=== PATIENT | female | born 1950 | race Caucasian/White ===

== ENCOUNTER 2024-09-16 13:52 | Inpatient (IN) | payer MEDICARE, SELFPAY ==
[2024-09-16] VITALS (10 sets, daily range): BP systolic 92–139; BP diastolic 59–72; BMI 26.1
[2024-09-16 04:30] LABS: Hematocrit 33.3 % (37.0-47.0); Hemoglobin 10.7 g/dL (12.0-16.0); Mean Corp Hgb Conc. 32.1 g/dL (33.0-37.0); Mean Corpuscular Volume 91.7 fL (81.0-99.0); Platelet Count 160 10^3/uL (130-400); Red Cell Dist. Width 13.4 % (11.5-14.5)
[2024-09-16 05:04] LABS: ALT (SGPT) 27 U/L (0-35); AST (SGOT) 30 U/L (14-36); Albumin 3.8 g/dl (3.5-5.0); Alkaline Phosphatase 99 U/L (38-126); Blood Urea Nitrogen 54 mg/dl (7-17); Calcium 9.6 mg/dl (8.4-10.2); Carbon Dioxide 22 mmol/L (22-30); Chloride 109 mmol/L (98-107); Estimated Creatinine Clearance 14 ml/min; Glucose 97 mg/dl (70-99); Potassium 5.1 mmol/L (3.5-5.1); Sodium 137 mmol/L (135-145); Total Protein 6.9 g/dl (6.3-8.2); eGFR 15.21
[2024-09-16 05:24] LABS: Absolute Neutrophils -Man Diff 17.3 10^3/uL (1.4-6.5); Anisocytosis 1+; Normal RBC Morphology No; Platelets Checked Yes; Total Cells Counted 100
[2024-09-16 05:40] LABS: Urine Character Cloudy (Clear)
[2024-09-16 06:30] LABS: Urine Squamous Cell >30 /LPF (Few)
[2024-09-16 06:31] LABS: Urine Red Blood Cell 16-20 /HPF (0-2)
[2024-09-16 06:32] LABS: Urine White Cell 40-50 /HPF (0-5)
--- NOTE | 2024-09-16 06:48 | ED.GENMED ---
History of Present Illness
<ALEXA Marquez - Last Filed: 09/16/24 13:58>
General
Chief Complaint: Abdominal Pain
Source: patient
Exam Limitations: none
Time Seen by Provider: 09/16/24 06:08
Nursing documentation reviewed up to this point in time: agreed with
History of Present Illness
History of Present Illness:
Patient is a 74-year-old female with past medical history of aortic stenosis, A-fib on Xarelto CAD, chronic kidney disease stage IV CVA iron deficiency anemia status post TAVR 2019 sent to the ER for abdominal pain. Patient is awake alert but can
confused. Unable to give good history. She does point to her abdomen and complains of abdominal pain.
Prior to my exam patient had blood work which shows an elevated white count patient with a low-grade temp of 100.3 and an obvious UTI
Past History
<ALEXA Marquez - Last Filed: 09/16/24 13:58>
Past History
ED Past Medical History: Arrthythmia (Atrial fibrillation), CVA, HTN, Hypercholesterolemia, Valvular disease and Other (DVT, esophageal stricture, osteoarthritis, Colitis, C-diff, Cellulitis, Ascites,)
ED Past Surgical History: Cardiac and Orthopedic (Bilateral knee replacements, Right shoulder surgery)
Social History
Tobacco: Former smoker
Alcohol: Daily
Drug: None
Personal: Single
Living: with roommate
Employment: Employed
Family History
Family History: Other
Phy Exam
<ALEXA Marquez - Last Filed: 09/16/24 13:58>
General Physical Exam
General Presentation: no apparent distress
General age: appears stated age
General Skin: warm and dry
General Habitus: normal
General Mental: confused
General Hydration: dry mucous membranes
Cardiovascular Exam
Cardiovascular Exam: tachycardia
Pulmonary Exam
Pulmonary Exam: lungs clear
Gastrointestinal Exam
Gastrointestinal Exam: soft and other (Nonspecific tenderness)
Neurological Exam
Neurological Exam: alert and other (able to state name attempts to folllow commands )
Musculoskeletal Exam
Musculoskeletal Exam: full ROM
Skin Exam
Skin Exam: normal color and warm/dry
Psychiatric Exam
Psychiatric Exam: normal mood/affect
Course
<ALEXA Marquez - Last Filed: 09/16/24 13:58>
Orders/Labs/Results
Orders:
Orders
09/16/24 04:10
CMP [Comprehensive Metabolic Panel] Urgent
Complete Blood Count/With Diff Urgent
Ferritin Urgent
Comment: ADD ON
Iron Urgent
Comment: ADD ON
Manual Differential Urgent
Comment: ADD ON
Total Iron Binding Urgent
Comment: ADD ON
Vitamin B12 Urgent
Comment: ADD ON
09/16/24 05:32
Urinalysis Reflex To Culture Urgent
Date Specimen was Collected: 09/16/24
Time Specimen was Collected: 05:29
Urine Microscopic Reflex Cult Urgent
Urine Culture Urgent
OTTONIEL Source: U
Specimen Description:
Date Specimen was Collected: 09/16/24
Time Specimen was Collected: 05:29
09/16/24 06:54
CT Abd/pel Without Iv Or Oral Urgent
Comment:
Reason For Exam: pain/constipation/uti /renal failure
09/16/24 06:55
0.9% Sodium Chloride 500 ml [Nss] 500 ml IV BOLUS
CefTRIAXone [Rocephin] 1,000 mg IV NOW STA
09/16/24 06:56
Acetaminophen [Tylenol] 650 mg PO NOW STA
09/16/24 06:57
0.9% Sodium Chloride 1000 ml [Nss] 2,100 ml IV NOW STA
09/16/24 07:12
Lactic Acid Q4H
Comment: CANCEL 2nd LACTIC ACID IF 1st LACTIC ACID IS LESS THAN 2
Blood Culture Q30M
OTTONIEL Source: Blood/Venous
Specimen Description:
09/16/24 07:30
Blood Culture Q30M
OTTONIEL Source: Blood/Venous
Specimen Description:
09/16/24 08:48
US Abdomen Complete/Upper Urgent
Comment:
Reason For Exam: pain /fever
09/16/24 11:56
Electrocardiogram (*1) Stat
Reason for Study: Other
Other Reason for Exam: chest pain
EKG- Treatment ONCE
09/16/24 12:30
Add On- LAB Routine
Tests Added?: iron,tibc,ferritin,b12
09/16/24 12:45
0.9% Sodium Chloride 1000 ml [Nss] 1,000 ml IV 60 mls/hr
09/16/24 12:48
Admit/Transfer Patient As Directed
Co-Sign Provider:
Level of Care: Inpatient admission
Assign to:: Telemetry
Physician / Group: gissel
Diagnosis: sepsis
Reason for Telemetry: Arrhythmia
Date to Stop Telemetry: 09/19/24
Time to Stop Telemetry: 11:00
Reason for Hospitalization: sepsis
Expected length of stay greater than two midnights?: Yes
ELOS- Estimated Length of Stay in days: 3
I certify the patient meets the requirements for IP care: Yes
09/16/24 12:49
PRN Pain Medication Management As Directed
May give lesser potent ordered pain med per pt: Yes
preference::
Protocol:: Medication orders for pain may be administered in a
manner that supports deferring to patient preference
when the pt is:
- Requesting an ordered lesser potent pain medication.
Least to most potent pain medications are defined
as: acetaminophen < NSAID < tramadol < opioids
(morphine, oxycodone, hydromorphone).
- Requesting a lesser dose of the same medication IF
ORDERED.
- Requesting a less intrusive route of administration
if both routes are prescribed by the provider (PO <
IV).
09/16/24 12:50
Code Status As Directed
Resuscitation Status: Do not resuscitate
Reached after discussion with pt or family/Healthcare POA: Yes
DNR Bracelet Application ONCE
09/16/24 13:00
Flush (0.9% Sodium Chloride) [Flush (Nss)] See Dose Instructions IV PER PROTOCOL
09/16/24 13:42
Piperacillin/Tazo 3.375 Gram [Zosyn] 3.375 gram in 50 ml IV NOW
09/16/24 13:45
0.9% Sodium Chloride 1000 ml [Nss] 1,000 ml IV 60 mls/hr
09/16/24 13:47
Consult Interventional Radiology [IRAD CONSULT] Routine
Consulting Provider: Sd Sauceda
Was physician already notified: Yes
Procedure being ordered, including laterality if applicable: Mary tube
Acknowledgement that appropriate orders are entered: Yes
09/19/24 11:00
DC Protocol for Telemetry ONCE
Abnormal Lab Results
09/16/24 09/16/24
04:10 05:32
WBC 19.3 H 10^3/uL
(4.8-10.8)
RBC 3.63 L 10^6/uL
(4.20-5.40)
Hgb 10.7 L g/dL
(12.0-16.0)
Hct 33.3 L %
(37.0-47.0)
MCHC 32.1 L g/dL
(33.0-37.0)
MPV 11.1 H fL
(7.4-10.4)
Abs Neuts (Manual) 17.3 H 10^3/uL
(1.4-6.5)
Segmented Neutrophils 90 H %
(42-75)
Lymphocytes (Manual) 10 L %
(20-51)
Chloride 109 H mmol/L
(98-107)
BUN 54 H mg/dl
(7-17)
Creatinine 3.1 H mg/dL
(0.6-1.0)
Iron 24 L ug/dl
(37-170)
TIBC 193 L ug/dl
(265-497)
% Saturation 12 L %
(20-50)
Ur Occult Blood Reflex 3+ A
(Negative)
Urine Nitrite (Reflex) Positive A
(Negative)
Leukocyte Esterase Rfl 2+ A
(Negative)
Urine RBC 16-20 A /HPF
(0-2)
Urine WBC (Reflex) 40-50 A /HPF
(0-5)
Urine Bacteria (Reflex) Many A
(Negative)
Urine Albumin (Reflex) 4+ A
(Neg - Trace)
09/16/24 04:10
09/16/24 04:10
Vital Signs
Initial and Last Documented VS:
Initial Vital Signs
Temp Pulse Resp
100.3 F 117 28
09/16/24 03:55 09/16/24 03:55 09/16/24 03:55
Last Documented Vital Signs
Temp Pulse Resp BP Pulse Ox
100.3 F 113 26 137/72 96
09/16/24 04:03 09/16/24 10:46 09/16/24 08:08 09/16/24 08:08 09/16/24 08:08
Chapter Relations Administrator consulted with Physician
Chapter Relations Administrator consulted with physician?: Yes
Name of Physician Consulted: gio
<Ricky Leahy, DO - Last Filed: 09/16/24 12:54>
Orders/Labs/Results
Orders:
Orders
09/16/24 04:10
CMP [Comprehensive Metabolic Panel] Urgent
Complete Blood Count/With Diff Urgent
Ferritin Urgent
Comment: ADD ON
Iron Urgent
Comment: ADD ON
Manual Differential Urgent
Comment: ADD ON
Total Iron Binding Urgent
Comment: ADD ON
Vitamin B12 Urgent
Comment: ADD ON
09/16/24 05:32
Urinalysis Reflex To Culture Urgent
Date Specimen was Collected: 09/16/24
Time Specimen was Collected: 05:29
Urine Microscopic Reflex Cult Urgent
Urine Culture Urgent
OTTONIEL Source: U
Specimen Description:
Date Specimen was Collected: 09/16/24
Time Specimen was Collected: 05:29
09/16/24 06:54
CT Abd/pel Without Iv Or Oral Urgent
Comment:
Reason For Exam: pain/constipation/uti /renal failure
09/16/24 06:55
0.9% Sodium Chloride 500 ml [Nss] 500 ml IV BOLUS
CefTRIAXone [Rocephin] 1,000 mg IV NOW STA
09/16/24 06:56
Acetaminophen [Tylenol] 650 mg PO NOW STA
09/16/24 06:57
0.9% Sodium Chloride 1000 ml [Nss] 2,100 ml IV NOW STA
09/16/24 07:12
Lactic Acid Q4H
Comment: CANCEL 2nd LACTIC ACID IF 1st LACTIC ACID IS LESS THAN 2
Blood Culture Q30M
OTTONIEL Source: Blood/Venous
Specimen Description:
09/16/24 07:30
Blood Culture Q30M
OTTONIEL Source: Blood/Venous
Specimen Description:
09/16/24 08:48
US Abdomen Complete/Upper Urgent
Comment:
Reason For Exam: pain /fever
09/16/24 11:56
Electrocardiogram (*1) Stat
Reason for Study: Other
Other Reason for Exam: chest pain
EKG- Treatment ONCE
09/16/24 12:30
Add On- LAB Routine
Tests Added?: iron,tibc,ferritin,b12
09/16/24 12:45
0.9% Sodium Chloride 1000 ml [Nss] 1,000 ml IV 60 mls/hr
09/16/24 12:48
Admit/Transfer Patient As Directed
Co-Sign Provider:
Level of Care: Inpatient admission
Assign to:: Telemetry
Physician / Group: gissel
Diagnosis: sepsis
Reason for Telemetry: Arrhythmia
Date to Stop Telemetry: 09/19/24
Time to Stop Telemetry: 11:00
Reason for Hospitalization: sepsis
Expected length of stay greater than two midnights?: Yes
ELOS- Estimated Length of Stay in days: 3
I certify the patient meets the requirements for IP care: Yes
09/16/24 12:49
PRN Pain Medication Management As Directed
May give lesser potent ordered pain med per pt: Yes
preference::
Protocol:: Medication orders for pain may be administered in a
manner that supports deferring to patient preference
when the pt is:
- Requesting an ordered lesser potent pain medication.
Least to most potent pain medications are defined
as: acetaminophen < NSAID < tramadol < opioids
(morphine, oxycodone, hydromorphone).
- Requesting a lesser dose of the same medication IF
ORDERED.
- Requesting a less intrusive route of administration
if both routes are prescribed by the provider (PO <
IV).
09/16/24 12:50
Code Status As Directed
Resuscitation Status: Do not resuscitate
Reached after discussion with pt or family/Healthcare POA: Yes
DNR Bracelet Application ONCE
09/16/24 13:00
Flush (0.9% Sodium Chloride) [Flush (Nss)] See Dose Instructions IV PER PROTOCOL
09/16/24 13:42
Piperacillin/Tazo 3.375 Gram [Zosyn] 3.375 gram in 50 ml IV NOW
09/16/24 13:45
0.9% Sodium Chloride 1000 ml [Nss] 1,000 ml IV 60 mls/hr
09/16/24 13:47
Consult Interventional Radiology [IRAD CONSULT] Routine
Consulting Provider: Sd Sauceda
Was physician already notified: Yes
Procedure being ordered, including laterality if applicable: Mary tube
Acknowledgement that appropriate orders are entered: Yes
09/19/24 11:00
DC Protocol for Telemetry ONCE
Abnormal Lab Results
09/16/24 09/16/24
04:10 05:32
WBC 19.3 H 10^3/uL
(4.8-10.8)
RBC 3.63 L 10^6/uL
(4.20-5.40)
Hgb 10.7 L g/dL
(12.0-16.0)
Hct 33.3 L %
(37.0-47.0)
MCHC 32.1 L g/dL
(33.0-37.0)
MPV 11.1 H fL
(7.4-10.4)
Abs Neuts (Manual) 17.3 H 10^3/uL
(1.4-6.5)
Segmented Neutrophils 90 H %
(42-75)
Lymphocytes (Manual) 10 L %
(20-51)
Chloride 109 H mmol/L
(98-107)
BUN 54 H mg/dl
(7-17)
Creatinine 3.1 H mg/dL
(0.6-1.0)
Iron 24 L ug/dl
(37-170)
TIBC 193 L ug/dl
(265-497)
% Saturation 12 L %
(20-50)
Ur Occult Blood Reflex 3+ A
(Negative)
Urine Nitrite (Reflex) Positive A
(Negative)
Leukocyte Esterase Rfl 2+ A
(Negative)
Urine RBC 16-20 A /HPF
(0-2)
Urine WBC (Reflex) 40-50 A /HPF
(0-5)
Urine Bacteria (Reflex) Many A
(Negative)
Urine Albumin (Reflex) 4+ A
(Neg - Trace)
09/16/24 04:10
09/16/24 04:10
Vital Signs
Initial and Last Documented VS:
Initial Vital Signs
Temp Pulse Resp
100.3 F 117 28
09/16/24 03:55 09/16/24 03:55 09/16/24 03:55
Last Documented Vital Signs
Temp Pulse Resp BP Pulse Ox
100.3 F 113 26 137/72 96
09/16/24 04:03 09/16/24 10:46 09/16/24 08:08 09/16/24 08:08 09/16/24 08:08
<ALEXA Marquez - Last Filed: 09/16/24 13:58>
MDM/Problems Addressed
Differential Diagnosis Includes:
Not limited to: UTI, diverticulitis, biliary colic
MDM/Problems Addressed:
As documented patient is a 74-year-old female with cognitive impairment from nursing facility sent for evaluation of abdominal pain. Patient is a poor historian she is tender on exam. Patient presents with a fever of 100.3 nonspecific abdominal
tenderness urinalysis does show infection. Patient does have an elevated white count. She does have chronic kidney disease and her BUN today is 54 creatinine is 3.1 9, which is increased from 2.December. Patient was ordered a noncontrast
CAT scan which does show cardiomegaly pericardial effusion, some gallbladder stones with some gallbladder wall thickening and some right upper quadrant likely pericholecystic stranding could represent cholecystitis ultrasound ordered. Patient has
UTI IV Rocephin ordered. Patient presents with elevated heart rate fever elevated white count sepsis criteria septic fluids ordered
. CAse discussed With DR Leahy.
Ultrasound done and shows cholelithiasis with at least 1 gallstone in the vicinity of the neck of the gallbladder as well as some gallbladder wall thickening no findings to suggest pericholecystic fluid or biliary duct dilatation negative Norwood
sign.
With findings surgery made aware. pt adm to the hospitalist service .
I did speak with patient's brother over the phone Janusz Shrestha
Chronic conditions affecting care:
dementia
<ALEXA Marquez - Last Filed: 09/16/24 13:58>
*Radiology
Radiology exam reviewed: radiology read reviewed
*Pulse Oximetry
SaO2: 96
Oxygen Mode of Delivery: Room air
Patient hypoxic: no
<Ricky Leahy DO - Last Filed: 09/16/24 12:54>
*Cotton Ball Bagger Interpretation
Rate: tachycardiac
Interpretation: abnormal
Heart Rate: 118
Rhythm: a-fib
*Critical Care Note
Total Time (30-74mins, 75-104mins- exclusive of procedures): 30
Data Reviewed
Source: patient
<ALEXA Marquez - Last Filed: 09/16/24 13:58>
Patient Management
Discussion with other providers: Gimp Buttonhole Machine Operator (general surg, Dr Rodriguez )
ED Attending Note
<ALEXA Marquez - Last Filed: 09/16/24 13:58>
-
Portions of this chart may have been created with voice recognition software.� Occasional wrong word or��sound alike� substitutions may have occurred due to the inherent limitations of voice recognition software.
<Ricky Leahy, DO - Last Filed: 09/16/24 12:54>
ED Attending Note
Patient seen and examined by attending physician: Yes
I performed the substantive portion of visit, reviewed & personally made and approve the management plan that is documented in note by myself or MARILUZ.: Yes
ED Attending Note:
Seen with her practitioner examined independently 74-year-old female abdominal pain fever CT and ultrasound noted she is anticoagulated fluids will be ordered antibiotics will be ordered surgery's been consulted
Discharge Plan
Departure
Patient Disposition: Admit
Date of Disposition: 09/16/24
Time of Disposition: 11:51
Admit to: Telemetry
Admit to doctor: hospitalist
Presentation/result/management discussed w/ accepting MD/DO: Hospitalist
Patient with high blood pressure during this ER visit?: No
Condition: Fair
Covid-19: Not Applicable
Discharge Problem:
urosepsis
Interventions
Interventions:
*Risk Screen - Suicide Last Done: 09/16/24 04:07
*General Assessment Last Done: 09/16/24 04:06
*Neglect/Abuse Screening Last Done: 09/16/24 04:08
*ED- Fall Risk Assessment Last Done: 09/16/24 04:58
*ED COVID-19 Vaccine History Last Done: 09/16/24 04:06
LX-Befuas-Wyrtoyqxsf Assessment Last Done: 09/16/24 04:07
[2024-09-16] MEDS: TYLENOL 650 MG PO (07:03)
[2024-09-16] MEDS: ROCEPHIN 1000 MG IV (07:03)
[2024-09-16] MEDS: NSS 2100 ML IV (07:05)
--- NOTE | 2024-09-16 12:19 | HPS.HSE ---
Addendum entered and electronically signed by Sima Hutton MD 09/16/24 12:59:
I saw and examined the patient.
The MEAT PASSER or PA's note was reviewed and I agree with the note.
Comment: see changes in my documentation.
74-year-old female with abdominal pain also fever of 100.3
CT abdomen and pelvis-cardiomegaly. Small pericardial effusion. Small gallbladder stones with some gallbladder wall thickening and some right upper quadrant pericholecystic stranding findings could represent acute cholecystitis. Moderate
bilateral perinephric stranding no evidence of obstructive uropathy. Descending colon and sigmoid colon diverticulosis. Moderate widespread colonic stool
Ultrasound of the abdomen-cholelithiasis with 1 gallstone in the gallbladder neck as well as some gallbladder wall thickening. No findings to suggest pericholecystic fluid or biliary tract dilatation. Negative sonographic Norwood sign.
EKG-A-fib with RVR rate of 108
Awake and alert communicative
Cardiovascular system S1-S2 appreciated irregular
Chest decreased breath sounds at bases
Abdomen diffusely tender more tenderness on the right upper and lumbar area
No pedal edema
# Sepsis present on admission
Fever abdominal pain
Possible cholecystitis but normal LFTs
Other possibilities UTI
Blood culture sent, urine cultures pending
Likely secondary to acute cholecystitis
Keep n.p.o. with IV fluids
IV antibiotics, ZOsyn
Hold Xarelto, bridge with heparin drip
Surgery consultation
# Paroxysmal atrial fibrillation
Follow rates
Continue amiodarone
Hold Xarelto in case needs surgical procedures
# Coronary artery disease-Details unclear
# Aortic valve-TAVR 2019
# TRACIE on CKD stage IV- Gentle IVF while NPO
# History of stroke
# History of SIADH
# Ambulatory dysfunction- Uses wheel chair at [facility]
# Chronic anemia-check iron studies
# History of DVT-bridged with heparin drip
# Ex-smoker
# DVT prophylaxis-heparin drip
# CODE STATUS-Patient wants to be DNR
Spoke to patient's brother Janusz and updated. Discussed about holding blood thinners, treating infection may need surgery yeah
Part of this note was created using voice recognition system. Occasional wrong word or��sound alike� substitutions may have inadvertently occurred due to the inherent limitations of voice recognition software. If noted kindly bring it to my
attention for correction.
Original Note:
Family Physician
-
Family Physician: Clifford Castro
Chief Complaint
-
Abdominal pain
History of Present Illness
74-year-old female with past medical history of aortic stenosis, A-fib on Xarelto CAD, chronic kidney disease stage IV CVA iron deficiency anemia status post TAVR 2019 sent to the ER for abdominal pain. she is tender to touch. she had low grade temp
at intermediate. denied GLEASON,dizzy or syncope. denied chest pain, sob. denied dysuria or hematuria. denied n.v.d.
Patient received normal saline, Tylenol, ceftriaxone in the ER. Blood culture sent from ER. Admitting for further management
Medical History
Past Medical History
Past Medical History: Reports Other
Additional Past Medical History:
High cholesterol
Hyponatremia
Thrombus of left atrial appendage
Aortic stenosis
CKD 4
CVA
Arthritis
Anxiety
Depression
Past Surgical History: Reports Other
Additional Past Surgical History:
Shoulder surgery
DNC
Foot surgery
Aortic valve replacement
Right TKA
Loop recorder
Social History
Tobacco: Non-smoker
Alcohol: None
Drug: None
Living: Homeless
Family History
Family History: Not pertinent
Allergies / Home Medications
Allergies reflects when Allergies were last updated in [employer].
Home Medications with original date entered in [employer]
Allergy/Medication List:
Allergies
Allergy/AdvReac Type Severity Reaction Status Date / Time
No Known Allergies Allergy Verified 01/08/23 17:13
Home Medications
peg 400-propylene glycol 0.4 %-0.3 % eye drops (Lubricant Eye (PG-PEG 400)) 1 drp BOTH EYES BID dry eyes 12/22/22
amiodarone 100 mg tablet (Pacerone) 100 mg PO DAILY 30 days #30 tabs 12/30/22
rivaroxaban 15 mg tablet (Xarelto) 15 mg PO HS 01/09/23
thiamine HCl (vitamin B1) 100 mg tablet 100 mg PO BID 01/09/23
acetaminophen 325 mg tablet (Tylenol) 650 mg PO Q4HPRN PRN mild pain 09/16/24
bisacodyl 10 mg rectal suppository (Dulcolax (bisacodyl)) 10 mg VA DAILYPRN PRN if no bm aftr mom 09/16/24
buspirone 5 mg tablet 5 mg PO BID 09/16/24
carboxymethylcellulose 0.5 %-glycerin 0.9 % eye drops (Refresh Optive) 1 drp BOTH EYES BID 09/16/24
docusate sodium 100 mg capsule (Colace) 100 mg PO DAILY 09/16/24
loperamide 2 mg tablet 2 mg PO Q8HPRN PRN diarrhea 09/16/24
magnesium hydroxide 400 mg/5 mL oral suspension (Milk of Magnesia) 2,400 mg PO DAILYPRN PRN if no bm aftr 3rd day 09/16/24
sodium phosphates 19 gram-7 gram/118 mL enema (Fleet Enema) 118 ml VA DAILYPRN PRN IF NO BM AFTR DULCOLAX 09/16/24
Review of Systems
-
Constitutional: Reports No Symptoms
EENT: Reports No Symptoms
Respiratory: Reports No Symptoms
Cardiac: Reports No Symptoms
Abdomen/GI: Reports Abdominal Pain
: Reports No Symptoms
Musculoskeletal: Reports No Symptoms
Skin: Reports No Symptoms
Neurological: Reports No Symptoms
Endocrine: Reports No Symptoms
Hematologic/Lymphatic: Reports No Symptoms
Psych: Reports No Symptoms
Physical Exam
Vital Signs
Vital Signs
Temp Pulse Resp BP Pulse Ox
100.3 F 113 26 137/72 96
09/16/24 04:03 09/16/24 10:46 09/16/24 08:08 09/16/24 08:08 09/16/24 08:08
Physical Exam
General: Well Developed, Well Nourished and No Apparent Distress
HEENT: NormoCephalic, Moist mucous membranes and Atraumatic
Respiratory: Clear
Cardiac: S1/S2 and Regular Rhythm; No Murmur or Rub
GI: Soft, Non Distended, Normal Bowel Sounds and Tender; No Organomegaly
Rectal: Deferred by Provider
Musculoskeletal: No Clubbing, No Cyanosis and No Edema
Skin: No Rash
Neuro: AO x 3 and Nonfocal/grossly intact
Psych: Calm
Laboratory Results
-
09/16/24 04:10
09/16/24 04:10
Laboratory Results
Lactic Acid Cancelled 09/16/24 11:00
Total Bilirubin 0.7 mg/dl (0.2-1.3) 09/16/24 04:10
AST 30 U/L (14-36) 09/16/24 04:10
ALT 27 U/L (0-35) 09/16/24 04:10
Alkaline Phosphatase 99 U/L (38-126) 09/16/24 04:10
Data Reviewed
-
CT Scan: Report Reviewed by me
Ultrasound: Report Reviewed by me
Lab Data: Labs Reviewed by me
Impression/Plan
-
# Abdominal pain secondary to gallbladder stones possible acute cholecystitis
-# Sepsis as evidenced by WBCs 19.3, heart rate 113, temp 100.3
- Ultrasound of abdomen with impression Cholelithiasis with at least one gallstone is seen in the vicinity of the gallbladder neck as well as some gallbladder wall thickening. No findings to suggest pericholecystic fluid or biliary tract dilatation.
Negative sonographic Norwood's sign. If there is a clinical suspicion for acute cholecystitis, suggest Nuclear Hepatobiliary scan.
- CT abdomen pelvis with Cardiomegaly. Small pericardial effusion again seen. Heart incompletely included on this study.Likely small gallbladder stones with some gallbladder wall thickening and some right upper quadrant likely pericholecystic
stranding. FINDINGS COULD REPRESENT ACUTE CHOLECYSTITIS. Suggest Abdominal Ultrasound for more complete evaluation.Limited evaluation of intestinal tract without oral or intravenous contrast with some stranding about the hepatic flexure of the colon
likely from the gallbladder, less likely intrinsic inflammation.Moderate bilateral perinephric stranding. No gross findings to suggest obstructive uropathy bilaterally.Descending colon and sigmoid diverticulosis. Moderate volume widespread colonic
stool. No intestinal obstruction or free air.
-keep patient NPO
-fluids continued for hydration
-Dilaudid for pain
-iv Zosyn
-surgery consulted
# Urinary tract infection
-iv Zosyn
-urine culture sent from ER
#anemia of chronic disease
-hgb stable at 10.7, no active bleeding
-ctm
# Acute kidney injury on CKD stage Iv likely dehydration
- Creatinine 3.1
- Fluids continued
- BMP in a.m.
#Hx of A. Fib
EKG with atrial fib with RVR
-HR in 100-115
- continue Amiodarone reduced dose as above
- Hold Xarelto, initiate on heparin drip tonight at 6pm
#hxt of s/p TAVR
#hx of CVA 2020
DVT ppx: heparin drip
DNR
[2024-09-16 13:19] LABS: Iron 24 ug/dl (37-170)
--- NOTE | 2024-09-16 13:34 | CON.GS ---
Addendum entered and electronically signed by Wilfredo Rodriguez MD 09/16/24 13:47:
Attempted to call son for an update. No response.
Original Note:
Medical History
-
Chief Complaint: Abdominal pain
History of Present Illness:
Patient is a 74 yo F with a PMH of HLD, aortic stenosis s/p TAVR, A-fib (on Xarelto), CVA, CKD stage IV, and s/p multiple orthopedic procedures. Ms. Cabrera [facility] due to reports of abdominal pain. Ms. Cabrera
states that she has had upper abdominal pain and discomfort for weeks now. Symptoms were initially more intermittent. Over the past 24 to 48 hours she has had more persistent pain. Worst area of pain is localized to the RUQ. No nausea or
vomiting. She does not report that her pain is specifically worsened with oral intake, however, she does report decreased oral intake over the past several weeks. Low-grade temps at the jail. Currently reports some shortness of breath.
Denies any chest pain. She denies any prior attacks or knowledge of gallbladder issues or stones. She denies any jaundice, pale stools, or tea colored urine.
Past Medical History
Past Medical History: Arrhythmias (Afib), CVA, Hypercholesterolemia, Psychiatric (Depression/anxiety) and Renal Failure
Social History
Tobacco: Non-Smoker
Alcohol: None
Drug: None
Living: Group Home
Family History
Family History: Reviewed & Noncontributory
Allergies / Home Medications
Allergy/AdvReac Type Severity Reaction Status Date / Time
No Known Allergies Allergy Verified 01/08/23 17:13
�Medication �Instructions �Recorded �Confirmed �Type
peg 400-propylene glycol 0.4 %-0.3 1 drp BOTH EYES BID dry eyes 12/22/22 09/16/24 History
% eye drops (Lubricant Eye (PG-PEG
400))
amiodarone 100 mg tablet (Pacerone) 100 mg PO DAILY 30 days #30 tabs 12/30/22 09/16/24 Rx
rivaroxaban 15 mg tablet (Xarelto) 15 mg PO HS 01/09/23 09/16/24 History
thiamine HCl (vitamin B1) 100 mg 100 mg PO BID 01/09/23 09/16/24 History
tablet
acetaminophen 325 mg tablet 650 mg PO Q4HPRN PRN mild pain 09/16/24 09/16/24 History
(Tylenol)
bisacodyl 10 mg rectal suppository 10 mg MO DAILYPRN PRN if no bm 09/16/24 09/16/24 History
(Dulcolax (bisacodyl)) aftr mom
buspirone 5 mg tablet 5 mg PO BID 09/16/24 09/16/24 History
carboxymethylcellulose 0.5 1 drp BOTH EYES BID 09/16/24 09/16/24 History
%-glycerin 0.9 % eye drops
(Refresh Optive)
docusate sodium 100 mg capsule 100 mg PO DAILY 09/16/24 09/16/24 History
(Colace)
loperamide 2 mg tablet 2 mg PO Q8HPRN PRN diarrhea 09/16/24 09/16/24 History
magnesium hydroxide 400 mg/5 mL 2,400 mg PO DAILYPRN PRN if no bm 09/16/24 09/16/24 History
oral suspension (Milk of Magnesia) aftr 3rd day
sodium phosphates 19 gram-7 118 ml MO DAILYPRN PRN IF NO BM 09/16/24 09/16/24 History
gram/118 mL enema (Fleet Enema) AFTR DULCOLAX
Review of Systems
-
A 10 point review of systems was completed, and was negative except as per HPI.
Physical Exam
Vital Signs
Temp Pulse Resp BP Pulse Ox
100.3 F 113 26 137/72 96
09/16/24 04:03 09/16/24 10:46 09/16/24 08:08 09/16/24 08:08 09/16/24 08:08
09/15/24 09/16/24 09/17/24
06:59 06:59 06:59
Actual Weight 69 kg
Body Mass Index (BMI) 26.1
Lab Results
09/16/24 04:10
09/16/24 04:10
WBC 19.3 10^3/uL (4.8-10.8) H 09/16/24 04:10
Hgb 10.7 g/dL (12.0-16.0) L 09/16/24 04:10
Hct 33.3 % (37.0-47.0) L 09/16/24 04:10
Plt Count 160 10^3/uL (130-400) 09/16/24 04:10
Physical Exam
General: Well Developed, Well Nourished and No Apparent Distress
HEENT: Normocephalic and Anicteric
Respiratory: Non Labored Respirations
Cardiac: Irregular Rhythm
GI: Soft, Tender (RUQ, positive Norwood's sign), Distended and Other (Localized peritonitis)
Musculoskeletal: No Edema
Skin: Warm and Dry
Neuro: Nonfocal/Grossly Intact
Data Reviewed
-
CT Scan: Image Personally Visualized and interpreted and Report Reviewed by me
Ultrasound: Image Personally Visualized and interpreted and Report Reviewed by me
Labs: Labs Reviewed by me
Assessment / Plan
-
Patient is a 74 yo F p/w severe acute calculus cholecystitis with possible contained perforation at the fundus of the gallbladder
Brief discussion regarding the natural history and pathophysiology of biliary and stone disease. Workup including CT scan, ultrasound, and labs were reviewed. Current issue unlikely to resolve with antibiotics alone. Options for management
including procedural management with cholecystostomy tube versus surgical management with cholecystectomy were considered discussed. The pros and cons of both approaches was discussed. We specifically discussed that she is at increased risk for
operative complications given her delayed presentation and the resulting severity of her cholecystitis, as well as her active anticoagulation. Recommend and plan for cholecystostomy tube placement. IR updated and consulted. Continue with IV
antibiotics. All questions answered.
-- IR cholecystostomy tube
-- Abx: Zosyn
-- NPO, IVF, OK for clears after her IR procedure
-- Hold Xarelto, if starting Hep gtt will need to coordinate with IR procedure
[2024-09-16] MEDS: NSS 1000 IV (13:36)
[2024-09-16 13:38] LABS: Total Iron Binding Capacity 193 ug/dl (265-497)
--- NOTE | 2024-09-16 13:59 | CM ---
CM reviewed chart and met with pt bedside in ED. Pt resides in LTC at [facility], states she has been there for a year.
Needs assistance with ADLs and personal care. Wheelchair bound, could not get a clear answer if she is able to stand and walk.
Her brother Janusz is POA, lives in [place].
Discharge plan: Anticipate return to [facility] LTC pending ongoing medical evaluation
[2024-09-16 14:10] LABS: Ferritin 788.0 ng/ml (11.1-264.0)
[2024-09-16 14:24] LABS: Vitamin B12 695 pg/ml (239-931)
[2024-09-16] MEDS: ZOSYN 50 IV (18:23)
--- NOTE | 2024-09-16 20:00 | PTCARENOTE ---
Patient with a known history of A.Fib. Patient did not receive her daily dose of Amiodarone 100mg. Patient in uncontrolled A.Fib on monitor. HR sustaining in the 130's. ALEXA Mccray notified and order received to give daily dose of PO Amiodarone
now. Will continue to monitor.
[2024-09-16 20:44] LABS: Hematocrit 27.4 % (37.0-47.0); Hemoglobin 8.9 g/dL (12.0-16.0); Mean Corp Hgb Conc. 32.5 g/dL (33.0-37.0); Mean Corpuscular Volume 91.6 fL (81.0-99.0); Platelet Count 132 10^3/uL (130-400); Red Cell Dist. Width 13.6 % (11.5-14.5)
[2024-09-16] MEDS: BUSPAR 5 MG PO (20:44)
[2024-09-16] MEDS: REFRESH EYE DROPS (PF) 1 DROPS BOTH EYES (20:44)
[2024-09-16] MEDS: PACERONE 100 MG PO (20:45)
[2024-09-16 20:55] LABS: APTT 47.5 Sec (23.4-35.0)
--- NOTE | 2024-09-16 21:30 | PTCARENOTE ---
Patient had outstanding labs. PTT and CBC drawn. PTT slightly elevated. Hgb down from 10.7 to 8.9. No signs of bleeding. Snow Mack notified. Clarified that it was still ok to start Heparin gtt. Ok to start Heparin gtt per protocol. Will
continue to monitor.
[2024-09-16] MEDS: VITAMIN B1 PO (21:38)
[2024-09-16] MEDS: DILAUDID 0.5 MG IV (21:41)
[2024-09-16] MEDS: HEPARIN 25000 UNITS/250 ML IV (21:59)
[2024-09-16] MEDS: REFRESH CELLUVISC GEL 1 DROPS OPHTH (23:14)
[2024-09-16] MEDS: VITAMIN B1 100 MG PO (23:16)
[2024-09-17 00:31] VITALS: BMI 26.1
[2024-09-17] MEDS: ZOSYN 50 IV ×3 (00:53→17:11)
[2024-09-17 03:00] VITALS: BP 117/75
[2024-09-17 04:52] LABS: APTT 72.8 Sec (23.4-35.0)
[2024-09-17 07:00] VITALS: BP 112/75
--- NOTE | 2024-09-17 08:05 | W.PN.UPDATE ---
Update Note
Progress Note Update
Attempted to call brother again to provide update. No response.
--- NOTE | 2024-09-17 08:08 | W.PN.UPDATE ---
Update Note
Progress Note Update
I saw and evaluated the patient. I reviewed the resident�s note and agree with findings and plan as documented in the resident�s note.
Gen: NAD, Awake and alert
Eyes: EOMI, PERRLA, no scleral icterus.
Neck: supple.
CV: tachy, irreg/irreg, +S1/S2, no m/r/g.
Resp: CTAB, no rales, wheezes, or rhonchi.
Abd: +BS, soft, diffuse TTP with guarding, greatest in the RUQ, ND
Skin: No rashes.
Neuro: CN 2-12 intact, non-focal.
Psych: Normal mood and affect.
CT A/P: Cardiomegaly. Small pericardial effusion again seen. Heart incompletely included on this study. Likely small gallbladder stones with some gallbladder wall thickening and some right upper quadrant likely pericholecystic stranding. FINDINGS
COULD REPRESENT ACUTE CHOLECYSTITIS. Suggest Abdominal Ultrasound for more complete evaluation. Limited evaluation of intestinal tract without oral or intravenous contrast with some stranding about the hepatic flexure of the colon likely from the
gallbladder, less likely intrinsic inflammation. Moderate bilateral perinephric stranding. No gross findings to suggest obstructive uropathy bilaterally. Descending colon and sigmoid diverticulosis. Moderate volume widespread colonic stool. No
intestinal obstruction or free air.
Abd U/S: Cholelithiasis with at least one gallstone is seen in the vicinity of the gallbladder neck as well as some gallbladder wall thickening. No findings to suggest pericholecystic fluid or biliary tract dilatation. Negative sonographic Norwood's
sign. If there is a clinical suspicion for acute cholecystitis, suggest Nuclear Hepatobiliary scan.
Sepsis due to acute calculus cholecystitis:
-surgery following, recommending perc jerilyn, IR c/s placed
-cont Zosyn
-follow BCx (seems as if only one was drawn, prelim with GNR)
-c/s ID
-NPO for now
-pain control
-increase IVFs to 125cc/hr (unclear why pt was on only 60cc/hr)
TRACIE on CKD4:
-increase IVF rate to 125cc/hr
Chronic anemia:
-Fe studies suggest Fe def anemia (ferritin currently likely an acute phase reactant)
-trend Hb, transfuse for Hb < 7
Other problems:
PAF: currently on heparin gtt, cont amio
CAD
s/p TAVR 2018
h/o CVA
h/o SIADH
Chronic ambulatory dysfunction
h/o DVT: currently on heparin gtt
Former tobacco abuse d/o
DNR/heparin gtt
[2024-09-17] MEDS: VITAMIN B1 100 MG PO ×2 (09:25→22:13)
[2024-09-17] MEDS: BUSPAR 5 MG PO ×2 (09:25→20:13)
[2024-09-17] MEDS: PACERONE 100 MG PO (09:25)
[2024-09-17] MEDS: COLACE 100 MG PO (09:26)
[2024-09-17] MEDS: REFRESH CELLUVISC GEL 1 DROPS OPHTH ×2 (09:26→22:13)
[2024-09-17] MEDS: REFRESH EYE DROPS (PF) 1 DROPS BOTH EYES ×2 (09:26→20:13)
[2024-09-17 09:46] LABS: Hematocrit 29.4 % (37.0-47.0); Hemoglobin 9.4 g/dL (12.0-16.0); Mean Corp Hgb Conc. 32.0 g/dL (33.0-37.0); Mean Corpuscular Volume 93.0 fL (81.0-99.0); Platelet Count 149 10^3/uL (130-400); Red Cell Dist. Width 13.8 % (11.5-14.5)
--- NOTE | 2024-09-17 09:49 | W.PN.GS2 ---
Today's Communication / Plan
-
IR cholecystostomy tube
Assessment / Plan
-
Patient is a 74 yo F with a PMH of HLD, aortic stenosis s/p TAVR, A-fib (on Xarelto), CVA, CKD stage IV, and s/p multiple orthopedic procedures presented with abdominal pain.
#Sepsis due to Acute calculus Cholecystitis:
Temp= 98.3, afebrile,
WBC count= 17.2-->15.8 (h)
Blood culture- Gram stain of anaerobic - gram negative bacilli.
On 09/[address] scan without contrast:
Likely small gallbladder stones with some gallbladder wall thickening and some right upper quadrant likely pericholecystic stranding. FINDINGS COULD REPRESENT ACUTE CHOLECYSTITIS.
Descending colon and sigmoid diverticulosis. Moderate volume widespread colonic stool. No intestinal obstruction or free air.
On 09/16 Abdomen USG:
Cholelithiasis with at least one gallstone is seen in the vicinity of the gallbladder neck as well as some gallbladder wall thickening. No findings to suggest pericholecystic fluid or biliary tract dilatation.
Negative sonographic Norwood's sign.
planned for IR cholecystostomy tube
Abx: Zosyn DAY 2
NPO,
IVF,
Heparin Sodium 25,000 units/250 ml for DVT
Subjective Data
-
Date of Service: September 17, 2024
Patient has a concern for abdominal pain on her right side, not associated with nausea, vomiting, diarrhea, constipation. She passed her flatus today, but no bowel movement.
Objective Data
-
Intake and Output
09/16/24 09/17/24 09/18/24
06:59 06:59 06:59
Intake Total 0 / 0
Balance 0 / 0
Intake:
Oral fluids 0 / 0
Other:
How many times incontinent 2
SATURATED amount urine
Vital Signs
Temp Pulse Resp BP Pulse Ox
98.3 F 109 16 117/75 96
09/17/24 07:00 09/17/24 09:25 09/17/24 07:00 09/17/24 09:25 09/17/24 07:00
Lab Results
09/17/24 09:25
Calcium 9.6 mg/dl (8.4-10.2) 09/16/24 04:10
Total Bilirubin 0.7 mg/dl (0.2-1.3) 09/16/24 04:10
AST 30 U/L (14-36) 09/16/24 04:10
ALT 27 U/L (0-35) 09/16/24 04:10
Alkaline Phosphatase 99 U/L (38-126) 09/16/24 04:10
Total Protein 6.9 g/dl (6.3-8.2) 09/16/24 04:10
Albumin 3.8 g/dl (3.5-5.0) 09/16/24 04:10
Physical Exam
-
General: Well Developed, Well Nourished and No Apparent Distress
HEENT: Normocephalic and Anicteric
Respiratory: Non Labored Respirations
Cardiac: Irregular Rhythm
GI: Soft, Tender (RUQ, positive Norwood's sign), Distended and Other (Localized peritonitis)
Musculoskeletal: No Edema
Skin: Warm and Dry
Neuro: Nonfocal/Grossly Intact
Patient has a gutierrez catheter: No
Patient has a central line: No
--- NOTE | 2024-09-17 09:57 | PTCARENOTE ---
JORDON MARRUFO- confirmed with [facility] last dose of Xarelto was on 09/15/24 at 1999. spoke to [facility]- nursing staff.
--- NOTE | 2024-09-17 10:03 | CM ---
chart reviewed
Left Message for Alexus at [facility]
Patient resides at [facility]
Referral entered in [facility]
PLAN: Return to [facility] when medically stable
Report #: [phone] Fax #: [phone]
--- NOTE | 2024-09-17 10:32 | W.PN.HOSP.TC ---
Today's Communication/Plan
-
Follow-up ID recs, continue IV Zosyn until then
IR PERC cholecystostomy tube today
Advance diet to CLD after procedure
TRACIE versus RTA, appreciate nephro recs
Assessment / Plan
Assessment / Plan
Ms. Sheikh (Reanna Shrestha) is a 74-year-old female with past medical history of HLD, aortic stenosis s/p TAVR in 2019, A-fib on Xarelto, CVA, CKD stage IV, iron deficiency anemia, who presented from SNF from SNF to the ER on 09/16/2024 with low-grade
fevers (ED temp 100.3), WBC 19.3, tachycardia (113), tachypnea (26), and severe abdominal pain, most pronounced in the right lower quadrant. CT A/P was pertinent for possible acute cholecystitis and abdominal ultrasound showed 1 gallstone in the
gallbladder neck and gallbladder wall thickening. She was started on IV Zosyn, surgery and IR were consulted for further management, and IR is planning to place a percutaneous cholecystostomy tube on 09/17/2024 for management of acalculous
cholecystitis.
#Sepsis secondary to acalculous cholecystitis
-IR and surgery following: IR to place percutaneous cholecystostomy tube today 09/17/2024
--Hold Xarelto, n.p.o.
--IV Dilaudid 0.5 mg every 4 as needed for pain control
--Advance diet to CLD after procedure
--On heparin 25,000 units / 250 mL, IR to coordinate for procedure
-Continue IV Zosyn: Consult ID, appreciate recs
-Maintenance IV fluids changed from 60 cc/hour to 125 cc/hour
#TRACIE on CKD stage IV
Creatinine 3.1. TRACIE versus RTA, unclear ISO infection and inadequate fluid resuscitation.
-Consult nephrology, appreciate recs
-Trend BMP
#Anemia of chronic disease
-Hemoglobin stable, iron studies suggest iron deficiency anemia
--Will continue to monitor
#A-fib
She had an EKG in ED showing A-fib with RVR, heart rate 100-0115
-Continue amiodarone 100 mg p.o. daily
-On heparin drip being managed by IR prior to procedure
#Anxiety
- Continue home BuSpar 5 mg p.o. twice daily
#Constipation
-Continue bowel regimen of Colace 100 mg p.o. daily, senna docusate twice daily as needed, and MiraLAX daily as needed
DVT prophylaxis: Heparin drip
CODE STATUS: DNR
Anticipated Discharge: 24 - 48 hours (Pending IR cholecystostomy tube placement and clinical improvement.)
Subjective/Interval History
-
Date of Service: September 17, 2024
- This morning, she is refusing labs as she is afraid of needles and feels really anxious. Bedside, she is more amenable with reassurance. A second set of blood cultures was drawn bedside as well as her morning labs.
- She also had an episode of urine incontinence and request that her sheets please be changed when she goes for the IR procedure. IR procedure time still pending.
-She continues to complain of abdominal pain worse in the right lower quadrant.
Objective Data
-
Labs:
Laboratory Results
09/17/24 09/17/24 09/17/24
04:15 09:25 10:17
WBC 15.8 H
Hgb 9.4 L
Hct 29.4 L
Plt Count 149
PT Pending
INR Pending
APTT 72.8 H
Sodium Pending
Potassium Pending
Chloride Pending
Carbon Dioxide Pending
BUN Pending
Creatinine Pending
Glucose Pending
Calcium Pending
09/17/24
11:30
WBC
Hgb
Hct
Plt Count
PT
INR
APTT Pending
Sodium
Potassium
Chloride
Carbon Dioxide
BUN
Creatinine
Glucose
Calcium
Vital Signs:
Vital Signs
Temp Pulse Resp BP Pulse Ox
98.3 F 109 16 117/75 96
09/17/24 07:00 09/17/24 09:25 09/17/24 07:00 09/17/24 09:25 09/17/24 07:00
I&O
09/16/24 09/17/24 09/18/24
06:59 06:59 06:59
Intake Total 0 / 0
Balance 0 / 0
Review of Systems
-
All other systems: Reviewed and negative
Constitutional: Reports Weakness
Abdomen/GI: Reports Abdominal Pain
Psych: Reports Anxious
Physical Exam
-
General: Appears in Distress, Pain, Appears Chronically Ill and Other (She is lying flat in bed endorsing a lot of pain in her belly. She appears anxious.)
HEENT: Normocephalic, Atraumatic, Pharyngeal Erythema and Other (Dry MMM)
Respiratory: Clear to Auscultation and Non Labored Respirations
Cardiac: Regular Rhythm, S1/S2 and Other (On telemetry)
GI: Soft, Nondistended, Normal Bowel Sounds and Tender (Especially to palpation of the right lower quadrant)
Skin: Warm and Dry
Neuro: Other (AO x 3 but anxious and sometimes confused)
Psych: Anxious
[2024-09-17 10:36] LABS: Blood Urea Nitrogen 51 mg/dl (7-17); Calcium 8.9 mg/dl (8.4-10.2); Carbon Dioxide 10 mmol/L (22-30); Chloride 116 mmol/L (98-107); Estimated Creatinine Clearance 15 ml/min; Glucose 69 mg/dl (70-99); Potassium 5.1 mmol/L (3.5-5.1); Sodium 140 mmol/L (135-145); eGFR 16.48
[2024-09-17 10:40] LABS: INR 2.00; PT 23.1 Sec (11.4-14.6)
[2024-09-17 11:00] VITALS: BP 123/72
[2024-09-17] MEDS: NSS IV (11:08)
[2024-09-17] MEDS: SODIUM BICARBONATE 1150 MEQ IV ×2 (11:42→23:24)
--- NOTE | 2024-09-17 12:09 | W.CON.NEPH ---
Consultation
-
Date/Time Consultation Requested: 09/17/24 1057
Date/Time Consultation Performed: 09/17/24 1145
Requesting Provider: Ben Calhoun
Performing Provider: Crystal Ames
Reason for Consultation: TRACIE with CKD, met acidosis
Medical History
-
Chief Complaint: abd pain
History of Present Illness:
74-year-old female with past medical history of aortic stenosis s/p TAVR 2019 , A-fib on Amiodarone, Xarelto, CAD, chronic kidney disease stage IV baseline cr low 2 range, CVA who lives at [facility] sent to the ER for abdominal pain of 4day
duration. She noted to have acute cholecystitis from gallstone. There is possibility of contained perforation. Plan is to get a cholecystostomy tube and treat medically. surgery saw the patient. She is currently on the IV fluid support. Her
creatinine on admission was at 3.1, bicarbonate of 22. Today lab shows creatinine of 2.9, worsening met acidosis bicarbonate of 10 hence nephrology consultation. Patient reports ongoing abdominal pain. No nausea or vomiting. Low-grade fever on
admission. No chills. No chest pain or shortness of breath. Denies any dysuria.
Past Medical History
Afib
s/p TAVR
High cholesterol
Hyponatremia
Thrombus of left atrial appendage
Aortic stenosis
CKD 4
CVA
Arthritis
Anxiety
Depression
Past Surgical History: Other (Shoulder surgery DNC Foot surgery Aortic valve replacement Right TKA Loop recorder)
Social History
Tobacco: Non-Smoker
Alcohol: None
Drug: None
Living: Snf
Family History
Family History: Not Pertinent
Allergies / Home Medications
Allergy/AdvReac Type Severity Reaction Status Date / Time
No Known Allergies Allergy Verified 01/08/23 17:13
�Medication �Instructions �Recorded �Confirmed �Type
peg 400-propylene glycol 0.4 %-0.3 1 drp BOTH EYES BID dry eyes 12/22/22 09/16/24 History
% eye drops (Lubricant Eye (PG-PEG
400))
amiodarone 100 mg tablet (Pacerone) 100 mg PO DAILY 30 days #30 tabs 12/30/22 09/16/24 Rx
rivaroxaban 15 mg tablet (Xarelto) 15 mg PO HS Blood Clot 01/09/23 09/17/24 History
Prevention/Tx
thiamine HCl (vitamin B1) 100 mg 100 mg PO BID Supplement 01/09/23 09/16/24 History
tablet
acetaminophen 325 mg tablet 650 mg PO Q4HPRN PRN mild pain 09/16/24 09/16/24 History
(Tylenol)
bisacodyl 10 mg rectal suppository 10 mg WA DAILYPRN PRN if no bm 09/16/24 09/16/24 History
(Dulcolax (bisacodyl)) aftr mom
buspirone 5 mg tablet 5 mg PO BID Mental Health/Anxiety 09/16/24 09/16/24 History
carboxymethylcellulose 0.5 1 drp BOTH EYES BID Eye Condition 09/16/24 09/16/24 History
%-glycerin 0.9 % eye drops
(Refresh Optive)
docusate sodium 100 mg capsule 100 mg PO DAILY Loose Stools 09/16/24 09/16/24 History
(Colace)
loperamide 2 mg tablet 2 mg PO Q8HPRN PRN diarrhea 09/16/24 09/16/24 History
magnesium hydroxide 400 mg/5 mL 2,400 mg PO DAILYPRN PRN if no bm 09/16/24 09/16/24 History
oral suspension (Milk of Magnesia) aftr 3rd day
sodium phosphates 19 gram-7 118 ml WA DAILYPRN PRN IF NO BM 09/16/24 09/16/24 History
gram/118 mL enema (Fleet Enema) AFTR DULCOLAX
Review of Systems
-
All other systems: Negative unless noted
Physical Exam
Vital Signs
Vital Signs
Temp Pulse Resp BP Pulse Ox
99.7 F 120 18 123/72 97
09/17/24 11:00 09/17/24 11:00 09/17/24 11:00 09/17/24 11:00 09/17/24 11:00
Lab Results
WBC 15.8 10^3/uL (4.8-10.8) H 09/17/24 09:25
RBC 3.16 10^6/uL (4.20-5.40) L 09/17/24 09:
Hgb 9.4 g/dL (12.0-16.0) L 09/17/24 09:25
Hct 29.4 % (37.0-47.0) L 09/17/24 09:25
Plt Count 149 10^3/uL (130-400) 09/17/24 09:25
eGFR 16.48 09/17/24 09:25
Albumin 3.8 g/dl (3.5-5.0) 09/16/24 04:10
Abnormal Lab Results
09/16/24 09/17/24 09/17/24
20:38 04:15 09:25
WBC 17.2 H 15.8 H
RBC 2.99 L 3.16 L
Hgb 8.9 L 9.4 L
Hct 27.4 L 29.4 L
MCHC 32.5 L 32.0 L
MPV 11.4 H 12.1 H
PT
APTT 47.5 H 72.8 H
Chloride 116 H
Carbon Dioxide 10 L*
BUN 51 H
Creatinine 2.9 H
Glucose 69 L
09/17/24 09/17/24
10:17 11:51
WBC
RBC
Hgb
Hct
MCHC
MPV
PT 23.1 H
APTT 112.2 H
Chloride
Carbon Dioxide
BUN
Creatinine
Glucose
Physical Exam
General: Awake, Alert, Oriented, AOx3 and No Distress
HEENT: EOMI, Anicteric, Conjunctivae Clear, Facial Symmetry and No JVD
Respiratory: Clear, Normal Excursion and Nonlabored Respirations
Cardiac: S1/S2, Regular Rate/Rhythm and Murmur
Breast: Deferred by me
Abdomen: Soft, Nondistended and Other (mild TTP RUQ)
Musculoskeletal: No Edema
Skin: No Rash
Neuro: Nonfocal/Grossly Intact
Psych: Mood/afflect pleasant, Insight/judgement good and Appropriate
Data Reviewed
-
Labs: Labs Reviewed by me and Discussed with Patient
Assessment/Plan
-
Assessment:
Sepsis secondary to acalculous cholecystitis
TRACIE -CKD 4 (low 2 range)
Non gap, gap Metabolic acidosis
Afib with RVR
History TAVR
Anemia
History CVA
Anxiety
Constipation
Plan:
A/w abd pain and noted acute cholecystitis and sepsis
TRACIE-suspect prerenal, UA UTI sample, mixed sapna on cx
CT and US no hydro, check bladder scan
worsening met acidosis possible cl based IVF and TRACIE
check L acid again, was normal on 09/16
IVF already adjusted to bicarb, follow labs later
For Mary tube today
Bp stable but Afib with RVR remains on AMio
LANDON-monitor hb, no IV fe yet since has GN bacteremia
dose meds renally
d/w pt
[2024-09-17 12:18] LABS: APTT 112.2 Sec (23.4-35.0)
--- NOTE | 2024-09-17 14:42 | CON.ID ---
Consultation
-
Date/Time Consultation Requested: September 17, 2024 4030
Date/Time Consultation Performed: September 17, 2024 1445
Requesting Provider: Dr. Byers
Performing Provider: Dr. Tri Yarbrough
Reason for Consultation: Cholecystitis, bacteremia
Chief Complaint / Past History
Chief Complaint
Abdominal pain
History of Present Illness
She is a 74-year-old female with history of CVA, atrial fibrillation, aortic stenosis status post TAVR, coronary disease, chronic kidney disease, memory impairment who presented to the ED 09/16 from [facility] due to abdominal pain. She states that she
has been having intermittent right side abdominal pain for the past 2 weeks. Abdominal pain has gotten worse. She has chills. No nausea or vomiting. No diarrhea. Appetite is poor. No cough or shortness of breath. No urine symptoms. In ED
temperature 100.3, white count 19.3. CAT scan shows gallbladder wall thickening and gallstones. She is planned for percutaneous cholecystostomy tube placement today.
Past History
Additional Past Medical History:
CVA
Paroxysmal atrial fibrillation
Aortic stenosis s/p TAVR
CAD
History of DVT
CKD4
PAD
Memory impairment
B TKR
Allergy History:
No Known Allergies Allergy (Verified 01/08/23 17:13)
Medications Reviewed: Yes
Current Antibiotics:
Zosyn
Social History
Tobacco: Former Smoker
Alcohol: Former (glass of wine)
Drug: None
Living: Half-Way
Family History
Family History: Not Pertinent
Review of Systems
Review of Systems
General: Fever, Chills and Change in Appetite
HEENT: Negative Sinus Problems or Headache
Cardiovascular: Negative Chest Pain or Dyspnea
Respiratory: Negative Dyspnea or Cough
Gasteroenterology: Negative Nausea, Vomiting or Diarrhea
Genital / Urological: Negative Dysuria or Flank Pain
Endocrine: Weakness
All systems: All other systems were reviewed and were negative
Vital Signs
Temp Pulse Resp BP Pulse Ox
99.7 F 120 18 123/72 97
09/17/24 11:00 09/17/24 11:00 09/17/24 11:00 09/17/24 11:00 09/17/24 11:00
Physical Exam
Physical Exam
Constitutional: No Acute Distress and Chronically Ill
Eyes: No Conjunctival Hemorrhage and Sclera Anicteric
Cardiovascular: Regular Rate and S1/S2
Pulmonary: Clear
Gastrointestinal: Soft, Tender (Right mid and upper quadrant), Non Distended and Normal Bowel Sounds
Genito-Urinary: Negative CVA Tenderness
Extremities: Negative Edema
Neurological: AO x 3
Lab / Diagnostic Study Results
09/17/24 09:25
Total Counted 100 09/16/24 04:10
Abs Neuts (Manual) 17.3 10^3/uL (1.4-6.5) H 09/16/24 04:10
Segmented Neutrophils 90 % (42-75) H 09/16/24 04:10
Band Neutrophils 0 % (0-3) 09/16/24 04:10
Lymphocytes (Manual) 10 % (20-51) L 09/16/24 04:10
PT 23.1 Sec (11.4-14.6) H 09/17/24 10:17
INR 2.00 09/17/24 10:17
Lactic Acid Cancelled 09/16/24 11:00
Ur Squamous Epith Cells >30 /LPF (Few) 09/16/24 05:32
Microbiology Results
Micro:
09/16/24 05:32 Urine Culture - Final
Urine
09/17/24 10:17 Blood Culture - Pending
Blood/Venous
09/17/24 09:25 Blood Culture - Pending
Blood/Venous
09/16/24 07:12 Blood Culture - Preliminary
Blood/Venous Positive culture in progress
Gram Stain - Preliminary
09/17/24 00:37 MRSA Screen - Pending
Nose
09/16/24 CT a/p: Likely small gallbladder stones with some gallbladder wall thickening and some right upper quadrant likely pericholecystic stranding. FINDINGS COULD REPRESENT ACUTE CHOLECYSTITIS. Suggest Abdominal Ultrasound for more complete
evaluation. Moderate bilateral perinephric stranding. No gross findings to suggest obstructive uropathy bilaterally.
09/16/24 ABD US: Cholelithiasis with at least one gallstone is seen in the vicinity of the gallbladder neck as well as some gallbladder wall thickening. No findings to suggest pericholecystic fluid or biliary tract dilatation. Negative sonographic
Norwood's sign. If there is a clinical suspicion for acute cholecystitis, suggest Nuclear Hepatobiliary scan.
Assessment / Plan
# Acute gallstone cholecystitis
# Gram-negative sruthi bacteremia from cholecystitis
# Leukocytosis
- Agree with IR perc jerilyn - send cx's
- Continue Zosyn. Will de-escalate when cx data available.
- Trend temps/wbc
--- NOTE | 2024-09-17 14:58 | W.PN.UPDATE ---
Update Note
Progress Note Update
- IR consulted for jerilyn tube placement in setting of acute cholecystitis and poor surgical candidacy
- Patient was on Xarelto with gfr under 30. SIR guidelines recommends holding 3 doses/days. Plan for insertion tomorrow morning, currently being bridged with heparin. Plans to hold heparin overnight.
- WBC count has mildly improved, low grade fevers today
- Will reach out to brother for consent.
[2024-09-17 15:00] VITALS: BP 134/77
[2024-09-17 18:33] LABS: APTT 87.2 Sec (23.4-35.0)
[2024-09-17 19:00] VITALS: BP 118/58
[2024-09-17 19:24] LABS: Blood Urea Nitrogen 50 mg/dl (7-17); Calcium 8.6 mg/dl (8.4-10.2); Carbon Dioxide 9 mmol/L (22-30); Chloride 117 mmol/L (98-107); Estimated Creatinine Clearance 16 ml/min; Glucose 89 mg/dl (70-99); Potassium 5.0 mmol/L (3.5-5.1); Sodium 140 mmol/L (135-145); eGFR 17.95
[2024-09-17] MEDS: DILAUDID 0.5 MG IV (20:12)
[2024-09-17 23:00] VITALS: BP 138/58
[2024-09-17] MEDS: SODIUM BICARBONATE 50 MEQ IV ×2 (23:02→23:03)
[2024-09-18] VITALS (13 sets, daily range): BP systolic 91–138; BP diastolic 58–88
[2024-09-18 00:54] LABS: APTT 33.7 Sec (23.4-35.0)
[2024-09-18] MEDS: ZOSYN 50 IV ×3 (01:46→17:34)
[2024-09-18] MEDS: DILAUDID 0.5 MG IV ×3 (02:19→19:56)
[2024-09-18 05:38] LABS: Blood Urea Nitrogen 54 mg/dl (7-17); Calcium 8.6 mg/dl (8.4-10.2); Carbon Dioxide 19 mmol/L (22-30); Chloride 111 mmol/L (98-107); Estimated Creatinine Clearance 16 ml/min; Glucose 74 mg/dl (70-99); Hematocrit 24.2 % (37.0-47.0); Hemoglobin 8.0 g/dL (12.0-16.0); Mean Corp Hgb Conc. 33.1 g/dL (33.0-37.0); Mean Corpuscular Volume 90.0 fL (81.0-99.0); Platelet Count 101 10^3/uL (130-400); Potassium 4.6 mmol/L (3.5-5.1); Red Cell Dist. Width 13.7 % (11.5-14.5); Sodium 139 mmol/L (135-145); eGFR 17.95
--- NOTE | 2024-09-18 07:25 | PTCARENOTE ---
transported pt from room 316-1 to IR holding area for perc jerilyn tube placement by Dr. Coats. Heparin gtt on hold since 0300 per primary RN, pt has been NPO. Addressed DNR status with Dr. Coats on pt arrival pre procedure.
--- NOTE | 2024-09-18 08:45 | PTCARENOTE ---
IR procedure completed, pt stable. Spoke with pt's primary RN Tri regarding post procedure orders, tube care, and flushes. IRAD drain care instructions with pt and RX for flushes entered in [employer] by RENARD Nj-to be sent with pt at discharge.
--- NOTE | 2024-09-18 08:50 | W.PN.UPDATE ---
Update Note
Progress Note Update
I saw and evaluated the patient. I reviewed the resident�s note and agree with findings and plan as documented in the resident�s note.
No new complaints.
Gen: NAD, Awake and alert
Eyes: EOMI, PERRLA, no scleral icterus.
Neck: supple.
CV: remains tachy, irreg/irreg, +S1/S2, no m/r/g.
Resp: CTAB anteriorly, no rales, wheezes, or rhonchi.
Abd: +BS, soft, RUQ TTP without guarding, ND
Skin: No rashes.
Neuro: CN 2-12 intact, non-focal.
Psych: Normal mood and affect.
09/17/24 00:37 Nose MRSA Screen - Final
No Methicillin Resistant Staphylococcus aureus isolated.
09/16/24 05:32 Urine Urine Culture - Final
09/16/24 07:12 Blood/Venous Blood Culture - Preliminary
Positive culture in progress
09/16/24 07:12 Blood/Venous Gram Stain - Preliminary
CT A/P: Cardiomegaly. Small pericardial effusion again seen. Heart incompletely included on this study. Likely small gallbladder stones with some gallbladder wall thickening and some right upper quadrant likely pericholecystic stranding. FINDINGS
COULD REPRESENT ACUTE CHOLECYSTITIS. Suggest Abdominal Ultrasound for more complete evaluation. Limited evaluation of intestinal tract without oral or intravenous contrast with some stranding about the hepatic flexure of the colon likely from the
gallbladder, less likely intrinsic inflammation. Moderate bilateral perinephric stranding. No gross findings to suggest obstructive uropathy bilaterally. Descending colon and sigmoid diverticulosis. Moderate volume widespread colonic stool. No
intestinal obstruction or free air.
Abd U/S: Cholelithiasis with at least one gallstone is seen in the vicinity of the gallbladder neck as well as some gallbladder wall thickening. No findings to suggest pericholecystic fluid or biliary tract dilatation. Negative sonographic Norwood's
sign. If there is a clinical suspicion for acute cholecystitis, suggest Nuclear Hepatobiliary scan.
Sepsis due to acute calculus cholecystitis:
-s/p perc jerilyn 09/18/24
-cont Zosyn as per ID
-follow BCxs, initial and repeat (seems as if only one set was drawn on admission, prelim with GNR)
-follow body fluid Cx
-pain control
-cont IVFs as below
TRACIE on CKD4:
-with non-AG met acidsosi
-cont IVFs with NaHCO3
-AG improving
Chronic anemia:
-Fe studies suggest Fe def anemia (ferritin currently likely an acute phase reactant)
-trend Hb, transfuse for Hb < 7
Other problems:
PAF: cont amio, was heparin gtt which is on hold for perc jerilyn, transitioning to Xarelto later today
CAD
s/p R 2018
h/o CVA
h/o SIADH
Chronic ambulatory dysfunction
h/o DVT: currently on heparin gtt
Former tobacco abuse d/o
DNR/was heparin gtt which is on hold for perc jerilyn, transitioning to Xarelto later today
[2024-09-18] MEDS: REFRESH CELLUVISC GEL 1 DROPS OPHTH ×2 (09:22→19:55)
[2024-09-18] MEDS: VITAMIN B1 100 MG PO ×2 (09:22→19:55)
[2024-09-18] MEDS: REFRESH EYE DROPS (PF) 1 DROPS BOTH EYES ×2 (09:22→19:55)
[2024-09-18] MEDS: PACERONE 100 MG PO (09:23)
[2024-09-18] MEDS: BUSPAR 5 MG PO ×2 (09:23→19:55)
[2024-09-18] MEDS: COLACE 100 MG PO (09:23)
--- NOTE | 2024-09-18 10:12 | W.PN.HOSP.TC ---
Today's Communication/Plan
-
IR percutaneous cholecystostomy tube placed
Continue to monitor drain output
Follow-up bile cultures and checking with ID for antibiotic readjustment
Assessment / Plan
Assessment / Plan
Ms. Sheikh (Reanna Shrestha) is a 74-year-old female with past medical history of HLD, aortic stenosis s/p TAVR in 2019, A-fib on Xarelto, CVA, CKD stage IV, iron deficiency anemia, who presented from SNF from [facility] to the ER on 09/16/2024 with low-grade
fevers (ED temp 100.3), WBC 19.3, tachycardia (113), tachypnea (26), and severe abdominal pain, most pronounced in the right lower quadrant. CT A/P was pertinent for possible acute cholecystitis and abdominal ultrasound showed 1 gallstone in the
gallbladder neck and gallbladder wall thickening. She was started on IV Zosyn, surgery and IR were consulted for further management. She is s/p cholecystostomy tube by IR on 09/18/2024.
#Sepsis secondary to acalculous cholecystitis s/p cholecystostomy tube
-IR and surgery following: IR to place percutaneous cholecystostomy tube 09/18/2024
--Draining bile, prelim bile cultures positive for gram cocci in chain
--Restart Xarelto 15 mg every evening
--IV Dilaudid 0.5 mg every 4 as needed for pain control
--Advance diet to CLD for lunch, then advance as tolerated to low-cholesterol.
-- DC'd heparin 25,000 units / 250 mL on 09/17/2024 3 AM
-Continue IV Zosyn: Consult ID, appreciate recs
-Maintenance IV fluids 125 cc/hour
#TRACIE on CKD stage IV, improving
#Nonanion gap metabolic acidosis
Creatinine 3.1. TRACIE versus RTA, unclear ISO infection and inadequate fluid resuscitation. Nephrology suspects prerenal and will continue to monitor and dose meds renally.
-Consult nephrology, appreciate recs
-Trend BMP
#Anemia of chronic disease
-Hemoglobin stable, iron studies suggest iron deficiency anemia
--Will continue to monitor
#A-fib
She had an EKG in ED showing A-fib with RVR, heart rate 100-0115
-Continue amiodarone 100 mg p.o. daily
-On heparin drip being managed by IR prior to procedure
-Start Toprol XL 12.5 mg p.o. daily
#Anxiety
- Continue home BuSpar 5 mg p.o. twice daily
#Constipation
-Continue bowel regimen of Colace 100 mg p.o. daily, senna docusate twice daily as needed, and MiraLAX daily as needed
DVT prophylaxis: Heparin drip
CODE STATUS: DNR
Anticipated Discharge: 24 - 48 hours (Pending bile cultures, antibiotic readjustment per ID, and clinical improvement)
Subjective/Interval History
-
Date of Service: September 18, 2024
-This morning, she is sitting up in bed watching TV and states that she has 3/10 pain in her right abdomen s/p IR cholecystostomy tube today. Compared to yesterday, she is a lot more comfortable appearing and alert.
-Her cholecystostomy tube is draining bile, no pus, and there was a question of whether or not she is infected in there. Bile culture is prelim positive for Gram cocci in chains. ID notified.
-She is started on a clear liquid diet, and we will advance as tolerated.
Objective Data
-
Labs:
Laboratory Results
09/18/24 09/18/24
00:05 05:13
WBC 11.7 H
Hgb 8.0 L
Hct 24.2 L
Plt Count 101 L D
APTT 33.7
Sodium 139
Potassium 4.6
Chloride 111 H
Carbon Dioxide 19 L
BUN 54 H
Creatinine 2.7 H
Glucose 74
Calcium 8.6
Vital Signs:
Vital Signs
Temp Pulse Resp BP Pulse Ox
98.1 F 116 18 97/59 95
09/18/24 09:45 09/18/24 09:45 09/18/24 09:45 09/18/24 09:45 09/18/24 09:56
I&O
09/17/24 09/18/24 09/19/24
06:59 06:59 06:59
Intake Total 0 / 0 420 / 420
Balance 0 / 0 420 / 420
Review of Systems
-
History Source: Patient
All other systems: Reviewed and negative
Abdomen/GI: Reports Pain (Near drain site)
Psych: Reports Anxious
Physical Exam
-
General: No Apparent Distress, Comfortable, Appears Chronically Ill and Other (Sitting up in bed with TV remote and hand, asking about different channels. Generally well-appearing compared to yesterday.)
HEENT: Normocephalic, Atraumatic and Moist Mucous Membranes
Respiratory: Clear to Auscultation and Non Labored Respirations
Cardiac: Regular Rhythm and S1/S2
GI: Soft, Nondistended and Tender (Around drain site)
Musculoskeletal: No Clubbing, No Cyanosis and No Edema
Skin: Warm and Dry
Neuro: AO x 3
Psych: Intact Judgement/Insight and Anxious (Less than yesterday however, short attention span and easily gets nervous.)
--- NOTE | 2024-09-18 10:37 | W.PN.GS2 ---
Addendum entered and electronically signed by Robert Yeh MD 09/18/24 11:09:
I was physically present and personally performed the mccullough portions of the surgical evaluation and/or procedure with the resident. I discussed the findings, reviewed the resident�s note, and confirmed the medical decision-making. I provided direct
supervision as required and agree with the assessment and plan as documented with the following additions/corrections:
Patient seen and examined.
Some discomfort from percutaneous cholecystostomy tube and mild residual abdominal discomfort in the right upper quadrant.
No nausea
AFVSS
NAD AAO x 3
ABD: Softly distended, tenderness in the right upper quadrant but no rebound or guarding. IR drain in place with bilious contents
Assessment/plan: 74-year-old female with acute calculus cholecystitis being managed with percutaneous cholecystostomy tube which was placed this morning
Okay for clear liquid diet
Continue antibiotics
Follow biliary cultures
Supportive care
Will follow
Original Note:
Today's Communication / Plan
-
cholecystostomy tube in place.
Assessment / Plan
-
Patient is a 74 yo F with a PMH of HLD, aortic stenosis s/p TAVR, A-fib (on Xarelto), CVA, CKD stage IV, and s/p multiple orthopedic procedures presented with abdominal pain.
#Sepsis due to Acute calculus Cholecystitis:
Temp= 98.3-->98.1
WBC count= 17.2-->15.8 (h)---> 11.7 (h)
Blood culture- Gram stain of anaerobic - gram negative bacilli.
On 09/[address] scan without contrast:
Likely small gallbladder stones with some gallbladder wall thickening and some right upper quadrant likely pericholecystic stranding. FINDINGS COULD REPRESENT ACUTE CHOLECYSTITIS.
Descending colon and sigmoid diverticulosis. Moderate volume widespread colonic stool. No intestinal obstruction or free air.
On 09/16 Abdomen USG:
Cholelithiasis with at least one gallstone is seen in the vicinity of the gallbladder neck as well as some gallbladder wall thickening. No findings to suggest pericholecystic fluid or biliary tract dilatation.
Negative sonographic Norwood's sign.
-IR consulted and percutaneous drainage along with cholecystostomy tube placed and bile drainage present at the tube around 60 ml greenish fluid.
-Check the tube blockage and drainage amount for the future and planning for the cholecystectomy after 6 weeks in future depending on CKD Stage 4 (creatinine clearance ) condition.
-Abx: Zosyn DAY 3
-Start on clear fluids.
-Heparin Sodium 25,000 units/250 ml for DVT
Subjective Data
-
Date of Service: September 18, 2024
Patient
Objective Data
-
Intake and Output
09/17/24 09/18/24 09/19/24
06:59 06:59 06:59
Intake Total 0 / 0 420 / 420
Balance 0 / 0 420 / 420
Intake:
Oral fluids 0 / 0 420 / 420
Amount instilled into Drain (
Total)
Right Abdomen Biliary Placed in
IR
Other:
How many times incontinent 2
MODERATE amount urine
How many times incontinent 2 1
SATURATED amount urine
Vital Signs
Temp Pulse Resp BP Pulse Ox
98.1 F 116 18 97/59 95
09/18/24 09:45 09/18/24 09:45 09/18/24 09:45 09/18/24 09:45 09/18/24 09:56
Lab Results
09/18/24 05:13
09/18/24 05:13
Calcium 8.6 mg/dl (8.4-10.2) 09/18/24 05:13
Total Bilirubin 0.7 mg/dl (0.2-1.3) 09/16/24 04:10
AST 30 U/L (14-36) 09/16/24 04:10
ALT 27 U/L (0-35) 09/16/24 04:10
Alkaline Phosphatase 99 U/L (38-126) 09/16/24 04:10
Total Protein 6.9 g/dl (6.3-8.2) 09/16/24 04:10
Albumin 3.8 g/dl (3.5-5.0) 09/16/24 04:10
Physical Exam
-
General: Well Developed, Well Nourished and No Apparent Distress
HEENT: Normocephalic and Anicteric
Respiratory: Non Labored Respirations
Cardiac: Irregular Rhythm
GI: Soft, Tender (RUQ, positive Norwood's sign), Distended, right side cholecystostomy tube placed and bile drainage present at the tube around 60 ml greenish fluid.
Musculoskeletal: No Edema
Skin: Warm and Dry
Neuro: Nonfocal/Grossly Intact
Patient has a gutierrez catheter: No
Patient has a central line: No
[2024-09-18] MEDS: TOPROL XL 12.5 MG PO ×2 (11:28→13:55)
--- NOTE | 2024-09-18 12:27 | W.PN.NEPH.PH ---
Today's Communication / Plan
-
recheck labs and adjust IVF
Assessment/Plan
-
Assessment:
Sepsis secondary to acalculous cholecystitis
TRACIE -CKD 4 (low 2 range)
Non gap, gap Metabolic acidosis
Afib with RVR
History TAVR
Anemia
History CVA
Anxiety
Constipation
Plan:
A/w abd pain and noted acute cholecystitis and sepsis
TRACIE-suspect prerenal, UA UTI sample, mixed sapna on cx
CT and US no hydro, follow bladder scan
improving met acidosis on IV bicarb
cr improving
recheck labs later and adjust IVF
s/p Mary tube today
Bp stable but Afib with RVR
LANDON-monitor hb, no IV fe yet since has GN bacteremia
dose meds renally
d/w pt
-
-
Date of Service: September 18, 2024
CC / HPI / ROS
-
Chief Complaint:
TRACIE, CKD, met acidosis
History of Present Illness:
cr better at 2.7
met acidosis is better at 19
Bp stable, tachy is improving
no fever
Review of Systems:
c/o nausea, vomiting
no cp or sob
abd pian improving
Labs
-
Labs:
WBC 11.7 10^3/uL (4.8-10.8) H 09/18/24 05:13
RBC 2.69 10^6/uL (4.20-5.40) L 09/18/24 05:13
Hgb 8.0 g/dL (12.0-16.0) L 09/18/24 05:13
Hct 24.2 % (37.0-47.0) L 09/18/24 05:13
Plt Count 101 10^3/uL (130-400) L D 08/07/25 05:13
Sodium 139 mmol/L (135-145) 09/18/24 05:13
Potassium 4.6 mmol/L (3.5-5.1) 09/18/24 05:13
Chloride 111 mmol/L (98-107) H 09/18/24 05:13
Carbon Dioxide 19 mmol/L (22-30) L 09/18/24 05:13
BUN 54 mg/dl (7-17) H 09/18/24 05:13
Creatinine 2.7 mg/dL (0.6-1.0) H 09/18/24 05:13
eGFR 17.95 09/18/24 05:13
Glucose 74 mg/dl (70-99) 09/18/24 05:13
Calcium 8.6 mg/dl (8.4-10.2) 09/18/24 05:13
Albumin 3.8 g/dl (3.5-5.0) 09/16/24 04:10
Physical Exam
-
Vital Signs:
Vital Signs
Temp Pulse Resp BP Pulse Ox
97.5 F 99 17 115/72 97
09/18/24 10:45 09/18/24 11:28 09/18/24 10:45 09/18/24 11:28 09/18/24 10:45
Cardiovascular:: Regular rate and rhythm
Respiratory:: Bilateral: CTA (decreased)
Lung Excursion:: Normal
Abdomen:: Soft and Tender (gen)
Extremity Edema:: None: Bilateral:
Fournier Catheter: No
[2024-09-18] MEDS: SODIUM BICARBONATE IV ×2 (12:58→13:05)
[2024-09-18] MEDS: TOPROL XL PO (13:45)
[2024-09-18] MEDS: SODIUM BICARBONATE 1150 MEQ IV (13:55)
[2024-09-18] MEDS: ZOFRAN 4 MG IV (14:19)
[2024-09-18 15:05] LABS: Blood Urea Nitrogen 51 mg/dl (7-17); Calcium 8.3 mg/dl (8.4-10.2); Carbon Dioxide 22 mmol/L (22-30); Chloride 106 mmol/L (98-107); Estimated Creatinine Clearance 16 ml/min; Glucose 88 mg/dl (70-99); Potassium 4.4 mmol/L (3.5-5.1); Sodium 138 mmol/L (135-145); eGFR 17.95
--- NOTE | 2024-09-18 15:48 | W.PN.ID1 ---
Date of Service
Date of Service: September 18, 2024
Today's Communication
Continue Zosyn for now.
Assessment / Plan
# Acute gallstone cholecystitis
# Gram-negative sruthi bacteremia (anaerobe) from cholecystitis
# Leukocytosis - trending down
- Repeat blood cx's negative
- 09/18 s/p IR perc jerilyn. Gram stain: GPC chains, Cx pending
- Continue Zosyn. Will de-escalate when cx data available.
- Trend wbc
# Conditions prior to admission.
CVA
Paroxysmal atrial fibrillation
Aortic stenosis s/p TAVR
CAD
History of DVT
CKD4
PAD
Memory impairment
B TKR
Chief Complaint
-: Other (Abd pain)
Subjective / Review of Systems
Feels better.
Vital Signs / Physical Exam
Vital Signs
Vital Signs
Temp Pulse Resp BP Pulse Ox
98.7 F 90 17 125/68 97
09/18/24 15:00 09/18/24 15:00 09/18/24 15:00 09/18/24 15:00 09/18/24 15:00
Physical Exam
Constitutional: Comfortable and Chronically Ill
Pulmonary: Clear
Gastrointestinal: Soft, Tender (mild right abd), Non Distended and Other (RUQ perc jerilyn green bile)
Extremities: Negative Edema
Objective Data
Lab Data
Lab Results
09/18/24 05:13
09/18/24 14:37
PT 23.1 Sec (11.4-14.6) H 09/17/24 10:17
INR 2.00 09/17/24 10:17
APTT 33.7 Sec (23.4-35.0) 09/18/24 00:05
Estimated Creat Clear 16 ml/min 09/18/24 14:37
Lactic Acid 0.7 mmol/L (0.7-2.0) 09/17/24 18:14
Total Bilirubin 0.7 mg/dl (0.2-1.3) 09/16/24 04:10
AST 30 U/L (14-36) 09/16/24 04:10
ALT 27 U/L (0-35) 09/16/24 04:10
Alkaline Phosphatase 99 U/L (38-126) 09/16/24 04:10
Most recent labs reviewed.
Micro Results:
09/17/24 10:17 Blood Culture - Preliminary
Blood/Venous No Growth in 24 hours- Final report to follow
09/17/24 09:25 Blood Culture - Preliminary
Blood/Venous No Growth in 24 hours- Final report to follow
09/18/24 08:10 Body Fluid Culture - Pending
Bile Gram Stain - Preliminary
09/16/24 07:12 Blood Culture - Preliminary
Blood/Venous Positive culture in progress
Gram Stain - Preliminary
09/17/24 00:37 MRSA Screen - Final
Nose No Methicillin Resistant Staphylococcus aureus isolated.
09/16/24 05:32 Urine Culture - Final
Urine
09/16/24 CT a/p: Likely small gallbladder stones with some gallbladder wall thickening and some right upper quadrant likely pericholecystic stranding. FINDINGS COULD REPRESENT ACUTE CHOLECYSTITIS. Suggest Abdominal Ultrasound for more complete
evaluation. Moderate bilateral perinephric stranding. No gross findings to suggest obstructive uropathy bilaterally.
09/16/24 ABD US: Cholelithiasis with at least one gallstone is seen in the vicinity of the gallbladder neck as well as some gallbladder wall thickening. No findings to suggest pericholecystic fluid or biliary tract dilatation. Negative sonographic
Norwood's sign. If there is a clinical suspicion for acute cholecystitis, suggest Nuclear Hepatobiliary scan.
[2024-09-18] MEDS: SODIUM BICARBONATE 1075 MEQ IV (17:31)
[2024-09-18] MEDS: XARELTO 15 MG PO (17:39)
[2024-09-19] MEDS: ZOSYN 50 IV ×2 (02:47→10:06)
[2024-09-19 03:01] VITALS: BP 119/69
[2024-09-19] MEDS: DILAUDID 0.5 MG IV ×2 (04:02→23:20)
[2024-09-19] MEDS: SODIUM BICARBONATE 1075 MEQ IV ×2 (04:02→23:20)
[2024-09-19] MEDS: ZOFRAN 4 MG IV ×2 (05:31→20:27)
[2024-09-19 07:34] VITALS: BP 121/87
[2024-09-19] MEDS: REFRESH EYE DROPS (PF) 1 DROPS BOTH EYES ×2 (07:51→20:27)
[2024-09-19] MEDS: PACERONE 100 MG PO (07:52)
[2024-09-19] MEDS: COLACE 100 MG PO (07:52)
[2024-09-19] MEDS: TOPROL XL 25 MG PO ×2 (07:52→20:28)
[2024-09-19] MEDS: VITAMIN B1 100 MG PO ×2 (07:52→20:27)
[2024-09-19] MEDS: REFRESH CELLUVISC GEL 1 DROPS OPHTH ×2 (07:52→20:27)
[2024-09-19] MEDS: BUSPAR 5 MG PO ×2 (07:52→20:28)
[2024-09-19 08:30] LABS: Hematocrit 26.5 % (37.0-47.0); Hemoglobin 8.6 g/dL (12.0-16.0); Mean Corp Hgb Conc. 32.5 g/dL (33.0-37.0); Mean Corpuscular Volume 91.4 fL (81.0-99.0); Platelet Count 163 10^3/uL (130-400); Red Cell Dist. Width 13.6 % (11.5-14.5)
--- NOTE | 2024-09-19 09:25 | W.PN.UPDATE ---
Update Note
Progress Note Update
I saw and evaluated the patient. I reviewed the resident�s note and agree with findings and plan as documented in the resident�s note.
States she has abd pain when she sneezes, otherwise no new complaints.
Gen: NAD, Awake and alert
Eyes: EOMI, PERRLA, no scleral icterus.
Neck: supple.
CV: continues to remain tachy, irreg/irreg, +S1/S2, no m/r/g.
Resp: remains CTAB anteriorly, no rales, wheezes, or rhonchi.
Abd: remains +BS, soft, RUQ TTP without guarding, ND
Skin: No rashes.
Neuro: CN 2-12 intact, non-focal.
Psych: Normal mood and affect.
09/18/24 08:10 Bile Body Fluid Culture - Preliminary
No Growth After 18-24 Hours
09/18/24 08:10 Bile Gram Stain - Preliminary
09/17/24 10:17 Blood/Venous Blood Culture - Preliminary
No Growth in 24 hours- Final report to follow
09/17/24 09:25 Blood/Venous Blood Culture - Preliminary
No Growth in 24 hours- Final report to follow
09/16/24 07:12 Blood/Venous Blood Culture - Preliminary
Positive culture in progress
09/16/24 07:12 Blood/Venous Gram Stain - Preliminary
09/17/24 00:37 Nose MRSA Screen - Final
No Methicillin Resistant Staphylococcus aureus isolated.
09/16/24 05:32 Urine Urine Culture - Final
CT A/P: Cardiomegaly. Small pericardial effusion again seen. Heart incompletely included on this study. Likely small gallbladder stones with some gallbladder wall thickening and some right upper quadrant likely pericholecystic stranding. FINDINGS
COULD REPRESENT ACUTE CHOLECYSTITIS. Suggest Abdominal Ultrasound for more complete evaluation. Limited evaluation of intestinal tract without oral or intravenous contrast with some stranding about the hepatic flexure of the colon likely from the
gallbladder, less likely intrinsic inflammation. Moderate bilateral perinephric stranding. No gross findings to suggest obstructive uropathy bilaterally. Descending colon and sigmoid diverticulosis. Moderate volume widespread colonic stool. No
intestinal obstruction or free air.
Abd U/S: Cholelithiasis with at least one gallstone is seen in the vicinity of the gallbladder neck as well as some gallbladder wall thickening. No findings to suggest pericholecystic fluid or biliary tract dilatation. Negative sonographic Norwood's
sign. If there is a clinical suspicion for acute cholecystitis, suggest Nuclear Hepatobiliary scan.
Sepsis due to acute calculus cholecystitis:
-s/p perc jerilyn 09/18/24
-cont Zosyn as per ID
-follow BCxs, initial and repeat (seems as if only one set was drawn on admission, prelim with GNR)
-follow body fluid Cx (NGTD)
-pain control
-cont IVFs as below
-leukocytosis has resolved
TRACIE on CKD4:
-with non-AG met acidosis
-cont IVFs with NaHCO3
-HCO3- improving
Chronic anemia:
-Fe studies suggest Fe def anemia (ferritin currently likely an acute phase reactant)
-trend Hb, transfuse for Hb < 7
PAF with RVR:
-cont amio/Xarelto
-Toprol XL started 09/18/24, still with poor rate control
-c/s cards
Other problems:
CAD
s/p R 2018
h/o CVA
h/o SIADH
Chronic ambulatory dysfunction
h/o DVT: con Xarelto
Former tobacco abuse d/o
DNR/Xarelto
[2024-09-19 10:01] LABS: Blood Urea Nitrogen 47 mg/dl (7-17); Calcium 8.6 mg/dl (8.4-10.2); Carbon Dioxide 26 mmol/L (22-30); Chloride 102 mmol/L (98-107); Estimated Creatinine Clearance 16 ml/min; Glucose 73 mg/dl (70-99); Potassium 4.0 mmol/L (3.5-5.1); Sodium 137 mmol/L (135-145); eGFR 18.78
--- NOTE | 2024-09-19 10:15 | W.PN.GS2 ---
Today's Communication / Plan
-
follow up in 6 weeks for laparoscopic cholecystectomy.
Assessment / Plan
-
Patient is a 74 yo F with a PMH of HLD, aortic stenosis s/p TAVR, A-fib (on Xarelto), CVA, CKD stage IV, and s/p multiple orthopedic procedures presented with abdominal pain.
#Sepsis due to Acute calculus Cholecystitis:
Temp= 98.3-->98.1
WBC count= 15.8 (h)---> 11.7 (h)-->10.8 (n)
Blood culture- Gram stain of anaerobic - gram negative bacilli.
Hb=8.6
On 09/[address] scan without contrast:
Likely small gallbladder stones with some gallbladder wall thickening and some right upper quadrant likely pericholecystic stranding. FINDINGS COULD REPRESENT ACUTE CHOLECYSTITIS.
Descending colon and sigmoid diverticulosis. Moderate volume widespread colonic stool. No intestinal obstruction or free air.
On 09/16 Abdomen USG:
Cholelithiasis with at least one gallstone is seen in the vicinity of the gallbladder neck as well as some gallbladder wall thickening. No findings to suggest pericholecystic fluid or biliary tract dilatation.
Negative sonographic Norwood's sign.
-IR consulted and percutaneous drainage along with cholecystostomy tube placed and bile drainage present at the tube around 60 ml greenish fluid.
-Check the tube blockage and drainage amount for the future and planning for the cholecystectomy after 6 weeks in future depending on CKD Stage 4 (creatinine clearance).
-Abx: Zosyn DAY 4
- Patient was started on Rivaroxaban 15 mg yesterday, monitor for bleeding, Hb- 8.6 for today.
-currently in clear fluids, planning to shift to low fat diet.
Subjective Data
-
Date of Service: September 19, 2024
Overnight patient had abdominal pain at right side upper abdomen, pain is not associated with nausea, vomiting, fever, chills. Patient passed flatus overnight, no bowel movement.
Objective Data
-
Intake and Output
09/18/24 09/19/24 09/20/24
06:59 06:59 06:59
Intake Total 420 / 420 550 / 550
Output Total 400 / 400
Balance 420 / 420 150 / 150
Intake:
Oral fluids 420 / 420 540 / 540
Amount instilled into Drain (
Total)
Right Abdomen Biliary Placed in
IR
Output:
Drain Output (Total) 400 / 400
Right Abdomen Biliary Placed in 400 / 400
IR
Other:
How many times incontinent 2
MODERATE amount urine
How many times incontinent 3
SATURATED amount urine
Vital Signs
Temp Pulse Resp BP Pulse Ox
98.1 F 134 16 121/87 97
09/19/24 07:34 09/19/24 07:34 09/19/24 07:34 09/19/24 07:34 09/19/24 07:34
Lab Results
09/19/24 08:04
09/19/24 08:04
Calcium 8.6 mg/dl (8.4-10.2) 09/19/24 08:04
Total Bilirubin 0.7 mg/dl (0.2-1.3) 09/16/24 04:10
AST 30 U/L (14-36) 09/16/24 04:10
ALT 27 U/L (0-35) 09/16/24 04:10
Alkaline Phosphatase 99 U/L (38-126) 09/16/24 04:10
Total Protein 6.9 g/dl (6.3-8.2) 09/16/24 04:10
Albumin 3.8 g/dl (3.5-5.0) 09/16/24 04:10
Physical Exam
-
General: Well Developed, Well Nourished and No Apparent Distress
HEENT: Normocephalic and Anicteric
Respiratory: Non Labored Respirations
Cardiac: Irregular Rhythm
GI: Soft, Tender (RUQ, positive Norwood's sign), non distended, right side cholecystostomy tube placed and bile drainage present at the tube around 60 ml greenish fluid.
Musculoskeletal: No Edema
Skin: Warm and Dry
Neuro: Nonfocal/Grossly Intact
Patient has a gutierrez catheter: No
Patient has a central line: No
--- NOTE | 2024-09-19 10:39 | CM ---
chart reviewed
Patient resides at [facility]
Referral in [facility]
PLAN: [facility] when stable
Report #: [phone] Fax #: [phone]
--- NOTE | 2024-09-19 11:05 | W.PN.ID1 ---
Date of Service
Date of Service: September 19, 2024
Today's Communication
- Transition Zosyn to Augmentin 875mg po bid through 09/25/24
ID will sign off
Assessment / Plan
# Acute gallstone cholecystitis
# Gram-negative sruthi bacteremia (anaerobe) from cholecystitis
# Leukocytosis - resolved
- Repeat blood cx's negative
- 09/18 s/p IR perc jerilyn. Gram stain: GPC chains, Cx neg to date
- Transition Zosyn to Augmentin 875mg po bid through 09/25/24
ID will sign off
# Conditions prior to admission.
CVA
Paroxysmal atrial fibrillation
Aortic stenosis s/p TAVR
CAD
History of DVT
CKD4
PAD
Memory impairment
B TKR
Chief Complaint
-: Other (Abd pain)
Subjective / Review of Systems
Has some discomfort at jerilyn site.
Vital Signs / Physical Exam
Vital Signs
Vital Signs
Temp Pulse Resp BP Pulse Ox
98.1 F 134 16 121/87 97
09/19/24 07:34 09/19/24 07:34 09/19/24 07:34 09/19/24 07:34 09/19/24 07:34
Physical Exam
Constitutional: No Acute Distress and Comfortable
Cardiovascular: S1/S2 (tachy)
Pulmonary: Clear
Gastrointestinal: Soft, Non Tender, Non Distended and Other (RUQ perc jerilyn + green bile)
Genito-Urinary: Negative CVA Tenderness
Extremities: Negative Edema
Neurological: AO x 3
Objective Data
Lab Data
Lab Results
09/19/24 08:04
09/19/24 08:04
PT 23.1 Sec (11.4-14.6) H 09/17/24 10:17
INR 2.00 09/17/24 10:17
APTT 33.7 Sec (23.4-35.0) 09/18/24 00:05
Estimated Creat Clear 16 ml/min 09/19/24 08:04
Lactic Acid 0.7 mmol/L (0.7-2.0) 09/17/24 18:14
Total Bilirubin 0.7 mg/dl (0.2-1.3) 09/16/24 04:10
AST 30 U/L (14-36) 09/16/24 04:10
ALT 27 U/L (0-35) 09/16/24 04:10
Alkaline Phosphatase 99 U/L (38-126) 09/16/24 04:10
Most recent labs reviewed.
Micro Results:
09/17/24 10:17 Blood Culture - Preliminary
Blood/Venous No Growth in 48 hours- Final report to follow
09/17/24 09:25 Blood Culture - Preliminary
Blood/Venous No Growth in 48 hours- Final report to follow
09/18/24 08:10 Body Fluid Culture - Preliminary
Bile No Growth After 18-24 Hours
Gram Stain - Preliminary
09/16/24 07:12 Blood Culture - Preliminary
Blood/Venous Positive culture in progress
Gram Stain - Preliminary
09/17/24 00:37 MRSA Screen - Final
Nose No Methicillin Resistant Staphylococcus aureus isolated.
09/16/24 05:32 Urine Culture - Final
Urine
09/16/24 CT a/p: Likely small gallbladder stones with some gallbladder wall thickening and some right upper quadrant likely pericholecystic stranding. FINDINGS COULD REPRESENT ACUTE CHOLECYSTITIS. Suggest Abdominal Ultrasound for more complete
evaluation. Moderate bilateral perinephric stranding. No gross findings to suggest obstructive uropathy bilaterally.
09/16/24 ABD US: Cholelithiasis with at least one gallstone is seen in the vicinity of the gallbladder neck as well as some gallbladder wall thickening. No findings to suggest pericholecystic fluid or biliary tract dilatation. Negative sonographic
Norwood's sign. If there is a clinical suspicion for acute cholecystitis, suggest Nuclear Hepatobiliary scan.
[2024-09-19 11:11] VITALS: BP 114/69
--- NOTE | 2024-09-19 11:27 | W.PN.HOSP.TC ---
Today's Communication/Plan
-
Cardiology consulted for known history of A-fib, not on any meds at home, with heart rates in 130s while inpatient
IV Zosyn transition to Augmentin 875 mg twice daily through 09/25/2024
Follow-up with surgery outpatient in 6 weeks for laparoscopic cholecystectomy
Assessment / Plan
Assessment / Plan
Ms. Sheikh (Reanna Shrestha) is a 74-year-old female with past medical history of HLD, aortic stenosis s/p TAVR in 2019, A-fib on Xarelto, CVA, CKD stage IV, iron deficiency anemia, who presented from SNF from SNF to the ER on 09/16/2024 with low-grade
fevers (ED temp 100.3), WBC 19.3, tachycardia (113), tachypnea (26), and severe abdominal pain, most pronounced in the right lower quadrant. CT A/P was pertinent for possible acute cholecystitis and abdominal ultrasound showed 1 gallstone in the
gallbladder neck and gallbladder wall thickening. She was started on IV Zosyn, surgery and IR were consulted for further management. She is s/p cholecystostomy tube by IR on 09/18/2024.
#Sepsis secondary to acalculous cholecystitis s/p cholecystostomy tube
-IR and surgery following: IR to place percutaneous cholecystostomy tube 09/18/2024
--Follow-up in 6 weeks for laparoscopic cholecystostomy
--Draining bile, prelim bile cultures positive for gram cocci in chain
--Xarelto 15 mg every evening
--IV Dilaudid 0.5 mg every 4 as needed for pain control
-- Low-fat, low-cholesterol, low-sodium diet
-- DC'd heparin 25,000 units / 250 mL on 09/17/2024 3 AM
- Stop IV Zosyn: Per ID, transitioned IV Zosyn to Augmentin 875 mg p.o. twice daily through 09/25/2024
-Maintenance IV fluids 125 cc/hour
#TRACIE on CKD stage IV, improving
#Nonanion gap metabolic acidosis
Creatinine 2.6 from 3.1 on admission. TRACIE versus RTA, unclear ISO infection and inadequate fluid resuscitation. Nephrology suspects prerenal and will continue to monitor and dose meds renally.
-Consult nephrology, appreciate recs
--Trend BMP
--Adjust IV fluids
#Anemia of chronic disease
-Hemoglobin stable, iron studies suggest iron deficiency anemia
--Will continue to monitor
#A-fib
She had an EKG in ED showing A-fib with RVR, heart rate 100-115. Heart rate on 09/19/2024 has been in the 130s. She does not take any medications for A-fib. Cardiology was consulted for further recs.
-Cardiology consulted, appreciate recs
-Continue amiodarone 100 mg p.o. daily
-Started Toprol XL 12.5 mg p.o. daily on 09/18/2024
-Home Xarelto
#Anxiety
- Continue home BuSpar 5 mg p.o. twice daily
#Constipation
-Continue bowel regimen of Colace 100 mg p.o. daily, senna docusate twice daily as needed, and MiraLAX daily as needed
DVT prophylaxis: Xarelto
CODE STATUS: DNR
Anticipated Discharge: 24 - 48 hours (Pending cardiology consult and medical stability)
Subjective/Interval History
-
Date of Service: September 19, 2024
- This morning, she is sitting up in bed watching TV and very alert. Per nurse, she refused meds however patient says she did not to do this.
- Started on renal diet, HR in 130s (history of A-fib not on meds), asymptomatic, consulted cards.
Objective Data
-
Labs:
Laboratory Results
09/19/24
08:04
WBC 10.8
Hgb 8.6 L
Hct 26.5 L
Plt Count 163 D
Sodium 137
Potassium 4.0
Chloride 102
Carbon Dioxide 26
BUN 47 H
Creatinine 2.6 H
Glucose 73
Calcium 8.6
Vital Signs:
Vital Signs
Temp Pulse Resp BP Pulse Ox
98.6 F 129 14 114/69 94
09/19/24 11:11 09/19/24 11:11 09/19/24 11:11 09/19/24 11:11 09/19/24 11:11
I&O
09/18/24 09/19/24 09/20/24
06:59 06:59 06:59
Intake Total 420 / 420 550 / 550
Output Total 400 / 400
Balance 420 / 420 150 / 150
Review of Systems
-
All other systems: Reviewed and negative
Abdomen/GI: Reports Pain (Around drain site)
Physical Exam
-
General: No Apparent Distress, Comfortable, Appears Chronically Ill and Other (She is sitting up in bed watching TV, short attention span)
HEENT: Normocephalic, Atraumatic and Moist Mucous Membranes
Respiratory: Clear to Auscultation and Non Labored Respirations
Cardiac: S1/S2, Irregular Rhythm (Known A-fib) and Tachycardic (To the 130s)
GI: Soft, Nontender and Other (Cholecystostomy tube in place, draining bile)
Musculoskeletal: No Clubbing and No Cyanosis
Skin: Warm and Dry
Neuro: AO x 3
Psych: Intact Judgement/Insight
--- NOTE | 2024-09-19 12:24 | W.PN.NEPH.PH ---
Today's Communication / Plan
-
follow BMP
Assessment/Plan
-
Assessment:
Sepsis secondary to acalculous cholecystitis
TRACIE -CKD 4 (low 2 range)
Non gap, gap Metabolic acidosis
Afib with RVR
History TAVR
Anemia
History CVA
Anxiety
Constipation
Plan:
eating
cap IVF
follow BMP
follow hgb, holding IV iron given bacteremia
convert to po abx
-
-
Date of Service: September 19, 2024
CC / HPI / ROS
-
Chief Complaint:
TRACIE, CKD, met acidosis
History of Present Illness:
cr better at 2.6
met acidosis resolved
Bp stable
no fever
Review of Systems:
c/o nausea, vomiting
no cp or sob
abd pian improving
Labs
-
Labs:
WBC 10.8 10^3/uL (4.8-10.8) 09/19/24 08:04
RBC 2.90 10^6/uL (4.20-5.40) L 09/19/24 08:04
Hgb 8.6 g/dL (12.0-16.0) L 09/19/24 08:04
Hct 26.5 % (37.0-47.0) L 09/19/24 08:04
Plt Count 163 10^3/uL (130-400) D 09/19/24 08:04
Sodium 137 mmol/L (135-145) 09/19/24 08:04
Potassium 4.0 mmol/L (3.5-5.1) 09/19/24 08:04
Chloride 102 mmol/L (98-107) 09/19/24 08:04
Carbon Dioxide 26 mmol/L (22-30) 09/19/24 08:04
BUN 47 mg/dl (7-17) H 09/19/24 08:04
Creatinine 2.6 mg/dL (0.6-1.0) H 09/19/24 08:04
eGFR 18.78 09/19/24 08:04
Glucose 73 mg/dl (70-99) 09/19/24 08:04
Calcium 8.6 mg/dl (8.4-10.2) 09/19/24 08:04
Albumin 3.8 g/dl (3.5-5.0) 09/16/24 04:10
Physical Exam
-
Vital Signs:
Vital Signs
Temp Pulse Resp BP Pulse Ox
98.6 F 129 14 114/69 94
09/19/24 11:11 09/19/24 11:11 09/19/24 11:11 09/19/24 11:11 09/19/24 11:11
Cardiovascular:: Regular rate and rhythm
Respiratory:: Bilateral: CTA
Lung Excursion:: Normal
Abdomen:: Nontender and Soft
Bowel Sounds:: Normal
Extremity Edema:: None: Bilateral:
--- NOTE | 2024-09-19 12:26 | CON.CAR ---
Addendum entered and electronically signed by Randolph Mejia MD 09/19/24 18:23:
I saw and examined the patient.
The DIORAMIST's note was reviewed and I agree with the note.
Comment: She is not oriented to place or time.Asking for her car. She does deny cp but does report pain in the luq of the abdomen that is improving. Irreg irreg rate and rhythm, lungs cta.
Her af rate is slightly up. She is persistent not paroxysmal. 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 Will add a second dose of metoprolol 25 tonight and
assess rates. She is on Xarelto but Cr Cl may limit this in the future. Unclear what her baseline ms is as I am just meeting her, but I did alert the nursing team and Dr Damon to my findings.
Original Note:
Documented by User: ALEXA Bob 09/19/24 13:44
Consultation
Consultation Request
Date/Time Consultation Requested: 09/19/24 9:40a
Date/Time Consultation Performed: 09/19/24 11a
Requesting Provider: Dr. Byers
Performing Provider: ALEXA Bob for Dr. Mejia
Reason for Consultation: afib
Medical History
-
Chief Complaint: abdominal pain
History of Present Illness:
Mrs. Shrestha is a 74 yo female with paroxysmal Afib on Xarelto, LBBB, s/p TAVR 01/2019, HTN, PAD, s/p MDT LINQ ILR 03/2021, and memory impairment, who presents to the ER with c/o abdominal pain. She is admitted to the hospitalist service, imaging
showed concern for acute cholecystitis and she is s/p percutaneous jerilyn tube 09/18/24. We are consulted for rapid Afib. As an outpatient she is on Amiodarone 100mg daily and recently (08/2024) the physican at [facility] stopped her Xarelto, for
unclear reasons. There is now a new physican there who resumed her Xarelto 08/29/24, according to nurse at [facility]. Currently her Afib rates are in the 80s to 100s, she denies any cardiac symptoms.
Past Medical History
Past Medical History: Other (as above)
Past Surgical History: Other (as above)
Social History
Tobacco: Non-Smoker
Living: Assisted Living
Family History
Family History: Reviewed & Not Pertinent
Allergies / Home Medications
Allergy/AdvReac Type Severity Reaction Status Date / Time
No Known Allergies Allergy Verified 01/08/23 17:13
�Medication �Instructions �Recorded �Confirmed �Type
peg 400-propylene glycol 0.4 %-0.3 1 drp BOTH EYES BID dry eyes 12/22/22 09/16/24 History
% eye drops (Lubricant Eye (PG-PEG
400))
amiodarone 100 mg tablet (Pacerone) 100 mg PO DAILY 30 days #30 tabs 12/30/22 09/16/24 Rx
rivaroxaban 15 mg tablet (Xarelto) 15 mg PO HS Blood Clot 01/09/23 09/17/24 History
Prevention/Tx
thiamine HCl (vitamin B1) 100 mg 100 mg PO BID Supplement 01/09/23 09/16/24 History
tablet
acetaminophen 325 mg tablet 650 mg PO Q4HPRN PRN mild pain 09/16/24 09/16/24 History
(Tylenol)
bisacodyl 10 mg rectal suppository 10 mg OR DAILYPRN PRN if no bm 09/16/24 09/16/24 History
(Dulcolax (bisacodyl)) after mom
buspirone 5 mg tablet 5 mg PO BID anxiety 09/16/24 09/16/24 History
carboxymethylcellulose 0.5 1 drp BOTH EYES BID dry eyes 09/16/24 09/16/24 History
%-glycerin 0.9 % eye drops
(Refresh Optive)
docusate sodium 100 mg capsule 100 mg PO DAILY Loose Stools 09/16/24 09/16/24 History
(Colace)
loperamide 2 mg tablet 2 mg PO Q8HPRN PRN diarrhea 09/16/24 09/16/24 History
magnesium hydroxide 400 mg/5 mL 2,400 mg PO DAILYPRN PRN if no bm 09/16/24 09/16/24 History
oral suspension (Milk of Magnesia) after 3rd day
sodium phosphates 19 gram-7 118 ml OR DAILYPRN PRN no BM after 09/16/24 09/16/24 History
gram/118 mL enema (Fleet Enema) dulcolax
Review of Systems
-
History Source: Patient
All other systems: Negative unless noted
Physical Exam
Vital Signs
Temp Pulse Resp BP Pulse Ox
98.6 F 129 14 114/69 94
09/19/24 11:11 09/19/24 11:11 09/19/24 11:11 09/19/24 11:11 09/19/24 11:11
Lab Results
09/19/24 08:04
09/19/24 08:04
Physical Exam
General: Well Developed, Well Nourished and No Apparent Distress
HEENT: Normocephalic and Moist Mucous Membranes
Respiratory: Clear and Non Labored Respirations
Cardiac: S1/S2 and Irregular Rhythm
Breast: Deferred by me
GI: Soft and Tender (at percutaneous jerilyn tube site)
Rectal: Deferred by Provider
Genito-urinary: No Costovertebral Tender
Musculoskeletal: No Clubbing and No Cyanosis
Skin: Warm and Dry
Neuro: Awake, Alert, Oriented and Other (confused at times )
Hematologic/Lymphatic: No Lymphadenopathy
Psych: Calm
Impression / Plan
-
Afib - paroxysmal but rapid rates in the setting of acute cholecystitis.
- rates 80s-100s and asymptomatic.
- continue Toprol and titrate for rate control.
- on Xarelto 15mg daily, continue.
s/p TAVR - 01/2019.
- stable on echo 12/2022, EF 60-65%, mild MR, TAVR peak/mean gradients 32/19 mmHg, trace AR, mild-mod TR.
CKD - stage [address] Griggs.
- she refuses HD.
- baseline creatinine 2-2.2.
Abdominal pain - acute cholecystitis.
- s/p percutaneous jerilyn tube 09/18/24.
- per hospitalist.
Data Reviewed
-
EKG: Tracing Personally Visualized and interpreted
Medical Tests (Nuc Med, Echo etc): Report Reviewed by me
Labs: Labs Reviewed by me
Old Records: Reviewed

Documented by User: Randolph Mejia MD 09/19/24 14:17
Impression / Plan
-
Afib - persistent
-l but rapid rates in the setting of acute cholecystitis.
- rates 80s-100s and asymptomatic.
- continue Toprol and titrate for rate control.
- on Xarelto 15mg daily, continue.
s/p TAVR - 01/2019.
- stable on echo 12/2022, EF 60-65%, mild MR, TAVR peak/mean gradients 32/19 mmHg, trace AR, mild-mod TR.
CKD - stage [address] Griggs.
- she refuses HD.
- baseline creatinine 2-2.2.
Abdominal pain - acute cholecystitis.
- s/p percutaneous jerilyn tube 09/18/24.
- per hospitalist.
--- NOTE | 2024-09-19 12:57 | W.PN.GS2 ---
Today's Communication / Plan
-
-- LFD as tolerated
-- Abx: ID following, has been transitioned to PO Augmentin
-- IR drain to remain in place, flush daily
-- Outpatient follow-up in 2 weeks for drain management and discussion regarding potential interval cholecystectomy
-- Call with questions or concerns
Assessment / Plan
-
Patient is a 74 yo F with a PMH of HLD, aortic stenosis s/p TAVR, A-fib (on Xarelto), CVA, CKD stage IV, and s/p multiple orthopedic procedures presented with severe acute on chronic cholecystitis
Cholecystitis managed with IR cholecystostomy tube given active anticoagulation and delay in presentation
Clinically stable. Advance diet as tolerated to low-fat diet. Continue to flush drain daily. IR drain will need to remain in place for 6 to 8 weeks. Outpatient follow-up for drain management and discussion regarding potential interval
cholecystectomy.
-- LFD as tolerated
-- Abx: ID following, has been transitioned to PO Augmentin
-- IR drain to remain in place, flush daily
-- Outpatient follow-up in 2 weeks for drain management and discussion regarding potential interval cholecystectomy
-- Call with questions or concerns
Subjective Data
-
Date of Service: September 19, 2024
No major complaints. Does report some abdominal discomfort. Denies any nausea or vomiting. No fevers. Passing flatus, no BM.
Objective Data
-
Intake and Output
09/18/24 09/19/24 09/20/24
06:59 06:59 06:59
Intake Total 420 / 420 550 / 550
Output Total 400 / 400
Balance 420 / 420 150 / 150
Intake:
Oral fluids 420 / 420 540 / 540
Amount instilled into Drain (
Total)
Right Abdomen Biliary Placed in
IR
Output:
Drain Output (Total) 400 / 400
Right Abdomen Biliary Placed in 400 / 400
IR
Other:
How many times incontinent 2
MODERATE amount urine
How many times incontinent 3
SATURATED amount urine
Vital Signs
Temp Pulse Resp BP Pulse Ox
98.6 F 129 14 114/69 94
09/19/24 11:11 09/19/24 11:11 09/19/24 11:11 09/19/24 11:11 09/19/24 11:11
Lab Results
09/19/24 08:04
09/19/24 08:04
Calcium 8.6 mg/dl (8.4-10.2) 09/19/24 08:04
Total Bilirubin 0.7 mg/dl (0.2-1.3) 09/16/24 04:10
AST 30 U/L (14-36) 09/16/24 04:10
ALT 27 U/L (0-35) 09/16/24 04:10
Alkaline Phosphatase 99 U/L (38-126) 09/16/24 04:10
Total Protein 6.9 g/dl (6.3-8.2) 09/16/24 04:10
Albumin 3.8 g/dl (3.5-5.0) 09/16/24 04:10
Physical Exam
-
Gen: NAD
Abd: soft, mild tenderness, ND, non-peritoneal, IR drain with bile
Patient has a gutierrez catheter: No
Patient has a central line: No
[2024-09-19] MEDS: AUGMENTIN 500 MG/125 MG 1 TABLET PO ×2 (13:12→20:27)
[2024-09-19 15:07] VITALS: BP 126/85
[2024-09-19] MEDS: XARELTO 15 MG PO (17:23)
--- NOTE | 2024-09-19 17:29 | PTCARENOTE ---
Pt noted to take tele box off and well as dressing around jerilyn tube. Dressing reinforced throughout shift and tele electrodes replaced. Call dial within reach.
[2024-09-19 19:47] VITALS: BP 120/81
[2024-09-19 22:42] VITALS: BP 108/45
[2024-09-20] VITALS (9 sets, daily range): BP systolic 97–145; BP diastolic 42–88; PULSE 85–105
[2024-09-20] MEDS: DILAUDID 0.5 MG IV ×3 (05:13→17:07)
--- NOTE | 2024-09-20 07:31 | W.PN.HOSP.TC ---
Today's Communication/Plan
-
See A/P
Assessment / Plan
Assessment / Plan
Assessment/plan
#Sepsis secondary to acute acalculous cholecystitis
-s/p percutaneous cholecystostomy 09/18/2024
-ID input appreciated
-S/p Zosyn, now transition to Augmentin 875 mg p.o. BID through 09/25/2024
-Initial cultures positive for gram-negative sruthi bacteremia
-Body fluid culture negative to date
-Pain control with Dilaudid
-Continue IV fluids
-Monitor WBC, temperature curve
#TRACIE on CKD 4
#Non-anion gap metabolic acidosis
-Continue IV fluids with sodium bicarb
-Baseline creatinine 2�2.2
-Declined HD in the past
-Monitor BMP
#Chronic anemia
-Iron studies indicative of iron deficiency anemia
-Monitor CBC
-Consider iron supplementation on discharge after bacteremia clears
#Persistent atrial fibrillation
-Rapid heart rates in the setting of acute cholecystitis
-Continue amiodarone for rate control, Toprol XL added this admission
-Anticoagulation with Xarelto
-Cardiology input appreciated
#Aortic stenosis s/p TAVR 2018
#Anxiety
-Continue buspirone
CODE STATUS DNR
DVT prophylax Xarelto
Anticipated Discharge: 24 - 48 hours
Subjective/Interval History
-
Patient seen and examined at bedside. Denies acute complaints. Reports mild pain at cholecystectomy site.
Objective Data
-
Labs:
Laboratory Results
09/20/24
06:00
WBC Pending
Hgb Pending
Hct Pending
Plt Count Pending
Sodium Pending
Potassium Pending
Chloride Pending
Carbon Dioxide Pending
BUN Pending
Creatinine Pending
Glucose Pending
Calcium Pending
Vital Signs:
Vital Signs
Temp Pulse Resp BP Pulse Ox
98.9 F 122 20 127/79 95
09/19/24 22:42 09/20/24 00:42 09/19/24 22:42 09/20/24 00:42 09/19/24 22:42
I&O
09/19/24 09/20/24 09/21/24
06:59 06:59 06:59
Intake Total 550 / 550
Output Total 400 / 400 325 / 325
Balance 150 / 150 -325 / -325
Review of Systems
-
All other systems: Reviewed and negative (Except as documented)
Physical Exam
-
General: Well Developed and No Apparent Distress
HEENT: Normocephalic
Respiratory: Clear to Auscultation
Cardiac: S1/S2, Irregular Rhythm and Murmur
GI: Soft, Nondistended, Normal Bowel Sounds and Tender (Mildly tender to palpation on the right side)
Musculoskeletal: No Edema
Neuro: Awake, Alert, Oriented and AO x 3
Psych: Calm
--- NOTE | 2024-09-20 08:28 | PTCARENOTE ---
Pt found this am lying flat eating eggs. pt talking to me with mouth wide open food in mouth. I had to ask her to not talk with food in mouth. PT immediately put up to 90 degrees
--- NOTE | 2024-09-20 08:45 | W.PN.UPDATE ---
Update Note
Progress Note Update
I saw and evaluated the patient. I reviewed the resident�s note and agree with findings and plan as documented in the resident�s note.
No new complaints.
Gen: NAD, Awake and alert
Eyes: EOMI, PERRLA, no scleral icterus.
Neck: supple.
CV: tachy, irreg/irreg, +S1/S2, no m/r/g.
Resp: continues to remain CTAB anteriorly, no rales, wheezes, or rhonchi.
Abd: +BS, soft, NT to light palpation, ND
Skin: No rashes.
Neuro: CN 2-12 intact, non-focal.
Psych: Normal mood and affect.
09/16/24 07:12 Blood/Venous Blood Culture - Preliminary
Clostridium cadaveris
09/16/24 07:12 Blood/Venous Gram Stain - Preliminary
09/17/24 10:17 Blood/Venous Blood Culture - Preliminary
No Growth in 48 hours- Final report to follow
09/17/24 09:25 Blood/Venous Blood Culture - Preliminary
No Growth in 48 hours- Final report to follow
09/18/24 08:10 Bile Body Fluid Culture - Preliminary
No Growth After 18-24 Hours
09/18/24 08:10 Bile Gram Stain - Preliminary
09/17/24 00:37 Nose MRSA Screen - Final
No Methicillin Resistant Staphylococcus aureus isolated.
09/16/24 05:32 Urine Urine Culture - Final
CT A/P: Cardiomegaly. Small pericardial effusion again seen. Heart incompletely included on this study. Likely small gallbladder stones with some gallbladder wall thickening and some right upper quadrant likely pericholecystic stranding. FINDINGS
COULD REPRESENT ACUTE CHOLECYSTITIS. Suggest Abdominal Ultrasound for more complete evaluation. Limited evaluation of intestinal tract without oral or intravenous contrast with some stranding about the hepatic flexure of the colon likely from the
gallbladder, less likely intrinsic inflammation. Moderate bilateral perinephric stranding. No gross findings to suggest obstructive uropathy bilaterally. Descending colon and sigmoid diverticulosis. Moderate volume widespread colonic stool. No
intestinal obstruction or free air.
Abd U/S: Cholelithiasis with at least one gallstone is seen in the vicinity of the gallbladder neck as well as some gallbladder wall thickening. No findings to suggest pericholecystic fluid or biliary tract dilatation. Negative sonographic Norwood's
sign. If there is a clinical suspicion for acute cholecystitis, suggest Nuclear Hepatobiliary scan.
PAF with RVR:
-cont amio/Xarelto
-Toprol XL started 09/18/24, now increased
-cards following
Sepsis due to acute calculus cholecystitis:
-s/p perc jerilyn 09/18/24
-Cx data above
-follow body fluid Cx (NGTD)
-pain control
-leukocytosis has resolved
-was on Zosyn, now transitioned to Augmentin through 09/25/24 as per ID
TRACIE on CKD4:
-with non-AG met acidosis, now resolved s/p IVFs with NaHCO3
-Cr improved but not yet at baseline
Chronic anemia:
-Fe studies suggest Fe def anemia (ferritin currently likely an acute phase reactant)
-trend Hb, transfuse for Hb < 7
Other problems:
CAD: cont BB
s/p R 2018
h/o CVA
h/o SIADH
Chronic ambulatory dysfunction
h/o DVT: con Xarelto
Former tobacco abuse d/o
DNR/Xarelto
--- NOTE | 2024-09-20 08:55 | PTCARENOTE ---
PT yelling for help. she vomited her eggs. she was coughing and sounds like she aspirated. I informed MD. no new orders
--- NOTE | 2024-09-20 09:35 | W.PN.CD ---
Addendum entered and electronically signed by Randolph Mejia MD 09/20/24 13:34:
I saw and examined the patient.
The CORN BREEDER's note was reviewed and I agree with the note.
Comment: She is feeling much better now. No cp or sob. Irreg Irreg no m/r/g. Lungs CTA. No le edema. Rates still slightly up. Will titrate metoprolol and reassess.
Original Note:
Today's Communication / Plan
-
Increase metoprolol succinate to 50 mg twice daily
Impression / Plan
-
I/P: 74F with paroxysmal atrial fibrillation (on rivaroxaban), LBBB, s/p TAVR 01/2019, HTN, PAD, s/p MDT LINQ ILR 03/2021, and memory impairment, who presents to the ER with c/o abdominal pain.
Primary construction site manager: Dr. Meredith
Persistent atrial fibrillation
- rapid rates in the setting of acute cholecystitis.
- rates 90s-120s and asymptomatic.
- continue Toprol and titrate for rate control, increased
- on Xarelto 15mg daily, continue.
s/p TAVR - 01/2019.
- stable on echo 12/2022, EF 60-65%, mild MR, TAVR peak/mean gradients 32/19 mmHg, trace AR, mild-mod TR.
CKD - stage [address] Griggs.
- she refuses HD.
- baseline creatinine 2-2.2.
Abdominal pain - acute cholecystitis.
- s/p percutaneous jerilyn tube 09/18/24.
- per hospitalist.
SUBJECTIVE:
Feeling better. No palpitations.
Physical Exam
Vital Signs/Labs
Vital Signs
Temp Pulse Resp BP Pulse Ox
98.6 F 106 20 130/75 95
09/20/24 07:00 09/20/24 07:00 09/20/24 07:00 09/20/24 07:00 09/20/24 07:00
PT 23.1 Sec (11.4-14.6) H 09/17/24 10:17
INR 2.00 09/17/24 10:17
APTT 33.7 Sec (23.4-35.0) 09/18/24 00:05
Physical Exam
Constitutional: No acute distress and Comfortable
EENT: Anicteric and Moist mucous membranes
Cardiovascular: Rhythm & rate is regular, Systolic murmur present and S1S2 is normal
Respiratory: Respiratory effort normal and Lungs clear to auscul.
GI: Soft, Distention absent, Flat, Non tender and Normal bowel sounds
Neuro/Psych: Alert and Oriented (To herself and place)
Other: Skin (Warm and dry without edema)
Data Reviewed
-
Date of Service: September 20, 2024
[2024-09-20] MEDS: BUSPAR 5 MG PO ×2 (09:49→20:12)
[2024-09-20] MEDS: AUGMENTIN 500 MG/125 MG 1 TABLET PO ×2 (09:49→20:12)
[2024-09-20] MEDS: TOPROL XL 25 MG PO (09:49)
[2024-09-20] MEDS: VITAMIN B1 100 MG PO ×2 (09:49→20:12)
[2024-09-20] MEDS: PACERONE 100 MG PO (09:49)
[2024-09-20] MEDS: COLACE 100 MG PO (09:49)
[2024-09-20] MEDS: REFRESH EYE DROPS (PF) 1 DROPS BOTH EYES ×2 (09:50→20:13)
[2024-09-20] MEDS: TYLENOL 650 MG PO (09:50)
[2024-09-20] MEDS: REFRESH CELLUVISC GEL 1 DROPS OPHTH ×2 (09:50→20:12)
[2024-09-20] MEDS: SENOKOT-S 1 TABLET PO (09:50)
[2024-09-20] MEDS: ZOFRAN 4 MG IV ×2 (09:59→17:08)
--- NOTE | 2024-09-20 11:02 | W.PN.NEPH.PH ---
Today's Communication / Plan
-
Follow BMP
Assessment/Plan
-
Assessment:
Sepsis secondary to acalculous cholecystitis
TRACIE -CKD 4 (low 2 range)
Non gap, gap Metabolic acidosis
Afib with RVR
History TAVR
Anemia
History CVA
Anxiety
Constipation
Plan:
eating
No IV fluids needed
follow BMP. Patient is a very difficult stick and we may not be able to get labs daily
follow hgb, holding IV iron given bacteremia
converted to po abx
-
-
Date of Service: September 20, 2024
CC / HPI / ROS
-
Chief Complaint:
TRACIE, CKD, met acidosis
History of Present Illness:
cr better at 2.6 yesterday. Labs pending today
met acidosis resolved
Bp stable
no fever
Review of Systems:
no cp or sob
Labs
-
Labs:
eGFR 18.78 09/19/24 08:04
Albumin 3.8 g/dl (3.5-5.0) 09/16/24 04:10
Physical Exam
-
Vital Signs:
Vital Signs
Temp Pulse Resp BP Pulse Ox
98.6 F 106 20 130/75 95
09/20/24 07:00 09/20/24 07:00 09/20/24 07:00 09/20/24 07:00 09/20/24 07:00
Cardiovascular:: Regular rate and rhythm
Respiratory:: Bilateral: CTA
Lung Excursion:: Normal
Abdomen:: Nontender and Soft
Bowel Sounds:: Normal
Extremity Edema:: None: Bilateral:
[2024-09-20 11:36] LABS: Hematocrit 26.7 % (37.0-47.0); Hemoglobin 8.6 g/dL (12.0-16.0); Mean Corp Hgb Conc. 32.2 g/dL (33.0-37.0); Mean Corpuscular Volume 92.1 fL (81.0-99.0); Platelet Count 183 10^3/uL (130-400); Red Cell Dist. Width 13.5 % (11.5-14.5)
[2024-09-20 11:46] LABS: Blood Urea Nitrogen 41 mg/dl (7-17); Calcium 8.3 mg/dl (8.4-10.2); Carbon Dioxide 31 mmol/L (22-30); Chloride 101 mmol/L (98-107); Estimated Creatinine Clearance 19 ml/min; Glucose 105 mg/dl (70-99); Potassium 4.0 mmol/L (3.5-5.1); Sodium 136 mmol/L (135-145); eGFR 21.76
[2024-09-20] MEDS: XARELTO 15 MG PO (17:13)
--- NOTE | 2024-09-20 17:45 | W.PN.GS2 ---
Today's Communication / Plan
-
XR abd
NPO
Assessment / Plan
-
Patient is a 74 yo F with a PMH of HLD, aortic stenosis s/p TAVR, A-fib (on Xarelto), CVA, CKD stage IV, and s/p multiple orthopedic procedures presented with severe acute on chronic cholecystitis
Cholecystitis managed with IR cholecystostomy tube given active anticoagulation and delay in presentation
AFVSS
Notified by nursing that patient vomited breakfast with nausea throughout the day. Distention no present on exam. Suspect ileus.
Mild leukocytosis
Plan:
-- XR abd today
-- NPO except for sips of clears given nausea
-- Abx: ABX as per ID
-- IR drain to remain in place, flush daily
-- Call with questions or concerns
-- Antiemetics/analgesics prn
--Continue Perc jerilyn drain: Continue to flush drain daily. IR drain will need to remain in place for 6 to 8 weeks. Outpatient follow-up for drain management and discussion regarding potential interval cholecystectomy.
Subjective Data
-
Date of Service: September 20, 2024
Pt seen and examined at bedside with Dr. Rashid. Reports nausea all day. Did eat meals but per nursing vomited thereafter. Pain to epigstrium.
Objective Data
-
Intake and Output
09/19/24 09/20/24 09/21/24
06:59 06:59 06:59
Intake Total 550 / 550
Output Total 400 / 400 325 / 325
Balance 150 / 150 -325 / -325
Intake:
Oral fluids 540 / 540
Amount instilled into Drain (
Total)
Right Abdomen Biliary Placed in
IR
Output:
Drain Output (Total) 400 / 400 325 / 325
Right Abdomen Biliary Placed in 400 / 400 325 / 325
IR
Other:
How many times incontinent 2
MODERATE amount urine
How many times incontinent 3
SATURATED amount urine
Vital Signs
Temp Pulse Resp BP Pulse Ox
98.1 F 97 18 97/59 100
09/20/24 15:00 09/20/24 15:00 09/20/24 15:00 09/20/24 15:00 09/20/24 15:00
Lab Results
09/20/24 10:28
09/20/24 10:28
Calcium 8.3 mg/dl (8.4-10.2) L 09/20/24 10:28
Total Bilirubin 0.7 mg/dl (0.2-1.3) 09/16/24 04:10
AST 30 U/L (14-36) 09/16/24 04:10
ALT 27 U/L (0-35) 09/16/24 04:10
Alkaline Phosphatase 99 U/L (38-126) 09/16/24 04:10
Total Protein 6.9 g/dl (6.3-8.2) 09/16/24 04:10
Albumin 3.8 g/dl (3.5-5.0) 09/16/24 04:10
Physical Exam
-
Gen: NAD
Abd: soft, mild epigastric tenderness, distended, non-peritoneal, IR drain with bile
--- NOTE | 2024-09-20 18:26 | PTCARENOTE ---
Milk of molasses enema given. pt with large brown formed bm
--- NOTE | 2024-09-20 18:31 | PTCARENOTE ---
PT started yelling in severe pain +BS no flatus, last bm yesterday. MD aware, xray ordered dilaudid given> pt now sleeping
[2024-09-20] MEDS: TOPROL XL 50 MG PO (20:12)
[2024-09-21] MEDS: ZOFRAN 4 MG IV ×3 (00:31→19:40)
[2024-09-21] MEDS: DILAUDID 0.5 MG IV ×3 (00:31→19:40)
[2024-09-21 00:40] VITALS: BP 139/73
--- NOTE | 2024-09-21 00:40 | PTCARENOTE ---
Patient c/o abdominal pain, unable to describe or locate - generalized. Also c/o nausea at this time and yelling out into the hallway 'I am dying, get me out of here, somebody call my brother. Janusz! Where are you? I don't feel good.' Provided
patient with IV dilaudid for pain and Zofran for nausea -- see MAR. Patient able to fall back to sleep and rest comfortably following PRNs. Call dial is in reach, bed alarm maintained. Will continue to monitor.
[2024-09-21 03:00] VITALS: BP 129/86
[2024-09-21 06:07] LABS: Blood Urea Nitrogen 38 mg/dl (7-17); Calcium 9.0 mg/dl (8.4-10.2); Carbon Dioxide 28 mmol/L (22-30); Chloride 103 mmol/L (98-107); Estimated Creatinine Clearance 18 ml/min; Glucose 95 mg/dl (70-99); Potassium 4.1 mmol/L (3.5-5.1); Sodium 136 mmol/L (135-145); eGFR 20.68
[2024-09-21 07:00] VITALS: BP 138/75
--- NOTE | 2024-09-21 07:24 | W.PN.HOSP.TC ---
Today's Communication/Plan
-
See A/P
Assessment / Plan
Assessment / Plan
Assessment/plan
#Sepsis secondary to acute acalculous cholecystitis
-s/p percutaneous cholecystostomy 09/18/2024 with IR drain
-ID input appreciated
-S/p Zosyn, now transition to Augmentin 875 mg p.o. BID through 09/25/2024
-Initial cultures positive for gram-negative sruthi bacteremia
-Body fluid culture negative to date
-Pain control with Dilaudid
-Continue IV fluids
-Monitor WBC, temperature curve
#Postop abdominal pain, constipation
-Patient with nausea, vomiting episode after low-fat diet.
-Kept n.p.o.
-Evaluated abdominal d-bqu-rbecrmuvoepsur gas pattern
-Will keep n.p.o., continue to monitor
-Advance diet to clears once nausea and vomiting improves
#TRACIE on CKD 4
#Non-anion gap metabolic acidosis
-Resolved with IV fluids with sodium bicarb. Now DC'd
-New baseline creatinine 2�2.2.
-Declined HD in the past
-Monitor BMP
#Chronic anemia
-Iron studies indicative of iron deficiency anemia
-Monitor CBC
-Consider iron supplementation on discharge after bacteremia clears
#Persistent atrial fibrillation
-Rapid heart rates in the setting of acute cholecystitis
-Continue amiodarone for rate control, Toprol XL added this admission
-Anticoagulation with Xarelto
-Cardiology input appreciated
#Aortic stenosis s/p TAVR 2018
#Anxiety
-Continue buspirone
CODE STATUS DNR
DVT prophylax Xarelto
Anticipated Discharge: 24 - 48 hours
Subjective/Interval History
-
Patient seen and examined at bedside. Still reports nausea. Reports mild abdominal pain. Currently n.p.o.
Objective Data
-
Labs:
Laboratory Results
09/21/24
04:41
Sodium 136
Potassium 4.1
Chloride 103
Carbon Dioxide 28
BUN 38 H
Creatinine 2.4 H
Glucose 95
Calcium 9.0
Vital Signs:
Vital Signs
Temp Pulse Resp BP Pulse Ox
97.6 F 89 18 129/86 97
09/21/24 03:00 09/21/24 03:00 09/21/24 03:00 09/21/24 03:00 09/21/24 03:00
I&O
09/20/24 09/21/24 09/22/24
06:59 06:59 06:59
Intake Total 2210 / 2210
Output Total 325 / 325 175 / 175
Balance -325 / -325 2034
Review of Systems
-
All other systems: Reviewed and negative (Except as documented)
Physical Exam
-
General: Well Developed and No Apparent Distress
HEENT: Normocephalic
Respiratory: Clear to Auscultation
Cardiac: Regular Rhythm, S1/S2 and Murmur
GI: Soft, Normal Bowel Sounds, Tender (Mildly tender to palpation on the right side) and Distended (Mild distention)
Musculoskeletal: No Edema
Neuro: Awake, Alert, Oriented and AO x 3
Psych: Calm
[2024-09-21] MEDS: REFRESH CELLUVISC GEL 1 DROPS OPHTH ×2 (09:38→20:12)
[2024-09-21] MEDS: SENOKOT-S 1 TABLET PO (09:38)
[2024-09-21] MEDS: TOPROL XL 50 MG PO ×2 (09:38→20:24)
[2024-09-21] MEDS: COLACE 100 MG PO (09:38)
[2024-09-21] MEDS: AUGMENTIN 500 MG/125 MG 1 TABLET PO ×2 (09:38→20:12)
[2024-09-21] MEDS: VITAMIN B1 100 MG PO ×2 (09:38→20:12)
[2024-09-21] MEDS: REFRESH EYE DROPS (PF) 1 DROPS BOTH EYES ×2 (09:39→20:13)
[2024-09-21] MEDS: PACERONE 100 MG PO (09:39)
[2024-09-21] MEDS: BUSPAR 5 MG PO ×2 (09:39→20:33)
[2024-09-21 11:00] VITALS: BP 112/74
--- NOTE | 2024-09-21 11:00 | W.PN.GS2 ---
Today's Communication / Plan
-
npo with sips of clears
Assessment / Plan
-
Patient is a 74 yo F with a PMH of HLD, aortic stenosis s/p TAVR, A-fib (on Xarelto), CVA, CKD stage IV, and s/p multiple orthopedic procedures presented with severe acute on chronic cholecystitis
Cholecystitis managed with IR cholecystostomy tube given active anticoagulation and delay in presentation
AFVSS
Persistent nausea. Distention no present on exam. Suspect ileus.
XR with nonobstructive gas pattern
Mild leukocytosis
Plan:
-- In light of nausea, hold laxatives
-- NPO except for sips of clears, ok to advance diet to clears once nausea improved
-- Abx: ABX as per ID
-- Antiemetics/analgesics prn
--Continue Perc jerilyn drain: Continue to flush drain daily. IR drain will need to remain in place for 6 to 8 weeks. Outpatient follow-up for drain management and discussion regarding potential interval cholecystectomy.
Subjective Data
-
Date of Service: September 21, 2024
Pt seen and examined at bedside. Denies further vomiting but has persistent nausea. No passage of flatus today. No Bm's
Objective Data
-
Intake and Output
09/20/24 09/21/24 09/22/24
06:59 06:59 06:59
Intake Total 2209 / 2209
Output Total 325 / 325 175 / 175
Balance -325 / -325 2034
Intake:
Oral fluids 2159 / 2159
IV piggybacks 50 / 50
Output:
Drain Output (Total) 325 / 325 175 / 175
Right Abdomen Biliary Placed in 325 / 325 175 / 175
IR
Other:
How many times incontinent 3
SATURATED amount urine
Vital Signs
Temp Pulse Resp BP Pulse Ox
99.4 F 107 18 138/75 96
09/21/24 07:00 09/21/24 07:00 09/21/24 07:00 09/21/24 07:00 09/21/24 07:00
Lab Results
09/20/24 10:28
09/21/24 04:41
Calcium 9.0 mg/dl (8.4-10.2) 09/21/24 04:41
Total Bilirubin 0.7 mg/dl (0.2-1.3) 09/16/24 04:10
AST 30 U/L (14-36) 09/16/24 04:10
ALT 27 U/L (0-35) 09/16/24 04:10
Alkaline Phosphatase 99 U/L (38-126) 09/16/24 04:10
Total Protein 6.9 g/dl (6.3-8.2) 09/16/24 04:10
Albumin 3.8 g/dl (3.5-5.0) 09/16/24 04:10
Physical Exam
-
Gen: NAD
Abd: soft, mild epigastric tenderness, distended with tympany, non-peritoneal, IR drain with bile
--- NOTE | 2024-09-21 12:04 | W.PN.NEPH.PH ---
Today's Communication / Plan
-
IVF
Assessment/Plan
-
Assessment:
Sepsis secondary to acalculous cholecystitis
TRACIE -CKD 4 (low 2 range)
Non gap, gap Metabolic acidosis
Afib with RVR
History TAVR
Anemia
History CVA
Anxiety
Constipation
Plan:
now NPO with sips
follow BMP. Patient is a very difficult stick and we may not be able to get labs daily
follow hgb
converted to po abx
may need IVF if prolonged NPO
-
-
Date of Service: September 21, 2024
CC / HPI / ROS
-
Chief Complaint:
TRACIE, CKD, met acidosis
History of Present Illness:
cr better at 2.4
met acidosis resolved
Bp stable
no fever
NPO due to vomiting
Review of Systems:
no cp or sob
Labs
-
Labs:
WBC 13.1 10^3/uL (4.8-10.8) H 09/20/24 10:28
RBC 2.90 10^6/uL (4.20-5.40) L 09/20/24 10:28
Hgb 8.6 g/dL (12.0-16.0) L 09/20/24 10:28
Hct 26.7 % (37.0-47.0) L 09/20/24 10:28
Plt Count 183 10^3/uL (130-400) 09/20/24 10:28
Sodium 136 mmol/L (135-145) 09/21/24 04:41
Potassium 4.1 mmol/L (3.5-5.1) 09/21/24 04:41
Chloride 103 mmol/L (98-107) 09/21/24 04:41
Carbon Dioxide 28 mmol/L (22-30) 09/21/24 04:41
BUN 38 mg/dl (7-17) H 09/21/24 04:41
Creatinine 2.4 mg/dL (0.6-1.0) H 09/21/24 04:41
eGFR 20.68 09/21/24 04:41
Glucose 95 mg/dl (70-99) 09/21/24 04:41
Calcium 9.0 mg/dl (8.4-10.2) 09/21/24 04:41
Albumin 3.8 g/dl (3.5-5.0) 09/16/24 04:10
Physical Exam
-
Vital Signs:
Vital Signs
Temp Pulse Resp BP Pulse Ox
98.1 F 88 17 112/74 98
09/21/24 11:00 09/21/24 11:00 09/21/24 11:00 09/21/24 11:00 09/21/24 11:00
Cardiovascular:: Regular rate and rhythm
Respiratory:: Bilateral: CTA
Lung Excursion:: Normal
Abdomen:: Nontender and Soft
Bowel Sounds:: Normal
Extremity Edema:: None: Bilateral:
--- NOTE | 2024-09-21 13:13 | W.PN.CD ---
Today's Communication / Plan
-
Continue current medications.
I will sign off. Please call back with questions.
Impression / Plan
-
I/P: 74F with paroxysmal atrial fibrillation (on rivaroxaban), LBBB, s/p TAVR 01/2019, HTN, PAD, s/p MDT LINQ ILR 03/2021, and memory impairment, who presents to the ER with c/o abdominal pain.
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
Persistent atrial fibrillation
- rapid rates in the setting of acute cholecystitis.
- now controlled
-continue current metoprolol dose
-on amiodarone, continued by her primary census clerk at last visit(Dr Meredith) can decide to stop as outpt
- on Xarelto 15mg daily, continue.
s/p TAVR - 01/2019.
- stable on echo 12/2022, EF 60-65%, mild MR, TAVR peak/mean gradients 32/19 mmHg, trace AR, mild-mod TR.
CKD - stage [address] Griggs.
- she refuses HD.
- baseline creatinine 2-2.2.
Abdominal pain - acute cholecystitis.
- s/p percutaneous jerilyn tube 09/18/24.
- per hospitalist.
SUBJECTIVE:
no complaint
Physical Exam
Vital Signs/Labs
Vital Signs
Temp Pulse Resp BP Pulse Ox
98.1 F 88 17 112/74 98
09/21/24 11:00 09/21/24 11:00 09/21/24 11:00 09/21/24 11:00 09/21/24 11:00
09/20/24 10:28
09/21/24 04:41
PT 23.1 Sec (11.4-14.6) H 09/17/24 10:17
INR 2.00 09/17/24 10:17
APTT 33.7 Sec (23.4-35.0) 09/18/24 00:05
Physical Exam
Constitutional: No acute distress
Cardiovascular: Pedal edema is absent and Diastolic murmur absent
Respiratory: Respiratory effort normal, Lungs clear to auscul., Wheeze Absent and Crackles Absent
Data Reviewed
-
Date of Service: September 21, 2024
EKG: Other (Telemetry with rate controlled atrial fibrillation)
[2024-09-21 15:00] VITALS: BP 122/82
[2024-09-21] MEDS: XARELTO 15 MG PO (17:54)
[2024-09-21] MEDS: ATIVAN 0.5 MG SL (20:36)
[2024-09-22] VITALS: BP 107/74
[2024-09-22 04:30] VITALS: BP 153/72
[2024-09-22] MEDS: DILAUDID 0.5 MG IV ×2 (04:59→14:26)
[2024-09-22] MEDS: ZOFRAN 4 MG IV (05:00)
--- NOTE | 2024-09-22 05:44 | W.PN.UPDATE ---
Update Note
Progress Note Update
Twice this shift pt confused and screaming necessitating ativan po which was effective.
Speaking with RN she states pt has been confused during her stay. Often will scream. Was found wandering few days ago and needed to be moved closer to nurses station. When pt has pain she doesn't verbalize it well and will just scream.
Restraints were placed this am due to trying to hit nurse.
Consider psych consult if behavior continues
--- NOTE | 2024-09-22 05:46 | PTCARENOTE ---
At change of shift pt was yelling out and extremely agitated. Pt was refusing to have VS taken or assessment to take place. Pt was given dilaudid and zofran as report from day shift RN stated that this is what the pt exhibits when having discomfort.
Pt calmed down somewhat but was still yelling out occasionally and pushing staff. Provider operations trainer contacted and pt was given ativan as ordered. Pt settled down somewhat with occasional bouts of yelling out but was redirectable. @ 0530hrs pt began
yelling out consistently and when staff responded asking what she needed, she became belligerent yelling obscenities including physical and verbal threats directed at staff. Pt also stated she would call the police. Pt began hitting, kicking and
attempting to bite staff. Pt placed in 2pt wrist restraints after pt was cleaned due to incontinence. After pt was placed in restraints pt was given dilaudid and zofran again. pt is now awake but calmer, tapping fingers on the bed. No s/s of
distress assessed. Will continue to monitor.
[2024-09-22 06:00] VITALS: BMI 27.4
[2024-09-22 07:30] VITALS: BP 148/79
--- NOTE | 2024-09-22 08:54 | W.PN.GS2 ---
Addendum entered and electronically signed by Wilfredo Rodriguez MD 09/22/24 10:06:
Patient seen and examined.
Delirious and difficult to evaluate. Reports mild nausea, no episodes of emesis. No flatus or BM. Afebrile.
Gen: NAD, oriented to person and place
Abd: soft, NT, moderate distension, tympany, non-peritoneal, IR drain bilious
Patient is a 74 yo F p/w acute cholecystitis
S/p IR jerilyn cystostomy tube on 09/18/2024
Afebrile, intermittent tachycardia
Labs notable for leukocytosis, stable anemia and CKD
Cholecystitis managed with IR tube, appears to be functioning well. Issues with ileus and chronic constipation with PO intolerance over the past 24-48 hrs. Bowel meds and sips of clears for comfort until symptoms improve. R/o alternative causes
for leukocytosis and worsened delirium.
-- Milk of magnesia, Miralax, enemas
-- Sips of clears for comfort
-- R/o alternative causes for leukocytosis
Original Note:
Today's Communication / Plan
-
advance to clear fluid depends on pt tolerability.
Assessment / Plan
-
Patient is a 74 yo F with a PMH of HLD, aortic stenosis s/p TAVR, A-fib (on Xarelto), CVA, CKD stage IV, and s/p multiple orthopedic procedures presented with severe acute on chronic Cholecystitis managed with IR cholecystostomy tube on day 5
#Sepsis due to Acute calculus Cholecystitis:
Tmax- 99.4
WBC count= 15.8 (h)---> 11.7 (h)-->10.8 (n)-->pending result
Blood culture- Gram stain of anaerobic - gram negative bacilli.
Hb=8.6
On 09/[address] scan without contrast:
Likely small gallbladder stones with some gallbladder wall thickening and some right upper quadrant likely pericholecystic stranding. FINDINGS COULD REPRESENT ACUTE CHOLECYSTITIS.
Descending colon and sigmoid diverticulosis. Moderate volume widespread colonic stool. No intestinal obstruction or free air.
On 09/16 Abdomen USG:
Cholelithiasis with at least one gallstone is seen in the vicinity of the gallbladder neck as well as some gallbladder wall thickening. No findings to suggest pericholecystic fluid or biliary tract dilatation.
Negative sonographic Norwood's sign.
-percutaneous drainage along with cholecystostomy tube placed and bile drainage present at the tube around 60 ml, advised to flush daily,
-Check the tube blockage and drainage.
- IR drain will need to remain in place for 6 to 8 weeks.
- Future follow up at outpatient department to discuss regards cholecystectomy depending on CKD Stage 4 (creatinine clearance).
On 09/20 Abdomen x ray obtained had an impression of : Nonobstructive intestinal bowel gas pattern.
- Overnight pt doesnt experience nausea, so planning to restart clear fluids.
- Depends on the tolerability of the fluids planning to give miralax
-Abx: Amoxicillin/ clavulanate 500/125 mg on day 3
-Currently on Rivaroxaban 15 mg for AFib and monitor for bleeding, Hb- 8.6 on 09/20
Subjective Data
-
Date of Service: September 22, 2024
Patient is placed in restrain
Overnight pt was in confused state and screaming, wandering around the hills.
today pt is oriented to the person and obtained history from her and the nurse on duty for the patient : Currently pt is not experiencing abdominal pain, nausea, vomiting, fever, chills.
She doesn't pass flatus, bowel movement overnight.
Objective Data
-
Intake and Output
09/21/24 09/22/24 09/23/24
06:59 06:59 06:59
Intake Total 2210 / 2210
Output Total 275 / 275 90 / 90
Balance 1935 / 193 -80 / -80
Intake:
Oral fluids 2160 / 2160 0 / 0
IV piggybacks 50 / 50
Tube feeding
Output:
Drain Output (Total)
Right Abdomen Biliary Placed in
IR
Other:
How many times incontinent 3 3 2
SATURATED amount urine
Vital Signs
Temp Pulse Resp BP Pulse Ox
98.5 F 107 18 148/79 97
09/22/24 07:30 09/22/24 07:30 09/22/24 07:30 09/22/24 07:30 09/22/24 07:30
Calcium 9.0 mg/dl (8.4-10.2) 09/21/24 04:41
Total Bilirubin 0.7 mg/dl (0.2-1.3) 09/16/24 04:10
AST 30 U/L (14-36) 09/16/24 04:10
ALT 27 U/L (0-35) 09/16/24 04:10
Alkaline Phosphatase 99 U/L (38-126) 09/16/24 04:10
Total Protein 6.9 g/dl (6.3-8.2) 09/16/24 04:10
Albumin 3.8 g/dl (3.5-5.0) 09/16/24 04:10
Physical Exam
-
General: Well Developed, Well Nourished and No Apparent Distress
HEENT: Normocephalic and Anicteric
Respiratory: Non Labored Respirations
Cardiac: Irregular Rhythm
GI: Soft, non Tender (RUQ, positive Norwood's sign), non distended, right side cholecystostomy tube placed and bile drainage present at the tube around 60 ml.
Musculoskeletal: No Edema
Skin: Warm and Dry
Neuro: Nonfocal/Grossly Intact
Patient has a gutierrez catheter: No
Patient has a central line: No
[2024-09-22 09:55] LABS: Hematocrit 29.1 % (37.0-47.0); Hemoglobin 9.1 g/dL (12.0-16.0); Mean Corp Hgb Conc. 31.3 g/dL (33.0-37.0); Mean Corpuscular Volume 94.2 fL (81.0-99.0); Platelet Count 250 10^3/uL (130-400); Red Cell Dist. Width 13.3 % (11.5-14.5)
[2024-09-22 09:56] LABS: Blood Urea Nitrogen 33 mg/dl (7-17); Calcium 9.3 mg/dl (8.4-10.2); Carbon Dioxide 23 mmol/L (22-30); Chloride 106 mmol/L (98-107); Estimated Creatinine Clearance 20 ml/min; Glucose 68 mg/dl (70-99); Potassium 4.4 mmol/L (3.5-5.1); Sodium 137 mmol/L (135-145); eGFR 20.68
[2024-09-22] MEDS: COLACE 100 MG PO (10:14)
[2024-09-22] MEDS: REFRESH CELLUVISC GEL 1 DROPS OPHTH ×2 (10:14→22:20)
[2024-09-22] MEDS: BUSPAR 5 MG PO ×2 (10:14→22:20)
[2024-09-22] MEDS: TOPROL XL 50 MG PO ×2 (10:14→22:20)
[2024-09-22] MEDS: AUGMENTIN 500 MG/125 MG 1 TABLET PO ×2 (10:14→22:20)
[2024-09-22] MEDS: VITAMIN B1 100 MG PO ×2 (10:15→22:20)
[2024-09-22] MEDS: MIRALAX PO ×2 (10:15→12:26)
[2024-09-22] MEDS: MILK OF MAGNESIA 30 ML PO (10:24)
[2024-09-22] MEDS: PACERONE 100 MG PO (10:24)
[2024-09-22] MEDS: REFRESH EYE DROPS (PF) 1 DROPS BOTH EYES ×2 (10:26→22:20)
--- NOTE | 2024-09-22 10:42 | PN.CDI ---
CDI
- -
CDI:
Physician Documentation Request
Admit Date: 09/16/24 13:52
Dear Doctor Michael/Resident ,
Please review the following and provide your response in the progress notes.
Clinical Indicators:
Pt admitted with Sepsis 2/2 Acute Calculous Cholecystitis s/p percutaneous tube
Documented per update note 09/22 2 0544, ' Twice this shift pt confused and screaming necessitating ativan po which was effective. Speaking with RN she states pt has been confused during her stay. Often will scream. Was found wandering few days ago
and needed to be moved closer to nurses station. When pt has pain she doesn't verbalize it well and will just scream. Restraints were placed this am due to trying to hit nurse. '
Progress note 09/22, ' Patient is placed in restraintOvernight pt was in confused state and screaming, wandering around the hills. ...'
Pt care note 09/22 @ 0546, ' At change of shift pt was yelling out and extremely agitated. Pt was refusing to have VS taken or assessment to take place..Pt calmed down somewhat but was still yelling out occasionally and pushing staff. Provider on
call contacted and pt was given ativan as ordered. Pt settled down somewhat with occasional bouts of yelling out but was redirectable. @ 0530hrs pt began yelling out consistently and when staff responded asking what she needed, she became
belligerent yelling obscenities including physical and verbal threats directed at staff. Pt also stated she would call the police. Pt began hitting, kicking and attempting to bite staff. Pt placed in 2pt wrist restraints...'
Based on the above, could you clarify in the Progress Notes and Discharge Summary which, if any of the following, is the most likely etiology of the confusion/altered mental status.
Toxic Metabolic Encephalopathy
Metabolic Encephalopathy
Other ( please specify)
Use of terms such as suspected, likely, concern for, or probable (associated with a specific diagnosis that is being evaluated, monitored, or treated as if it exists) are acceptable and can be coded in the inpatient setting, when documented at the
time of discharge.
Thank you,
Sara Gary RN
CDI Specialist
[facility]
Please use your independent medical judgment in providing your response.
--- NOTE | 2024-09-22 11:04 | PTCARENOTE ---
Confirmed with surgical CALL CENTER DISPATCHER Shankar that daily flushes should go towards patient
[2024-09-22] MEDS: DULCOLAX 10 MG RECTAL (12:24)
--- NOTE | 2024-09-22 12:32 | W.PN.NEPH.PH ---
Today's Communication / Plan
-
Creatinine stable at 2.4
N.p.o.
Will provide IV fluid
Assessment/Plan
-
Assessment:
Sepsis secondary to acalculous cholecystitis
TRACIE -CKD 4 (low 2 range)
Non gap, gap Metabolic acidosis
Afib with RVR
History TAVR
Anemia
History CVA
Anxiety
Constipation
Plan:
Creatinine stable at 2.4
now NPO per surgery
will provide IVFs
follow BMP. Patient is a very difficult stick and we may not be able to get labs daily
follow hgb
converted to po abx
-
-
Date of Service: September 22, 2024
CC / HPI / ROS
-
Chief Complaint:
TRACIE, CKD, met acidosis
History of Present Illness:
cr better at 2.4
met acidosis resolved
Bp stable
no fever
NPO due to vomiting
Severe mental status agitation overnight
Review of Systems:
no cp or sob
N.p.o.
Labs
-
Labs:
WBC 14.2 10^3/uL (4.8-10.8) H 09/22/24 08:59
RBC 3.09 10^6/uL (4.20-5.40) L 09/22/24 08:59
Hgb 9.1 g/dL (12.0-16.0) L 09/22/24 08:59
Hct 29.1 % (37.0-47.0) L 09/22/24 08:59
Plt Count 250 10^3/uL (130-400) D 09/22/24 08:59
Sodium 137 mmol/L (135-145) 09/22/24 08:59
Potassium 4.4 mmol/L (3.5-5.1) 09/22/24 08:59
Chloride 106 mmol/L (98-107) 09/22/24 08:59
Carbon Dioxide 23 mmol/L (22-30) 09/22/24 08:59
BUN 33 mg/dl (7-17) H 09/22/24 08:59
Creatinine 2.4 mg/dL (0.6-1.0) H 09/22/24 08:59
eGFR 20.68 09/22/24 08:59
Glucose 68 mg/dl (70-99) L 09/22/24 08:59
Calcium 9.3 mg/dl (8.4-10.2) 09/22/24 08:59
Albumin 3.8 g/dl (3.5-5.0) 09/16/24 04:10
Physical Exam
-
Vital Signs:
Vital Signs
Temp Pulse Resp BP Pulse Ox
98.5 F 107 18 148/79 97
09/22/24 07:30 09/22/24 07:30 09/22/24 07:30 09/22/24 07:30 09/22/24 07:30
Cardiovascular:: Regular rate and rhythm
Respiratory:: Bilateral: CTA
Lung Excursion:: Normal
Abdomen:: Nontender and Soft
Bowel Sounds:: Normal
Extremity Edema:: None: Bilateral:
--- NOTE | 2024-09-22 13:02 | W.PN.UPDATE ---
Update Note
Progress Note Update
Patient is a 74 yo F with a PMH of HLD, aortic stenosis s/p TAVR, A-fib (on Xarelto), CVA, CKD stage IV, and s/p multiple orthopedic procedures presented with severe acute on chronic Cholecystitis managed with IR cholecystostomy tube on day 5
#delirium probably secondary to sepsis/ hepatic encephalopathy:
- Twice this shift pt confused and screaming necessitating ativan po. Speaking with RN she states pt has been confused during her stay. Often will scream. Was found wandering few days ago and needed to be moved closer to nurses station. When pt has
pain she doesn't verbalize it well and will just scream. Restraints were placed this am due to trying to hit nurse.
WBC count= 14.2 (h), BUN= 33 (H), cr= 2.4 (h).
--- NOTE | 2024-09-22 13:16 | W.PN.HOSP.TC ---
Addendum entered and electronically signed by Elli Ellison MD 09/22/24 14:29:
I saw and evaluated the patient independently. I reviewed the resident�s note and agree with findings and plan as documented by Dr. Sullivan.
GENERAL: well developed, well nourished, female in no apparent distress
HEENT: NC/AT
HEART: regular rate and rhythm, +S1, +S2
LUNGS : clear to auscultation bilaterally
ABDOM: soft, tendeer without guarding or rebound, distended and mildly tympanitic, decreased bowel sounds--perc jerilyn tube
EXT: no cyanosis, clubbing, or edema
NEUROLOGIC: apparent dementia
Sepsis (resolved) secondary to acute calculous cholecystitis--by US and CT--NPO/IVF--apprec surgery--perc jerilyn tube placed 09/18/2024 with IR drain draining bilious fluid--needs to stay 6-8 weeks--clears/IVF--blood cultures positive for Clostridium
cadaveris, repeat negative--now on oral augmentin (would trend n/v symptoms in relation to when given the ABX)--pain control
Postop abdominal pain with constipation--pt moving bowels--advance diet as tolerated--cont bowel regimen as per surgery
Episode of agitation--seems in relation to pain or nausea--restraints needed to be placed but have been off since morning of 09/22--PRN ativan, pain control--if continues then would consult psych
Reactive leukocytosis- Patient's WBC is 14.2 and trending up from 13.1 yesterday- Patient is afebrile with hemodynamically stable vitals
TRACIE on CKD 4--Non-anion gap metabolic acidosis---Resolved with IV fluids with sodium bicarb. Now DC'd--Baseline creatinine is 2- 2.2-Declined HD in the past--creat 2.4
Chronic normocytic anemia-- Hemoglobin is 9.1 trending up from 8.6 yesterday-Iron is 24, TIBC is 193, ferritin is 788, which indicates iron deficiency anemia--Consider iron supplementation on discharge
Persistent atrial fibrillation-- Today rate is 107 and patient is asymptomatic with hemodynamically stable vitals--Continue amiodarone 100 Mg for rate control, Toprol XL added this admission, anticoagulation with home dose Xarelto
Aortic stenosis s/p TAVR 2018- Patient follows Dr. Meredith who is main outpatient civil structural engineer.
Anxiety-Continue buspirone
CODE STATUS-- DNR
DVT proph-- Xarelto
Original Note:
Today's Communication/Plan
-
- Check CMP tomorrow, trend CBC
- Observe if patient is any more episodes of delirium
Assessment / Plan
Assessment / Plan
Sepsis (resolved) secondary to acute acalculous cholecystitis
Confirmed on CT of the abdomen pelvis:
-Initially presented with temperature 100.3, WBC 90.3, tachycardia 113, tachypnea 26 and severe abdominal pain on
-s/p percutaneous cholecystostomy 09/18/2024 with IR drain draining bilious fluid, 90 mL since last night
- IV Zosyn does not transition to Augmentin 875 mg p.o. BID through 09/25/2024 as per ID
-Initial blood cultures positive for gram-negative sruthi bacteremia, however other 2 micro blood specimens have been negative for any growth in the cultures
-Body fluid culture negative to date
-Pain control with Dilaudid
-Continue D5/0.45 NaCl as patient is n.p.o. and this prevents hypoglycemia
-Monitor WBC, temperature curve
Postop abdominal pain with constipation:
- Patient notes that her abdominal pain is improving, she had a large bowel movement last night. There were episodes of nausea and vomiting after starting a low-fat diet, however these have subsided and patient has not had no recent episodes.
- Abdominal x-ray shows a nonobstructive intestinal bowel gas pattern
-Will keep n.p.o. with sips of clear, continue to monitor
-Advance diet to clears once nausea and vomiting improves
- Will try milk of magnesia, MiraLAX, enemas to help stimulate further bowel movements.
Episode of agitation:
- Patient is confused and screaming last night with restraints having to have been placed due to trying to hit the nurse. Restraints have been removed this morning.
- Dilated was tried for pain control however that did not help
- As needed Ativan to as it is a fast acting benzodiazepine helps calm the patient down
- Continue to observe, if 1 more episode of acute agitation with violent behavior will consider referring to psychiatry
Reactive leukocytosis:
- Patient's WBC is 14.2 and trending up from 13.1 yesterday
- Patient is afebrile with hemodynamically stable vitals
- Will order CMP for the a.m. to check liver function tests and bilirubin level as well to check for any worsening biliary infection or obstruction
- Continue to trend the WBC
TRACIE on CKD 4
Non-anion gap metabolic acidosis:
-Resolved with IV fluids with sodium bicarb. Now DC'd
-Baseline creatinine is 2- 2.2
-Declined HD in the past
-Monitor BMP
Chronic normocytic anemia:
- Hemoglobin is 9.1 trending up from 8.6 yesterday
-Iron is 24, TIBC is 193, ferritin is 788, which indicates iron deficiency anemia
-Consider iron supplementation on discharge
Persistent atrial fibrillation:
- Today rate is 107 and patient is asymptomatic with hemodynamically stable vitals
-Continue amiodarone 100 Mg for rate control, Toprol XL added this admission, anticoagulation with home dose Xarelto 15 Mg
Aortic stenosis s/p TAVR 2018
- Patient follows Dr. Meredith who is main outpatient civil structural engineer.
Anxiety
-Continue buspirone
CODE STATUS DNR
DVT prophylax Xarelto
Anticipated Discharge: 24 - 48 hours
Subjective/Interval History
-
Date of Service: September 22, 2024
74-year-old female with a past medical history of hyperlipidemia, aortic stenosis status post TAVR 2019, A-fib on Xarelto, CVA, CKD stage IV, iron deficiency anemia who presented from [facility] to the ER on 09/16/2024 with sepsis criteria
positive and severe abdominal pain most pronounced in the right lower quadrant. CT of the abdomen pelvis with abdominal ultrasound showed a 1 gallstone in the gallbladder neck with gallbladder wall thickening. She was started on IV Zosyn which was
then transition to Augmentin p.o. to be continued through 09/25/2024. Surgery and IR were consulted for further management. She is status post cholecystectomy tube to be continued through 09/18/2024. Cardiology is also following because of her A-fib
with RVR, Toprol-XL increased to 50 Mg twice daily, anticoagulated with her home dose of Xarelto, cardiology has signed off. Surgery advised to hold laxatives make patient n.p.o. except sips of clears until postoperation nausea with constipation
has improved, continue percutaneous cholecystotomy drain was [address] for 6 to 8 weeks with an outpatient follow-up with surgery.
Overnight events-patient confused and screaming requiring the use of Ativan p.o. which was effective with restraints that were placed.
Today patient has no acute medical complaints except that she wants her restraints removed. She does not appear to be agitated, delirious, mood changes.
Objective Data
-
Labs:
Laboratory Results
09/22/24
08:59
WBC 14.2 H
Hgb 9.1 L
Hct 29.1 L
Plt Count 250 D
Sodium 137
Potassium 4.4
Chloride 106
Carbon Dioxide 23
BUN 33 H
Creatinine 2.4 H
Glucose 68 L
Calcium 9.3
Vital Signs:
Vital Signs
Temp Pulse Resp BP Pulse Ox
98.5 F 107 18 148/79 97
09/22/24 07:30 09/22/24 07:30 09/22/24 07:30 09/22/24 07:30 09/22/24 07:30
I&O
09/21/24 09/22/24 09/23/24
06:59 06:59 06:59
Intake Total 0 / 2209
Output Total 275 / 275
Balance 1934 / 1934 -80 / 80
Review of Systems
-
History Source: Patient
All other systems: Reviewed and negative
Psych: Reports Other
Physical Exam
-
General: Well Developed and No Apparent Distress
HEENT: Normocephalic
Respiratory: Clear to Auscultation
Cardiac: Regular Rhythm, S1/S2 and Murmur (Present on the right upper sternal border)
GI: Soft, Normal Bowel Sounds and Tender (Mild tender palpation of the right side)
Musculoskeletal: No Clubbing, No Cyanosis and No Edema
Neuro: Awake, Alert, Oriented and AO x 3
Psych: Calm
Data Reviewed
-
Labs: Labs Reviewed by me and Discussed with Physician
--- NOTE | 2024-09-22 13:16 | CM ---
Pt is currently NPO due to vomiting; she is confused, yelling out when she is in pain.
Plan: Pt to return to [facility] when medically stable.
--- NOTE | 2024-09-22 13:55 | W.PN.UPDATE ---
Update Note
Progress Note Update
S: Pt seen and examined at bedside. Notes that she may be a little bit nauseated but feels better overall. Restraints have been removed and she is able to converse appropriately. Requesting ice cream.
B: Notified by nursing that patient had a rather large BM early this afternoon (both formed and soft/loose) after stool softeners/dulcolax suppository this am
A: Still with mild abdominal distention/tympany although improved from this morning. ABD non-tender on exam. Perc jerilyn tube still with bilious outputs as expected. Has not required zofran since 0500 this am.
R: Trial of clear liquids and follow for PO tolerance then ADAT if no further nausea. Continue miralax and colace.
[2024-09-22] MEDS: D5/0.45%NACL 1000 IV (15:07)
[2024-09-22 15:30] VITALS: BP 142/82
[2024-09-22] MEDS: ROXICODONE 5 MG PO (17:01)
[2024-09-22] MEDS: XARELTO 15 MG PO (17:01)
[2024-09-22 19:00] VITALS: BP 138/101
[2024-09-22 23:00] VITALS: BP 146/96
[2024-09-23 04:00] VITALS: BP 139/92
[2024-09-23] MEDS: D5/0.45%NACL 1000 IV (04:55)
[2024-09-23 06:00] VITALS: BMI 26.8
--- NOTE | 2024-09-23 07:08 | W.PN.GS2 ---
Addendum entered and electronically signed by Wilfredo Rodriguez MD 09/23/24 11:29:
Patient seen and examined.
Feels improved. BM yesterday afternoon. No further BMs or flatus. No nausea or vomiting.
Gen: NAD
Abd: soft, NT, distended (stable, slightly improved), non-peritoneal, jerilyn tube bile
Patient is a 74 yo F p/w acute cholecystitis
S/p IR jerilyn cystostomy tube on 09/18/2024
Afebrile, intermittent tachycardia
No repeat labs
Cholecystitis managed with IR tube, appears to be functioning well. Issues with ileus and chronic constipation with PO intolerance over the past 24-48 hrs. Bowel meds and sips of clears for comfort until symptoms improve. R/o alternative causes
for leukocytosis and worsened delirium.
-- Fulls
-- Miralax BID
Original Note:
Today's Communication / Plan
-
Advanced to full diet.
Assessment / Plan
-
Patient is a 74 yo F with a PMH of HLD, aortic stenosis s/p TAVR, A-fib (on Xarelto), CVA, CKD stage IV, and s/p multiple orthopedic procedures presented with severe acute on chronic Cholecystitis managed with IR cholecystostomy tube on day 6
#Sepsis due to Acute calculus Cholecystitis:
Tmax- 98.8
WBC count= 15.8 (h)---> 11.7 (h)-->10.8 (n)-->13.1(h)-->14.2(h)
Blood culture- Gram stain of anaerobic - gram negative bacilli.
Hb=8.6
On 09/[address] scan without contrast:
Likely small gallbladder stones with some gallbladder wall thickening and some right upper quadrant likely pericholecystic stranding. FINDINGS COULD REPRESENT ACUTE CHOLECYSTITIS.
Descending colon and sigmoid diverticulosis. Moderate volume widespread colonic stool. No intestinal obstruction or free air.
On 09/16 Abdomen USG:
Cholelithiasis with at least one gallstone is seen in the vicinity of the gallbladder neck as well as some gallbladder wall thickening. No findings to suggest pericholecystic fluid or biliary tract dilatation.
Negative sonographic Norwood's sign.
-percutaneous drainage along with cholecystostomy tube placed and bile drainage present at the tube around 60 ml, advised to flush daily,
-Check the tube blockage and drainage.
- IR drain will need to remain in place for 6 to 8 weeks.
- Future follow up at outpatient department to discuss regards cholecystectomy depending on CKD Stage 4 (creatinine clearance).
On 09/20 Abdomen x ray obtained had an impression of : Nonobstructive intestinal bowel gas pattern.
- Overnight pt doesnt experience nausea, so advanced to full diet.
- miralax and Colace.
-Abx: Amoxicillin/ clavulanate 500/125 mg on day 4
-Currently on Rivaroxaban 15 mg for AFib and monitor for bleeding, Hb- 8.6 on 09/20
Subjective Data
-
Date of Service: September 23, 2024
Patient is oriented and overnight there is no concern for abdominal pain, nausea, vomiting, dysuria, fever, chills. Patient had no flatus, bowel movement. She wants to eat food.
Objective Data
-
Intake and Output
09/22/24 09/23/24 09/24/24
06:59 06:59 06:59
Intake Total 310 / 310 480 / 480
Output Total 90 / 90 150 / 150
Balance -80 / -80 160 / 160 480 / 480
Intake:
Oral fluids 0 / 0 240 / 240 480 / 480
IV fluids (Total) 70 / 70
Tube feeding 10
Output:
Drain Output (Total) 90 / 90 150 / 150
Right Abdomen Biliary Placed in 90 / 90 150 / 150
IR
Other:
How many times incontinent 3 1
MODERATE amount urine
How many times incontinent 3 2 1
SATURATED amount urine
Vital Signs
Temp Pulse Resp BP Pulse Ox
98.8 F 109 18 139/92 95
09/23/24 04:00 09/23/24 04:00 09/23/24 04:00 09/23/24 04:00 09/23/24 04:00
Lab Results
09/22/24 08:59
Calcium 9.3 mg/dl (8.4-10.2) 09/22/24 08:59
Total Bilirubin 0.7 mg/dl (0.2-1.3) 09/16/24 04:10
AST 30 U/L (14-36) 09/16/24 04:10
ALT 27 U/L (0-35) 09/16/24 04:10
Alkaline Phosphatase 99 U/L (38-126) 09/16/24 04:10
Total Protein 6.9 g/dl (6.3-8.2) 09/16/24 04:10
Albumin 3.8 g/dl (3.5-5.0) 09/16/24 04:10
Physical Exam
-
General: Well Developed, Well Nourished and No Apparent Distress
HEENT: Normocephalic and Anicteric
Respiratory: Non Labored Respirations
Cardiac: Irregular Rhythm
GI: Soft, Tender (at tube insertion site at the right side), non distended, right side cholecystostomy tube placed and bile drainage present at the tube around 20 ml.
Musculoskeletal: No Edema
Skin: Warm and Dry
Neuro: Nonfocal/Grossly Intact
Patient has a gutierrez catheter: No
Patient has a central line: No
[2024-09-23 07:30] VITALS: BP 146/92
[2024-09-23] MEDS: BUSPAR 5 MG PO ×2 (08:43→22:22)
[2024-09-23] MEDS: AUGMENTIN 500 MG/125 MG 1 TABLET PO ×2 (08:43→22:23)
[2024-09-23] MEDS: COLACE 100 MG PO (08:43)
[2024-09-23] MEDS: REFRESH EYE DROPS (PF) 1 DROPS BOTH EYES ×2 (08:43→22:23)
[2024-09-23] MEDS: VITAMIN B1 100 MG PO ×2 (08:43→22:22)
[2024-09-23] MEDS: PACERONE 100 MG PO (08:44)
[2024-09-23] MEDS: TOPROL XL 50 MG PO ×2 (08:44→22:22)
[2024-09-23] MEDS: MIRALAX 17 GRAMS PO ×2 (08:55→22:23)
[2024-09-23 09:15] LABS: Blood Urea Nitrogen 29 mg/dl (7-17); Calcium 9.2 mg/dl (8.4-10.2); Carbon Dioxide 27 mmol/L (22-30); Chloride 105 mmol/L (98-107); Estimated Creatinine Clearance 18 ml/min; Glucose 106 mg/dl (70-99); Potassium 4.3 mmol/L (3.5-5.1); Sodium 137 mmol/L (135-145); eGFR 20.68
[2024-09-23] MEDS: REFRESH CELLUVISC GEL 1 DROPS OPHTH ×2 (10:30→22:22)
[2024-09-23 11:30] VITALS: BP 125/64
[2024-09-23 12:01] LABS: Hematocrit 30.2 % (37.0-47.0); Hemoglobin 9.0 g/dL (12.0-16.0); Mean Corp Hgb Conc. 29.8 g/dL (33.0-37.0); Mean Corpuscular Volume 96.8 fL (81.0-99.0); Nucleated Red Blood Cells % 0 %; Platelet Count 286 10^3/uL (130-400); Red Cell Dist. Width 13.3 % (11.5-14.5)
[2024-09-23 13:30] VITALS: BMI 26.8
--- NOTE | 2024-09-23 14:06 | W.PN.HOSP.TC ---
Addendum entered and electronically signed by Elli Ellison MD 09/23/24 15:09:
I saw and evaluated the patient independently. I reviewed the resident�s note and agree with findings and plan as documented by Dr. Byers.
GENERAL: well developed, well nourished, female in no apparent distress
HEENT: NC/AT
HEART: regular rate and rhythm, +S1, +S2
LUNGS : clear to auscultation bilaterally
ABDOM: soft, tender without guarding or rebound, distended and mildly tympanitic, decreased bowel sounds--perc jerilyn tube
EXT: no cyanosis, clubbing, or edema
NEUROLOGIC: apparent dementia
Sepsis (resolved) secondary to acute calculous cholecystitis (US shows Cholelithiasis with at least one gallstone is seen in the vicinity of the gallbladder neck as well as some gallbladder wall thickening)---apprec surgery--perc jerilyn tube placed
09/18/2024 with IR drain draining bilious fluid--needs to stay in 6-8 weeks--fulls--blood cultures positive for Clostridium cadaveris, repeat negative--now on oral augmentin (would trend n/v symptoms in relation to when given the ABX)--pain control
Postop abdominal pain with constipation--pt moving bowels--advance diet as tolerated--cont bowel regimen as per surgery
Episode of agitation--seems in relation to pain or nausea--restraints needed to be placed but have been off since morning of 09/22--PRN ativan, pain control--if continues then would consult psych
TRACIE on CKD 4--Non-anion gap metabolic acidosis---Resolved with IV fluids with sodium bicarb. Now DC'd--Baseline creatinine is 2- 2.2-Declined HD in the past--creat 2.4
Chronic normocytic anemia-- Hemoglobin is 9.1 trending up from 8.6 yesterday-Iron is 24, TIBC is 193, ferritin is 788, which indicates iron deficiency anemia--Consider iron supplementation on discharge
Persistent atrial fibrillation-- Today rate is 107 and patient is asymptomatic with hemodynamically stable vitals--Continue amiodarone 100 Mg for rate control, Toprol XL added this admission, anticoagulation with home dose Xarelto
Aortic stenosis s/p TAVR 2018- Patient follows Dr. Meredith who is main outpatient data quality consultant.
Anxiety-Continue buspirone
CODE STATUS-- DNR
DVT proph-- Xarelto
hopeful advancement and tolerating diet in AM to low fat--and hopeful d/c to SNF tomorrow as well
Original Note:
Today's Communication/Plan
-
Advance diet from CLD to full
DC IVF
Assessment / Plan
Assessment / Plan
74-year-old female with a past medical history of hyperlipidemia, aortic stenosis status post TAVR 2018, A-fib on Xarelto, CVA, CKD stage IV, iron deficiency anemia who presented from [facility] to the ER on 09/16/2024 with sepsis criteria
positive and severe abdominal pain most pronounced in the right lower quadrant.� CT of the abdomen pelvis with abdominal ultrasound showed a 1 gallstone in the gallbladder neck with gallbladder wall thickening.� She was started on IV Zosyn which was
then transition to Augmentin p.o. to be continued through 09/25/2024.� Surgery and IR were consulted for further management.� She is status post cholecystectomy tube to be continued through 09/18/2024.� Cardiology is also following because of her A-fib
with RVR, Toprol-XL increased to 50 Mg twice daily, anticoagulated with her home dose of Xarelto, cardiology has signed off.� Surgery advised to hold laxatives make patient n.p.o. except sips of clears until postoperation nausea with constipation
has improved, continue percutaneous cholecystotomy drain was [address] for 6 to 8 weeks with an outpatient follow-up with surgery.
#Sepsis (resolved) secondary to acute cholecystitis s/p percutaneous cholecystostomy 09/18/2024 with IR
General Surgery and ID following.
-S/p IV Zosyn: Continue Augmentin 875 mg p.o. BID through 09/25/2024 per ID
-Initial blood cultures positive for gram-negative srtuhi bacteremia, however other 2 micro blood specimens have been negative for any growth in the cultures
-Body fluid culture negative to date
-Pain control with Dilaudid: Last dose 09/22/2024, 17:01, dc later today if not using.
-DC D5/0.45 NaCl given she has a diet now.
-Monitor WBC, temperature curve
#Postop abdominal pain with constipation, resolving
Abdominal x-ray showed a nonobstructive intestinal bowel gas pattern, her nausea and vomiting resolved after passing a large bowel movement on 09/22/2024.
-Advance diet from clears to full per surgery.
-Continue bowel regimen as needed: Milk of magnesia, MiraLAX, enemas to help stimulate further bowel movements.
#Agitation likely ISO delirium
She had 1 episode of being confused and screaming on 09/21/2024. She needed restraints due to trying to hit the nurse. Restraints were removed on the morning of 09/22/2024. She has not had an episode since and says she does not recall anything of
that sort happening. We will continue to observe, with as needed Ativan.
-Continue to observe, as needed Ativan, if 1 more episode of acute agitation with violent behavior will consider referring to psychiatry
#Reactive leukocytosis
WBC 14.6 back 14.2, otherwise afebrile, HDS.
-Continue monitoring; CMP for the a.m. to check liver function tests and bilirubin level
#TRACIE on CKD 4, resolved
Non-anion gap metabolic acidosis. Resolved s/p maintenance IV fluids.
-Baseline creatinine is 2- 2.2, 2.4 today. Continue to monitor
#Chronic normocytic anemia
Hemoglobin stable. Iron is 24, TIBC is 193, ferritin is 788, which indicates iron deficiency anemia.
-Consider iron supplementation on discharge
Persistent atrial fibrillation:
Continues to be a little bit tachycardic, however asymptomatic. Cards consulted 09/21/2024, rec to continue current medications.
-Continue amiodarone 100 Mg for rate control, Toprol XL added this admission, anticoagulation with home dose Xarelto 15 Mg
#Aortic stenosis s/p TAVR 2018
-Patient follows Dr. Meredith who is main outpatient data quality consultant.
#Anxiety
-Continue buspirone
CODE STATUS DNR
DVT prophylax Xarelto
Anticipated Discharge: Within 24 hours (Possibly tomorrow if she tolerates her diet and clear from CRS/IR standpoint.)
Subjective/Interval History
-
Date of Service: September 23, 2024
-This morning, she is A&Ox3, and reports having a bowel movement yesterday after which she feels a lot better from a GI standpoint.
-She does not recall being agitated or needing Ativan yesterday and has not had a repeat episode.
-Per surgery, her diet was advanced to full from clears.
Objective Data
-
Labs:
Laboratory Results
09/23/24
08:03
WBC 14.6 H
Hgb 9.0 L
Hct 30.2 L
Plt Count 286
Sodium 137
Potassium 4.3
Chloride 105
Carbon Dioxide 27
BUN 29 H
Creatinine 2.4 H
Glucose 106 H
Calcium 9.2
Vital Signs:
Vital Signs
Temp Pulse Resp BP Pulse Ox
99.3 F 96 18 125/64 96
09/23/24 11:30 09/23/24 11:30 09/23/24 11:30 09/23/24 11:30 09/23/24 11:30
I&O
09/22/24 09/23/24 09/24/24
06:59 06:59 06:59
Intake Total 10 310 / 310 480 / 480
Output Total 90 / 90 150 / 150
Balance -80 / -80 160 / 160 480 / 480
Review of Systems
-
All other systems: Reviewed and negative
Physical Exam
-
General: No Apparent Distress, Comfortable and Appears Chronically Ill
HEENT: Normocephalic, Atraumatic and Moist Mucous Membranes
Respiratory: Clear to Auscultation and Non Labored Respirations
Cardiac: S1/S2 and Irregular Rhythm (Known A-fib)
GI: Soft, Nontender, Nondistended and Other (Cholecystostomy tube draining bile)
Musculoskeletal: No Clubbing, No Cyanosis and No Edema
Skin: Warm and Dry
Neuro: AO x 3
Psych: Calm and Intact Judgement/Insight
--- NOTE | 2024-09-23 14:11 | W.PN.NEPH.PH ---
Today's Communication / Plan
-
DC IV fluids as diet advances
Assessment/Plan
-
Assessment:
Sepsis secondary to acalculous cholecystitis
TRACIE -CKD 4 (low 2 range)
Non gap, gap Metabolic acidosis
Afib with RVR
History TAVR
Anemia
History CVA
Anxiety
Constipation
Plan:
Creatinine stable at 2.4
Diet advancing
Will discontinue IV fluids after current bag complete
-
-
Date of Service: September 23, 2024
CC / HPI / ROS
-
Chief Complaint:
TRACIE, CKD, met acidosis
History of Present Illness:
cr better at 2.4
met acidosis resolved
Bp stable
no fever
Diet advancing
Delirium continue
Review of Systems:
no cp or sob
Eating
Labs
-
Labs:
WBC 14.6 10^3/uL (4.8-10.8) H 09/23/24 08:03
RBC 3.12 10^6/uL (4.20-5.40) L 09/23/24 08:03
Hgb 9.0 g/dL (12.0-16.0) L 09/23/24 08:03
Hct 30.2 % (37.0-47.0) L 09/23/24 08:03
Plt Count 286 10^3/uL (130-400) 09/23/24 08:03
Sodium 137 mmol/L (135-145) 09/23/24 08:03
Potassium 4.3 mmol/L (3.5-5.1) 09/23/24 08:03
Chloride 105 mmol/L (98-107) 09/23/24 08:03
Carbon Dioxide 27 mmol/L (22-30) 09/23/24 08:03
BUN 29 mg/dl (7-17) H 09/23/24 08:03
Creatinine 2.4 mg/dL (0.6-1.0) H 09/23/24 08:03
eGFR 20.68 09/23/24 08:03
Glucose 106 mg/dl (70-99) H 09/23/24 08:03
Calcium 9.2 mg/dl (8.4-10.2) 09/23/24 08:03
Albumin 3.8 g/dl (3.5-5.0) 09/16/24 04:10
Physical Exam
-
Vital Signs:
Vital Signs
Temp Pulse Resp BP Pulse Ox
99.3 F 96 18 125/64 96
09/23/24 11:30 09/23/24 11:30 09/23/24 11:30 09/23/24 11:30 09/23/24 11:30
Cardiovascular:: Regular rate and rhythm
Respiratory:: Bilateral: CTA
Lung Excursion:: Normal
Abdomen:: Nontender and Soft
Bowel Sounds:: Normal
Extremity Edema:: None: Bilateral:
--- NOTE | 2024-09-23 15:43 | CM ---
Patient seen at bedside with physicians on . Patient appeared clearer today and indicated that she did not remember yesterday but plan is for her to return to SNF when medically appropriate. [facility] possibly tomorrow. CM will send
updated clinicals to SNF for review. CM will continue to follow for discharge planning needs.
Plan; return to SNF;[facility]
[2024-09-23 16:00] VITALS: BP 150/88
[2024-09-23] MEDS: XARELTO 15 MG PO (17:21)
[2024-09-23 19:40] VITALS: BP 115/70
[2024-09-23 23:40] VITALS: BP 141/84
[2024-09-24 03:51] VITALS: BP 133/89
[2024-09-24 06:53] VITALS: BMI 27.0
[2024-09-24 06:54] LABS: Hematocrit 26.8 % (37.0-47.0); Hemoglobin 8.3 g/dL (12.0-16.0); Mean Corp Hgb Conc. 31.0 g/dL (33.0-37.0); Mean Corpuscular Volume 93.1 fL (81.0-99.0); Platelet Count 258 10^3/uL (130-400); Red Cell Dist. Width 12.9 % (11.5-14.5)
--- NOTE | 2024-09-24 07:17 | W.PN.GS2 ---
Addendum entered and electronically signed by Randall Pacheco MD 09/24/24 11:52:
I was physically present and personally performed the mccullough portions of the surgical evaluation and/or procedure with the resident. I discussed the findings, reviewed the resident�s note, and confirmed the medical decision-making. I provided direct
supervision as required and agree with the assessment and plan as documented with the following additions/corrections:
No complaints. moderate ttp to ruq on exam. AFVSS. WBC trending up past few days. LFTs show direct hyperbilirubinemia, mild and of unclear significance. Rpt CT today shows enlarging RUQ collection suspicious for perf appendicitis. Plan for tube
check today to r/o communication with new collection. Hold xarelto. For IR tomorrow for secondary drain to new collection. Cont abx.
Original Note:
Today's Communication / Plan
-
CT Abdomen.
Assessment / Plan
-
Patient is a 74 yo F with a PMH of HLD, aortic stenosis s/p TAVR, A-fib (on Xarelto), CVA, CKD stage IV, and s/p multiple orthopedic procedures presented with severe acute on chronic Cholecystitis managed with IR cholecystostomy tube on day 7
(09/18/24)
#Sepsis due to Acute calculus Cholecystitis:
Tmax- 98.8
WBC count= 15.8 (h)---> 11.7 (h)-->10.8 (n)-->13.1(h)-->14.2(h)--> 16.6 (h)
Today Direct bilirubin - 0.5 (h), AST, ALT in normal range.
Total protein- 5.6 (l), albumin- 2.9 (l).
Blood culture- Gram stain of anaerobic - gram negative bacilli.
Hb=8.6
Bilirubin mild elevation due to cholecystitis.
On 09/[address] scan without contrast:
Likely small gallbladder stones with some gallbladder wall thickening and some right upper quadrant likely pericholecystic stranding. FINDINGS COULD REPRESENT ACUTE CHOLECYSTITIS.
Descending colon and sigmoid diverticulosis. Moderate volume widespread colonic stool. No intestinal obstruction or free air.
On 09/16 Abdomen USG:
Cholelithiasis with at least one gallstone is seen in the vicinity of the gallbladder neck as well as some gallbladder wall thickening. No findings to suggest pericholecystic fluid or biliary tract dilatation.
Negative sonographic Norwood's sign.
-percutaneous drainage along with cholecystostomy tube placed and bile drainage present at the tube around 20 ml, advised to flush daily,
-Check the tube blockage and drainage.
- IR drain will need to remain in place for 6 to 8 weeks.
- Future follow up at outpatient department to discuss regards cholecystectomy depending on CKD Stage 4 (creatinine clearance).
On 09/20 Abdomen x ray obtained had an impression of : Nonobstructive intestinal bowel gas pattern.
- Overnight pt doesnt experience nausea, so advanced to full diet.
- miralax and Colace.
-Abx: Amoxicillin/ clavulanate 500/125 mg on day 4
-Currently on Rivaroxaban 15 mg for AFib and monitor for bleeding, Hb- 8.6 on 09/[address] abdomen to evaluate the reason for high WBC Count due to inflammation.
Subjective Data
-
Date of Service: September 24, 2024
Overnight pt is feeling better, she is orientedx3, she passed flatus, no concern for abdominal pain, nausea, vomiting, fever, chills, dysuria, currently she is on advanced diet.
Objective Data
-
Intake and Output
09/23/24 09/24/24 09/25/24
06:59 06:59 06:59
Intake Total 310 / 310 1080 / 1080
Output Total 150 / 150 130 / 130
Balance 160 / 160 950 / 950
Intake:
Oral fluids 240 / 240 1080 / 1080
IV fluids (Total) 70 / 70
Output:
Drain Output (Total) 150 / 150 130 / 130
Right Abdomen Biliary Placed in 150 / 150 130 / 130
IR
Other:
How many times incontinent 3 2
MODERATE amount urine
How many times incontinent 2 5
SATURATED amount urine
Vital Signs
Temp Pulse Resp BP Pulse Ox
99.3 F 112 16 133/89 94
09/24/24 03:51 09/24/24 03:51 09/24/24 03:51 09/24/24 03:51 09/24/24 03:51
Lab Results
09/24/24 06:18
09/23/24 08:03
Calcium 9.2 mg/dl (8.4-10.2) 09/23/24 08:03
Total Bilirubin 0.7 mg/dl (0.2-1.3) 09/16/24 04:10
AST 30 U/L (14-36) 09/16/24 04:10
ALT 27 U/L (0-35) 09/16/24 04:10
Alkaline Phosphatase 99 U/L (38-126) 09/16/24 04:10
Total Protein 6.9 g/dl (6.3-8.2) 09/16/24 04:10
Albumin 3.8 g/dl (3.5-5.0) 09/16/24 04:10
Physical Exam
-
General: Well Developed, Well Nourished and No Apparent Distress
HEENT: Normocephalic and Anicteric
Respiratory: Non Labored Respirations
Cardiac: Irregular Rhythm
GI: Soft, Tender (at tube insertion site at the right side), non distended, right side cholecystostomy tube placed and bile drainage present at the tube around 20 ml.
Musculoskeletal: No Edema
Skin: Warm and Dry
Neuro: Nonfocal/Grossly Intact
Patient has a gutierrez catheter: No
Patient has a central line: No
[2024-09-24 07:35] VITALS: BP 156/94
[2024-09-24 10:15] LABS: ALT (SGPT) < 10 U/L (0-35); AST (SGOT) 17 U/L (14-36); Albumin 2.9 g/dl (3.5-5.0); Alkaline Phosphatase 105 U/L (38-126); Total Protein 5.6 g/dl (6.3-8.2)
--- NOTE | 2024-09-24 10:19 | W.PN.NEPH.PH ---
Today's Communication / Plan
-
follow labs
prn iVF based on PO intake
Assessment/Plan
-
Assessment:
Sepsis secondary to acalculous cholecystitis
TRACIE -CKD 4 (low 2 range)
Non gap, gap Metabolic acidosis
Afib with RVR
History TAVR
Anemia
History CVA
Anxiety
Constipation
Plan:
Creatinine stable at 2.4 on 09/23
await labs today
hemodynamically stable but remains tahcy
CT abd today for increasing WBC
off IVF-ok to resume if needed based on her po intake
pt remains confused too
d/w nursing
-
-
Date of Service: September 24, 2024
CC / HPI / ROS
-
Chief Complaint:
TRACIE, CKD, met acidosis
History of Present Illness:
cr better at 2.4, pending labs today
met acidosis resolved
Bp stable
no fever
Diet advancing
Delirium continue
Review of Systems:
confused and can not provid ehistory well
c/o RLQ pain
Labs
-
Labs:
WBC 16.6 10^3/uL (4.8-10.8) H 09/24/24 06:18
RBC 2.88 10^6/uL (4.20-5.40) L 09/24/24 06:18
Hgb 8.3 g/dL (12.0-16.0) L 09/24/24 06:18
Hct 26.8 % (37.0-47.0) L 09/24/24 06:18
Plt Count 258 10^3/uL (130-400) 09/24/24 06:18
eGFR 20.68 09/23/24 08:03
Albumin 2.9 g/dl (3.5-5.0) L 09/24/24 06:18
Physical Exam
-
Vital Signs:
Vital Signs
Temp Pulse Resp BP Pulse Ox
98.2 F 121 16 156/94 95
09/24/24 07:35 09/24/24 07:35 09/24/24 07:35 09/24/24 07:35 09/24/24 07:35
Cardiovascular:: Regular rate and rhythm (tachy)
Respiratory:: Bilateral: CTA
Lung Excursion:: Normal
Abdomen:: Soft and Tender (mild TTP RLQ)
Bowel Sounds:: Normal
Extremity Edema:: None: Bilateral:
Fournier Catheter: No
[2024-09-24 10:23] LABS: Blood Urea Nitrogen 23 mg/dl (7-17); Calcium 8.9 mg/dl (8.4-10.2); Carbon Dioxide 25 mmol/L (22-30); Chloride 105 mmol/L (98-107); Estimated Creatinine Clearance 21 ml/min; Glucose 78 mg/dl (70-99); Potassium 4.2 mmol/L (3.5-5.1); Sodium 137 mmol/L (135-145); eGFR 21.76
[2024-09-24] MEDS: REFRESH CELLUVISC GEL 1 DROPS OPHTH ×2 (10:57→19:56)
[2024-09-24] MEDS: MIRALAX 17 GRAMS PO ×2 (10:57→19:54)
[2024-09-24] MEDS: REFRESH EYE DROPS (PF) 1 DROPS BOTH EYES ×2 (10:57→19:56)
[2024-09-24] MEDS: PACERONE 100 MG PO (10:58)
[2024-09-24] MEDS: VITAMIN B1 100 MG PO ×2 (10:58→19:56)
[2024-09-24] MEDS: COLACE 100 MG PO (10:58)
[2024-09-24] MEDS: AUGMENTIN 500 MG/125 MG 1 TABLET PO ×2 (10:58→19:56)
[2024-09-24] MEDS: TOPROL XL 50 MG PO ×2 (10:58→19:56)
[2024-09-24] MEDS: BUSPAR 5 MG PO ×2 (10:58→19:56)
[2024-09-24 11:20] VITALS: BP 133/86
--- NOTE | 2024-09-24 12:11 | PTCARENOTE ---
pt awake oriented to self. angry at times states she is going home. forgetful about current condition. right percutaneous drain in place. draining green flushed as ordered. pt sent to ct scan. hosp and surgical md made aware of results.
--- NOTE | 2024-09-24 13:49 | W.PN.HOSP.TC ---
Addendum entered and electronically signed by Elli Ellison MD 09/24/24 14:43:
I saw and evaluated the patient independently. I reviewed the resident�s note and agree with findings and plan as documented by Dr. Byers.
GENERAL: well developed, well nourished, female in no apparent distress
HEENT: NC/AT
HEART: regular rate and rhythm, +S1, +S2
LUNGS : clear to auscultation bilaterally
ABDOM: soft, tender without guarding or rebound, distended and mildly tympanitic, decreased bowel sounds--perc jerilyn tube
EXT: no cyanosis, clubbing, or edema
NEUROLOGIC: apparent dementia
Sepsis (resolved) secondary to acute calculous cholecystitis (US shows Cholelithiasis with at least one gallstone is seen in the vicinity of the gallbladder neck as well as some gallbladder wall thickening)---apprec surgery--perc jerilyn tube placed
09/18/2024 with IR drain draining bilious fluid--needs to stay in 6-8 weeks--fulls--blood cultures positive for Clostridium cadaveris, repeat negative--now on oral augmentin (would trend n/v symptoms in relation to when given the ABX)--pain control
leukocytosis--WBC rising--spoke with surgery, apprec input--CT scan done with concern for ruptured appendix--holding Xarelto, tube check today--cannot place additional drain until safe from Xarelto standpoint
Postop abdominal pain with constipation--pt moving bowels--advance diet as tolerated--cont bowel regimen as per surgery
Episode of agitation--seems in relation to pain or nausea--restraints needed to be placed but have been off since morning of 09/22--PRN ativan, pain control--if continues then would consult psych
TRACIE on CKD 4--Non-anion gap metabolic acidosis---Resolved with IV fluids with sodium bicarb. Now DC'd--Baseline creatinine is 2- 2.2--IVF if needed, apprec renal input
Chronic normocytic anemia-- Hemoglobin is 9.1 trending up from 8.6 yesterday-Iron is 24L, TIBC is 193L, ferritin is 788 (acute phase reactant)--more consistent with chronic disease NOT iron deficiency
Persistent atrial fibrillation--Continue amiodarone, Toprol XL added this admission, anticoagulation with home dose Xarelto on hold
Aortic stenosis s/p TAVR 2019- Patient follows Dr. Meredith who is main outpatient torque tester.
Anxiety-Continue buspirone
CODE STATUS-- DNR
DVT proph-- Xarelto
Original Note:
Today's Communication/Plan
-
Perforated appendicitis seen on CT abdomen/pelvis
Xarelto held
N.p.o., start IV fluids
Follow-up tube study with IR today
Possible second drain with IR tomorrow, 09/25/2024
Her brother Janusz is her POA and should be contacted with medical updates/consent needs. His number in the chart and as follows: [phone].
Assessment / Plan
Assessment / Plan
74-year-old female with a past medical history of hyperlipidemia, aortic stenosis status post TAVR 2018, A-fib on Xarelto, CVA, CKD stage IV, iron deficiency anemia who presented from [facility] to the ER on 09/16/2024 with sepsis criteria
positive and severe abdominal pain most pronounced in the right lower quadrant.� CT of the abdomen pelvis with abdominal ultrasound showed a 1 gallstone in the gallbladder neck with gallbladder wall thickening.� She was started on IV Zosyn which was
then transition to Augmentin p.o. to be continued through 09/25/2024.� Surgery and IR were consulted for further management.� She is status post cholecystectomy tube to be continued through 09/18/2024.� Cardiology is also following because of her A-fib
with RVR, Toprol-XL increased to 50 Mg twice daily, anticoagulated with her home dose of Xarelto, cardiology has signed off.� Surgery advised to hold laxatives make patient n.p.o. except sips of clears until postoperation nausea with constipation
has improved, continue percutaneous cholecystotomy drain was [address] for 6 to 8 weeks with an outpatient follow-up with surgery. On 09/24/2024, her WBC continued to trend upwards, not suspicious for reactive leukocytosis given
timeframe, and she worsened tenderness to palpation in the right lower quadrant. A CT A/P was ordered which showed: Extraluminal gas and fluid collection within the right upper quadrant measuring 5.4 x 4.3 cm which was contiguous within the
appendix inferiorly, suspicious for perforated appendicitis. Surgery and IR discussed, her Xarelto was held, she was made n.p.o., and IR took her for a tube study with possible new drain plan for 09/25/2024. Of note, her brother Janusz is her POA.
His number in the chart and as follows: [phone].
#Perforated appendicitis, new
#Leukocytosis
#RLQ pain
On 09/24/2021 5, patient continued to have increasing WBC (16.6 back 14.6 back 14.2) and new right lower quadrant pain on palpation (mild). A CT abdomen/pelvis was ordered and revealed possible perforated appendicitis. In conversation with surgery
and IR, both teams felt a tube study was necessary with the possibility of a second drain placement on 09/25/2024 pending tube study results.
-Hold Xarelto
-N.p.o., restart D5/0.45 NaCl
-Pain control as prior
-Trend CBC
-Follow-up tube study and discuss with consulting teams
#Sepsis (resolved) secondary to acute cholecystitis s/p percutaneous cholecystostomy 09/18/2024 with IR
General Surgery and ID following.
-S/p IV Zosyn: Continue Augmentin 875 mg p.o. BID through 09/25/2024 per ID
-Initial blood cultures positive for gram-negative sruthi bacteremia, however other 2 micro blood specimens have been negative for any growth in the cultures
-Body fluid culture negative to date
-Pain control with Dilaudid: Last dose 09/22/2024, 17:01, plan was to DC, however given CT findings on 09/24/2024 with perforated appendicitis, will continue.
-Restart D5/0.45 NaCl given she is n.p.o.
-Monitor WBC, temperature curve
#Postop abdominal pain with constipation, resolving
Abdominal x-ray showed a nonobstructive intestinal bowel gas pattern, her nausea and vomiting resolved after passing a large bowel movement on 09/22/2024.
-N.p.o. for IR on 09/24/2024. Will ADAT per surgery.
-Continue bowel regimen as needed: Milk of magnesia, MiraLAX, enemas to help stimulate further bowel movements.
#Agitation likely ISO delirium, resolved
She had 1 episode of being confused and screaming on 09/21/2024. She needed restraints due to trying to hit the nurse. Restraints were removed on the morning of 09/22/2024. She has not had an episode since and says she does not recall anything of
that sort happening. We will continue to observe, with as needed Ativan.
-Continue to observe, as needed Ativan, if 1 more episode of acute agitation with violent behavior will consider referring to psychiatry
#Leukocytosis
WBC 16.6 back 14.6 back 14.2, afebrile, HDS, with new right lower quadrant pain on 09/24/2024. Prior to this she was asymptomatic and her leukocytosis was thought to be reactive. However, given that her tube placement was over a week ago, her
uptrending leukocytosis is not reactive and required further workup as above, revealing perforated appendicitis.
-Continue monitoring
-Continue antibiotics, follow-up cultures, touch base with ID again
#TRACIE on CKD 4, resolved
Non-anion gap metabolic acidosis. Resolved s/p maintenance IV fluids.
-Baseline creatinine is 2- 2.2, 2.4 today. Continue to monitor
#Chronic normocytic anemia
Hemoglobin stable. Iron is 24, TIBC is 193, ferritin is 788, which indicates iron deficiency anemia.
-Consider iron supplementation on discharge
#Persistent atrial fibrillation
Continues to be a little bit tachycardic, however asymptomatic. Cards consulted 09/21/2024, rec to continue current medications.
-Continue amiodarone 100 Mg for rate control, Toprol XL added this admission, anticoagulation with home dose Xarelto 15 Mg
#Aortic stenosis s/p TAVR 2018
-Patient follows Dr. Meredith who is main outpatient torque tester.
#Anxiety
-Continue buspirone
DVT prophylaxis: Xarelto
CODE STATUS: DNR
Anticipated Discharge: 24 - 48 hours
Subjective/Interval History
-
Date of Service: September 24, 2024
-This morning, she is awake and alert, asking when she can go home.
-During rounds at bedside, she is slightly tender to palpation in the right lower quadrant. Her white count has been trending up, and per surgery, and A/P CT was ordered which showed possible perforated appendicitis. Her Xarelto was held. IR will
do a tube study today, with possible plan for a second drain tomorrow. I updated her brother Janusz (POA) via phone.
Objective Data
-
Labs:
Laboratory Results
09/24/24
06:18
WBC 16.6 H
Hgb 8.3 L
Hct 26.8 L
Plt Count 258
Sodium 137
Potassium 4.2
Chloride 105
Carbon Dioxide 25
BUN 23 H
Creatinine 2.3 H
Glucose 78
Calcium 8.9
Total Bilirubin 0.5
AST 17
ALT < 10
Alkaline Phosphatase 105
Vital Signs:
Vital Signs
Temp Pulse Resp BP Pulse Ox
98.2 F 121 16 133/86 95
09/24/24 11:20 09/24/24 11:20 09/24/24 11:20 09/24/24 11:20 09/24/24 11:20
I&O
09/23/24 09/24/24 09/25/24
06:59 06:59 06:59
Intake Total 310 / 310 1080 / 1080 490 / 490
Output Total 150 / 150 130 / 130
Balance 160 / 160 950 / 950 490 / 490
Review of Systems
-
History Source: Patient
All other systems: Reviewed and negative
Abdomen/GI: Reports Abdominal Pain (Tender to palpation in the right lower quadrant) and Other (Cholecystostomy tube draining bile)
Physical Exam
-
General: Well Developed, Well Nourished, Conversant and Appears Chronically Ill
HEENT: Normocephalic, Atraumatic and Moist Mucous Membranes
Respiratory: Clear to Auscultation and Non Labored Respirations
Cardiac: S1/S2 and Irregular Rhythm (A-fib (known))
GI: Soft, Nondistended, Tender (Slightly to right lower quadrant) and Other (Cholecystostomy tube draining bile)
Musculoskeletal: No Clubbing, No Cyanosis and No Edema
Skin: Warm and Dry
Neuro: AO x 3
Psych: Calm
[2024-09-24] MEDS: D5/0.45%NACL 1000 IV (15:22)
[2024-09-24 15:30] VITALS: BP 162/97
--- NOTE | 2024-09-24 15:52 | CM ---
Patient seen at bedside on with physicians. Patient plan is to return to SNF when medically appropriate. Patient POA and brother is [phone], Janusz, brother. CM will continue to follow for discharge planning needs.
Plan; return to SNF; [facility] when medically appropriate.
[2024-09-24 19:00] VITALS: BP 171/104
[2024-09-24] MEDS: ZOFRAN 4 MG IV (20:08)
[2024-09-24 23:00] VITALS: BP 162/91
[2024-09-25] MEDS: D5/0.45%NACL 1000 IV ×3 (01:00→23:03)
[2024-09-25] MEDS: DILAUDID IV (01:00)
[2024-09-25 07:00] VITALS: BP 163/74
--- NOTE | 2024-09-25 07:22 | W.PN.GS2 ---
Addendum entered and electronically signed by Robert Yeh MD 09/25/24 11:10:
I was physically present and personally performed the mccullough portions of the surgical evaluation and/or procedure with the resident. I discussed the findings, reviewed the resident�s note, and confirmed the medical decision-making. I provided direct
supervision as required and agree with the assessment and plan as documented with the following additions/corrections:
Patient reports no active abdominal pain today. No pain radiating to the back. No nausea or vomiting.
AF; tachycardia, normal blood pressure
NAD AAO x 3
ABD: Soft, very minimal right lateral abdominal wall tenderness towards the flank. No rebound rigidity or guarding.
Percutaneous cholecystostomy tube with light bilious contents within gravity bag
Assessment/plan: 74-year-old female who initially underwent percutaneous cholecystostomy tube drainage for suspected subacute calculus cholecystitis. Follow-up CT imaging yesterday for a climbing WBC 09/24/2024 is now suggestive of contained
perforated appendicitis with air/fluid collection along the right paracolic gutter/retroperitoneal region extending towards the gallbladder.
In light of the chronicity of the patient's symptoms and surrounding inflammatory reaction simple appendectomy with control of appendiceal stump would be highly unlikely. If surgery was pursued would likely require an ileocecectomy with anastomosis.
Given that there are no significant signs of peritonitis we will therefore attempt source control with IR guided drainage of periappendiceal collection.
Will follow
Original Note:
Today's Communication / Plan
-
NPO
Monitor cholecystomy tube drainage collection.
Rivaroxaban held for the IR procedure.
Assessment / Plan
-
Patient is a 74 yo F with a PMH of HLD, aortic stenosis s/p TAVR, A-fib (on Xarelto), CVA, CKD stage IV, and s/p multiple orthopedic procedures presented with severe acute on chronic Cholecystitis managed with IR cholecystostomy tube on day 8
(09/18/24)
#Sepsis due to Acute calculus Cholecystitis:
Tmax- 98.8
WBC count= 15.8 (h)---> 11.7 (h)-->10.8 (n)-->13.1(h)-->14.2(h)--> 16.6 (h)-->19.3(h), probably due to abscess collection below the gall baldder.
Today Direct bilirubin - 0.5 (h), AST, ALT in normal range.
Total protein- 5.6 (l), albumin- 2.9 (l).
Blood culture- Gram stain of anaerobic - gram negative bacilli.
cholecystomy tube fluid culture- negative.
Hb=8.6 and Bilirubin mild elevation due to cholecystitis.
On 09/[address] scan without contrast:
Likely small gallbladder stones with some gallbladder wall thickening and some right upper quadrant likely pericholecystic stranding. FINDINGS COULD REPRESENT ACUTE CHOLECYSTITIS.
Descending colon and sigmoid diverticulosis. Moderate volume widespread colonic stool. No intestinal obstruction or free air.
On 09/16 Abdomen USG:
Cholelithiasis with at least one gallstone is seen in the vicinity of the gallbladder neck as well as some gallbladder wall thickening. No findings to suggest pericholecystic fluid or biliary tract dilatation.
Negative sonographic Norwood's sign.
-percutaneous drainage along with cholecystostomy tube placed and bile drainage present at the tube around 20 ml, advised to flush daily,
-Check the tube blockage and drainage.
- IR drain will need to remain in place for 6 to 8 weeks.
- Future follow up at outpatient department to discuss regards cholecystectomy depending on CKD Stage 4 (creatinine clearance).
On 09/20 Abdomen x ray obtained had an impression of : Nonobstructive intestinal bowel gas pattern.
Repeat CT abdomen on 09/24: showed RUQ enlarged fluid collection, IR consulted for drainage tube placement today for new collection.
- miralax and Colace.
-Abx: Amoxicillin/ clavulanate 500/125 mg on day 5
-Currently on Rivaroxaban 15 mg for AFib hold for the procedure, Hb- 8.6 on 09/20
Subjective Data
-
Date of Service: September 25, 2024
patient has no concern for abdominal pain, nausea, vomiting, fever, chills, dysuria.
Objective Data
-
Intake and Output
09/24/24 09/25/24 09/26/24
06:59 06:59 06:59
Intake Total 1080 / 1080 490 / 490
Output Total 130 / 130 50 / 50
Balance 950 / 950 440 / 440
Intake:
Oral fluids 1080 / 1080 480 / 480
Amount instilled into Drain (
Total)
Right Abdomen Biliary Placed in
IR
Output:
Drain Output (Total) 130 / 130 50 / 50
Right Abdomen Biliary Placed in 130 / 130 50 / 50
IR
Other:
Number of approximated SMALL 1
amounts of urine
How many times incontinent 2
MODERATE amount urine
How many times incontinent 5 1
SATURATED amount urine
Vital Signs
Temp Pulse Resp BP Pulse Ox
97.9 F 111 20 162/91 96
09/24/24 23:00 09/24/24 23:00 09/24/24 23:00 09/24/24 23:00 09/24/24 23:00
Lab Results
09/24/24 06:18
09/24/24 06:18
Calcium 8.9 mg/dl (8.4-10.2) 09/24/24 06:18
Total Bilirubin 0.5 mg/dl (0.2-1.3) 09/24/24 06:18
Direct Bilirubin 0.5 mg/dl (0.0-0.4) H 09/24/24 06:18
AST 17 U/L (14-36) 09/24/24 06:18
ALT < 10 U/L (0-35) 09/24/24 06:18
Alkaline Phosphatase 105 U/L (38-126) 09/24/24 06:18
Total Protein 5.6 g/dl (6.3-8.2) L 09/24/24 06:18
Albumin 2.9 g/dl (3.5-5.0) L 09/24/24 06:18
Physical Exam
-
General: Well Developed, Well Nourished and No Apparent Distress
HEENT: Normocephalic and Anicteric
Respiratory: Non Labored Respirations
Cardiac: Irregular Rhythm
GI: Soft, Tender (at tube insertion site at the right side), non distended, right side cholecystostomy tube placed and bile drainage present at the tube around 20 ml.
Musculoskeletal: No Edema
Skin: Warm and Dry
Neuro: Nonfocal/Grossly Intact
Patient has a gutierrez catheter: No
Patient has a central line: No
[2024-09-25 08:30] LABS: Hematocrit 27.6 % (37.0-47.0); Hemoglobin 8.4 g/dL (12.0-16.0); Mean Corp Hgb Conc. 30.4 g/dL (33.0-37.0); Mean Corpuscular Volume 94.2 fL (81.0-99.0); Nucleated Red Blood Cells % 0 %; Platelet Count 279 10^3/uL (130-400); Red Cell Dist. Width 13.1 % (11.5-14.5)
[2024-09-25 09:00] LABS: ALT (SGPT) < 10 U/L (0-35); AST (SGOT) 17 U/L (14-36); Albumin 2.9 g/dl (3.5-5.0); Alkaline Phosphatase 98 U/L (38-126); Blood Urea Nitrogen 17 mg/dl (7-17); Calcium 8.9 mg/dl (8.4-10.2); Carbon Dioxide 25 mmol/L (22-30); Chloride 105 mmol/L (98-107); Estimated Creatinine Clearance 23 ml/min; Glucose 133 mg/dl (70-99); Potassium 4.0 mmol/L (3.5-5.1); Sodium 135 mmol/L (135-145); Total Protein 5.8 g/dl (6.3-8.2); eGFR 24.27
[2024-09-25] MEDS: AUGMENTIN 500 MG/125 MG 1 TABLET PO (09:03)
[2024-09-25] MEDS: BUSPAR 5 MG PO (09:03)
[2024-09-25] MEDS: TOPROL XL 50 MG PO (09:03)
[2024-09-25] MEDS: VITAMIN B1 100 MG PO (09:03)
[2024-09-25] MEDS: COLACE 100 MG PO (09:03)
[2024-09-25] MEDS: PACERONE 100 MG PO (09:03)
[2024-09-25] MEDS: MIRALAX PO ×2 (09:04→21:35)
[2024-09-25] MEDS: REFRESH CELLUVISC GEL 1 DROPS OPHTH ×2 (09:04→21:30)
[2024-09-25] MEDS: REFRESH EYE DROPS (PF) 1 DROPS BOTH EYES ×2 (09:04→21:30)
--- NOTE | 2024-09-25 11:00 | W.PN.HOSP.TC ---
Addendum entered and electronically signed by Elli Ellison MD 09/25/24 15:37:
I saw and evaluated the patient independently. I reviewed the resident�s note and agree with findings and plan as documented by Dr. Byers.
GENERAL: well developed, well nourished, female in no apparent distress
HEENT: NC/AT
HEART: regular rate and rhythm, +S1, +S2
LUNGS : clear to auscultation bilaterally
ABDOM: soft, tender without guarding or rebound, distended and mildly tympanitic, decreased bowel sounds--perc jerilyn tube
EXT: no cyanosis, clubbing, or edema
NEUROLOGIC: apparent dementia
Sepsis (resolved) secondary to acute calculous cholecystitis (US shows Cholelithiasis with at least one gallstone is seen in the vicinity of the gallbladder neck as well as some gallbladder wall thickening)---apprec surgery--perc jerilyn tube placed
09/18/2024 with IR drain draining bilious fluid--needs to stay in 6-8 weeks--blood cultures positive for Clostridium cadaveris, repeat negative--now on oral augmentin (would trend n/v symptoms in relation to when given the ABX)--pain control
leukocytosis--WBC rising, up to 19.3 today--09/24 spoke with surgery, apprec input--CT scan done with concern for ruptured appendix--holding Xarelto, tube check and drain placement today
Postop abdominal pain with constipation--pt moving bowels--advance diet as tolerated--cont bowel regimen as per surgery
Episode of agitation--seems in relation to pain or nausea--restraints needed to be placed but have been off since morning of 09/22--PRN ativan, pain control--if continues then would consult psych
TRACIE on CKD 4--Non-anion gap metabolic acidosis---Resolved with IV fluids with sodium bicarb. Now DC'd--Baseline creatinine is 2- 2.2--IVF if needed, apprec renal input
Chronic normocytic anemia-- Hemoglobin is 9.1 trending up from 8.6 yesterday-Iron is 24L, TIBC is 193L, ferritin is 788 (acute phase reactant)--more consistent with chronic disease NOT iron deficiency
Persistent atrial fibrillation--Continue amiodarone, Toprol XL added this admission, anticoagulation with home dose Xarelto on hold
Aortic stenosis s/p TAVR 2018- Patient follows Dr. Meredith who is main outpatient clerical administrator.
Anxiety-Continue buspirone
CODE STATUS-- DNR
DVT proph-- Xarelto
Original Note:
Today's Communication/Plan
-
IR today for tube study and second drain placement
Xarelto held, patient n.p.o.: Continue after procedure per IR
Assessment / Plan
Assessment / Plan
74-year-old female with a past medical history of hyperlipidemia, aortic stenosis status post TAVR 2018, A-fib on Xarelto, CVA, CKD stage IV, iron deficiency anemia who presented from [facility] to the ER on 09/16/2024 with sepsis criteria
positive and severe abdominal pain most pronounced in the right lower quadrant.� CT of the abdomen pelvis with abdominal ultrasound showed a 1 gallstone in the gallbladder neck with gallbladder wall thickening.� She was started on IV Zosyn which was
then transition to Augmentin p.o. to be continued through 09/25/2024.� Surgery and IR were consulted for further management.� She is status post cholecystectomy tube to be continued through 09/18/2024.� Cardiology is also following because of her A-fib
with RVR, Toprol-XL increased to 50 Mg twice daily, anticoagulated with her home dose of Xarelto, cardiology has signed off.� Surgery advised to hold laxatives make patient n.p.o. except sips of clears until postoperation nausea with constipation
has improved, continue percutaneous cholecystotomy drain was [address] for 6 to 8 weeks with an outpatient follow-up with surgery. On 09/24/2024, her WBC continued to trend upwards, not suspicious for reactive leukocytosis given
timeframe, and she worsened tenderness to palpation in the right lower quadrant. A CT A/P was ordered which showed: Extraluminal gas and fluid collection within the right upper quadrant measuring 5.4 x 4.3 cm which was contiguous within the
appendix inferiorly, suspicious for perforated appendicitis. Surgery and IR discussed, her Xarelto was held, she was made n.p.o., and IR plan to take her for a tube study with possible new drain plan for 09/25/2024. The morning of 09/25/2024, IR
notified our team that they did not complete the tube study yesterday and will plan to do a tube study followed by drain placement all in one go on 09/25/2024. Of note, her brother Janusz is her POA. His number in the chart and as follows:
[phone].
#Perforated appendicitis, new
#Leukocytosis
#RLQ pain, resolving
On 09/24/2024, patient continued to have increasing WBC (16.6 back 14.6 back 14.2) and new right lower quadrant pain on palpation (mild). A CT abdomen/pelvis was ordered and revealed possible perforated appendicitis. In conversation with surgery
and IR, both teams felt a tube study was necessary with the possibility of a second drain placement. The plan for this today on 09/25/2024.
-Hold Xarelto
-N.p.o., continue D5/0.45 NaCl while NPO
-Pain control as prior
-Trend CBC
-IR tube study and possible second drain placement today 09/25/2024
-Follow-up discuss with consulting teams
#Sepsis (resolved) secondary to acute cholecystitis s/p percutaneous cholecystostomy 09/18/2024 with IR
General Surgery and ID following.
-S/p IV Zosyn: Continue Augmentin 875 mg p.o. BID through 09/25/2024 per ID
-Initial blood cultures positive for gram-negative sruthi bacteremia, however other 2 micro blood specimens have been negative for any growth in the cultures
-Body fluid culture negative to date
-Pain control with Dilaudid: Last dose 09/22/2024, 17:01, plan was to DC, however given CT findings on 09/24/2024 with perforated appendicitis, will continue.
-Continue D5/0.45 NaCl given she is n.p.o.
-Monitor WBC, temperature curve
#Postop abdominal pain with constipation, resolving
Abdominal x-ray showed a nonobstructive intestinal bowel gas pattern, her nausea and vomiting resolved after passing a large bowel movement on 09/22/2024.
-N.p.o. for IR on 09/25/2024. Will ADAT per surgery.
-Continue bowel regimen as needed: Milk of magnesia, MiraLAX, enemas to help stimulate further bowel movements.
#Agitation likely ISO delirium, resolved
She had 1 episode of being confused and screaming on 09/21/2024. She needed restraints due to trying to hit the nurse. Restraints were removed on the morning of 09/22/2024. She has not had an episode since and says she does not recall anything of
that sort happening. We will continue to observe, with as needed Ativan.
-Continue to observe, as needed Ativan, if 1 more episode of acute agitation with violent behavior will consider referring to psychiatry
#Leukocytosis
WBC 19.3 back 16.6 back 14.6 back 14.2, afebrile, HDS, with new right lower quadrant pain on 09/24/2024. Prior to this she was asymptomatic and her leukocytosis was thought to be reactive. However, given that her tube placement was over a week ago,
her uptrending leukocytosis is not reactive and required further workup as above, revealing perforated appendicitis. IR and general surgery to manage underlying infection with drains.
-Continue monitoring
-Continue antibiotics, follow-up cultures, touch base with ID again
#TRACIE on CKD 4, resolved
Non-anion gap metabolic acidosis. Resolved s/p maintenance IV fluids.
-Baseline creatinine is 2- 2.2, 2.4 today. Continue to monitor
#Chronic normocytic anemia
Hemoglobin stable. Iron is 24, TIBC is 193, ferritin is 788, which indicates iron deficiency anemia.
-Consider iron supplementation on discharge
#Persistent atrial fibrillation
Continues to be a little bit tachycardic, however asymptomatic. Cards consulted 09/21/2024, rec to continue current medications.
-Continue amiodarone 100 Mg for rate control, Toprol XL added this admission, anticoagulation with home dose Xarelto 15 Mg
#Aortic stenosis s/p TAVR 2018
-Patient follows Dr. Meredith who is main outpatient clerical administrator.
#Anxiety
-Continue buspirone
DVT prophylaxis: Xarelto
CODE STATUS: DNR
POA: Janusz (brother),
Anticipated Discharge: 24 - 48 hours (Pending clinical improvement)
Subjective/Interval History
-
Date of Service: September 25, 2024
-This morning, she reports resolution of 'all pain 'and wanting to go home. I told her about the IR plan for today, however she does not feel it is necessary. We will talk to her POA Janusz to update.
-IR did not do a tube check yesterday. They are planning to do a tube check and place a second drain this afternoon for CT findings revealed yesterday. She is n.p.o. and her Xarelto was held in preparation.
Objective Data
-
Labs:
Laboratory Results
09/25/24
07:57
WBC 19.3 H
Hgb 8.4 L
Hct 27.6 L
Plt Count 279
Sodium 135
Potassium 4.0
Chloride 105
Carbon Dioxide 25
BUN 17
Creatinine 2.1 H
Glucose 133 H
Calcium 8.9
Total Bilirubin 0.5
AST 17
ALT < 10
Alkaline Phosphatase 98
Vital Signs:
Vital Signs
Temp Pulse Resp BP Pulse Ox
98.9 F 106 16 163/74 95
09/25/24 07:00 09/25/24 07:00 09/25/24 07:00 09/25/24 07:00 09/25/24 07:00
I&O
09/24/24 09/25/24 09/26/24
06:59 06:59 06:59
Intake Total 1080 / 1080 490 / 490
Output Total 130 / 130 50 / 50
Balance 950 / 950 440 / 440
Review of Systems
-
History Source: Patient
All other systems: Reviewed and negative
Genitourinary: Reports Other (Cholecystostomy tube draining bile)
Physical Exam
-
General: Well Developed, Well Nourished, Comfortable, Conversant, Appears Chronically Ill and Other (Appears anxious this morning)
HEENT: Normocephalic, Atraumatic and Moist Mucous Membranes
Respiratory: Clear to Auscultation and Non Labored Respirations
Cardiac: S1/S2 and Irregular Rhythm (Known A-fib)
GI: Soft, Nontender, Nondistended and Other (Cholecystostomy tube in place, draining bile appropriately)
Musculoskeletal: No Clubbing and No Cyanosis
Skin: Warm, Dry and Rash
Neuro: AO x 3
Psych: Anxious
[2024-09-25 11:37] VITALS: BP 194/90
--- NOTE | 2024-09-25 12:45 | W.PN.NEPH.PH ---
Today's Communication / Plan
-
cont IVF
follow labs
Assessment/Plan
-
Assessment:
Sepsis secondary to acalculous cholecystitis
TRACIE -CKD 4 (low 2 range)
Non gap, gap Metabolic acidosis
Afib with RVR
History TAVR
Anemia
History CVA
Anxiety
Constipation
Plan:
Creatinine stable baseline at 2.1
Bp are labile ?pain and tachy-likely uptitrate BB
for abd drain today-new appendicitis with perf and collection on CT 09/24
cotn IVF while NPO
improving confusion
d/w pt
-
-
Date of Service: September 25, 2024
CC / HPI / ROS
-
Chief Complaint:
TRACIE, CKD, met acidosis
History of Present Illness:
cr better at 2.1,
Bp labile and high
no fever
NPO
Delirium better
Review of Systems:
improving RLQ pain
no cp or sob
Labs
-
Labs:
WBC 19.3 10^3/uL (4.8-10.8) H 09/25/24 07:57
RBC 2.93 10^6/uL (4.20-5.40) L 09/25/24 07:57
Hgb 8.4 g/dL (12.0-16.0) L 09/25/24 07:57
Hct 27.6 % (37.0-47.0) L 09/25/24 07:57
Plt Count 279 10^3/uL (130-400) 09/25/24 07:57
Sodium 135 mmol/L (135-145) 09/25/24 07:57
Potassium 4.0 mmol/L (3.5-5.1) 09/25/24 07:57
Chloride 105 mmol/L (98-107) 09/25/24 07:57
Carbon Dioxide 25 mmol/L (22-30) 09/25/24 07:57
BUN 17 mg/dl (7-17) 09/25/24 07:57
Creatinine 2.1 mg/dL (0.6-1.0) H 09/25/24 07:57
eGFR 24.27 09/25/24 07:57
Glucose 133 mg/dl (70-99) H 09/25/24 07:57
Calcium 8.9 mg/dl (8.4-10.2) 09/25/24 07:57
Albumin 2.9 g/dl (3.5-5.0) L 09/25/24 07:57
Physical Exam
-
Vital Signs:
Vital Signs
Temp Pulse Resp BP Pulse Ox
98.1 F 111 16 194/90 94
09/25/24 11:37 09/25/24 11:37 09/25/24 11:37 09/25/24 11:37 09/25/24 11:37
Cardiovascular:: Regular rate and rhythm (tachy)
Respiratory:: Bilateral: CTA
Lung Excursion:: Normal
Abdomen:: Soft and Tender (mild TTP RLQ)
Bowel Sounds:: Normal
Extremity Edema:: None: Bilateral:
Fournier Catheter: No
[2024-09-25 14:44] VITALS: BP 161/99; BP_SYST 120
--- NOTE | 2024-09-25 14:44 | CM ---
Patient seen at bedside with physician on . Patient for further testing later today. Patient will return to SNF when medically appropriate. Patient brother updated yesterday by Physician re patient care. CM will continue to follow for
discharge planning needs.
Plan; return to SNF
[2024-09-25 16:01] VITALS: BP 132/70; BP_SYST 10; BP_SYST 117
--- NOTE | 2024-09-25 16:06 | W.PN.UPDATE ---
Addendum entered and electronically signed by Chito Coats MD 09/25/24 16:12:
- OK to resume Xarelto tomorrow
Original Note:
Update Note
Progress Note Update
- Mary tube check and CT guided RUQ drain placement performed
- Mary tube check performed first: unremarkable. No leaks appreciated with patent cystic and common bile duct. Tube left to gravity drainage.
- CT guided drain: 10F drain placed into RUQ collection. Feculent, foul smelling fluid aspirated.
- Pt tolerated well. No immediate complications
[2024-09-25 16:39] VITALS: BP 155/97
[2024-09-25] MEDS: APRESOLINE 5 MG IV (18:40)
[2024-09-25] MEDS: DUONEB 3 ML INH (19:30)
[2024-09-25 19:36] VITALS: BP 178/111
[2024-09-25] MEDS: TOPROL XL PO (21:42)
[2024-09-25] MEDS: BUSPAR PO (21:42)
[2024-09-25] MEDS: AUGMENTIN 500 MG/125 MG PO (21:42)
[2024-09-25] MEDS: VITAMIN B1 PO (21:42)
[2024-09-25] MEDS: LOPRESSOR 5 MG IV (21:55)
[2024-09-26] VITALS (7 sets, daily range): BP systolic 99–126; BP diastolic 63–80; PULSE 79; O2SAT 97
--- NOTE | 2024-09-26 00:12 | PTCARENOTE ---
Addendum entered by Taty Juarez RN 09/26/24 04:13:
Pt continues to be SOB with increased WOB and use of accessory muscles. MAGNETIC PROSPECTING OPERATOR notified. Lasix ordered and given. See APR. labs obtained. BNP >63919. orders to hold IVF. Pt states she is feeling better. Plan of care ongoing.
Original Note:
Pt with increased SOB and wheezing. Orders for PRN nebs and portable CXR obtained. Pt coughing with PO intake, unable to take evening meds. BP and HR elevated; sustaining in the 120's-130's. MAGNETIC PROSPECTING OPERATOR notified, orders for PRN IV Lopressor added. Plan of
care ongoing.
[2024-09-26] MEDS: LASIX 20 MG IV (02:04)
[2024-09-26 02:22] LABS: Hematocrit 24.7 % (37.0-47.0); Hemoglobin 7.8 g/dL (12.0-16.0); Mean Corp Hgb Conc. 31.6 g/dL (33.0-37.0); Mean Corpuscular Volume 92.9 fL (81.0-99.0); Nucleated Red Blood Cells % 0 %; Platelet Count 200 10^3/uL (130-400); Red Cell Dist. Width 13.2 % (11.5-14.5)
[2024-09-26 02:30] LABS: Blood Urea Nitrogen 15 mg/dl (7-17); Calcium 8.4 mg/dl (8.4-10.2); Carbon Dioxide 26 mmol/L (22-30); Chloride 107 mmol/L (98-107); Estimated Creatinine Clearance 22 ml/min; Glucose 133 mg/dl (70-99); Potassium 4.2 mmol/L (3.5-5.1); Sodium 135 mmol/L (135-145); eGFR 22.95
--- NOTE | 2024-09-26 02:53 | W.PN.UPDATE ---
Update Note
Progress Note Update
0130 RN reports pt with difficulty breathing, using accessory muscles. Seems respiratory status declines post IR procedure last evening.
CXR last evening with atelectasis.
In 2021 pt did have bnp 20141
pt seems volume overloaded as she has been getting ivf for days. Likelt some iatrogenic fluid overload
Will give lasix 20 iv x 1
check BNP
0200 on eval pt now without WOB or SOB. Stated she felt better. Will leave IVF off for now.
BNP>27,000
may require daily diuretic
--- NOTE | 2024-09-26 06:54 | W.PN.GS2 ---
Addendum entered and electronically signed by Randall Pacheco MD 09/26/24 14:24:
I was physically present and personally performed the mccullough portions of the surgical evaluation and/or procedure with the resident. I discussed the findings, reviewed the resident�s note, and confirmed the medical decision-making. I provided direct
supervision as required and agree with the assessment and plan as documented with the following additions/corrections:
Feels better today, denies pain, denies n/v, ab exam with approp ttp, 2 drains one with light bilious output and the other with feculent output (expected). wbc improving. suspect perforated appendicitis. would cont iv abx and follow wbc. OK for
diet. OK for xarelto restart
Original Note:
Today's Communication / Plan
-
monitor WBC,
ID consulted for antibiotics.
Assessment / Plan
-
Patient is a 74 yo F with a PMH of HLD, aortic stenosis s/p TAVR, A-fib (on Xarelto), CVA, CKD stage IV, and s/p multiple orthopedic procedures presented with severe acute on chronic Cholecystitis managed with IR cholecystostomy tube on day 9
(09/18/24)
#Sepsis due to Acute calculus Cholecystitis:
Tmax- 98.8
WBC count= 15.8 (h)---> 11.7 (h)-->10.8 (n)-->13.1(h)-->14.2(h)--> 16.6 (h)-->19.3(h)--> 16.7 (h)
Today Direct bilirubin - 0.5 (h), AST, ALT in normal range.
Total protein- 5.6 (l), albumin- 2.9 (l).
Blood culture- Gram stain of anaerobic - gram negative bacilli.
cholecystomy tube fluid culture- negative.
Hb=8.6 and Bilirubin mild elevation due to cholecystitis.
On 09/[address] scan without contrast:
Likely small gallbladder stones with some gallbladder wall thickening and some right upper quadrant likely pericholecystic stranding. FINDINGS COULD REPRESENT ACUTE CHOLECYSTITIS.
Descending colon and sigmoid diverticulosis. Moderate volume widespread colonic stool. No intestinal obstruction or free air.
On 09/16 Abdomen USG:
Cholelithiasis with at least one gallstone is seen in the vicinity of the gallbladder neck as well as some gallbladder wall thickening. No findings to suggest pericholecystic fluid or biliary tract dilatation.
Negative sonographic Norwood's sign.
-percutaneous drainage along with cholecystostomy tube placed and bile drainage present at the tube around 20 ml, advised to flush daily,
-Check the tube blockage and drainage.
- IR drain will need to remain in place for 6 to 8 weeks.
- Future follow up at outpatient department to discuss regards cholecystectomy depending on CKD Stage 4 (creatinine clearance).
Repeat CT abdomen on 09/24: showed RUQ enlarged fluid collection, IR consulted and drainage tube placed at right side abdomen for the ruptured appendicitis abscess collection.
- drainage tube had 10 ml fluid collection today.
-miralax and Colace.
-Currently on Rivaroxaban 15 mg for AFib held for the procedure, Hb- 8.6 on 09/20
- ID consulted for the antibiotics preference by the clinical condition of ruptured appendicitis with CKD Stage 5.
Subjective Data
-
Date of Service: September 26, 2024
Overnight the patient is having mid abdominal pain,non radiating, dull in nature, not associated with nausea, vomiting, passed flatus, currently on clear fluids.
Objective Data
-
Intake and Output
09/24/24 09/25/24 09/26/24
06:59 06:59 06:59
Intake Total 1080 / 1080 490 / 490 125 / 125
Output Total 130 / 130 50 / 50 175 / 175
Balance 950 / 950 440 / 440 -50 / -50
Intake:
Oral fluids 1080 / 1080 480 / 480
IV fluids (Total) 125 / 125
NSS 125 / 125
Amount instilled into Drain (
Total)
Right Abdomen Biliary Placed in
IR
Output:
Drain Output (Total) 130 / 130 50 / 50 175 / 175
Right Abdomen Biliary Placed in 130 / 130 50 / 50 95 / 95
IR
Right Upper Abdomen Andrea- 80 / 80
Rainey B Placed in IR
Other:
Number of approximated SMALL 1
amounts of urine
How many times incontinent 1
SMALL amount urine
How many times incontinent 2 2
MODERATE amount urine
How many times incontinent 5 1 2
SATURATED amount urine
Vital Signs
Temp Pulse Resp BP Pulse Ox
97.8 F 119 18 115/69 98
09/25/24 19:36 09/26/24 02:04 09/26/24 02:04 09/26/24 02:04 09/26/24 02:04
Lab Results
09/26/24 02:02
Calcium 8.4 mg/dl (8.4-10.2) 09/26/24 02:02
Total Bilirubin 0.5 mg/dl (0.2-1.3) 09/25/24 07:57
Direct Bilirubin 0.5 mg/dl (0.0-0.4) H 09/24/24 06:18
AST 17 U/L (14-36) 09/25/24 07:57
ALT < 10 U/L (0-35) 09/25/24 07:57
Alkaline Phosphatase 98 U/L (38-126) 09/25/24 07:57
Total Protein 5.8 g/dl (6.3-8.2) L 09/25/24 07:57
Albumin 2.9 g/dl (3.5-5.0) L 09/25/24 07:57
[2024-09-26] MEDS: MIRALAX PO (07:39)
[2024-09-26] MEDS: COLACE PO (07:39)
[2024-09-26] MEDS: BUSPAR PO (07:39)
[2024-09-26] MEDS: PACERONE PO (07:39)
[2024-09-26] MEDS: DILAUDID 0.5 MG IV (07:40)
[2024-09-26] MEDS: TOPROL XL PO (07:40)
[2024-09-26] MEDS: VITAMIN B1 PO (07:40)
[2024-09-26] MEDS: REFRESH EYE DROPS (PF) 1 DROPS BOTH EYES ×2 (07:40→22:17)
[2024-09-26] MEDS: REFRESH CELLUVISC GEL 1 DROPS OPHTH ×2 (07:40→22:17)
--- NOTE | 2024-09-26 08:57 | PTOTSP ---
Addendum entered and electronically signed by ST Kavin 09/26/24 09:20:
6. Reflux precautions
MEDS 1x w/ water
Original Note:
Dysphagia Evaluation
Suspect variable dysphagia impacted by cognition. WFL oral stage and no signs concerning for pharyngeal dysphagia or aspiration today.
Recommend:
1. Regular, Thin
2. Medications as best tolerated
3. Supervision given signs of confusion
4. Assist as needed
5. Brief dysphagia f/u given risk for fluctuations
[2024-09-26 09:11] LABS: Hematocrit 25.4 % (37.0-47.0); Hemoglobin 8.0 g/dL (12.0-16.0)
[2024-09-26] MEDS: TOPROL XL 100 MG PO ×2 (09:11→22:17)
[2024-09-26] MEDS: VITAMIN B1 100 MG PO ×2 (09:11→22:17)
[2024-09-26] MEDS: BUSPAR 5 MG PO ×2 (09:11→22:16)
[2024-09-26] MEDS: PACERONE 100 MG PO (09:11)
[2024-09-26] MEDS: COLACE 100 MG PO (09:11)
[2024-09-26] MEDS: MIRALAX 17 GRAMS PO ×2 (09:18→22:17)
--- NOTE | 2024-09-26 10:49 | W.PN.NEPH.PH ---
Today's Communication / Plan
-
Observe
Holding further IV fluids
No need for further IV diuretics today
Assessment/Plan
-
Assessment:
Sepsis secondary to acalculous cholecystitis
TRACIE -CKD 4 (low 2 range)
Non gap, gap Metabolic acidosis
Afib with RVR
History TAVR
Anemia
History CVA
Anxiety
Constipation
Plan:
Creatinine stable baseline at 2.2
Bp are labile ?pain and tachy-likely uptitrate BB
Status post abd drain-new appendicitis with perf and collection on CT 09/24
IV fluids off now advancing diet to clear
Patient received 20 mg of IV Lasix last evening for increasing shortness of breath
Appears to be comfortable now, I will withhold further Lasix at this time
improving confusion
d/w pt
-
-
Date of Service: September 26, 2024
CC / HPI / ROS
-
Chief Complaint:
TRACIE, CKD, met acidosis
History of Present Illness:
cr better at 2.2
Bp labile and high
no fever
Delirium better
Shortness of breath overnight requiring Lasix administration
Review of Systems:
improving RLQ pain
no cp or sob
Labs
-
Labs:
WBC Cancelled 09/26/24 06:00
RBC Cancelled 09/26/24 06:00
Hgb 8.0 g/dL (12.0-16.0) L 09/26/24 08:27
Hct 25.4 % (37.0-47.0) L 09/26/24 08:27
Plt Count Cancelled 09/26/24 06:00
Sodium 135 mmol/L (135-145) 09/26/24 02:02
Potassium 4.2 mmol/L (3.5-5.1) 09/26/24 02:02
Chloride 107 mmol/L (98-107) 09/26/24 02:02
Carbon Dioxide 26 mmol/L (22-30) 09/26/24 02:02
BUN 15 mg/dl (7-17) 09/26/24 02:02
Creatinine 2.2 mg/dL (0.6-1.0) H 09/26/24 02:02
eGFR 22.95 09/26/24 02:02
Glucose 133 mg/dl (70-99) H 09/26/24 02:02
Calcium 8.4 mg/dl (8.4-10.2) 09/26/24 02:02
Wbg-J-Ycgekavrrdl Pept > 21465 pg/ml 09/26/24 02:02
Albumin 2.9 g/dl (3.5-5.0) L 09/25/24 07:57
Physical Exam
-
Vital Signs:
Vital Signs
Temp Pulse Resp BP Pulse Ox
98.1 F 85 14 126/67 100
09/26/24 07:45 09/26/24 07:45 09/26/24 07:45 09/26/24 07:45 09/26/24 07:45
Cardiovascular:: Regular rate and rhythm (tachy)
Respiratory:: Bilateral: CTA
Lung Excursion:: Normal
Abdomen:: Soft and Tender (mild TTP RLQ)
Bowel Sounds:: Normal
Extremity Edema:: None: Bilateral:
Fournier Catheter: No
[2024-09-26] MEDS: ZOSYN 50 IV ×3 (11:52→23:35)
--- NOTE | 2024-09-26 14:18 | W.PN.ID1 ---
Date of Service
Date of Service: September 26, 2024
Today's Communication
Started Zosyn pending cx data.
Assessment / Plan
# Perforated appendicitis
# Leukocytosis - improved today
- 09/25/24 s/p IR perc drain placement (+ feculent/purulent output)
- Cx pending
- Start Zosyn (renally adjusted) pending culture data
- Trend wbc.
# Recent acute gallstone cholecystitis
# Clostridium cadaveris bacteremia
- 09/18 s/p IR perc jerilyn. Gram stain: GPC chains, Cx neg
- completed Augmentin 875mg po bid through 09/25/24
# Conditions prior to admission.
CVA
Paroxysmal atrial fibrillation
Aortic stenosis s/p TAVR
CAD
History of DVT
CKD4
PAD
Memory impairment
B TKR
Chief Complaint
-: Other (Abd pain)
Subjective / Review of Systems
Reconsult for perforated appendicitis.
Pt denies abd pain today. Feeling better.
Vital Signs / Physical Exam
Vital Signs
Vital Signs
Temp Pulse Resp BP Pulse Ox
97.9 F 79 16 122/63 97
09/26/24 11:26 09/26/24 11:26 09/26/24 11:26 09/26/24 11:26 09/26/24 11:26
Physical Exam
Constitutional: No Acute Distress and Comfortable
Eyes: No Conjunctival Hemorrhage and Sclera Anicteric
Cardiovascular: Regular Rate and S1/S2
Pulmonary: Clear
Gastrointestinal: Soft, Non Tender, Non Distended and Other (Per jerilyn with bile; HECTOR drain cloudy dark brown output)
Neurological: AO x 3
Objective Data
Lab Data
Lab Results
09/26/24 08:27
09/26/24 02:02
PT 23.1 Sec (11.4-14.6) H 09/17/24 10:17
INR 2.00 09/17/24 10:17
APTT 33.7 Sec (23.4-35.0) 09/18/24 00:05
Estimated Creat Clear 22 ml/min 09/26/24 02:02
Lactic Acid 0.7 mmol/L (0.7-2.0) 09/17/24 18:14
Total Bilirubin 0.5 mg/dl (0.2-1.3) 09/25/24 07:57
AST 17 U/L (14-36) 09/25/24 07:57
ALT < 10 U/L (0-35) 09/25/24 07:57
Alkaline Phosphatase 98 U/L (38-126) 09/25/24 07:57
Most recent labs reviewed.
Micro Results:
09/25/24 15:46 Wound Culture - Preliminary
Abscess Gram Stain - Preliminary
09/16/24 07:12 Blood Culture - Final
Blood/Venous Clostridium cadaveris
Gram Stain - Final
09/17/24 10:17 Blood Culture - Final
Blood/Venous No Growth - Final Report
09/17/24 09:25 Blood Culture - Final
Blood/Venous No Growth - Final Report
09/18/24 08:10 Body Fluid Culture - Final
Bile No Growth After 72 Hours
Gram Stain - Final
09/17/24 00:37 MRSA Screen - Final
Nose No Methicillin Resistant Staphylococcus aureus isolated.
09/16/24 05:32 Urine Culture - Final
Urine
09/24/24 CT a/p: Extraluminal gas and fluid collection within the right upper quadrant measuring 5.4 x 4.3 cm which appears to be contiguous within the appendix inferiorly, suspicious for perforated appendicitis.
2. Interval insertion of percutaneous transperitoneal: Suspect tube which appears well positioned with decompression of the gallbladder.
09/16/24 CT a/p: Likely small gallbladder stones with some gallbladder wall thickening and some right upper quadrant likely pericholecystic stranding. FINDINGS COULD REPRESENT ACUTE CHOLECYSTITIS. Suggest Abdominal Ultrasound for more complete
evaluation. Moderate bilateral perinephric stranding. No gross findings to suggest obstructive uropathy bilaterally.
09/16/24 ABD US: Cholelithiasis with at least one gallstone is seen in the vicinity of the gallbladder neck as well as some gallbladder wall thickening. No findings to suggest pericholecystic fluid or biliary tract dilatation. Negative sonographic
Norwood's sign. If there is a clinical suspicion for acute cholecystitis, suggest Nuclear Hepatobiliary scan.
[2024-09-26] MEDS: ZOFRAN 4 MG IV (14:29)
--- NOTE | 2024-09-26 15:37 | W.PN.HOSP.TC ---
Addendum entered and electronically signed by Elli Ellison MD 09/26/24 20:46:
I saw and evaluated the patient independently. I reviewed the resident�s note and agree with findings and plan as documented by Dr. Byers.
GENERAL: well developed, well nourished, female in no apparent distress
HEENT: NC/AT
HEART: regular rate and rhythm, +S1, +S2
LUNGS : clear to auscultation bilaterally
ABDOM: soft, tender without guarding or rebound, nondistended, hyperactive bowel sounds--perc jerilyn tube and 2nd drain
EXT: no cyanosis, clubbing, or edema
NEUROLOGIC: apparent dementia
Sepsis (resolved) secondary to acute calculous cholecystitis (US shows Cholelithiasis with at least one gallstone is seen in the vicinity of the gallbladder neck as well as some gallbladder wall thickening)---apprec surgery--perc jerilyn tube placed
09/18/2024 with IR drain draining bilious fluid--needs to stay in 6-8 weeks--blood cultures positive for Clostridium cadaveris, repeat negative--finished augmentin
leukocytosis--09/24 spoke with surgery, apprec input--CT scan done with concern for ruptured appendix--holding Xarelto, tube check without leak and drain placement --apprec ID for abx help
Postop abdominal pain with constipation--pt moving bowels--advance diet as tolerated--cont bowel regimen as per surgery
Episode of agitation--seems in relation to pain or nausea--restraints needed to be placed but have been off since morning of 09/22--PRN ativan, pain control
TRACIE on CKD 4--Non-anion gap metabolic acidosis---Resolved with IV fluids with sodium bicarb. Now DC'd--Baseline creatinine is 2- 2.2--IVF if needed, apprec renal input
Chronic normocytic anemia-- Hemoglobin is 9.1 trending up from 8.6 yesterday-Iron is 24L, TIBC is 193L, ferritin is 788 (acute phase reactant)--more consistent with chronic disease NOT iron deficiency
Persistent atrial fibrillation--Continue amiodarone, Toprol XL added this admission, anticoagulation with home dose Xarelto on hold--hopefully can restart
Aortic stenosis s/p TAVR 2018- Patient follows Dr. Meredith who is main outpatient glass cutter hand.
Anxiety-Continue buspirone
CODE STATUS-- DNR
DVT proph-- Xarelto
Original Note:
Today's Communication/Plan
-
Swallow study done: Advance diet to low-fat/thin liquids with full supervision and assist as needed, with 1 pill at a time.
Per ID, started IV Zosyn.
Continue Zofran for nausea/vomiting.
Continue to monitor hemoglobin.
DC IV fluids.
Assessment / Plan
Assessment / Plan
74-year-old female with a past medical history of hyperlipidemia, aortic stenosis status post TAVR 2018, A-fib on Xarelto, CVA, CKD stage IV, iron deficiency anemia who presented from [facility] to the ER on 09/16/2024 with sepsis criteria
positive and severe abdominal pain most pronounced in the right lower quadrant.� CT of the abdomen pelvis with abdominal ultrasound showed a 1 gallstone in the gallbladder neck with gallbladder wall thickening.� She was started on IV Zosyn which was
then transition to Augmentin p.o. to be continued through 09/25/2024.� Surgery and IR were consulted for further management.� She is status post cholecystectomy tube to be continued through 09/18/2024.� Cardiology is also following because of her A-fib
with RVR, Toprol-XL increased to 50 Mg twice daily, anticoagulated with her home dose of Xarelto, cardiology has signed off.� Surgery advised to hold laxatives make patient n.p.o. except sips of clears until postoperation nausea with constipation
has improved, continue percutaneous cholecystotomy drain was [address] for 6 to 8 weeks with an outpatient follow-up with surgery. On 09/24/2024, her WBC continued to trend upwards, not suspicious for reactive leukocytosis given
timeframe, and she worsened tenderness to palpation in the right lower quadrant. A CT A/P was ordered which showed: Extraluminal gas and fluid collection within the right upper quadrant measuring 5.4 x 4.3 cm which was contiguous within the
appendix inferiorly, suspicious for perforated appendicitis. Surgery and IR discussed, her Xarelto was held, she was made n.p.o., and IR plan to take her for a tube study with possible new drain plan for 09/25/2024. The morning of 09/25/2024, IR
notified our team that they did not complete the tube study yesterday and will plan to do a tube study followed by drain placement all in one go on 09/25/2024. Of note, her brother Janusz is her POA. His number in the chart and as follows:
[phone].
#Concern for aspiration, new
#Nausea
After her second drains placement on 09/25/2024, there was concern for increased risk of aspiration as she was having a hard time swallowing pills even with copious sips of water. She was made n.p.o. overnight and speech was consulted in the morning.
-Speech consulted for swallow eval, appreciate recs:
--Per speech, ADAT to low-fat/thin liquids with full supervision, assist as needed and pills 1 at a time per speech.
--Consider VSE if continued concern for aspiration
-Continue Zofran as needed for nausea
#Shortness of breath, resolving
09/25/2024 overnight providers noticed increased work of breathing and accessory muscle use after she came back from her IR procedure. This continued overnight 09/26/2024, chest x-ray showed atelectasis, she was given 1 dose of IV Lasix 20 mg with
slight symptom per minute. She did not need supplemental oxygen. Suspect aspiration versus volume overload.
-S/p IV Lasix 20 mg
-Will hold further diuresis
#Perforated appendicitis s/p IR drain 09/25/2024
#Leukocytosis, resolving
#RLQ pain, resolved
On 09/24/2024, patient continued to have increasing WBC (16.6 back 14.6 back 14.2) and new right lower quadrant pain on palpation (mild). A CT abdomen/pelvis was ordered and revealed possible perforated appendicitis. In conversation with surgery
and IR, both teams felt a tube study was necessary with the possibility of a second drain placement. The plan for this today on 09/25/2024.
-Restarted home Xarelto
-Stop D5/0.45 NaCl
-Pain control as prior
-Trend CBC
-IR tube study and second placement 09/25/2024
#Sepsis (resolved) 2/2 to acute cholecystitis s/p perc cholecystostomy 09/18/2024 and perforated appendicitis versus abscess s/p second drain placement 09/25/2024 with IR
General Surgery and ID following.
-ID following, appreciate recs:
--S/p IV Zosyn
--S/p Augmentin 875 mg p.o. BID through 09/25/2024
--Started IV Zosyn
--Follow-up cultures
-Initial blood cultures positive for gram-negative sruthi bacteremia, however other 2 micro blood specimens have been negative for any growth in the cultures
-Body fluid culture negative to date
-Pain control with Dilaudid: Last dose 09/22/2024, 17:01, plan was to DC, however given CT findings on 09/24/2024 with perforated appendicitis, will continue.
--Reassess use 09/27/2024, and adjust as needed
-Monitor WBC, temperature curve
#Postop abdominal pain with constipation, resolving
Abdominal x-ray showed a nonobstructive intestinal bowel gas pattern, her nausea and vomiting resolved after passing a large bowel movement on 09/22/2024.
-Continue bowel regimen as needed: Milk of magnesia, MiraLAX, enemas to help stimulate further bowel movements.
#Agitation likely ISO delirium, resolved
She had 1 episode of being confused and screaming on 09/21/2024. She needed restraints due to trying to hit the nurse. Restraints were removed on the morning of 09/22/2024. She has not had an episode since and says she does not recall anything of
that sort happening. We will continue to observe, with as needed Ativan.
-Continue to observe, as needed Ativan, if 1 more episode of acute agitation with violent behavior will consider referring to psychiatry
#Leukocytosis, downtrending
WBC 16.7 back 19.3 back 16.6 back 14.6, afebrile, HDS, with new right lower quadrant pain on 09/24/2024. Prior to this she was asymptomatic and her leukocytosis was thought to be reactive. However, given that her tube placement was over a week ago,
her uptrending leukocytosis is not reactive and required further workup as above, revealing perforated appendicitis. IR and general surgery to manage underlying infection with drains.
-CTM, continue antibiotics, follow-up cultures, touch base with ID again as needed
#TRACIE on CKD 4, resolved
Non-anion gap metabolic acidosis. Resolved s/p maintenance IV fluids.
- She is back to her baseline creatinine of 2- 2.2. CTM.
#Chronic normocytic anemia
Hemoglobin stable. Iron is 24, TIBC is 193, ferritin is 788, which indicates iron deficiency anemia.
-Consider iron supplementation on discharge
- S/p IR drain hemoglobin is 8 back 7.8, CTM.
#Persistent atrial fibrillation
Continues to be a little bit tachycardic, however asymptomatic. Cards consulted 09/21/2024, rec to continue current medications.
-Continue amiodarone 100 Mg for rate control, Toprol XL added this admission, anticoagulation with home dose Xarelto 15 Mg
#Aortic stenosis s/p TAVR 2018
-Patient follows Dr. Meredith who is main outpatient glass cutter hand.
#Anxiety
-Continue buspirone
DVT prophylaxis: Xarelto
CODE STATUS: DNR
POA: Janusz (brother),
Anticipated Discharge: 24 - 48 hours (Pending clinical improvement, ability to tolerate diet, and conversation with campaign consultant teams)
Subjective/Interval History
-
Date of Service: September 26, 2024
-She is s/p second drain by IR. Overnight, per nursing she had increased use of accessory muscles and shortness of breath. Chest x-ray was ordered and showed atelectasis. IV fluids were stopped. She was given one-time dose of IV Lasix 20 mg with
appropriate response and symptom relief. There was also concern from nursing about increased risk of aspiration, even for medications. She was made NPO. SP consult was placed.
- This morning, she reports she feels 'great 'and is ready to go home. She denies any pain. Her drains are draining appropriately.
- SP reports no signs of dysplasia but are concerned with fluctuation in swallow ability, they suspect a cognitive component. They recommended regular diet with thin liquids but needing full supervision's and assist as needed. They also recommend
1 at a time for pills. If she continues to aspirate or be at risk for aspiration, they will consider VSE.
- During rounds, she has a bedpan with green/yellow vomit s/p lunch. She reports having chicken and soup along with some juice.
Objective Data
-
Labs:
Laboratory Results
09/26/24
08:27
Hgb 8.0 L
Hct 25.4 L
Vital Signs:
Vital Signs
Temp Pulse Resp BP Pulse Ox
97.9 F 79 16 122/63 97
09/26/24 11:26 09/26/24 11:26 09/26/24 11:26 09/26/24 11:26 09/26/24 11:26
I&O
09/25/24 09/26/24 09/27/24
06:59 06:59 06:59
Intake Total 490 / 490 125 / 125
Output Total 50 / 50 175 / 175
Balance 440 / 440 -50 / -50
Review of Systems
-
All other systems: Reviewed and negative
Abdomen/GI: Reports Other (Drains in place)
Physical Exam
-
General: No Apparent Distress, Comfortable, Conversant, Appears Chronically Ill and Other (Sitting up in bed, with bedpan at bedside with green/yellow vomit, conversant and has no complaints.)
HEENT: Normocephalic, Atraumatic and Moist Mucous Membranes
Respiratory: Clear to Auscultation and Non Labored Respirations
Cardiac: Regular Rhythm and S1/S2
GI: Soft, Nontender, Nondistended and Other ([address], draining as expected.)
Musculoskeletal: No Clubbing and No Cyanosis
Skin: Warm and Dry
Neuro: AO x 3
Psych: Calm and Intact Judgement/Insight
--- NOTE | 2024-09-26 16:11 | CM ---
Patient seen at bedside with physicians. Patient had just thrown up. Patient plan is to return to SNF; [facility], updated clinicals sent this am. Patient can return when medically appropriate. Patient brother needs to review IMM and ambulance
transport will be needed. Patient POA and brother is [phone], CM will continue to follow for discharge planning needs.
PLAN: Return to [facility] when medically stable
Report #: [phone] Fax #: [phone]
[2024-09-26] MEDS: XARELTO 15 MG PO (17:28)
[2024-09-26] MEDS: ROXICODONE 5 MG PO (22:20)
[2024-09-27 03:00] VITALS: BP 103/68
[2024-09-27 04:00] VITALS: BMI 26.8
[2024-09-27] MEDS: ZOSYN 50 IV ×4 (05:36→23:14)
[2024-09-27 07:37] LABS: ALT (SGPT) < 10 U/L (0-35); AST (SGOT) 14 U/L (14-36); Albumin 2.5 g/dl (3.5-5.0); Alkaline Phosphatase 93 U/L (38-126); Blood Urea Nitrogen 17 mg/dl (7-17); Calcium 8.8 mg/dl (8.4-10.2); Carbon Dioxide 24 mmol/L (22-30); Chloride 108 mmol/L (98-107); Estimated Creatinine Clearance 16 ml/min; Glucose 87 mg/dl (70-99); Potassium 4.0 mmol/L (3.5-5.1); Sodium 137 mmol/L (135-145); Total Protein 5.0 g/dl (6.3-8.2); eGFR 18.78
[2024-09-27 08:09] VITALS: BP 113/67
[2024-09-27 08:12] LABS: Hematocrit 24.6 % (37.0-47.0); Hemoglobin 7.7 g/dL (12.0-16.0); Mean Corp Hgb Conc. 31.3 g/dL (33.0-37.0); Mean Corpuscular Volume 92.8 fL (81.0-99.0); Platelet Count 247 10^3/uL (130-400); Red Cell Dist. Width 13.3 % (11.5-14.5)
--- NOTE | 2024-09-27 09:19 | W.PN.HOSP.TC ---
Today's Communication/Plan
-
anticipate d/c back to SNF when OK with all consultants
Assessment / Plan
Assessment / Plan
pt is a 74 year old female
Sepsis (resolved) secondary to acute calculous cholecystitis and ruptured appendix---apprec surgery--perc jerilyn tube placed 09/18/2024 and HECTOR drain placed 09/25/2024--jerilyn tube needs to stay in 6-8 weeks--blood cultures positive for Clostridium
cadaveris, repeat negative--finished augmentin --apprec ID, now on zosyn--pt with nausea--? related
Postop abdominal pain with constipation--pt moving bowels--advance diet as tolerated--cont bowel regimen as per surgery
Episode of agitation--resolved--seems in relation to pain or nausea
TRACIE on CKD 4--Non-anion gap metabolic acidosis---Resolved with IV fluids with sodium bicarb. Now DC'd--Baseline creatinine is 2- 2.2--IVF if needed, apprec renal input
Chronic normocytic anemia-- Hemoglobin 7.7--Iron is 24L, TIBC is 193L, ferritin is 788 (acute phase reactant)--more consistent with chronic disease NOT iron deficiency
Persistent atrial fibrillation--Continue amiodarone, Toprol XL added this admission, anticoagulation with home dose Xarelto
Aortic stenosis s/p TAVR 2018- Patient follows Dr. Meredith who is main outpatient manager payer.
Anxiety--Continue buspirone
CODE STATUS-- DNR
DVT proph-- Xarelto
anticipate d/c back to SNF when OK with all consultants
Anticipated Discharge: 24 - 48 hours
Subjective/Interval History
-
Date of Service: September 27, 2024
pt still nauseous but did not throw up
Objective Data
-
Labs:
Laboratory Results
09/27/24 09/27/24
00:30 06:26
WBC 11.2 H
Hgb Cancelled 7.7 L
Hct 24.6 L
Plt Count 247 D
Sodium 137
Potassium 4.0
Chloride 108 H
Carbon Dioxide 24
BUN 17
Creatinine 2.6 H
Glucose 87
Calcium 8.8
Total Bilirubin 0.4
AST 14
ALT < 10
Alkaline Phosphatase 93
Vital Signs:
max temp for 24 hours
09/26/24
23:00
Temp 98.2 F
Vital Signs
Temp Pulse Resp BP Pulse Ox
98.1 F 98 16 113/67 95
09/27/24 08:09 09/27/24 08:09 09/27/24 08:09 09/27/24 08:09 09/27/24 08:09
I&O
09/26/24 09/27/24 09/28/24
06:59 06:59 06:59
Intake Total 125 / 125 620 / 620
Output Total 175 / 175
Balance -50 / -50 620 / 620
Review of Systems
-
All other systems: Reviewed and negative
Abdomen/GI: Reports Nausea; Denies Vomiting
Physical Exam
-
General: Well Developed, Well Nourished and No Apparent Distress
HEENT: Normocephalic and Atraumatic; Negative Oxygen
Respiratory: Clear to Auscultation; Negative Wheezes or Rhonchi
Cardiac: Regular Rhythm and S1/S2; Negative Murmur
GI: Soft, Nontender, Nondistended, Normal Bowel Sounds and Other (perc abigail tube draining bile--HECTOR drain draining serosanguinous fluid--scant)
Musculoskeletal: No Clubbing, No Cyanosis and No Edema
Skin: Warm
Neuro: Awake
Psych: Calm
[2024-09-27] MEDS: VITAMIN B1 100 MG PO ×2 (10:02→20:41)
[2024-09-27] MEDS: MIRALAX 17 GRAMS PO ×2 (10:02→20:41)
[2024-09-27] MEDS: ROXICODONE 5 MG PO (10:02)
[2024-09-27] MEDS: TYLENOL 650 MG PO (10:02)
[2024-09-27] MEDS: COLACE 100 MG PO (10:03)
[2024-09-27] MEDS: REFRESH CELLUVISC GEL 1 DROPS OPHTH ×2 (10:03→20:41)
[2024-09-27] MEDS: REFRESH EYE DROPS (PF) 1 DROPS BOTH EYES ×2 (10:03→20:41)
[2024-09-27] MEDS: BUSPAR 5 MG PO ×2 (10:05→20:41)
[2024-09-27] MEDS: TOPROL XL 100 MG PO ×2 (10:05→20:41)
[2024-09-27] MEDS: PACERONE 100 MG PO (10:05)
--- NOTE | 2024-09-27 10:36 | W.PN.NEPH.PH ---
Today's Communication / Plan
-
Nephrologically stable for discharge
Will follow BMP while inpatient
Assessment/Plan
-
Assessment:
Sepsis secondary to acalculous cholecystitis
TRACIE -CKD 4 (low 2 range)
Non gap, gap Metabolic acidosis
Afib with RVR
History TAVR
Anemia
History CVA
Anxiety
Constipation
Plan:
Creatinine at 2.6
Bp are labile ?pain and tachy-likely previously up titrated BB
Status post abd drain-new appendicitis with perf and collection on CT 09/24
Eating awake and alert asking to go home
Appears to be comfortable now, I will withhold further Lasix at this time
improving confusion
d/w pt
-
-
Date of Service: September 27, 2024
CC / HPI / ROS
-
Chief Complaint:
TRACIE, CKD, met acidosis
History of Present Illness:
cr higher at 2 point
Bp labile
no fever
Delirium better much improved conversational
Shortness of breath overnight requiring Lasix administration
Review of Systems:
improving RLQ pain
no cp or sob
Labs
-
Labs:
WBC 11.2 10^3/uL (4.8-10.8) H 09/27/24 06:26
RBC 2.65 10^6/uL (4.20-5.40) L 09/27/24 06:26
Hgb 7.7 g/dL (12.0-16.0) L 09/27/24 06:26
Hct 24.6 % (37.0-47.0) L 09/27/24 06:26
Plt Count 247 10^3/uL (130-400) D 09/27/24 06:26
Sodium 137 mmol/L (135-145) 09/27/24 06:26
Potassium 4.0 mmol/L (3.5-5.1) 09/27/24 06:26
Chloride 108 mmol/L (98-107) H 09/27/24 06:26
Carbon Dioxide 24 mmol/L (22-30) 09/27/24 06:26
BUN 17 mg/dl (7-17) 09/27/24 06:26
Creatinine 2.6 mg/dL (0.6-1.0) H 09/27/24 06:26
eGFR 18.78 09/27/24 06:26
Glucose 87 mg/dl (70-99) 09/27/24 06:26
Calcium 8.8 mg/dl (8.4-10.2) 09/27/24 06:26
Zmk-J-Ljhwaesigdu Pept > 01232 pg/ml 09/26/24 02:02
Albumin 2.5 g/dl (3.5-5.0) L 09/27/24 06:26
Physical Exam
-
Vital Signs:
Vital Signs
Temp Pulse Resp BP Pulse Ox
98.1 F 98 16 113/67 95
09/27/24 08:09 09/27/24 08:09 09/27/24 08:09 09/27/24 08:09 09/27/24 08:09
Cardiovascular:: Regular rate and rhythm (tachy)
Respiratory:: Bilateral: CTA
Lung Excursion:: Normal
Abdomen:: Soft and Tender (mild TTP RLQ)
Bowel Sounds:: Normal
Extremity Edema:: None: Bilateral:
Fournier Catheter: No
--- NOTE | 2024-09-27 11:31 | W.PN.GS2 ---
Addendum entered and electronically signed by Janusz Pineda MD 09/27/24 15:03:
I saw and examined the patient.
The ORACLE PROGRAMMER ANALYST's note was reviewed and I agree with the note.
�Okay for DC from surgical standpoint once medically clear and antibiotic plan in place
Original Note:
Today's Communication / Plan
-
c/w drains
continue diet
ABX as per ID
Assessment / Plan
-
Patient is a 74 yo F with a PMH of aortic stenosis s/p TAVR, A-fib (on Xarelto), CVA, CKD stage IV, and s/p multiple orthopedic procedures presented with
sepsis (now resolved) and bacteremia with clostridium cadaverous. severe acute on chronic cholecystitis present on initial imaging managed with IR cholecystostomy tube placed 09/18/24.
persistent pain/distention with leukocytosis prompting CT on 09/24/24 with perforated appendicitis with abscess noted on f/u imaging now s/p IR drainage on 09/25/24 with symptomatic improvement
final cx pending from abscess drainage, polymicrobial
AFVSS
Tolerating diet
Leukocytosis resolving
Plan:
ABX as per ID
Continue current diet
c/w drains upon d/c, daily drain flushes as per IR. follow drain outputs.
Xarelto has been resumed with stable h/h
Nephrology following
C/W bowel regimen
Dispo as per primary team
Will follow closely as an outpatient
Subjective Data
-
Date of Service: September 27, 2024
Pt seen and examined at bedside with Dr. Pineda. Denies n/v. Has just completed breakfast and feels overall well. Passing flatus. Not sure when her last BM was.
Objective Data
-
Intake and Output
09/26/24 09/27/24 09/28/24
06:59 06:59 06:59
Intake Total 125 / 125 620 / 620
Output Total 175 / 175
Balance -50 / -50 620 / 620
Intake:
Oral fluids 600 / 600
IV fluids (Total) 125 / 125
NSS 125 / 125
Amount instilled into Drain ( 20 / 20
Total)
Right Abdomen Biliary Placed in
IR
Right Upper Abdomen Andrea-
Rainey B Placed in IR
Output:
Drain Output (Total) 175 / 175
Right Abdomen Biliary Placed in
IR
Right Upper Abdomen Andrea- /
Rainey B Placed in IR
Other:
How many times incontinent 1
SMALL amount urine
How many times incontinent 2 2
MODERATE amount urine
How many times incontinent 2
SATURATED amount urine
Vital Signs
Temp Pulse Resp BP Pulse Ox
98.1 F 98 16 113/67 95
09/27/24 08:09 09/27/24 08:09 09/27/24 08:09 09/27/24 08:09 09/27/24 08:09
Lab Results
09/27/24 06:26
09/27/24 06:26
Calcium 8.8 mg/dl (8.4-10.2) 09/27/24 06:26
Total Bilirubin 0.4 mg/dl (0.2-1.3) 09/27/24 06:26
Direct Bilirubin 0.5 mg/dl (0.0-0.4) H 09/24/24 06:18
AST 14 U/L (14-36) 09/27/24 06:26
ALT < 10 U/L (0-35) 09/27/24 06:26
Alkaline Phosphatase 93 U/L (38-126) 09/27/24 06:26
Total Protein 5.0 g/dl (6.3-8.2) L 09/27/24 06:26
Albumin 2.5 g/dl (3.5-5.0) L 09/27/24 06:26
Physical Exam
-
NAD
ABD soft, nt, mild distention
Per jerilyn drain with bile
HETCOR abscess drain with purulent material
Patient has a gutierrez catheter: No
Patient has a central line: No
[2024-09-27 11:38] VITALS: BP 108/68
--- NOTE | 2024-09-27 14:27 | W.PN.ID1 ---
Date of Service
Date of Service: September 27, 2024
Today's Communication
Continue current antibiotics.
Assessment / Plan
# Perforated appendicitis
# Leukocytosis - improved today
- 09/25/24 s/p IR perc drain placement (+ feculent/purulent output)
- Cx pending (prelim: GNR's and Enterococcus species
- Continue Zosyn (renally adjusted) pending culture data
- Trend wbc.
# Recent acute gallstone cholecystitis
# Clostridium cadaveris bacteremia
- 09/18 s/p IR perc jerilyn. Gram stain: GPC chains, Cx neg
- completed Augmentin 875mg po bid through 09/25/24
# Conditions prior to admission.
CVA
Paroxysmal atrial fibrillation
Aortic stenosis s/p TAVR
CAD
History of DVT
CKD4
PAD
Memory impairment
B TKR
Chief Complaint
-: Other (Abd pain)
Subjective / Review of Systems
Review of Systems: No Fever and No Chills
Vital Signs / Physical Exam
Vital Signs
Vital Signs
Temp Pulse Resp BP Pulse Ox
98.1 F 98 16 108/68 96
09/27/24 11:38 09/27/24 11:38 09/27/24 11:38 09/27/24 11:38 09/27/24 11:38
Physical Exam
Constitutional: No Acute Distress and Comfortable
Eyes: No Conjunctival Hemorrhage and Sclera Anicteric
Cardiovascular: Regular Rate and S1/S2
Pulmonary: Clear
Gastrointestinal: Soft, Non Tender, Non Distended and Other (Per jerilyn with bile; HECTOR drain cloudy dark brown output)
Neurological: AO x 3
Objective Data
Lab Data
Lab Results
09/27/24 06:26
09/27/24 06:26
PT 23.1 Sec (11.4-14.6) H 09/17/24 10:17
INR 2.00 09/17/24 10:17
APTT 33.7 Sec (23.4-35.0) 09/18/24 00:05
Estimated Creat Clear 16 ml/min 09/27/24 06:26
Lactic Acid 0.7 mmol/L (0.7-2.0) 09/17/24 18:14
Total Bilirubin 0.4 mg/dl (0.2-1.3) 09/27/24 06:26
AST 14 U/L (14-36) 09/27/24 06:26
ALT < 10 U/L (0-35) 09/27/24 06:26
Alkaline Phosphatase 93 U/L (38-126) 09/27/24 06:26
Most recent labs reviewed.
Micro Results:
09/25/24 15:46 Wound Culture - Preliminary
Abscess Gram negative bacilli
Enterococcus species
Gram Stain - Preliminary
09/16/24 07:12 Blood Culture - Final
Blood/Venous Clostridium cadaveris
Gram Stain - Final
09/17/24 10:17 Blood Culture - Final
Blood/Venous No Growth - Final Report
09/17/24 09:25 Blood Culture - Final
Blood/Venous No Growth - Final Report
09/18/24 08:10 Body Fluid Culture - Final
Bile No Growth After 72 Hours
Gram Stain - Final
09/17/24 00:37 MRSA Screen - Final
Nose No Methicillin Resistant Staphylococcus aureus isolated.
09/16/24 05:32 Urine Culture - Final
Urine
09/24/24 CT a/p: Extraluminal gas and fluid collection within the right upper quadrant measuring 5.4 x 4.3 cm which appears to be contiguous within the appendix inferiorly, suspicious for perforated appendicitis. Interval insertion of percutaneous
transperitoneal: Suspect tube which appears well positioned with decompression of the gallbladder.
09/16/24 CT a/p: Likely small gallbladder stones with some gallbladder wall thickening and some right upper quadrant likely pericholecystic stranding. FINDINGS COULD REPRESENT ACUTE CHOLECYSTITIS. Suggest Abdominal Ultrasound for more complete
evaluation. Moderate bilateral perinephric stranding. No gross findings to suggest obstructive uropathy bilaterally.
09/16/24 ABD US: Cholelithiasis with at least one gallstone is seen in the vicinity of the gallbladder neck as well as some gallbladder wall thickening. No findings to suggest pericholecystic fluid or biliary tract dilatation. Negative sonographic
Norwood's sign. If there is a clinical suspicion for acute cholecystitis, suggest Nuclear Hepatobiliary scan.
[2024-09-27 16:41] VITALS: BP 113/64
[2024-09-27] MEDS: XARELTO 15 MG PO (17:19)
[2024-09-27 23:43] VITALS: BP 159/88
[2024-09-28] MEDS: ROXICODONE 5 MG PO (03:41)
[2024-09-28] MEDS: ZOFRAN 4 MG IV (05:28)
[2024-09-28] MEDS: ZOSYN 50 IV ×3 (05:29→18:04)
[2024-09-28 06:00] VITALS: BMI 26.2
[2024-09-28 07:30] VITALS: BP 165/96
[2024-09-28 07:58] LABS: ALT (SGPT) < 10 U/L (0-35); AST (SGOT) 15 U/L (14-36); Albumin 2.8 g/dl (3.5-5.0); Alkaline Phosphatase 104 U/L (38-126); Blood Urea Nitrogen 18 mg/dl (7-17); Calcium 8.9 mg/dl (8.4-10.2); Carbon Dioxide 22 mmol/L (22-30); Chloride 108 mmol/L (98-107); Estimated Creatinine Clearance 16 ml/min; Glucose 84 mg/dl (70-99); Potassium 4.4 mmol/L (3.5-5.1); Sodium 138 mmol/L (135-145); Total Protein 5.6 g/dl (6.3-8.2); eGFR 18.78
[2024-09-28 08:14] LABS: Hematocrit 28.3 % (37.0-47.0); Hemoglobin 8.8 g/dL (12.0-16.0); Mean Corp Hgb Conc. 31.1 g/dL (33.0-37.0); Mean Corpuscular Volume 93.4 fL (81.0-99.0); Platelet Count 321 10^3/uL (130-400); Red Cell Dist. Width 13.2 % (11.5-14.5)
[2024-09-28] MEDS: REFRESH EYE DROPS (PF) 1 DROPS BOTH EYES ×2 (08:33→21:37)
[2024-09-28] MEDS: MIRALAX 17 GRAMS PO ×2 (08:33→21:36)
[2024-09-28] MEDS: COLACE 100 MG PO (08:33)
[2024-09-28] MEDS: REFRESH CELLUVISC GEL 1 DROPS OPHTH ×2 (08:36→21:37)
[2024-09-28] MEDS: VITAMIN B1 100 MG PO ×2 (08:36→21:38)
[2024-09-28] MEDS: ULTRAM 50 MG PO (08:36)
[2024-09-28] MEDS: PACERONE 100 MG PO (08:37)
[2024-09-28] MEDS: BUSPAR 5 MG PO ×2 (08:37→21:35)
[2024-09-28] MEDS: TOPROL XL 100 MG PO ×2 (08:37→21:38)
[2024-09-28] MEDS: TYLENOL 650 MG PO ×2 (08:37→18:04)
--- NOTE | 2024-09-28 09:15 | W.PN.HOSP.TC ---
Today's Communication/Plan
-
cont zosyn--await final culture results
apprec all consultants' input
Assessment / Plan
Assessment / Plan
pt is a 74 year old female
Sepsis (resolved) secondary to acute calculous cholecystitis and ruptured appendix---apprec surgery--perc jerilyn tube placed 09/18/2024 and HECTOR drain placed 09/25/2024--jerilyn tube needs to stay in 6-8 weeks--blood cultures positive for Clostridium
cadaveris, repeat negative--finished augmentin --apprec ID, now on zosyn--wound/abscess/fluid collection culture with Enterococcus and gm neg bacilli--await identification and sensitivities--unfortunately no d/c at this time
Postop abdominal pain with constipation--pt moving bowels--advance diet as tolerated--cont bowel regimen as per surgery
Episode of agitation--resolved--seems in relation to pain or nausea
TRACIE on CKD 4--Non-anion gap metabolic acidosis---Resolved with IV fluids with sodium bicarb. Now DC'd--Baseline creatinine is 2- 2.2--IVF if needed, apprec renal input
Chronic normocytic anemia-- Hemoglobin 7.7--Iron is 24L, TIBC is 193L, ferritin is 788 (acute phase reactant)--more consistent with chronic disease NOT iron deficiency
Persistent atrial fibrillation--Continue amiodarone, Toprol XL added this admission, anticoagulation with home dose Xarelto
Aortic stenosis s/p TAVR 2019- Patient follows Dr. 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
Anxiety--Continue buspirone
CODE STATUS-- DNR
DVT proph-- Xarelto
anticipate d/c back to SNF when OK with all consultants
Anticipated Discharge: 24 - 48 hours
Subjective/Interval History
-
Date of Service: September 28, 2024
pt sitting in the chair saying she is going home
Objective Data
-
Labs:
Laboratory Results
09/28/24
06:33
WBC 12.9 H
Hgb 8.8 L
Hct 28.3 L
Plt Count 321 D
Sodium 138
Potassium 4.4
Chloride 108 H
Carbon Dioxide 22
BUN 18 H
Creatinine 2.6 H
Glucose 84
Calcium 8.9
Total Bilirubin 0.4
AST 15
ALT < 10
Alkaline Phosphatase 104
Vital Signs:
max temp for 24 hours
09/27/24
23:43
Temp 98.5 F
Vital Signs
Temp Pulse Resp BP Pulse Ox
97.6 F 78 16 165/96 97
09/28/24 07:30 09/28/24 07:30 09/28/24 07:30 09/28/24 07:30 09/28/24 07:30
I&O
09/27/24 09/28/24 09/29/24
06:59 06:59 06:59
Intake Total 620 / 620 130 / 130
Output Total 455 / 455
Balance 620 / 620 -325 / -325
Review of Systems
-
All other systems: Reviewed and negative
Physical Exam
-
General: Well Developed, Well Nourished and No Apparent Distress
HEENT: Normocephalic and Atraumatic
Respiratory: Clear to Auscultation; Negative Wheezes or Rhonchi
Cardiac: Irregular Rhythm and Tachycardic
GI: Soft, Nontender, Nondistended, Normal Bowel Sounds and Other (perc jerilyn and HECTOR drain)
Musculoskeletal: No Clubbing, No Cyanosis and No Edema
Skin: Warm
Neuro: Awake
Psych: Apparent Dementia
--- NOTE | 2024-09-28 10:22 | W.PN.NEPH.PH ---
Today's Communication / Plan
-
Observe
Creatinine stable at 2.6
Assessment/Plan
-
Assessment:
Sepsis secondary to acalculous cholecystitis
TRACIE -CKD 4 (low 2 range)
Non gap, gap Metabolic acidosis
Afib with RVR
History TAVR
Anemia
History CVA
Anxiety
Constipation
Plan:
Creatinine at 2.6
Bp are labile ?pain and tachy-likely previously up titrated BB
Status post abd drain-new appendicitis with perf and collection on CT 09/24
Maintains on renally dosed Zosyn therapy
Eating awake and alert asking to go home
Appears to be comfortable now, I will withhold further Lasix at this time
improving confusion
-
-
Date of Service: September 28, 2024
CC / HPI / ROS
-
Chief Complaint:
TRACIE, CKD, met acidosis
History of Present Illness:
cr higher at 2.6
Bp labile
no fever
Delirium better much improved conversational
Shortness of breath overnight requiring Lasix administration
Review of Systems:
improving RLQ pain
no cp or sob
Labs
-
Labs:
WBC 12.9 10^3/uL (4.8-10.8) H 09/28/24 06:33
RBC 3.03 10^6/uL (4.20-5.40) L 09/28/24 06:33
Hgb 8.8 g/dL (12.0-16.0) L 09/28/24 06:33
Hct 28.3 % (37.0-47.0) L 09/28/24 06:33
Plt Count 321 10^3/uL (130-400) D 09/28/24 06:33
Sodium 138 mmol/L (135-145) 09/28/24 06:33
Potassium 4.4 mmol/L (3.5-5.1) 09/28/24 06:33
Chloride 108 mmol/L (98-107) H 09/28/24 06:33
Carbon Dioxide 22 mmol/L (22-30) 09/28/24 06:33
BUN 18 mg/dl (7-17) H 09/28/24 06:33
Creatinine 2.6 mg/dL (0.6-1.0) H 09/28/24 06:33
eGFR 18.78 09/28/24 06:33
Glucose 84 mg/dl (70-99) 09/28/24 06:33
Calcium 8.9 mg/dl (8.4-10.2) 09/28/24 06:33
Axc-C-Didkkktibuc Pept > 87626 pg/ml 09/26/24 02:02
Albumin 2.8 g/dl (3.5-5.0) L 09/28/24 06:33
Physical Exam
-
Vital Signs:
Vital Signs
Temp Pulse Resp BP Pulse Ox
97.6 F 78 16 165/96 97
09/28/24 07:30 09/28/24 07:30 09/28/24 07:30 09/28/24 07:30 09/28/24 07:30
Cardiovascular:: Regular rate and rhythm (tachy)
Respiratory:: Bilateral: CTA
Lung Excursion:: Normal
Abdomen:: Soft and Tender (mild TTP RLQ)
Bowel Sounds:: Normal
Extremity Edema:: None: Bilateral:
Fournier Catheter: No
[2024-09-28] MEDS: LOPRESSOR 12.5 MG PO (10:41)
[2024-09-28] MEDS: DILAUDID 0.5 MG IV ×2 (13:02→18:05)
--- NOTE | 2024-09-28 15:28 | W.PN.GS2 ---
Today's Communication / Plan
-
regular diet
abx
Assessment / Plan
-
Patient is a 74 yo F with a PMH of aortic stenosis s/p TAVR, A-fib (on Xarelto), CVA, CKD stage IV, and s/p multiple orthopedic procedures presented with
sepsis (now resolved) and bacteremia with clostridium cadaverous. severe acute on chronic cholecystitis present on initial imaging managed with IR cholecystostomy tube placed 09/18/24.
persistent pain/distention with leukocytosis prompting CT on 09/24/24 with perforated appendicitis with abscess noted on f/u imaging now s/p IR drainage on 09/25/24 with symptomatic improvement
final cx from abscess drainage is polymicrobial
AFVSS
Tolerating diet
?nausea r/t oxycodone
Leukocytosis still present with slight increase today
Plan:
ABX as per ID
Continue current diet
change po oxycodone to tramadol, continue tylenol. No nsaids given renal function
c/w drains upon d/c, daily drain flushes as per IR. follow drain outputs.
Xarelto has been resumed post procedure with stable h/h
Nephrology following
C/W bowel regimen
Dispo as per primary team
Will follow closely as an outpatient
final dispo as per primary team
Subjective Data
-
Date of Service: September 28, 2024
Pt seen and examined at bedside with Dr Pineda. Jonh historian and sleepy after receiving IV dilaudid. Denies n/v. Some nausea early this am per nursing record after receiving PO oxycodone. Tolerating meals
Objective Data
-
Intake and Output
09/27/24 09/28/24 09/29/24
06:59 06:59 06:59
Intake Total 620 / 620 130 / 130
Output Total 455 / 455
Balance 620 / 620 -325 / -325
Intake:
Oral fluids 600 / 600
IV piggybacks 100 / 100
Amount instilled into Drain ( 30
Total)
Right Abdomen Biliary Placed in
IR
Right Upper Abdomen Andrea-
Rainey B Placed in IR
Output:
Drain Output (Total) 455 / 455
Right Abdomen Biliary Placed in 430 / 430
IR
Right Upper Abdomen Andrea-
Rainey B Placed in IR
Other:
How many times incontinent 2 1
MODERATE amount urine
Vital Signs
Temp Pulse Resp BP Pulse Ox
97.6 F 78 16 165/96 97
09/28/24 07:30 09/28/24 07:30 09/28/24 07:30 09/28/24 07:30 09/28/24 07:30
Lab Results
09/28/24 06:33
09/28/24 06:33
Calcium 8.9 mg/dl (8.4-10.2) 09/28/24 06:33
Total Bilirubin 0.4 mg/dl (0.2-1.3) 09/28/24 06:33
Direct Bilirubin 0.5 mg/dl (0.0-0.4) H 09/24/24 06:18
AST 15 U/L (14-36) 09/28/24 06:33
ALT < 10 U/L (0-35) 09/28/24 06:33
Alkaline Phosphatase 104 U/L (38-126) 09/28/24 06:33
Total Protein 5.6 g/dl (6.3-8.2) L 09/28/24 06:33
Albumin 2.8 g/dl (3.5-5.0) L 09/28/24 06:33
Physical Exam
-
NAD
ABD soft, nt, no distention
Per jerilyn drain with bile
HECTOR abscess drain with serous drainage
Patient has a gutierrez catheter: No
Patient has a central line: No
[2024-09-28 16:00] VITALS: BP 141/83
[2024-09-28] MEDS: XARELTO 15 MG PO (18:04)
[2024-09-29 00:09] VITALS: BP 122/71
[2024-09-29] MEDS: ZOSYN 50 IV ×4 (00:10→17:41)
[2024-09-29 06:00] VITALS: BMI 26.1
[2024-09-29 07:30] VITALS: BP 136/80
[2024-09-29] MEDS: MIRALAX 17 GRAMS PO ×2 (07:39→23:38)
[2024-09-29] MEDS: REFRESH EYE DROPS (PF) 1 DROPS BOTH EYES ×2 (07:39→23:37)
[2024-09-29] MEDS: PACERONE 100 MG PO (07:40)
[2024-09-29] MEDS: BUSPAR 5 MG PO (07:40)
[2024-09-29] MEDS: TOPROL XL 100 MG PO ×2 (07:40→23:43)
[2024-09-29] MEDS: REFRESH CELLUVISC GEL 1 DROPS OPHTH ×2 (07:40→23:36)
[2024-09-29] MEDS: COLACE 100 MG PO (07:41)
[2024-09-29] MEDS: VITAMIN B1 100 MG PO ×2 (07:41→23:38)
--- NOTE | 2024-09-29 07:57 | W.PN.UPDATE ---
Update Note
Progress Note Update
I saw and evaluated the patient. I reviewed the resident�s note and agree with findings and plan as documented in the resident�s note.
Gen: NAD, Awake and alert
Eyes: EOMI, PERRLA, no scleral icterus.
Neck: supple.
CV: irreg/irreg, +S1/S2, no m/r/g.
Resp: CTAB anteriorly, no rales, wheezes, or rhonchi.
Abd: +BS, soft, NT, very mild TTP
Skin: No rashes.
Neuro: CN 2-12 intact, non-focal.
Psych: Normal mood and affect.
09/25/24 15:46 Abscess Wound Culture - Preliminary
Escherichia coli
Klebsiella pneumoniae
Enterococcus species
09/25/24 15:46 Abscess Gram Stain - Preliminary
09/16/24 07:12 Blood/Venous Blood Culture - Final
Clostridium cadaveris
09/16/24 07:12 Blood/Venous Gram Stain - Final
09/17/24 10:17 Blood/Venous Blood Culture - Final
No Growth - Final Report
09/17/24 09:25 Blood/Venous Blood Culture - Final
No Growth - Final Report
09/18/24 08:10 Bile Body Fluid Culture - Final
No Growth After 72 Hours
09/18/24 08:10 Bile Gram Stain - Final
09/17/24 00:37 Nose MRSA Screen - Final
No Methicillin Resistant Staphylococcus aureus isolated.
09/16/24 05:32 Urine Urine Culture - Final
CT A/P 09/16/24: Cardiomegaly. Small pericardial effusion again seen. Heart incompletely included on this study. Likely small gallbladder stones with some gallbladder wall thickening and some right upper quadrant likely pericholecystic stranding.
FINDINGS COULD REPRESENT ACUTE CHOLECYSTITIS. Suggest Abdominal Ultrasound for more complete evaluation. Limited evaluation of intestinal tract without oral or intravenous contrast with some stranding about the hepatic flexure of the colon likely
from the gallbladder, less likely intrinsic inflammation. Moderate bilateral perinephric stranding. No gross findings to suggest obstructive uropathy bilaterally. Descending colon and sigmoid diverticulosis. Moderate volume widespread colonic stool.
No intestinal obstruction or free air.
Abd U/S 09/16/24: Cholelithiasis with at least one gallstone is seen in the vicinity of the gallbladder neck as well as some gallbladder wall thickening. No findings to suggest pericholecystic fluid or biliary tract dilatation. Negative sonographic
Norwood's sign. If there is a clinical suspicion for acute cholecystitis, suggest Nuclear Hepatobiliary scan.
CT A/P 09/24/24: Extraluminal gas and fluid collection within the right upper quadrant measuring 5.4 x 4.3 cm which appears to be contiguous within the appendix inferiorly, suspicious for perforated appendicitis. Interval insertion of percutaneous
transperitoneal: Suspect tube which appears well positioned with decompression of the gallbladder. Small bilateral pleural effusions with adjacent compressive atelectasis within both lower lobes.
Sepsis due to acute calculus cholecystitis followed by perforated appendix:
-s/p perc jerilyn 09/18/24
-s/p HECTOR drain 09/25/24
-Cx data above
-leukocytosis initially resolved, then worsened, now overall improved
-was on Zosyn, then transitioned to Augmentin (completed 09/25/24), now back on Zosyn as per ID
PAF with RVR:
-cont amio/Xarelto/Toprol XL
-rates improved
-was seen by cards
TRACIE on CKD4:
-with non-AG met acidosis, now resolved s/p IVFs with NaHCO3
-renal following
-suspect that baseline Cr around 2.6
Chronic anemia:
-Fe studies suggest Fe def anemia (elevated ferritin likely an acute phase reactant)
-trend Hb, transfuse for Hb < 7
Other problems:
CAD: cont BB
s/p 2018
h/o CVA
h/o SIADH
Chronic ambulatory dysfunction
h/o DVT: cont Xarelto
Former tobacco abuse d/o
DNR/Xarelto
Total time spent on today's encounter was 50 minutes which included time spent in counseling the patient/family regarding diagnosis and treatment plan as listed above, goals of care, and symptom management. Case was discussed with nursing staff,
specialists, and care coordinators/case management. All labs and imaging personally reviewed by me. Remainder the time spent in detailed review of previous records, lab data, imaging, and other medical provider documentation.
--- NOTE | 2024-09-29 08:38 | W.PN.HOSP.TC ---
Today's Communication/Plan
-
IR clamped cholecystostomy tube
Follow-up fluid collection culture: VRE, E. coli, Klebsiella
Per ID:
--Contact isolation
--DC BuSpar and tramadol
--Give daptomycin 500 mg IV x 1 today 09/29/2024
--Start linezolid 600 mg p.o. twice daily 09/30/2024
---At the time of discharge, transition to Augmentin 875 mg p.o. twice daily plus linezolid 600 mg p.o. twice daily x 14 more days
---Avoid tyramine rich food products while on linezolid
---Resume BuSpar 24 hours after discontinuing linezolid
Assessment / Plan
Assessment / Plan
74-year-old female with a past medical history of hyperlipidemia, aortic stenosis status post TAVR 2018, A-fib on Xarelto, CVA, CKD stage IV, iron deficiency anemia who presented from [facility] to the ER on 09/16/2024 with sepsis criteria
positive and severe abdominal pain most pronounced in the right lower quadrant.� CT of the abdomen pelvis with abdominal ultrasound showed a 1 gallstone in the gallbladder neck with gallbladder wall thickening.� She was started on IV Zosyn which was
then transition to Augmentin p.o. to be continued through 09/25/2024.� Surgery and IR were consulted for further management.� She is status post cholecystectomy tube to be continued through 09/18/2024.� Cardiology is also following because of her A-fib
with RVR, Toprol-XL increased to 50 Mg twice daily, anticoagulated with her home dose of Xarelto, cardiology has signed off.� Surgery advised to hold laxatives make patient n.p.o. except sips of clears until postoperation nausea with constipation
has improved, continue percutaneous cholecystotomy drain was [address] for 6 to 8 weeks with an outpatient follow-up with surgery. On 09/24/2024, her WBC continued to trend upwards, not suspicious for reactive leukocytosis given
timeframe, and she worsened tenderness to palpation in the right lower quadrant. A CT A/P was ordered which showed: Extraluminal gas and fluid collection within the right upper quadrant measuring 5.4 x 4.3 cm which was contiguous within the
appendix inferiorly, suspicious for perforated appendicitis. Surgery and IR discussed, her Xarelto was held, she was made n.p.o., and IR plan to take her for a tube study with possible new drain plan for 09/25/2024. The morning of 09/25/2024, IR
notified our team that they did not complete the tube study yesterday and will plan to do a tube study followed by drain placement all in one go on 09/25/2024. Of note, her brother Janusz is her POA. His number in the chart and as follows:
[phone].
#Concern for aspiration, resolved
#Nausea
After her HECTOR placement on 09/25/2024, there was concern for increased risk of aspiration as she was having a hard time swallowing pills even with copious sips of water. She was made n.p.o. overnight and speech was consulted in the morning.
-Speech consulted for swallow eval, appreciate recs:
--Per speech, diet: Low-fat/thin liquids with full supervision, assist as needed and pills 1 at a time per speech.
--Consider VSE if continued concern for aspiration
#Sepsis (resolved) 2/2 to acute cholecystitis s/p perc cholecystostomy tube 09/18/2024 and perforated appendix s/p HECTOR drain placement 09/25/2024 with IR
General Surgery and ID following.
-ID following, appreciate recs:
--S/p IV Zosyn
--S/p Augmentin 875 mg p.o. BID through 09/25/2024
--Continue IV Zosyn (renally adjusted)
--Contact isolation
--Give daptomycin 500 mg IV x 1 today 09/29/2024
--Start linezolid 600 mg p.o. twice daily 09/30/2024
---At the time of discharge, transition to Augmentin 875 mg p.o. twice daily plus linezolid 600 mg p.o. twice daily x 14 more days
---Avoid tyramine rich food products while on linezolid
---Resume BuSpar 24 hours after discontinuing linezolid
--Follow-up fluid collection culture: VRE, E. coli, Klebsiella
-Initial blood cultures positive for Clostridium cadaveris, however other 2 micro blood specimens have been negative
-Pain control s/p Dilaudid, since 09/28/2024 on tramadol HCl 50 mg p.o. every 12 hours as needed
--DC tramadol per ID
-Monitor WBC, temperature curve
#Postop abdominal pain with constipation, resolving
Abdominal x-ray showed a nonobstructive intestinal bowel gas pattern, her nausea and vomiting resolved after passing a large bowel movement on 09/22/2024.
-Continue bowel regimen per surgery
#Agitation likely ISO delirium, resolved
She had 1 episode of being confused and screaming on 09/21/2024. She needed restraints due to trying to hit the nurse. Restraints were removed on the morning of 09/22/2024. She has not had an episode since and says she does not recall anything of
that sort happening. We will continue to observe, with as needed Ativan.
-Continue to observe, as needed Ativan
#Leukocytosis, downtrending
WBC 16.7 back 19.3 back 16.6 back 14.6, afebrile, HDS, with new right lower quadrant pain on 09/24/2024. Prior to this she was asymptomatic and her leukocytosis was thought to be reactive. However, given that her tube placement was over a week ago,
her uptrending leukocytosis is not reactive and required further workup as above, revealing perforated appendicitis. IR and general surgery to manage underlying infection with drains.
-CTM, continue antibiotics, follow-up cultures, touch base with ID again as needed
#TRACIE on CKD 4, resolved
Non-anion gap metabolic acidosis. Resolved s/p maintenance IV fluids.
- She is back to her baseline creatinine of 2- 2.2. CTM.
#Chronic normocytic anemia
Hemoglobin stable. Iron is 24, TIBC is 193, ferritin is 788 (acute phase reactant).
-Consider iron supplementation on discharge
-CTM hemoglobin
#Persistent atrial fibrillation
Continues to be a little bit tachycardic, however asymptomatic. Cards consulted 09/21/2024, rec to continue current medications.
-Continue amiodarone 100 Mg for rate control, Toprol XL added this admission, anticoagulation with home dose Xarelto 15 Mg
#Aortic stenosis s/p TAVR 2018
-Patient follows Dr. Meredith who is main outpatient machine paint mixer.
#Anxiety
- DC buspirone milligrams p.o. twice daily per ID: Resume 24 hours after linezolid course
DVT prophylaxis: Xarelto
CODE STATUS: DNR
POA: Janusz (brother),
Anticipated Discharge: 24 - 48 hours (pending culture data and ID recs)
Subjective/Interval History
-
Date of Service: September 29, 2024
-This morning, she is laying flat in bed with cholecystostomy bag at bedside and tube clamped per IR. She seems sleepy and denies any new symptoms. She states that she is tolerating her diet well.
-Awaiting culture growth and final ID recs for discharge.
Objective Data
-
Labs:
Laboratory Results
09/29/24
06:00
WBC Pending
Hgb Pending
Hct Pending
Plt Count Pending
Sodium Pending
Potassium Pending
Chloride Pending
Carbon Dioxide Pending
BUN Pending
Creatinine Pending
Glucose Pending
Calcium Pending
Total Bilirubin Pending
AST Pending
ALT Pending
Alkaline Phosphatase Pending
Vital Signs:
Vital Signs
Temp Pulse Resp BP Pulse Ox
97.8 F 90 18 136/80 96
09/29/24 07:30 09/29/24 07:40 09/29/24 07:30 09/29/24 07:40 09/29/24 07:30
I&O
09/28/24 09/29/24 09/30/24
06:59 06:59 06:59
Intake Total 130 / 130 840 / 840
Output Total 455 / 455 450 / 450
Balance -325 / -325 390 / 390
Review of Systems
-
History Source: Patient
All other systems: Reviewed and negative
Abdomen/GI: Reports Other (Cholecystostomy drain clamped in place and HECTOR drain present)
Physical Exam
-
General: No Apparent Distress, Comfortable, Conversant and Appears Chronically Ill
HEENT: Normocephalic, Atraumatic and Moist Mucous Membranes
Respiratory: Clear to Auscultation and Non Labored Respirations
Cardiac: S1/S2 and Irregular Rhythm (Known A-fib)
GI: Soft, Nontender, Nondistended and Other (Cholecystostomy tube clamped in place, HECTOR drain draining appropriately)
Musculoskeletal: No Clubbing, No Cyanosis and No Edema
Skin: Warm, Dry and Rash
Psych: Calm
--- NOTE | 2024-09-29 10:17 | W.PN.GS2 ---
Today's Communication / Plan
-
continue the antibiotics, bowel regimen.
Assessment / Plan
-
Patient is a 74 yo F with a PMH of HLD, aortic stenosis s/p TAVR, A-fib (on Xarelto), CVA, CKD stage IV, and s/p multiple orthopedic procedures presented with severe acute on chronic Cholecystitis managed with IR cholecystostomy tube on day 12
(09/18/24)
#Sepsis due to Acute calculus Cholecystitis:
Tmax- 98.5
WBC count= 16.6 (h)-->19.3(h)--> 16.7 (h)--> 11.2(h)-->12.9 (h)-->today result is pending
Today Direct bilirubin - 0.5 (h), AST, ALT in normal range.
Total protein- 5.6 (l), albumin- 2.9 (l).
Blood culture- Gram stain of anaerobic - gram negative bacilli.
cholecystomy tube fluid culture- negative.
Hb=8.6 and Bilirubin mild elevation due to cholecystitis.
09/25/24 15:46 Abscess Wound Culture - Preliminary
Escherichia coli
Klebsiella pneumoniae
Enterococcus species
09/22/24: blood culture- bacteremia with clostridium cadaverous with resolved sepsis.
persistent pain/distention with leukocytosis prompting CT on 09/24/24 with perforated appendicitis with abscess noted on f/u imaging now s/p IR drainage on 09/25/24 with symptomatic improvement.
-Tolerating diet.
-Zosyn 2.25 gm in 50 ml @100 mls/hr IV Q6H DELANEY on day 4
Subjective Data
-
Date of Service: September 29,
patient has no concern for nausea, vomiting.
Objective Data
-
Intake and Output
09/28/24 09/29/24 09/30/24
06:59 06:59 06:59
Intake Total 130 / 130 840 / 840
Output Total 455 / 455 450 / 450
Balance -325 / -325 390 / 390
Intake:
Oral fluids 840 / 840
IV piggybacks 100 / 100
Amount instilled into Drain ( 30 / 30
Total)
Right Abdomen Biliary Placed in
IR
Right Upper Abdomen Andrea-
Rainey B Placed in IR
Output:
Liquid stool amount 250 / 250
Rectum 250 / 250
Drain Output (Total) 455 / 455 200 / 200
Right Abdomen Biliary Placed in 430 / 430 200 / 200
IR
Right Upper Abdomen Andrea- 0 / 0
Rainey B Placed in IR
Other:
How many times incontinent 1 1
MODERATE amount urine
How many times incontinent 2
SATURATED amount urine
Vital Signs
Temp Pulse Resp BP Pulse Ox
97.8 F 90 18 136/80 96
09/29/24 07:30 09/29/24 07:40 09/29/24 07:30 09/29/24 07:40 09/29/24 09:50
Calcium 8.9 mg/dl (8.4-10.2) 09/28/24 06:33
Total Bilirubin 0.4 mg/dl (0.2-1.3) 09/28/24 06:33
Direct Bilirubin 0.5 mg/dl (0.0-0.4) H 09/24/24 06:18
AST 15 U/L (14-36) 09/28/24 06:33
ALT < 10 U/L (0-35) 09/28/24 06:33
Alkaline Phosphatase 104 U/L (38-126) 09/28/24 06:33
Total Protein 5.6 g/dl (6.3-8.2) L 09/28/24 06:33
Albumin 2.8 g/dl (3.5-5.0) L 09/28/24 06:33
Physical Exam
-
Gen: NAD, Awake and alert
Neck: supple.
CV: irreg/irreg, +S1/S2, no m/r/g.
Resp: CTAB anteriorly, no rales, wheezes, or rhonchi.
Abd: +BS, soft, NT, drainage, mild distention, Per cholecystostomy tube drain with bile
HECTOR abscess drain with purulent material
Neuro: CN 2-12 intact, non-focal.
Psych: Normal mood and affect.
Patient has a gutierrez catheter: No
Patient has a central line: No
--- NOTE | 2024-09-29 12:32 | W.PN.ID1 ---
Date of Service
Date of Service: September 29, 2024
Today's Communication
See below.
Assessment / Plan
# Perforated appendicitis
# Leukocytosis - slight uptrend
- 09/25/24 s/p IR perc drain placement (+ feculent/purulent output)
- Cx VRE, E. coli, Klebsiella
- Continue Zosyn (renally adjusted)
-Give Daptomycin 500 mg IV x 1 today
DC tramadol and hold buspirone (OK per hopsitalist).
Tomorrow start linezolid 600mg po bid.
- At time of discharge, transition to Augmentin 875mg po bid plus linezolid 600mg po bid x 14 more days.
Avoid tyramine-rich food products while on Linezolind.
Resume buspirone 24h after dc linezolid.
-Contact isolation
# Recent acute gallstone cholecystitis
# Clostridium cadaveris bacteremia
- 09/18 s/p IR perc jerilyn. Gram stain: GPC chains, Cx neg
- completed Augmentin 875mg po bid through 09/25/24
# Conditions prior to admission.
CVA
Paroxysmal atrial fibrillation
Aortic stenosis s/p TAVR
CAD
History of DVT
CKD4
PAD
Memory impairment
B TKR
Chief Complaint
-: Other (Abd pain)
Subjective / Review of Systems
Feels well. No abd pain.
Vital Signs / Physical Exam
Vital Signs
Vital Signs
Temp Pulse Resp BP Pulse Ox
97.8 F 90 18 136/80 96
09/29/24 07:30 09/29/24 07:40 09/29/24 07:30 09/29/24 07:40 09/29/24 09:50
Physical Exam
Constitutional: No Acute Distress and Comfortable
Gastrointestinal: Soft, Non Tender, Non Distended, Normal Bowel Sounds and Other (HECTOR drain with thick-light villeda output. Perc jerilyn bile.)
Genito-Urinary: Negative CVA Tenderness
Neurological: AO x 3
Objective Data
Lab Data
PT 23.1 Sec (11.4-14.6) H 09/17/24 10:17
INR 2.00 09/17/24 10:17
APTT 33.7 Sec (23.4-35.0) 09/18/24 00:05
Estimated Creat Clear 16 ml/min 09/28/24 06:33
Lactic Acid 0.7 mmol/L (0.7-2.0) 09/17/24 18:14
Total Bilirubin 0.4 mg/dl (0.2-1.3) 09/28/24 06:33
AST 15 U/L (14-36) 09/28/24 06:33
ALT < 10 U/L (0-35) 09/28/24 06:33
Alkaline Phosphatase 104 U/L (38-126) 09/28/24 06:33
Most recent labs reviewed.
Micro Results:
09/25/24 15:46 Wound Culture - Final
Abscess Escherichia coli
Klebsiella pneumoniae
Enterococcus faecium - VRE
Gram Stain - Preliminary
09/16/24 07:12 Blood Culture - Final
Blood/Venous Clostridium cadaveris
Gram Stain - Final
09/17/24 10:17 Blood Culture - Final
Blood/Venous No Growth - Final Report
09/17/24 09:25 Blood Culture - Final
Blood/Venous No Growth - Final Report
09/18/24 08:10 Body Fluid Culture - Final
Bile No Growth After 72 Hours
Gram Stain - Final
09/17/24 00:37 MRSA Screen - Final
Nose No Methicillin Resistant Staphylococcus aureus isolated.
09/16/24 05:32 Urine Culture - Final
Urine
09/24/24 CT a/p: Extraluminal gas and fluid collection within the right upper quadrant measuring 5.4 x 4.3 cm which appears to be contiguous within the appendix inferiorly, suspicious for perforated appendicitis. Interval insertion of percutaneous
transperitoneal: Suspect tube which appears well positioned with decompression of the gallbladder.
09/16/24 CT a/p: Likely small gallbladder stones with some gallbladder wall thickening and some right upper quadrant likely pericholecystic stranding. FINDINGS COULD REPRESENT ACUTE CHOLECYSTITIS. Suggest Abdominal Ultrasound for more complete
evaluation. Moderate bilateral perinephric stranding. No gross findings to suggest obstructive uropathy bilaterally.
09/16/24 ABD US: Cholelithiasis with at least one gallstone is seen in the vicinity of the gallbladder neck as well as some gallbladder wall thickening. No findings to suggest pericholecystic fluid or biliary tract dilatation. Negative sonographic
Norwood's sign. If there is a clinical suspicion for acute cholecystitis, suggest Nuclear Hepatobiliary scan.
Care Review
Plan reviewed with: Physician (Dr. Damon)
--- NOTE | 2024-09-29 12:59 | W.PN.NEPH.PH ---
Today's Communication / Plan
-
AM labs
Assessment/Plan
-
Assessment:
Sepsis secondary to acalculous cholecystitis
TRACIE -CKD 4 (low 2 range)
Non gap, gap Metabolic acidosis
Afib with RVR
History TAVR
Anemia
History CVA
Anxiety
Constipation
Plan:
Creatinine at 2.6
Bp are labile ?pain and tachy-likely previously up titrated BB
Status post abd drain-new appendicitis with perf and collection on CT 09/24
Maintains on renally dosed Zosyn therapy
Continue supportive care
A.m. labs
Creatinine close to baseline
-
-
Date of Service: September 29, 2024
CC / HPI / ROS
-
Chief Complaint:
TRACIE, CKD, met acidosis
History of Present Illness:
cr higher at 2.6
Bp labile
no fever
Review of Systems:
improving RLQ pain
no cp or sob
Stable weight
Labs
-
Labs:
eGFR 18.78 09/28/24 06:33
Emm-C-Aqydcjioqjc Pept > 19890 pg/ml 09/26/24 02:02
Physical Exam
-
Vital Signs:
Vital Signs
Temp Pulse Resp BP Pulse Ox
97.8 F 90 18 136/80 96
09/29/24 07:30 09/29/24 07:40 09/29/24 07:30 09/29/24 07:40 09/29/24 09:50
Cardiovascular:: Regular rate and rhythm (tachy)
Respiratory:: Bilateral: CTA
Lung Excursion:: Normal
Abdomen:: Soft and Tender (mild TTP RLQ)
Bowel Sounds:: Normal
Extremity Edema:: None: Bilateral:
Fournier Catheter: No
[2024-09-29] MEDS: CUBICIN 10 MG IV (14:31)
[2024-09-29] MEDS: XARELTO 15 MG PO (17:36)
[2024-09-29 23:44] VITALS: BP 147/86
[2024-09-30] MEDS: ZOSYN 50 IV ×4 (00:57→17:33)
[2024-09-30 07:45] VITALS: BP 159/86
--- NOTE | 2024-09-30 08:32 | W.PN.UPDATE ---
Addendum entered and electronically signed by Ben Damon MD 09/30/24 12:07:
Total time spent on d/c = 35 min. This included today's physical exam, progress note, review of laboratory and diagnostic data, preparation of discharge documents and prescriptions, and discussions about the pt's hospital course and discharge plan
with the patient and other medical technologist generalist involved in the patient's care.
Original Note:
Update Note
Progress Note Update
I saw and evaluated the patient. I reviewed the resident�s note and agree with findings and plan as documented in the resident�s note.
No new complaints. Denies abd pain.
Gen: NAD, Awake and alert
Eyes: EOMI, PERRLA, no scleral icterus.
Neck: supple.
CV: remains irreg/irreg, +S1/S2, no m/r/g.
Resp: remains CTAB anteriorly, no rales, wheezes, or rhonchi.
Abd: +BS, soft, NT, ND
Skin: No rashes.
Neuro: CN 2-12 intact, non-focal.
Psych: Normal mood and affect.
09/25/24 15:46 Abscess Wound Culture - Final
Escherichia coli
Klebsiella pneumoniae
Enterococcus faecium - VRE
09/25/24 15:46 Abscess Gram Stain - Final
09/16/24 07:12 Blood/Venous Blood Culture - Final
Clostridium cadaveris
09/16/24 07:12 Blood/Venous Gram Stain - Final
09/17/24 10:17 Blood/Venous Blood Culture - Final
No Growth - Final Report
09/17/24 09:25 Blood/Venous Blood Culture - Final
No Growth - Final Report
09/18/24 08:10 Bile Body Fluid Culture - Final
No Growth After 72 Hours
09/18/24 08:10 Bile Gram Stain - Final
09/17/24 00:37 Nose MRSA Screen - Final
No Methicillin Resistant Staphylococcus aureus isolated.
09/16/24 05:32 Urine Urine Culture - Final
CT A/P 09/16/24: Cardiomegaly. Small pericardial effusion again seen. Heart incompletely included on this study. Likely small gallbladder stones with some gallbladder wall thickening and some right upper quadrant likely pericholecystic stranding.
FINDINGS COULD REPRESENT ACUTE CHOLECYSTITIS. Suggest Abdominal Ultrasound for more complete evaluation. Limited evaluation of intestinal tract without oral or intravenous contrast with some stranding about the hepatic flexure of the colon likely
from the gallbladder, less likely intrinsic inflammation. Moderate bilateral perinephric stranding. No gross findings to suggest obstructive uropathy bilaterally. Descending colon and sigmoid diverticulosis. Moderate volume widespread colonic stool.
No intestinal obstruction or free air.
Abd U/S 09/16/24: Cholelithiasis with at least one gallstone is seen in the vicinity of the gallbladder neck as well as some gallbladder wall thickening. No findings to suggest pericholecystic fluid or biliary tract dilatation. Negative sonographic
Norwood's sign. If there is a clinical suspicion for acute cholecystitis, suggest Nuclear Hepatobiliary scan.
CT A/P 09/24/24: Extraluminal gas and fluid collection within the right upper quadrant measuring 5.4 x 4.3 cm which appears to be contiguous within the appendix inferiorly, suspicious for perforated appendicitis. Interval insertion of percutaneous
transperitoneal: Suspect tube which appears well positioned with decompression of the gallbladder. Small bilateral pleural effusions with adjacent compressive atelectasis within both lower lobes.
Sepsis due to acute calculus cholecystitis followed by perforated appendix:
-s/p perc jerilyn 09/18/24
-s/p HECTOR drain 09/25/24
-Cx data above
-leukocytosis initially resolved, then worsened, now overall improved
-was on Zosyn, then transitioned to Augmentin (completed 09/25/24), then back on Zosyn. On 09/29/24 Pt received IV Dapto. As per ID, d/c on Augmentin/Linezolid x 14 days.
PAF with RVR:
-cont amio/Xarelto/Toprol XL
-rates improved
-was seen by cards
TRACIE on CKD4:
-with non-AG met acidosis, now resolved s/p IVFs with NaHCO3
-renal following
-suspect that baseline Cr around 2.6
Chronic anemia:
-Fe studies suggest Fe def anemia (elevated ferritin likely an acute phase reactant)
-trend Hb, transfuse for Hb < 7
Other problems:
CAD: cont BB
s/p TAVR 2018
h/o CVA
h/o SIADH
Chronic ambulatory dysfunction
h/o DVT: cont Xarelto
Former tobacco abuse d/o
DNR/Xarelto
Medically cleared for d/c, case management aware.
--- NOTE | 2024-09-30 09:39 | W.PN.HOSP.TC ---
Today's Communication/Plan
-
Medically stable for discharge today
Case management made aware to arrange ride back to long-term care facility
Consultants made aware to arrange appropriate follow-up outpatient
Assessment / Plan
Assessment / Plan
74-year-old female with a past medical history of hyperlipidemia, aortic stenosis status post TAVR 2018, A-fib on Xarelto, CVA, CKD stage IV, iron deficiency anemia who presented from [facility] to the ER on 09/16/2024 with sepsis criteria
positive and severe abdominal pain most pronounced in the right lower quadrant.� CT of the abdomen pelvis with abdominal ultrasound showed a 1 gallstone in the gallbladder neck with gallbladder wall thickening.� She was started on IV Zosyn which was
then transition to Augmentin p.o. to be continued through 09/25/2024.� Surgery and IR were consulted for further management.� She is status post cholecystectomy tube to be continued through 09/18/2024.� Cardiology is also following because of her A-fib
with RVR, Toprol-XL increased to 50 Mg twice daily, anticoagulated with her home dose of Xarelto, cardiology has signed off.� Surgery advised to hold laxatives make patient n.p.o. except sips of clears until postoperation nausea with constipation
has improved, continue percutaneous cholecystotomy drain was [address] for 6 to 8 weeks with an outpatient follow-up with surgery. On 09/24/2024, her WBC continued to trend upwards, not suspicious for reactive leukocytosis given
timeframe, and she worsened tenderness to palpation in the right lower quadrant. A CT A/P was ordered which showed: Extraluminal gas and fluid collection within the right upper quadrant measuring 5.4 x 4.3 cm which was contiguous within the
appendix inferiorly, suspicious for perforated appendicitis. Surgery and IR discussed, her Xarelto was held, she was made n.p.o., and IR plan to take her for a tube study with possible new drain plan for 09/25/2024. The morning of 09/25/2024, IR
notified our team that they did not complete the tube study yesterday and will plan to do a tube study followed by drain placement all in one go on 09/25/2024. Of note, her brother Janusz is her POA. His number in the chart and as follows:
[phone].
#Sepsis (resolved) 2/2 to acute cholecystitis s/p perc cholecystostomy tube 09/18/2024 and perforated appendix s/p HECTOR drain placement 09/25/2024 with IR
General Surgery and ID following.
-ID following, appreciate recs:
--S/p IV Zosyn
--S/p Augmentin 875 mg p.o. BID through 09/25/2024
--DC IV Zosyn (renally adjusted) at time of discharge
--Contact isolation
--S/p daptomycin 500 mg IV x 1 09/29/2024
--Started linezolid 600 mg p.o. twice daily 09/30/2024
She will be discharged today 09/30/2024 to long-term care facility. All consultants notified and follow-up appointments/instructions in place. Per ID:
---At the time of discharge, transition to Augmentin 875 mg p.o. twice daily plus linezolid 600 mg p.o. twice daily x 14 more days
---Avoid tyramine rich food products while on linezolid
---Resume BuSpar 24 hours after discontinuing linezolid
--Follow-up fluid collection culture: VRE, E. coli, Klebsiella
-Initial blood cultures positive for Clostridium cadaveris, however other 2 micro blood specimens have been negative
-Pain control s/p Dilaudid, since 09/28/2024 on tramadol HCl 50 mg p.o. every 12 hours as needed
--DC tramadol per ID
-Monitor WBC, temperature curve
#Concern for aspiration, resolved
#Nausea, resolved
After her HECTOR placement on 09/25/2024, there was concern for increased risk of aspiration as she was having a hard time swallowing pills even with copious sips of water. She was made n.p.o. overnight and speech was consulted in the morning.
-Speech consulted for swallow eval, appreciate recs:
--Per speech, diet: Low-fat/thin liquids with full supervision, assist as needed and pills 1 at a time per speech.
--Consider VSE if continued concern for aspiration
#Postop abdominal pain with constipation, resolved
Abdominal x-ray showed a nonobstructive intestinal bowel gas pattern, her nausea and vomiting resolved after passing a large bowel movement on 09/22/2024.
-Continue bowel regimen per surgery
#Agitation likely ISO delirium, resolved
She had 1 episode of being confused and screaming on 09/21/2024. She needed restraints due to trying to hit the nurse. Restraints were removed on the morning of 09/22/2024. She has not had an episode since and says she does not recall anything of
that sort happening. We will continue to observe, with as needed Ativan.
-Continue to observe, as needed Ativan
#Leukocytosis, downtrending
WBC 16.7 back 19.3 back 16.6 back 14.6, afebrile, HDS, with new right lower quadrant pain on 09/24/2024. Prior to this she was asymptomatic and her leukocytosis was thought to be reactive. However, given that her tube placement was over a week ago,
her uptrending leukocytosis is not reactive and required further workup as above, revealing perforated appendicitis. IR and general surgery to manage underlying infection with drains.
-CTM, continue antibiotics, follow-up cultures, touch base with ID again as needed
#TRACIE on CKD 4, resolved
Non-anion gap metabolic acidosis. Resolved s/p maintenance IV fluids.
- She is back to her baseline creatinine of 2- 2.2. CTM.
#Chronic normocytic anemia
Hemoglobin stable. Iron is 24, TIBC is 193, ferritin is 788 (acute phase reactant).
-Consider iron supplementation on discharge
-CTM hemoglobin
#Persistent atrial fibrillation
Continues to be a little bit tachycardic, however asymptomatic. Cards consulted 09/21/2024, rec to continue current medications.
-Continue amiodarone 100 Mg for rate control, Toprol XL added this admission, anticoagulation with home dose Xarelto 15 Mg
#Aortic stenosis s/p TAVR 2018
-Patient follows Dr. Meredith who is main outpatient [facility].
#Anxiety
- DC buspirone milligrams p.o. twice daily per ID: Resume 24 hours after linezolid course
DVT prophylaxis: Xarelto
CODE STATUS: DNR
POA: Janusz (brother),
Medically stable for DC 09/30/2024. Case management aware.
Anticipated Discharge: Today (Pending case management and trial consultant follow-up)
Subjective/Interval History
-
Date of Service: September 30, 2024
-This morning, she is sleeping in bed comfortably. Upon conversation, she denies any new symptoms. She is really happy to hear that she may be going home today.
Objective Data
-
Labs:
Laboratory Results
09/30/24
06:00
WBC Pending
Hgb Pending
Hct Pending
Plt Count Pending
Sodium Pending
Potassium Pending
Chloride Pending
Carbon Dioxide Pending
BUN Pending
Creatinine Pending
Glucose Pending
Calcium Pending
Total Bilirubin Pending
AST Pending
ALT Pending
Alkaline Phosphatase Pending
Vital Signs:
Vital Signs
Temp Pulse Resp BP Pulse Ox
98.3 F 96 22 159/86 98
09/30/24 07:45 09/30/24 07:45 09/30/24 07:45 09/30/24 07:45 09/30/24 07:45
I&O
09/29/24 09/30/24 10/01/24
06:59 06:59 06:59
Intake Total 840 / 840 960 / 960
Output Total 450 / 450
Balance 390 / 390 960 / 960
Review of Systems
-
History Source: Patient
All other systems: Reviewed and negative
Physical Exam
-
General: Well Developed, Well Nourished, No Apparent Distress, Comfortable, Conversant and Appears Chronically Ill
HEENT: Normocephalic, Atraumatic and Moist Mucous Membranes
Respiratory: Clear to Auscultation and Non Labored Respirations
Cardiac: S1/S2 and Irregular Rhythm (Known A-fib)
GI: Soft, Nontender, Nondistended and Other (Cholecystostomy tube clamped, HECTOR drain in place)
Musculoskeletal: No Clubbing, No Cyanosis and No Edema
Skin: Warm, Dry and Rash
Neuro: AO x 3
Psych: Calm
[2024-09-30] MEDS: VITAMIN B1 100 MG PO ×2 (10:03→20:22)
[2024-09-30] MEDS: MIRALAX 17 GRAMS PO ×2 (10:03→20:21)
[2024-09-30] MEDS: TOPROL XL 100 MG PO ×2 (10:03→20:22)
[2024-09-30] MEDS: REFRESH CELLUVISC GEL 1 DROPS OPHTH ×2 (10:04→20:22)
[2024-09-30] MEDS: REFRESH EYE DROPS (PF) 1 DROPS BOTH EYES ×2 (10:04→20:22)
[2024-09-30] MEDS: PACERONE 100 MG PO (10:04)
[2024-09-30] MEDS: COLACE 100 MG PO (10:05)
[2024-09-30 10:26] LABS: Hematocrit 26.4 % (37.0-47.0); Hemoglobin 8.6 g/dL (12.0-16.0); Mean Corp Hgb Conc. 32.6 g/dL (33.0-37.0); Mean Corpuscular Volume 90.1 fL (81.0-99.0); Platelet Count 373 10^3/uL (130-400); Red Cell Dist. Width 13.2 % (11.5-14.5)
--- NOTE | 2024-09-30 10:40 | CM ---
Addendum entered by Ariella Luna 09/30/24 15:00:
Discharge held today. CM to continue to follow to coordinate pt's return to [facility] when medically ready.
Original Note:
Patient plan is to return to [facility]. [facility] updated this AM.
Patient's brother aware of plan for discharge to [facility] today via ambulance transport to be arranged for around 2PM today.
IMM reviewed via telephone with POA who is agreeable to discharge today.
--- NOTE | 2024-09-30 12:18 | W.PN.GS2 ---
Today's Communication / Plan
-
monitor CBC
repeat CT scan of the abdomen
Assessment / Plan
-
Patient is a 74 yo F with a PMH of HLD, aortic stenosis s/p TAVR, A-fib (on Xarelto), CVA, CKD stage IV, and s/p multiple orthopedic procedures presented with severe acute on chronic Cholecystitis managed with IR cholecystostomy tube on day 13
(09/18/24)
#Sepsis due to Acute calculus Cholecystitis:
Tmax- 98.5
WBC count= 16.6 (h)-->19.3(h)--> 16.7 (h)--> 11.2(h)-->12.9 (h)-->
Today Direct bilirubin - 0.5 (h), AST, ALT in normal range.
Total protein- 5.6 (l), albumin- 2.9 (l).
Blood culture- Gram stain of anaerobic - gram negative bacilli.
cholecystomy tube fluid culture- negative.
Hb=8.6 and Bilirubin mild elevation due to cholecystitis.
09/25/24 15:46 Abscess Wound Culture - Preliminary
Escherichia coli
Klebsiella pneumoniae
Enterococcus species
09/22/24: blood culture- bacteremia with clostridium cadaverous with resolved sepsis.
persistent pain/distention with leukocytosis prompting CT on 09/24/24 with perforated appendicitis with abscess noted on f/u imaging now s/p IR drainage on 09/25/24 with symptomatic improvement.
-Tolerating diet.
-s/p Daptomycin 500 mg IV
- Started linezolid 600mg po bid.
Subjective Data
-
Date of Service: September 30, 2024
patient is oriented to person not to place, time. She doesnt have any concern currently.
Objective Data
-
Intake and Output
09/29/24 09/30/24 10/01/24
06:59 06:59 06:59
Intake Total 840 / 840 960 / 960
Output Total 450 / 450
Balance 390 / 390 960 / 960
Intake:
Oral fluids 840 / 840 960 / 960
Output:
Liquid stool amount 250 / 250
Rectum 250 / 250
Drain Output (Total) 200 / 200
Right Abdomen Biliary Placed in 200 / 200
IR
Right Upper Abdomen Andrea- 0 / 0
Rainey B Placed in IR
Other:
Number of approximated MODERATE 1
amounts of urine
How many times incontinent 1 3
MODERATE amount urine
How many times incontinent 2 2
SATURATED amount urine
Vital Signs
Temp Pulse Resp BP Pulse Ox
98.3 F 96 22 159/86 98
09/30/24 07:45 09/30/24 07:45 09/30/24 07:45 09/30/24 07:45 09/30/24 07:45
Lab Results
09/30/24 10:21
Calcium Cancelled 09/30/24 10:21
Magnesium Cancelled 09/29/24 06:00
Total Bilirubin Cancelled 09/30/24 10:21
Direct Bilirubin 0.5 mg/dl (0.0-0.4) H 09/24/24 06:18
AST Cancelled 09/30/24 10:21
ALT Cancelled 09/30/24 10:21
Alkaline Phosphatase Cancelled 09/30/24 10:21
Total Protein Cancelled 09/30/24 10:21
Albumin Cancelled 09/30/24 10:21
Physical Exam
-
Gen: NAD, Awake and alert
Neck: supple.
CV: irreg/irreg, +S1/S2, no m/r/g.
Resp: CTAB anteriorly, no rales, wheezes, or rhonchi.
Abd: +BS, soft, NT, drainage, mild distention, cholecystostomy tube drain disconnected and securely capped.
HECTOR abscess drain with purulent material
Neuro: CN 2-12 intact, non-focal.
Psych: Normal mood and affect.
Patient has a gutierrez catheter: No
Patient has a central line: No
[2024-09-30] MEDS: ZYVOX 600 MG PO ×2 (12:23→20:22)
--- NOTE | 2024-09-30 12:53 | W.PN.UPDATE ---
Update Note
Progress Note Update
Case discussed with Dr. Pacheco. With WBC 13.2 he would like discharge held. If leukocytosis is worse tomorrow will repeat CT scan of the abdomen and pelvis.
--- NOTE | 2024-09-30 12:53 | W.PN.GS2 ---
Today's Communication / Plan
-
IV abx
Trend WBC
Assessment / Plan
-
Patient is a 74 yo F with a PMH of HLD, aortic stenosis s/p TAVR, A-fib (on Xarelto), CVA, CKD stage IV, and s/p multiple orthopedic procedures presented with severe acute on chronic Cholecystitis managed with IR cholecystostomy tube on day 12
(09/18/24)
#Sepsis due to Acute calculus Cholecystitis:
Tmax- 98.5
WBC count= 16.6 (h)-->19.3(h)--> 16.7 (h)--> 11.2(h)-->12.9 (h)-->today result is pending
Today Direct bilirubin - 0.5 (h), AST, ALT in normal range.
Total protein- 5.6 (l), albumin- 2.9 (l).
Blood culture- Gram stain of anaerobic - gram negative bacilli.
cholecystomy tube fluid culture- negative.
Hb=8.6 and Bilirubin mild elevation due to cholecystitis.
09/25/24 15:46 Abscess Wound Culture - Preliminary
Escherichia coli
Klebsiella pneumoniae
Enterococcus species
09/22/24: blood culture- bacteremia with clostridium cadaverous with resolved sepsis.
Persistent pain/distention with leukocytosis prompting CT on 09/24/24 with perforated appendicitis with abscess noted on f/u imaging now s/p IR drainage on 09/25/24 with symptomatic improvement.
WBC trending up 11.2K --> 12.9K --> 13.2K
-Cont diet
-Cont IV Zosyn
-Trend WBC, if increases tomorrow would repeat CT /P with IV contrast
-Will follow
Subjective Data
-
Date of Service: September 30, 2024
AFVSS, no complaints, asking for DC; binh PO, pain controlled
Objective Data
-
Intake and Output
09/29/24 09/30/24 10/01/24
06:59 06:59 06:59
Intake Total 840 / 840 960 / 960
Output Total 450 / 450
Balance 390 / 390 960 / 960
Intake:
Oral fluids 840 / 840 960 / 960
Output:
Liquid stool amount 250 / 250
Rectum 250 / 250
Drain Output (Total) 200 / 200
Right Abdomen Biliary Placed in 200 / 200
IR
Right Upper Abdomen Andrea- 0 / 0
Rainey B Placed in IR
Other:
Number of approximated MODERATE 1
amounts of urine
How many times incontinent 1 3
MODERATE amount urine
How many times incontinent 2 2
SATURATED amount urine
Vital Signs
Temp Pulse Resp BP Pulse Ox
98.3 F 96 22 159/86 98
09/30/24 07:45 09/30/24 07:45 09/30/24 07:45 09/30/24 07:45 09/30/24 07:45
Lab Results
09/30/24 10:21
Calcium Cancelled 09/30/24 10:21
Magnesium Cancelled 09/29/24 06:00
Total Bilirubin Cancelled 09/30/24 10:21
Direct Bilirubin 0.5 mg/dl (0.0-0.4) H 09/24/24 06:18
AST Cancelled 09/30/24 10:21
ALT Cancelled 09/30/24 10:21
Alkaline Phosphatase Cancelled 09/30/24 10:21
Total Protein Cancelled 09/30/24 10:21
Albumin Cancelled 09/30/24 10:21
Physical Exam
-
Gen: NAD
Abd: soft, moderate ttp to right hemabdomen, jerilyn drain capped, ab drain purulent
--- NOTE | 2024-09-30 13:18 | W.PN.NEPH.PH ---
Today's Communication / Plan
-
AM lab
Assessment/Plan
-
Assessment:
Sepsis secondary to acalculous cholecystitis
TRACIE -CKD 4 (low 2 range)
Non gap, gap Metabolic acidosis
Afib with RVR
History TAVR
Anemia
History CVA
Anxiety
Constipation
Plan:
Creatinine at 2.6
Status post abd drain-new appendicitis with perf and collection on CT 09/24
Maintains on renally dosed Zosyn therapy
Continue supportive care
A.m. labs
Creatinine close to baseline
Pending discharge if white count stable
-
-
Date of Service: September 30, 2024
CC / HPI / ROS
-
Chief Complaint:
TRACIE, CKD, met acidosis
History of Present Illness:
cr higher at 2.6
Bp labile
no fever
Review of Systems:
improving RLQ pain
no cp or sob
Stable weight
Labs
-
Labs:
WBC 13.2 10^3/uL (4.8-10.8) H 09/30/24 10:21
RBC 2.93 10^6/uL (4.20-5.40) L 09/30/24 10:21
Hgb 8.6 g/dL (12.0-16.0) L 09/30/24 10:21
Hct 26.4 % (37.0-47.0) L 09/30/24 10:21
Plt Count 373 10^3/uL (130-400) 09/30/24 10:21
eGFR Cancelled 09/30/24 10:21
Bft-F-Vwestvvtvov Pept > 48062 pg/ml 09/26/24 02:02
Physical Exam
-
Vital Signs:
Vital Signs
Temp Pulse Resp BP Pulse Ox
98.3 F 96 22 159/86 98
09/30/24 07:45 09/30/24 07:45 09/30/24 07:45 09/30/24 07:45 09/30/24 07:45
Cardiovascular:: Regular rate and rhythm (tachy)
Respiratory:: Bilateral: CTA
Lung Excursion:: Normal
Abdomen:: Soft and Tender (mild TTP RLQ)
Bowel Sounds:: Normal
Extremity Edema:: None: Bilateral:
Fournier Catheter: No
[2024-09-30 13:24] LABS: ALT (SGPT) < 10 U/L (0-35); AST (SGOT) 20 U/L (14-36); Albumin 3.1 g/dl (3.5-5.0); Alkaline Phosphatase 126 U/L (38-126); Blood Urea Nitrogen 23 mg/dl (7-17); Calcium 9.4 mg/dl (8.4-10.2); Carbon Dioxide 22 mmol/L (22-30); Chloride 106 mmol/L (98-107); Estimated Creatinine Clearance 16 ml/min; Glucose 104 mg/dl (70-99); Potassium 4.3 mmol/L (3.5-5.1); Sodium 137 mmol/L (135-145); Total Protein 6.0 g/dl (6.3-8.2); eGFR 17.95
[2024-09-30 15:24] VITALS: BP 106/54
[2024-09-30] MEDS: TYLENOL 650 MG PO (16:37)
[2024-09-30] MEDS: XARELTO 15 MG PO (17:33)
--- NOTE | 2024-09-30 17:34 | W.PN.ID1 ---
Date of Service
Date of Service: September 30, 2024
Today's Communication
Continue linezolid. De-escalate Zosyn to ceftriaxone, po metronidazole.
Assessment / Plan
# Perforated appendicitis
# Leukocytosis - trending up
- 09/25/24 s/p IR perc drain placement (+ feculent/purulent output)
- Cx VRE, E. coli, Klebsiella
- Agree with repeat CT a/p if leukocytosis does not improve
- De-escalate Zosyn to ceftriaxone, po metronidazole.
-s/p Daptomycin 500 mg IV x 1 09/29
- Started linezolid 600mg po bid.
(hold buspirone (OK per hospitalist) while on linezolid; to resume 24h after dc linezolid)
Avoid tyramine-rich food products while on Linezolind.
- Trend wbc
-Contact isolation
# Recent acute gallstone cholecystitis
# Clostridium cadaveris bacteremia
- 09/18 s/p IR perc jerilyn. Gram stain: GPC chains, Cx neg
- completed Augmentin 875mg po bid through 09/25/24
# Conditions prior to admission.
CVA
Paroxysmal atrial fibrillation
Aortic stenosis s/p TAVR
CAD
History of DVT
CKD4
PAD
Memory impairment
B TKR
Chief Complaint
-: Other (Abd pain)
Subjective / Review of Systems
Denies complaints.
Vital Signs / Physical Exam
Vital Signs
Vital Signs
Temp Pulse Resp BP Pulse Ox
98.4 F 85 22 106/54 100
09/30/24 15:24 09/30/24 15:24 09/30/24 15:24 09/30/24 15:24 09/30/24 15:24
Physical Exam
Constitutional: No Acute Distress
Cardiovascular: Regular Rate and S1/S2
Gastrointestinal: Soft, Non Tender, Non Distended, Normal Bowel Sounds and Other (HECTOR drain with thick-light villeda output. Perc jerilyn bile.)
Genito-Urinary: Negative CVA Tenderness
Neurological: AO x 3
Objective Data
Lab Data
Lab Results
09/30/24 10:21
09/30/24 12:23
PT 23.1 Sec (11.4-14.6) H 09/17/24 10:17
INR 2.00 09/17/24 10:17
APTT 33.7 Sec (23.4-35.0) 09/18/24 00:05
Estimated Creat Clear 16 ml/min 09/30/24 12:23
Lactic Acid 0.7 mmol/L (0.7-2.0) 09/17/24 18:14
Total Bilirubin 0.5 mg/dl (0.2-1.3) 09/30/24 12:23
AST 20 U/L (14-36) 09/30/24 12:23
ALT < 10 U/L (0-35) 09/30/24 12:23
Alkaline Phosphatase 126 U/L (38-126) 09/30/24 12:23
Most recent labs reviewed.
Micro Results:
09/25/24 15:46 Wound Culture - Final
Abscess Escherichia coli
Klebsiella pneumoniae
Enterococcus faecium - VRE
Gram Stain - Final
09/16/24 07:12 Blood Culture - Final
Blood/Venous Clostridium cadaveris
Gram Stain - Final
09/17/24 10:17 Blood Culture - Final
Blood/Venous No Growth - Final Report
09/17/24 09:25 Blood Culture - Final
Blood/Venous No Growth - Final Report
09/18/24 08:10 Body Fluid Culture - Final
Bile No Growth After 72 Hours
Gram Stain - Final
09/17/24 00:37 MRSA Screen - Final
Nose No Methicillin Resistant Staphylococcus aureus isolated.
09/16/24 05:32 Urine Culture - Final
Urine
09/24/24 CT a/p: Extraluminal gas and fluid collection within the right upper quadrant measuring 5.4 x 4.3 cm which appears to be contiguous within the appendix inferiorly, suspicious for perforated appendicitis. Interval insertion of percutaneous
transperitoneal: Suspect tube which appears well positioned with decompression of the gallbladder.
09/16/24 CT a/p: Likely small gallbladder stones with some gallbladder wall thickening and some right upper quadrant likely pericholecystic stranding. FINDINGS COULD REPRESENT ACUTE CHOLECYSTITIS. Suggest Abdominal Ultrasound for more complete
evaluation. Moderate bilateral perinephric stranding. No gross findings to suggest obstructive uropathy bilaterally.
09/16/24 ABD US: Cholelithiasis with at least one gallstone is seen in the vicinity of the gallbladder neck as well as some gallbladder wall thickening. No findings to suggest pericholecystic fluid or biliary tract dilatation. Negative sonographic
Norwood's sign. If there is a clinical suspicion for acute cholecystitis, suggest Nuclear Hepatobiliary scan.
[2024-09-30] MEDS: FLAGYL 500 MG PO (20:22)
[2024-09-30 23:00] VITALS: BP 148/82
[2024-09-30] MEDS: STERILE WATER FOR INJECTION 20 ML IV (23:23)
[2024-09-30] MEDS: ROCEPHIN 2000 MG IV (23:23)
[2024-10-01 00:09] VITALS: BMI 26.0
--- NOTE | 2024-10-01 07:35 | DOWNTIME ---
There was a [employer] Downtime on 10/01/2024 from 0100 to 10/01/2024 at 0235. Downtime documentation of patient's care, including medication administrations, has been reconciled in the electronic record per guidelines. Refer to the
patient's paper chart under the miscellaneous tab to see printed paper medication records and downtime forms.
[2024-10-01 07:43] VITALS: BP 161/89
[2024-10-01 08:10] LABS: Hematocrit 28.9 % (37.0-47.0); Hemoglobin 9.0 g/dL (12.0-16.0); Mean Corp Hgb Conc. 31.1 g/dL (33.0-37.0); Mean Corpuscular Volume 92.9 fL (81.0-99.0); Nucleated Red Blood Cells % 0 %; Platelet Count 381 10^3/uL (130-400); Red Cell Dist. Width 13.3 % (11.5-14.5)
[2024-10-01] MEDS: FLAGYL 500 MG PO ×2 (08:22→20:51)
[2024-10-01] MEDS: TOPROL XL 100 MG PO ×2 (08:22→20:51)
[2024-10-01] MEDS: PACERONE 100 MG PO (08:22)
[2024-10-01] MEDS: ZYVOX 600 MG PO ×2 (08:22→20:51)
[2024-10-01] MEDS: VITAMIN B1 100 MG PO ×2 (08:22→20:51)
[2024-10-01] MEDS: MIRALAX PO ×2 (08:23→20:51)
[2024-10-01] MEDS: REFRESH EYE DROPS (PF) 1 DROPS BOTH EYES ×2 (08:23→20:51)
[2024-10-01] MEDS: COLACE PO (08:23)
[2024-10-01] MEDS: REFRESH CELLUVISC GEL 1 DROPS OPHTH ×2 (08:23→20:51)
[2024-10-01 08:52] LABS: ALT (SGPT) < 10 U/L (0-35); AST (SGOT) 20 U/L (14-36); Albumin 3.2 g/dl (3.5-5.0); Alkaline Phosphatase 134 U/L (38-126); Blood Urea Nitrogen 21 mg/dl (7-17); Calcium 9.3 mg/dl (8.4-10.2); Carbon Dioxide 22 mmol/L (22-30); Chloride 108 mmol/L (98-107); Estimated Creatinine Clearance 16 ml/min; Glucose 79 mg/dl (70-99); Potassium 4.4 mmol/L (3.5-5.1); Sodium 138 mmol/L (135-145); Total Protein 6.2 g/dl (6.3-8.2); eGFR 18.78
--- NOTE | 2024-10-01 09:34 | W.PN.UPDATE ---
Addendum entered and electronically signed by Ben Damon MD 10/01/24 13:33:
Persistent atrial fibrillation
Original Note:
Update Note
Progress Note Update
I saw and evaluated the patient. I reviewed the resident�s note and agree with findings and plan as documented in the resident�s note.
No new complaints. Denies abd pain.
Gen: NAD, Awake and alert
Eyes: EOMI, PERRLA, no scleral icterus.
Neck: supple.
CV: continues to remain irreg/irreg, +S1/S2, no m/r/g.
Resp: continues to remain CTAB anteriorly, no rales, wheezes, or rhonchi.
Abd: remains +BS, soft, NT, ND
Skin: No rashes.
Neuro: CN 2-12 intact, non-focal.
Psych: Normal mood and affect.
09/25/24 15:46 Abscess Wound Culture - Final
Escherichia coli
Klebsiella pneumoniae
Enterococcus faecium - VRE
09/25/24 15:46 Abscess Gram Stain - Final
09/16/24 07:12 Blood/Venous Blood Culture - Final
Clostridium cadaveris
09/16/24 07:12 Blood/Venous Gram Stain - Final
09/17/24 10:17 Blood/Venous Blood Culture - Final
No Growth - Final Report
09/17/24 09:25 Blood/Venous Blood Culture - Final
No Growth - Final Report
09/18/24 08:10 Bile Body Fluid Culture - Final
No Growth After 72 Hours
09/18/24 08:10 Bile Gram Stain - Final
09/17/24 00:37 Nose MRSA Screen - Final
No Methicillin Resistant Staphylococcus aureus isolated.
09/16/24 05:32 Urine Urine Culture - Final
CT A/P 09/16/24: Cardiomegaly. Small pericardial effusion again seen. Heart incompletely included on this study. Likely small gallbladder stones with some gallbladder wall thickening and some right upper quadrant likely pericholecystic stranding.
FINDINGS COULD REPRESENT ACUTE CHOLECYSTITIS. Suggest Abdominal Ultrasound for more complete evaluation. Limited evaluation of intestinal tract without oral or intravenous contrast with some stranding about the hepatic flexure of the colon likely
from the gallbladder, less likely intrinsic inflammation. Moderate bilateral perinephric stranding. No gross findings to suggest obstructive uropathy bilaterally. Descending colon and sigmoid diverticulosis. Moderate volume widespread colonic stool.
No intestinal obstruction or free air.
Abd U/S 09/16/24: Cholelithiasis with at least one gallstone is seen in the vicinity of the gallbladder neck as well as some gallbladder wall thickening. No findings to suggest pericholecystic fluid or biliary tract dilatation. Negative sonographic
Norwood's sign. If there is a clinical suspicion for acute cholecystitis, suggest Nuclear Hepatobiliary scan.
CT A/P 09/24/24: Extraluminal gas and fluid collection within the right upper quadrant measuring 5.4 x 4.3 cm which appears to be contiguous within the appendix inferiorly, suspicious for perforated appendicitis. Interval insertion of percutaneous
transperitoneal: Suspect tube which appears well positioned with decompression of the gallbladder. Small bilateral pleural effusions with adjacent compressive atelectasis within both lower lobes.
CT A/P 10/01/24: Right upper quadrant percutaneous drain with tip terminating adjacent to the gallbladder fossa/tip of the appendix with significantly reduced size of the associated collection, now near completely resolved. There is persistent mild
dilation of the appendix, possibly related to appendicitis. Stable appearance of the percutaneous cholecystostomy tube. Small bilateral pleural effusions with adjacent atelectasis, similar to prior. Colonic diverticulosis. Mild colonic stool burden.
Sepsis due to acute calculus cholecystitis followed by perforated appendix:
-s/p perc jerilyn 09/18/24
-s/p HECTOR drain 09/25/24
-Cx data above
-was on Zosyn, then transitioned to Augmentin (completed 09/25/24), then back on Zosyn. On 09/29/24 Pt received IV Dapto. Currently on Rocephin/Flagyl/Linezolid. As per ID, at time of discharge, d/c on Augmentin/Linezolid x 14 days.
-leukocytosis initially resolved, then worsened, now overall improved (stable from yesterday)
-Repeat CT A/P above. As per discussion with surgery, perc jerilyn drain will be placed back to drainage and surgery will discussion with ID.
PAF with RVR:
-cont amio/Xarelto/Toprol XL
-rates improved
-was seen by cards
TRACEI on CKD4:
-with non-AG met acidosis, now resolved s/p IVFs with NaHCO3
-renal following
-suspect that baseline Cr around 2.6
Chronic anemia:
-Fe studies suggest Fe def anemia (elevated ferritin likely an acute phase reactant)
-trend Hb, transfuse for Hb < 7
Other problems:
CAD: cont BB
s/p TAVR 2018
h/o CVA
h/o SIADH
Chronic ambulatory dysfunction
h/o DVT: cont Xarelto
Former tobacco abuse d/o
DNR/Xarelto
--- NOTE | 2024-10-01 09:53 | PN.CDI ---
CDI
- -
CDI:
Physician Documentation Request
Admit Date: 09/16/24 13:52
Dear Doctor Nelson,
Please review the following and provide your response in the progress notes.
Clinical Indicators:
Your assistance is needed to clarify apparent conflicting diagnoses in the medical record.
For compliant coding and billing, we are required to obtain clarification of conflicting information directly from the attending physician.
The diagnosis of ___PAF with RVR was documented in update notes 09/29-10/01 by Hospitalist
The diagnosis of __Persistent atrial fibrillation was documented on 09/20 &09/21 by Cardiology
The following information is also documented in the medical record: [include all information supporting and not supporting both conditions]
Cardiology progress notes 09/20 & 09/21 ,' 74F with paroxysmal atrial fibrillation (on rivaroxaban)...Persistent atrial fibrillation rapid rates in the setting of acute cholecystitis. now controlled continue current metoprolol dose on amiodarone,
continued by her primary boxing instructor at last visit(Dr Meredith) can decide to stop as outpt on Xarelto 15mg daily, continue.'
Progress notes 09/27 & 09/28,' Persistent atrial fibrillation--Continue amiodarone, Toprol XL added this admission, anticoagulation with home dose Xarelto ...'
Based on your medical judgment, can you further clarify which, in your professional opinion, of these two conditions is the most correct:
Persistent atrial fibrillation - episodes of continuous AF that last more than 7 days and do not self-terminate
Paroxysmal atrial fibrillation - terminates spontaneously or with intervention within 7 days of onset
Other - please specify
Use of terms such as suspected, likely, concern for, or probable (associated with a specific diagnosis that is being evaluated, monitored, or treated as if it exists) are acceptable and can be coded in the inpatient setting, when documented at the
time of discharge.
Thank you,
Sara Gary RN
CDI Specialist
[place] [employer]
Please use your independent medical judgment in providing your response.
--- NOTE | 2024-10-01 10:21 | W.PN.HOSP.TC ---
Today's Communication/Plan
-
WBC 13.6 back 13.2, repeat CT A/P reviewed by Dr. Pacheco who is C/F ongoing gallbladder inflammation.
- Cholecystostomy tube unclamped and attach back to drainage. Surgery to discuss with ID.
Appreciate process consultant recs
Follow-up WBC 10/02
Assessment / Plan
Assessment / Plan
74-year-old female with a past medical history of hyperlipidemia, aortic stenosis status post TAVR 2018, A-fib on Xarelto, CVA, CKD stage IV, iron deficiency anemia who presented from [facility] to the ER on 09/16/2024 with sepsis criteria
positive and severe abdominal pain most pronounced in the right lower quadrant.� CT of the abdomen pelvis with abdominal ultrasound showed a 1 gallstone in the gallbladder neck with gallbladder wall thickening.� She was started on IV Zosyn which was
then transition to Augmentin p.o. to be continued through 09/25/2024.� Surgery and IR were consulted for further management.� She is status post cholecystectomy tube to be continued through 09/18/2024.� Cardiology is also following because of her A-fib
with RVR, Toprol-XL increased to 50 Mg twice daily, anticoagulated with her home dose of Xarelto, cardiology has signed off.� Surgery advised to hold laxatives make patient n.p.o. except sips of clears until postoperation nausea with constipation
has improved, continue percutaneous cholecystotomy drain was [address] for 6 to 8 weeks with an outpatient follow-up with surgery. On 09/24/2024, her WBC continued to trend upwards, not suspicious for reactive leukocytosis given
timeframe, and she worsened tenderness to palpation in the right lower quadrant. A CT A/P was ordered which showed: Extraluminal gas and fluid collection within the right upper quadrant measuring 5.4 x 4.3 cm which was contiguous within the
appendix inferiorly, suspicious for perforated appendicitis. Surgery and IR discussed, her Xarelto was held, she was made n.p.o., and IR completed a tube study followed by SP drain placement on 09/25/2024. Her WBC was downtrending s/p HECTOR drain
however on 09/29/2024, her cholecystostomy tube was clamped by surgery and in subsequent days her WBC started to uptrend (some labs missed as patient refusing labs intermittently). We had planned to discharge her on 09/30/2024, however ISO uptrending
WBC and conversation with consultants, we held the discharge. A repeat CT A/P without contrast was completed on 10/01/[address] Pacheco who felt that the gallbladder was still inflamed and infectious. Her cholecystostomy tube was
attached back to drainage and ID was updated for further recs. Of note, her brother Janusz is her POA. His number in the chart and as follows: [phone].
#Sepsis (resolved) 03/16 to acute cholecystitis s/p perc cholecystostomy tube 09/18/2024 and perforated appendix s/p HECTOR drain placement 09/25/2024 with IR
10/01/2024 her WBC was 13.6 back 13.2. A repeat CT A/P without contrast was reviewed by Dr. Pacheco (surgeon) who felt that her gallbladder was still very inflamed and needed continued drainage. As such, her cholecystostomy tube was unclamped
(clamped by surgery on 09/29) and attached back to drainage on 10/01. General surgery to d/w ID.
General Surgery and ID following, appreciate recs
-ID following, appreciate recs:
--S/p IV Zosyn
--S/p Augmentin 875 mg p.o. BID through 09/25/2024
--DC IV Zosyn (renally adjusted) at time of discharge
--Contact isolation
--S/p daptomycin 500 mg IV x 1 09/29/2024
--Continue linezolid 600 mg p.o. twice daily 09/30/2024
Per ID:
---At the time of discharge, transition to Augmentin 875 mg p.o. twice daily plus linezolid 600 mg p.o. twice daily x 14 more days
---Avoid tyramine rich food products while on linezolid
---Resume BuSpar 24 hours after discontinuing linezolid
--Follow-up fluid collection culture: VRE, E. coli, Klebsiella
-Initial blood cultures positive for Clostridium cadaveris, however other 2 micro blood specimens have been negative
-Pain control s/p Dilaudid, since 09/28/2024 on tramadol HCl 50 mg p.o. every 12 hours as needed
--DC tramadol per ID
#Leukocytosis, stable
WBC 13.6 back 13.2, afebrile, HDS. S/p new right lower quadrant pain on 09/24/2024. Prior to this she was asymptomatic and her leukocytosis was thought to be reactive. However, given that her tube placement was over a week ago, her uptrending
leukocytosis is not reactive and required further workup as above, revealing perforated appendicitis. IR and general surgery to manage underlying infection with drains.
-CTM, continue antibiotics, follow-up cultures, touch base with ID again as needed
#TRACIE on CKD 4, resolved
Non-anion gap metabolic acidosis. Resolved s/p maintenance IV fluids.
- She is back to her baseline creatinine of 2- 2.2. CTM.
#Chronic normocytic anemia
Hemoglobin stable. Iron is 24, TIBC is 193, ferritin is 788 (acute phase reactant).
-Consider iron supplementation on discharge
-CTM hemoglobin
#Persistent atrial fibrillation
Continues to be a little bit tachycardic, however asymptomatic. Cards consulted 09/21/2024, rec to continue current medications.
-Continue amiodarone 100 Mg for rate control, Toprol XL added this admission, anticoagulation with home dose Xarelto 15 Mg
#Aortic stenosis s/p TAVR 2018
-Patient follows Dr. Meredith who is main outpatient baker pastry.
#Anxiety
- DC buspirone milligrams p.o. twice daily per ID: Resume 24 hours after linezolid course
Resolved issues:
Concern for aspiration---speech consulted, recommended low-fat/thin liquids with full supervision, assist as needed, pills 1 at a time. Rec VSE if continued concern for aspiration.
Postop abdominal pain with constipation---AXR 09/20 showed nonobstructive intestinal bowel gas pattern, her pain resolved after her large BM on 09/22. Continue bowel regimen.
Agitation secondary to delirium---had 1 episode of being confused, screaming, and trying to hit nurse on 09/21. She needed restraints briefly. This was a one-time event and subsided with 1 dose of Ativan.
DVT prophylaxis: Xarelto
CODE STATUS: DNR
POA: Janusz (brother),
Anticipated Discharge: 24 - 48 hours (Pending WBC and ID recs)
Subjective/Interval History
-
Date of Service: October 01, 2024
-This morning, her WBC count continued to rise (13.6 back 13.2). A repeat CT A/P without contrast was ordered and reviewed by Dr. Pacheco, who suspected ongoing gallbladder inflammation/infection. On exam, Mr. ortega was tender in the RUQ. As such an
per surgery, her cholecystostomy tube that had been clamped by surgery on Friday 09/29 was unclamped and attached to bag for drainage. Surgery to follow-up with ID.
-She is very disappointed that she is not going back to long-term care facility today.
Objective Data
-
Labs:
Laboratory Results
10/01/24
07:59
WBC 13.6 H
Hgb 9.0 L
Hct 28.9 L
Plt Count 381
Sodium 138
Potassium 4.4
Chloride 108 H
Carbon Dioxide 22
BUN 21 H
Creatinine 2.6 H
Glucose 79
Calcium 9.3
Total Bilirubin 0.4
AST 20
ALT < 10
Alkaline Phosphatase 134 H
Vital Signs:
Vital Signs
Temp Pulse Resp BP Pulse Ox
98.2 F 95 16 161/89 97
10/01/24 07:43 10/01/24 07:43 10/01/24 07:43 10/01/24 07:43 10/01/24 07:43
I&O
09/30/24 10/01/24 10/02/24
06:59 06:59 06:59
Intake Total 960 / 960 1560 / 1560
Balance 960 / 960 1560 / 1560
Review of Systems
-
History Source: Patient
All other systems: Reviewed and negative
Abdomen/GI: Reports Pain (Right upper quadrant on palpation)
Physical Exam
-
General: Well Developed, Well Nourished, No Apparent Distress and Conversant
HEENT: Normocephalic, Atraumatic and Moist Mucous Membranes
Respiratory: Clear to Auscultation and Non Labored Respirations
Cardiac: S1/S2 and Irregular Rhythm (Known A-fib)
GI: Soft, Nondistended, Normal Bowel Sounds and Tender (On deep palpation to right upper quadrant)
Musculoskeletal: No Clubbing, No Cyanosis and No Edema
Skin: Warm and Dry
Psych: Anxious
--- NOTE | 2024-10-01 11:34 | W.PN.NEPH.PH ---
Today's Communication / Plan
-
Kidney function remains stable
Blood pressure labile
Weight stable no need for diuretic therapy
Assessment/Plan
-
Assessment:
Sepsis secondary to acalculous cholecystitis
TRACIE -CKD 4 (low 2 range)
Non gap, gap Metabolic acidosis
Afib with RVR
History TAVR
Anemia
History CVA
Anxiety
Constipation
Plan:
Creatinine stable at 2.6
Status post abd drain-new appendicitis with perf and collection on CT 09/24
Maintains on renally dosed ceftriaxone and Flagyl and Zyvox
Continue supportive care
A.m. labs
Creatinine close to baseline
-
-
Date of Service: October 01, 2024
CC / HPI / ROS
-
Chief Complaint:
TRACIE, CKD, met acidosis
History of Present Illness:
cr higher at 2.6
Bp labile
no fever
Review of Systems:
improving RLQ pain
no cp or sob
Stable weight
Labs
-
Labs:
WBC 13.6 10^3/uL (4.8-10.8) H 10/01/24 07:59
RBC 3.11 10^6/uL (4.20-5.40) L 10/01/24 07:59
Hgb 9.0 g/dL (12.0-16.0) L 10/01/24 07:59
Hct 28.9 % (37.0-47.0) L 10/01/24 07:59
Plt Count 381 10^3/uL (130-400) 10/01/24 07:59
Sodium 138 mmol/L (135-145) 10/01/24 07:59
Potassium 4.4 mmol/L (3.5-5.1) 10/01/24 07:59
Chloride 108 mmol/L (98-107) H 10/01/24 07:59
Carbon Dioxide 22 mmol/L (22-30) 10/01/24 07:59
BUN 21 mg/dl (7-17) H 10/01/24 07:59
Creatinine 2.6 mg/dL (0.6-1.0) H 10/01/24 07:59
eGFR 18.78 10/01/24 07:59
Glucose 79 mg/dl (70-99) 10/01/24 07:59
Calcium 9.3 mg/dl (8.4-10.2) 10/01/24 07:59
Pud-Q-Kbbcpmmhtws Pept > 80572 pg/ml 09/26/24 02:02
Albumin 3.2 g/dl (3.5-5.0) L 10/01/24 07:59
Physical Exam
-
Vital Signs:
Vital Signs
Temp Pulse Resp BP Pulse Ox
98.2 F 95 16 161/89 97
10/01/24 07:43 10/01/24 07:43 10/01/24 07:43 10/01/24 07:43 10/01/24 07:43
Cardiovascular:: Regular rate and rhythm (tachy)
Respiratory:: Bilateral: CTA
Lung Excursion:: Normal
Abdomen:: Soft and Tender (mild TTP RLQ)
Bowel Sounds:: Normal
Extremity Edema:: None: Bilateral:
Fournier Catheter: No
[2024-10-01 11:55] VITALS: BP 182/80; PULSE 99; O2SAT 99
--- NOTE | 2024-10-01 13:15 | W.PN.GS2 ---
Today's Communication / Plan
-
uncap jerilyn tube
abx
monitor PO intake
Assessment / Plan
-
Patient is a 74 yo F with a PMH of HLD, aortic stenosis s/p TAVR, A-fib (on Xarelto), CVA, CKD stage IV, and s/p multiple orthopedic procedures presented with severe acute on chronic Cholecystitis managed with IR cholecystostomy tube on day 13
(09/18/24)
09/18 - perc jerilyn tube
09/22 - BCx clostridium cadaverous
persistent pain/distention with leukocytosis prompting CT on 09/24/24 with perforated appendicitis with abscess noted on f/u imaging now s/p IR drainage on 09/25/24
09/29 - jerilyn tube capped
WBC trending up for past 5 days, rpt CT 10/01 with improved RUQ collection, distended gb with stranding, no new collections; reports not eating
Plan:
jerilyn tube back to drainage
monitor % of trays consumed
cont abx per ID
Recheck WBC tomorrow
Subjective Data
-
Date of Service: October 01, 2024
AFVSS, denies pain, reports not eating.
Objective Data
-
Intake and Output
09/30/24 10/01/24 10/02/24
06:59 06:59 06:59
Intake Total 960 / 960 1560 / 1560
Balance 960 / 960 1560 / 1560
Intake:
Oral fluids 960 / 960 1560 / 1560
Other:
Number of approximated MODERATE 1
amounts of urine
How many times incontinent 3
MODERATE amount urine
How many times incontinent 2 3
SATURATED amount urine
Vital Signs
Temp Pulse Resp BP Pulse Ox
98.2 F 95 16 161/89 97
10/01/24 07:43 08/20/25 07:43 10/01/24 07:43 10/01/24 07:43 10/01/24 07:43
Lab Results
10/01/24 07:59
10/01/24 07:59
Calcium 9.3 mg/dl (8.4-10.2) 10/01/24 07:59
Magnesium Cancelled 09/29/24 06:00
Total Bilirubin 0.4 mg/dl (0.2-1.3) 10/01/24 07:59
Direct Bilirubin 0.5 mg/dl (0.0-0.4) H 09/24/24 06:18
AST 20 U/L (14-36) 10/01/24 07:59
ALT < 10 U/L (0-35) 10/01/24 07:59
Alkaline Phosphatase 134 U/L (38-126) H 10/01/24 07:59
Total Protein 6.2 g/dl (6.3-8.2) L 10/01/24 07:59
Albumin 3.2 g/dl (3.5-5.0) L 10/01/24 07:59
Physical Exam
-
Gen: NAD
Abd: soft, abdominal drain with purulence, bili drain capped; exquisitely ttp to RUQ
Patient has a gutierrez catheter: No
Patient has a central line: No
--- NOTE | 2024-10-01 13:44 | W.PN.ID1 ---
Date of Service
Date of Service: October 01, 2024
Today's Communication
Continue current abx's.
Assessment / Plan
# Perforated appendicitis
# Leukocytosis - slight increase today
- 09/25/24 s/p IR perc drain placement (+ feculent/purulent output)
- Cx VRE, E. coli, Klebsiella
- 10/[address]; almost complete resolution of right abd fluid collection with persistent mild dilation of appendix.
- Unclear etiology of leukocytosis.
Surgery uncapped perc jerilyn tube today.
Unlikely C. diff. Had 1 episode of diarrhea this am due to oral contrast.
WBC may be plateauing. Continue to trend wbc.
- s/p 5d Zosyn
- Continue ceftriaxone, po metronidazole (d6 appropriate abx)
- Continue linezolid 600mg po bid (d3) .
(hold buspirone (OK per hospitalist) while on linezolid; to resume 24h after dc linezolid)
Avoid tyramine-rich food products while on Linezolid.
# Recent acute gallstone cholecystitis
# Clostridium cadaveris bacteremia
- 09/18 s/p IR perc jerilyn. Gram stain: GPC chains, Cx neg
- completed Augmentin 875mg po bid through 09/25/24
# Conditions prior to admission.
CVA
Paroxysmal atrial fibrillation
Aortic stenosis s/p TAVR
CAD
History of DVT
CKD4
PAD
Memory impairment
B TKR
Chief Complaint
-: Other (Abd pain)
Subjective / Review of Systems
Had 1 small diarrhea this am.
No abd pain.
Vital Signs / Physical Exam
Vital Signs
Vital Signs
Temp Pulse Resp BP Pulse Ox
98.2 F 95 16 161/89 97
10/01/24 07:43 10/01/24 07:43 10/01/24 07:43 10/01/24 07:43 10/01/24 07:43
Physical Exam
Constitutional: No Acute Distress
Cardiovascular: Regular Rate and S1/S2
Pulmonary: Clear
Gastrointestinal: Soft, Non Tender, Non Distended and Other (Perc jerilyn: bile; HECTOR drain cloudy brown fluid)
Genito-Urinary: Negative CVA Tenderness
Extremities: Negative Edema
Neurological: AO x 3
Objective Data
Lab Data
Lab Results
10/01/24 07:59
10/01/24 07:59
PT 23.1 Sec (11.4-14.6) H 09/17/24 10:17
INR 2.00 09/17/24 10:17
APTT 33.7 Sec (23.4-35.0) 09/18/24 00:05
Estimated Creat Clear 16 ml/min 10/01/24 07:59
Lactic Acid 0.7 mmol/L (0.7-2.0) 09/17/24 18:14
Total Bilirubin 0.4 mg/dl (0.2-1.3) 10/01/24 07:59
AST 20 U/L (14-36) 10/01/24 07:59
ALT < 10 U/L (0-35) 10/01/24 07:59
Alkaline Phosphatase 134 U/L (38-126) H 10/01/24 07:59
Most recent labs reviewed.
Micro Results:
09/25/24 15:46 Wound Culture - Final
Abscess Escherichia coli
Klebsiella pneumoniae
Enterococcus faecium - VRE
Gram Stain - Final
09/16/24 07:12 Blood Culture - Final
Blood/Venous Clostridium cadaveris
Gram Stain - Final
09/17/24 10:17 Blood Culture - Final
Blood/Venous No Growth - Final Report
09/17/24 09:25 Blood Culture - Final
Blood/Venous No Growth - Final Report
09/18/24 08:10 Body Fluid Culture - Final
Bile No Growth After 72 Hours
Gram Stain - Final
09/17/24 00:37 MRSA Screen - Final
Nose No Methicillin Resistant Staphylococcus aureus isolated.
09/16/24 05:32 Urine Culture - Final
Urine
10/01/24 CT a/p: Right upper quadrant percutaneous drain with tip terminating adjacent to the gallbladder fossa/tip of the appendix with significantly reduced size of the associated collection, now near completely resolved. There is persistent mild
dilation of the appendix, possibly related to appendicitis. Stable appearance of the percutaneous cholecystostomy tube. Small bilateral pleural effusions with adjacent atelectasis, similar to prior. Colonic diverticulosis. Mild colonic stool burden.
09/24/24 CT a/p: Extraluminal gas and fluid collection within the right upper quadrant measuring 5.4 x 4.3 cm which appears to be contiguous within the appendix inferiorly, suspicious for perforated appendicitis. Interval insertion of percutaneous
transperitoneal: Suspect tube which appears well positioned with decompression of the gallbladder.
09/16/24 CT a/p: Likely small gallbladder stones with some gallbladder wall thickening and some right upper quadrant likely pericholecystic stranding. FINDINGS COULD REPRESENT ACUTE CHOLECYSTITIS. Suggest Abdominal Ultrasound for more complete
evaluation. Moderate bilateral perinephric stranding. No gross findings to suggest obstructive uropathy bilaterally.
09/16/24 ABD US: Cholelithiasis with at least one gallstone is seen in the vicinity of the gallbladder neck as well as some gallbladder wall thickening. No findings to suggest pericholecystic fluid or biliary tract dilatation. Negative sonographic
Norwood's sign. If there is a clinical suspicion for acute cholecystitis, suggest Nuclear Hepatobiliary scan.
Care Review
Plan reviewed with: Physician (Dr. Pacheco)
[2024-10-01 15:35] VITALS: BP 158/81
[2024-10-01] MEDS: XARELTO 15 MG PO (17:03)
[2024-10-01] MEDS: ROCEPHIN 2000 MG IV (20:52)
[2024-10-01] MEDS: STERILE WATER FOR INJECTION 20 ML IV (20:52)
[2024-10-01 22:59] VITALS: BP 154/74
[2024-10-02 07:54] VITALS: BP 167/88
--- NOTE | 2024-10-02 08:00 | W.PN.GS2 ---
Today's Communication / Plan
-
continue the antibiotics as ID recommended
Assessment / Plan
-
Patient is a 74 yo F with a PMH of HLD, aortic stenosis s/p TAVR, A-fib (on Xarelto), CVA, CKD stage IV, and s/p multiple orthopedic procedures presented with severe acute on chronic Cholecystitis managed with IR cholecystostomy tube on day 14
(09/18/24)
#Sepsis due to Acute calculus Cholecystitis:
Tmax- 98.5
WBC count= 13.6 (h)-->11.6 (h)
AST, ALT in normal range.
Blood culture- Gram stain of anaerobic - gram negative bacilli. 09/22/24: blood culture- bacteremia with clostridium cadaverous with resolved sepsis.
cholecystomy tube fluid culture- negative.
Hb=8.6, Bilirubin mild elevation due to cholecystitis.
09/25/24 15:46 Abscess Wound Culture - Preliminary
Escherichia coli
Klebsiella pneumoniae
Enterococcus species
CT Scan abdomen 10/01: Right upper quadrant percutaneous drain with tip terminating adjacent to the gallbladder fossa/tip of the appendix with significantly reduced size of the associated collection, now near completely resolved. There is
persistent mild dilation of the appendix, possibly related to appendicitis.
-Stable appearance of the percutaneous cholecystostomy tube.
-8/7 - perc jerilyn tube placed and capped on 09/29, again tube were reconnected on 10/01 (due to elevated WBC count)
-Continue the diet
- currently on Zosyn, Rocephin/Flagyl/Linezolid. As per ID, at time of discharge, d/c on Augmentin/Linezolid x 14 days.
- follow up recommended in an OPD while on discharge.
Subjective Data
-
Date of Service: October 02, 2024
Overnight patient has no concern for abdominal pain, nausea, vomiting, fever, chills, dyspnea.
Objective Data
-
Intake and Output
10/01/24 10/02/24 10/03/24
06:59 06:59 06:59
Intake Total 1560 / 1560 1260 / 1260
Output Total 320 / 320
Balance 1560 / 1560 940 / 940
Intake:
Oral fluids 1560 / 1560 1260 / 1260
Output:
Drain Output (Total) 320 / 320
Right Abdomen Biliary Placed in 310 / 310
IR
Right Upper Abdomen Andrea-
Rainey B Placed in IR
Other:
How many times incontinent 2
MODERATE amount urine
How many times incontinent 3 3
SATURATED amount urine
Vital Signs
Temp Pulse Resp BP Pulse Ox
97.9 F 81 14 167/88 97
10/02/24 07:54 10/02/24 07:54 10/02/24 07:54 10/02/24 07:54 10/02/24 07:54
Calcium 9.3 mg/dl (8.4-10.2) 10/01/24 07:59
Magnesium Cancelled 09/29/24 06:00
Total Bilirubin 0.4 mg/dl (0.2-1.3) 10/01/24 07:59
Direct Bilirubin 0.5 mg/dl (0.0-0.4) H 09/24/24 06:18
AST 20 U/L (14-36) 10/01/24 07:59
ALT < 10 U/L (0-35) 10/01/24 07:59
Alkaline Phosphatase 134 U/L (38-126) H 10/01/24 07:59
Total Protein 6.2 g/dl (6.3-8.2) L 10/01/24 07:59
Albumin 3.2 g/dl (3.5-5.0) L 10/01/24 07:59
Physical Exam
-
Gen: NAD, Awake and alert
Neck: supple.
CV: irreg/irreg, +S1/S2, no m/r/g.
Resp: CTAB anteriorly, no rales, wheezes, or rhonchi.
Abd: +BS, soft, NT, drainage, mild distention, cholecystostomy tube drain placed.
HECTOR abscess drain with purulent material
Neuro: CN 2-12 intact, non-focal.
Psych: Normal mood and affect
Patient has a gutierrez catheter: No
Patient has a central line: No
[2024-10-02] MEDS: VITAMIN B1 100 MG PO (08:05)
[2024-10-02] MEDS: ZYVOX 600 MG PO (08:05)
[2024-10-02] MEDS: TOPROL XL 100 MG PO (08:05)
[2024-10-02] MEDS: FLAGYL 500 MG PO (08:05)
[2024-10-02] MEDS: REFRESH EYE DROPS (PF) 1 DROPS BOTH EYES (08:06)
[2024-10-02] MEDS: PACERONE 100 MG PO (08:06)
[2024-10-02] MEDS: MIRALAX PO (08:06)
[2024-10-02] MEDS: REFRESH CELLUVISC GEL 1 DROPS OPHTH (08:06)
[2024-10-02] MEDS: COLACE PO (08:06)
--- NOTE | 2024-10-02 08:10 | W.PN.UPDATE ---
Update Note
Progress Note Update
I saw and evaluated the patient. I reviewed the resident�s note and agree with findings and plan as documented in the resident�s note.
No new complaints. Denies abd pain.
Gen: NAD, Awake and alert
Eyes: EOMI, PERRLA, no scleral icterus.
Neck: supple.
CV: irreg/irreg, +S1/S2, no m/r/g.
Resp: CTAB anteriorly, no rales, wheezes, or rhonchi.
Abd: +BS, soft, NT, ND
Skin: No rashes.
Neuro: CN 2-12 intact, non-focal.
Psych: Normal mood and affect.
09/25/24 15:46 Abscess Wound Culture - Final
Escherichia coli
Klebsiella pneumoniae
Enterococcus faecium - VRE
09/25/24 15:46 Abscess Gram Stain - Final
09/16/24 07:12 Blood/Venous Blood Culture - Final
Clostridium cadaveris
09/16/24 07:12 Blood/Venous Gram Stain - Final
09/17/24 10:17 Blood/Venous Blood Culture - Final
No Growth - Final Report
09/17/24 09:25 Blood/Venous Blood Culture - Final
No Growth - Final Report
09/18/24 08:10 Bile Body Fluid Culture - Final
No Growth After 72 Hours
09/18/24 08:10 Bile Gram Stain - Final
09/17/24 00:37 Nose MRSA Screen - Final
No Methicillin Resistant Staphylococcus aureus isolated.
09/16/24 05:32 Urine Urine Culture - Final
CT A/P 09/16/24: Cardiomegaly. Small pericardial effusion again seen. Heart incompletely included on this study. Likely small gallbladder stones with some gallbladder wall thickening and some right upper quadrant likely pericholecystic stranding.
FINDINGS COULD REPRESENT ACUTE CHOLECYSTITIS. Suggest Abdominal Ultrasound for more complete evaluation. Limited evaluation of intestinal tract without oral or intravenous contrast with some stranding about the hepatic flexure of the colon likely
from the gallbladder, less likely intrinsic inflammation. Moderate bilateral perinephric stranding. No gross findings to suggest obstructive uropathy bilaterally. Descending colon and sigmoid diverticulosis. Moderate volume widespread colonic stool.
No intestinal obstruction or free air.
Abd U/S 09/16/24: Cholelithiasis with at least one gallstone is seen in the vicinity of the gallbladder neck as well as some gallbladder wall thickening. No findings to suggest pericholecystic fluid or biliary tract dilatation. Negative sonographic
Norwood's sign. If there is a clinical suspicion for acute cholecystitis, suggest Nuclear Hepatobiliary scan.
CT A/P 09/24/24: Extraluminal gas and fluid collection within the right upper quadrant measuring 5.4 x 4.3 cm which appears to be contiguous within the appendix inferiorly, suspicious for perforated appendicitis. Interval insertion of percutaneous
transperitoneal: Suspect tube which appears well positioned with decompression of the gallbladder. Small bilateral pleural effusions with adjacent compressive atelectasis within both lower lobes.
CT A/P 10/01/24: Right upper quadrant percutaneous drain with tip terminating adjacent to the gallbladder fossa/tip of the appendix with significantly reduced size of the associated collection, now near completely resolved. There is persistent mild
dilation of the appendix, possibly related to appendicitis. Stable appearance of the percutaneous cholecystostomy tube. Small bilateral pleural effusions with adjacent atelectasis, similar to prior. Colonic diverticulosis. Mild colonic stool burden.
Sepsis due to acute calculus cholecystitis followed by perforated appendix:
-s/p perc jerilyn 09/18/24
-s/p HECTOR drain 09/25/24
-Cx data above
-was on Zosyn, then transitioned to Augmentin (completed 09/25/24), then back on Zosyn. On 09/29/24 Pt received IV Dapto. Currently on Rocephin/Flagyl/Linezolid. As per ID, at time of discharge, d/c on Augmentin/Linezolid x 14 days.
-leukocytosis initially resolved, then worsened, now improved
-Repeat CT A/P above, perc jerilyn drain will be placed back to drainage on 10/01/24
Persistent atrial fibrillation with RVR:
-cont amio/Xarelto/Toprol XL
-rates improved
-was seen by cards
TRACIE on CKD4:
-with non-AG met acidosis, now resolved s/p IVFs with NaHCO3
-renal following
-suspect that baseline Cr around 2.6
Chronic anemia:
-Fe studies suggest Fe def anemia (elevated ferritin likely an acute phase reactant)
-trend Hb, transfuse for Hb < 7
Other problems:
CAD: cont BB
s/p TAVR 2018
h/o CVA
h/o SIADH
Chronic ambulatory dysfunction
h/o DVT: cont Xarelto
Former tobacco abuse d/o
DNR/Xarelto
Medically cleared for d/c, case management aware.
Total time spent on d/c = 31 min. This included today's physical exam, progress note, review of laboratory and diagnostic data, preparation of discharge documents and prescriptions, and discussions about the pt's hospital course and discharge plan
with the patient and other medical device sales representative involved in the patient's care.
[2024-10-02 08:15] LABS: Hematocrit 29.6 % (37.0-47.0); Hemoglobin 9.2 g/dL (12.0-16.0); Mean Corp Hgb Conc. 31.1 g/dL (33.0-37.0); Mean Corpuscular Volume 91.9 fL (81.0-99.0); Nucleated Red Blood Cells % 0 %; Platelet Count 436 10^3/uL (130-400); Red Cell Dist. Width 13.3 % (11.5-14.5)
[2024-10-02 08:53] LABS: ALT (SGPT) < 10 U/L (0-35); AST (SGOT) 18 U/L (14-36); Albumin 3.3 g/dl (3.5-5.0); Alkaline Phosphatase 123 U/L (38-126); Blood Urea Nitrogen 20 mg/dl (7-17); Calcium 9.6 mg/dl (8.4-10.2); Carbon Dioxide 19 mmol/L (22-30); Chloride 108 mmol/L (98-107); Estimated Creatinine Clearance 18 ml/min; Glucose 91 mg/dl (70-99); Potassium 4.5 mmol/L (3.5-5.1); Sodium 137 mmol/L (135-145); Total Protein 6.4 g/dl (6.3-8.2); eGFR 20.68
--- NOTE | 2024-10-02 09:36 | W.PN.ID1 ---
Addendum entered and electronically signed by Tri Yarbrough MD 10/02/24 10:41:
CORRECTION:
- At time of discharge, transition to Augmentin 500mg po bid and linezolid 600mg po bid through 10/09/24 (NOT 11/09/24 as stated below)
- Hold buspirone (OK per hospitalist) while on linezolid. Resume buspirone 24h after dc linezolid on 10/11/24 (NOT 11/11/24 as stated below).
d/w Dr. Byers
Original Note:
Date of Service
Date of Service: October 02, 2024
Today's Communication
At time of discharge, transition to Augmentin 500mg po bid and linezolid 600mg po bid through 11/09/24
Hold buspirone (OK per hospitalist) while on linezolid. Resume buspirone 24h after dc linezolid on 11/11/24.
Avoid tyramine-rich food products while on Linezolid.
Assessment / Plan
# Perforated appendicitis
# Leukocytosis - improving, after perc jerilyn uncapped
- 09/25/24 s/p IR perc drain placement (+ feculent/purulent output)
- Cx VRE, E. coli, Klebsiella
- 10/[address]; almost complete resolution of right abd fluid collection with persistent mild dilation of appendix.
- Unclear etiology of leukocytosis.
Surgery uncapped perc jerilyn tube today.
Unlikely C. diff. Had 1 episode of diarrhea this am due to oral contrast.
WBC may be plateauing. Continue to trend wbc.
- s/p 5d Zosyn
- Continue ceftriaxone, po metronidazole (d7 appropriate abx)
- Continue linezolid 600mg po bid (d4) .
- At time of discharge, transition to Augmentin 500mg po bid and linezolid 600mg po bid through 11/09/24
Hold buspirone (OK per hospitalist) while on linezolid. Resume buspirone 24h after dc linezolid on 11/11/24.
Avoid tyramine-rich food products while on Linezolid.
# Recent acute gallstone cholecystitis
# Clostridium cadaveris bacteremia
- 09/18 s/p IR perc jerilyn. Gram stain: GPC chains, Cx neg
- completed Augmentin through 09/25/24
# Conditions prior to admission.
CVA
Paroxysmal atrial fibrillation
Aortic stenosis s/p TAVR
CAD
History of DVT
CKD4
PAD
Memory impairment
B TKR
Chief Complaint
-: Other (Abd pain)
Subjective / Review of Systems
No complants today.
Vital Signs / Physical Exam
Vital Signs
Vital Signs
Temp Pulse Resp BP Pulse Ox
97.9 F 81 14 167/88 97
10/02/24 07:54 10/02/24 07:54 10/02/24 07:54 10/02/24 07:54 10/02/24 07:54
Physical Exam
Constitutional: No Acute Distress and Comfortable
Cardiovascular: Regular Rate and S1/S2
Pulmonary: Clear
Gastrointestinal: Soft, Non Tender, Non Distended and Other (HECTOR drain smal amount of pus. Perc jerilyn - bile )
Neurological: AO x 3
Objective Data
Lab Data
Lab Results
10/02/24 07:53
10/02/24 07:53
PT 23.1 Sec (11.4-14.6) H 09/17/24 10:17
INR 2.00 09/17/24 10:17
APTT 33.7 Sec (23.4-35.0) 09/18/24 00:05
Estimated Creat Clear 18 ml/min 10/02/24 07:53
Lactic Acid 0.7 mmol/L (0.7-2.0) 09/17/24 18:14
Total Bilirubin 0.4 mg/dl (0.2-1.3) 10/02/24 07:53
AST 18 U/L (14-36) 10/02/24 07:53
ALT < 10 U/L (0-35) 10/02/24 07:53
Alkaline Phosphatase 123 U/L (38-126) 10/02/24 07:53
Most recent labs reviewed.
Micro Results:
09/25/24 15:46 Wound Culture - Final
Abscess Escherichia coli
Klebsiella pneumoniae
Enterococcus faecium - VRE
Gram Stain - Final
09/16/24 07:12 Blood Culture - Final
Blood/Venous Clostridium cadaveris
Gram Stain - Final
09/17/24 10:17 Blood Culture - Final
Blood/Venous No Growth - Final Report
09/17/24 09:25 Blood Culture - Final
Blood/Venous No Growth - Final Report
09/18/24 08:10 Body Fluid Culture - Final
Bile No Growth After 72 Hours
Gram Stain - Final
09/17/24 00:37 MRSA Screen - Final
Nose No Methicillin Resistant Staphylococcus aureus isolated.
09/16/24 05:32 Urine Culture - Final
Urine
10/01/24 CT a/p: Right upper quadrant percutaneous drain with tip terminating adjacent to the gallbladder fossa/tip of the appendix with significantly reduced size of the associated collection, now near completely resolved. There is persistent mild
dilation of the appendix, possibly related to appendicitis. Stable appearance of the percutaneous cholecystostomy tube. Small bilateral pleural effusions with adjacent atelectasis, similar to prior. Colonic diverticulosis. Mild colonic stool burden.
09/24/24 CT a/p: Extraluminal gas and fluid collection within the right upper quadrant measuring 5.4 x 4.3 cm which appears to be contiguous within the appendix inferiorly, suspicious for perforated appendicitis. Interval insertion of percutaneous
transperitoneal: Suspect tube which appears well positioned with decompression of the gallbladder.
09/16/24 CT a/p: Likely small gallbladder stones with some gallbladder wall thickening and some right upper quadrant likely pericholecystic stranding. FINDINGS COULD REPRESENT ACUTE CHOLECYSTITIS. Suggest Abdominal Ultrasound for more complete
evaluation. Moderate bilateral perinephric stranding. No gross findings to suggest obstructive uropathy bilaterally.
09/16/24 ABD US: Cholelithiasis with at least one gallstone is seen in the vicinity of the gallbladder neck as well as some gallbladder wall thickening. No findings to suggest pericholecystic fluid or biliary tract dilatation. Negative sonographic
Norwood's sign. If there is a clinical suspicion for acute cholecystitis, suggest Nuclear Hepatobiliary scan.
Care Review
Plan reviewed with: Physician (Dr. Byers)
--- NOTE | 2024-10-02 09:55 | CM ---
Per physician resident, patient will d/c today. Patient is a LTC resident at [facility]
Updated [facility] admissions. Sent updated clinicals in [facility].
W/c van transport form given to to arrange
Updated patient bedside, agreeable to d/c. IMM verbally reviewed, copy provided, copy on chart
[facility]
Report: [phone]

Plan: Return to [facility] LTC today
--- NOTE | 2024-10-02 09:56 | W.PN.HOSP.TC ---
Today's Communication/Plan
-
She is medically stable for discharge. WBC is 11.6.
All follow-up and drain care is in discharge instructions.
Per ID, she needs to take Augmentin 875 mg twice daily and linezolid 600 mg twice daily through 10/09. She cannot take BuSpar during this time.
Assessment / Plan
Assessment / Plan
74-year-old female with a past medical history of hyperlipidemia, aortic stenosis status post TAVR 2018, A-fib on Xarelto, CVA, CKD stage IV, iron deficiency anemia who presented from [facility] to the ER on 09/16/2024 with sepsis criteria
positive and severe abdominal pain most pronounced in the right lower quadrant.� CT of the abdomen pelvis with abdominal ultrasound showed a 1 gallstone in the gallbladder neck with gallbladder wall thickening.� She was started on IV Zosyn which was
then transition to Augmentin p.o. to be continued through 09/25/2024.� Surgery and IR were consulted for further management.� She is status post cholecystectomy tube to be continued through 09/18/2024.� Cardiology is also following because of her A-fib
with RVR, Toprol-XL increased to 50 Mg twice daily, anticoagulated with her home dose of Xarelto, cardiology has signed off.� Surgery advised to hold laxatives make patient n.p.o. except sips of clears until postoperation nausea with constipation
has improved, continue percutaneous cholecystotomy drain was [address] for 6 to 8 weeks with an outpatient follow-up with surgery. On 09/24/2024, her WBC continued to trend upwards, not suspicious for reactive leukocytosis given
timeframe, and she worsened tenderness to palpation in the right lower quadrant. A CT A/P was ordered which showed: Extraluminal gas and fluid collection within the right upper quadrant measuring 5.4 x 4.3 cm which was contiguous within the
appendix inferiorly, suspicious for perforated appendicitis. Surgery and IR discussed, her Xarelto was held, she was made n.p.o., and IR completed a tube study followed by SP drain placement on 09/25/2024. Her WBC was downtrending s/p HECTOR drain
however on 09/29/2024, her cholecystostomy tube was clamped by surgery and in subsequent days her WBC started to uptrend (some labs missed as patient refusing labs intermittently). We had planned to discharge her on 09/30/2024, however ISO uptrending
WBC and conversation with consultants, we held the discharge. A repeat CT A/P without contrast was completed on 10/01/[address] Pacheco who felt that the gallbladder was still inflamed and infectious. Her cholecystostomy tube was
attached back to drainage and ID was updated for further recs. Of note, her brother Janusz is her POA. His number in the chart and as follows: [phone].
#Sepsis (resolved) 03/16 to acute cholecystitis s/p perc cholecystostomy tube 09/18/2024 and perforated appendix s/p HECTOR drain placement 09/25/2024 with IR
10/01/2024 her WBC was 13.6 back 13.2. A repeat CT A/P without contrast was reviewed by Dr. Pacheco (surgeon) who felt that her gallbladder was still very inflamed and needed continued drainage. As such, her cholecystostomy tube was unclamped
(clamped by surgery on 09/29) and attached back to drainage on 10/01.
10/02 WBC is 11.6, she is cleared medically for discharge.
General Surgery, IR, and ID following
--Follow-up with general surgery 4 to 6 weeks outpatient for cholecystectomy
---Further instructions for drain care in discharge orders
--S/p IV Zosyn
--S/p Augmentin 875 mg p.o. BID through 09/25/2024
--DC IV Zosyn (renally adjusted) at time of discharge
--Contact isolation
--S/p daptomycin 500 mg IV x 1 09/29/2024
--Continue linezolid 600 mg p.o. twice daily 09/30/2024
Per ID:
---At the time of discharge, transition to Augmentin 875 mg p.o. twice daily plus linezolid 600 mg p.o. twice daily through 10/09
---Avoid tyramine rich food products while on linezolid
---Resume BuSpar 24 hours after discontinuing linezolid
--Follow-up fluid collection culture: VRE, E. coli, Klebsiella
-Initial blood cultures positive for Clostridium cadaveris, however other 2 micro blood specimens have been negative
-Pain control s/p Dilaudid, since 09/28/2024 on tramadol HCl 50 mg p.o. every 12 hours as needed
--DC'd tramadol per ID
#Leukocytosis, downtrending
WBC 11.6 back 13.6 back 13.2, afebrile, HDS. S/p new right lower quadrant pain on 09/24/2024. Prior to this she was asymptomatic and her leukocytosis was thought to be reactive. However, given that her tube placement was over a week ago, her
uptrending leukocytosis is not reactive and required further workup as above, revealing perforated appendicitis. IR and general surgery to manage underlying infection with drains.
-CTM, continue antibiotics, follow-up cultures, touch base with ID again as needed
#TRACIE on CKD 4, resolved
Non-anion gap metabolic acidosis. Resolved s/p maintenance IV fluids.
- She is back to her baseline creatinine of 2- 2.2. CTM.
#Chronic normocytic anemia
Hemoglobin stable. Iron is 24, TIBC is 193, ferritin is 788 (acute phase reactant).
-Consider iron supplementation on discharge
-CTM hemoglobin
#Persistent atrial fibrillation
Continues to be a little bit tachycardic, however asymptomatic. Cards consulted 09/21/2024, rec to continue current medications.
-Continue amiodarone 100 Mg for rate control, Toprol XL added this admission, anticoagulation with home dose Xarelto 15 Mg
#Aortic stenosis s/p TAVR 2018
-Patient follows Dr. Meredith who is main outpatient fiscal economist.
#Anxiety
- DC buspirone milligrams p.o. twice daily per ID: Resume 24 hours after linezolid course
Resolved issues:
Concern for aspiration---speech consulted, recommended low-fat/thin liquids with full supervision, assist as needed, pills 1 at a time. Rec VSE if continued concern for aspiration.
Postop abdominal pain with constipation---AXR 09/20 showed nonobstructive intestinal bowel gas pattern, her pain resolved after her large BM on 09/22. Continue bowel regimen.
Agitation secondary to delirium---had 1 episode of being confused, screaming, and trying to hit nurse on 09/21. She needed restraints briefly. This was a one-time event and subsided with 1 dose of Ativan.
DVT prophylaxis: Xarelto
CODE STATUS: DNR
POA: Janusz (brother),
Anticipated Discharge: Today
Subjective/Interval History
-
Date of Service: October 02, 2024
-This morning, she is so happy in bed as she already knows that she is going home. She has no complaints no new symptoms.
Objective Data
-
Labs:
Laboratory Results
10/02/24
07:53
WBC 11.6 H
Hgb 9.2 L
Hct 29.6 L
Plt Count 436 H
Sodium 137
Potassium 4.5
Chloride 108 H
Carbon Dioxide 19 L
BUN 20 H
Creatinine 2.4 H
Glucose 91
Calcium 9.6
Total Bilirubin 0.4
AST 18
ALT < 10
Alkaline Phosphatase 123
Vital Signs:
Vital Signs
Temp Pulse Resp BP Pulse Ox
97.9 F 81 14 167/88 97
10/02/24 07:54 10/02/24 07:54 10/02/24 07:54 10/02/24 07:54 10/02/24 07:54
I&O
08/10/02/24 10/03/24
06:59 06:59 06:59
Intake Total 1560 / 1560 1260 / 1260
Output Total 320 / 320
Balance 1560 / 1560 940 / 940
Review of Systems
-
History Source: Patient
All other systems: Reviewed and negative
Abdomen/GI: Reports Other (Cholecystostomy tube and HECTOR drain in place)
Physical Exam
-
General: Well Developed, Well Nourished, No Apparent Distress, Comfortable, Conversant and Appears Chronically Ill
HEENT: Normocephalic, Atraumatic and Moist Mucous Membranes
Respiratory: Clear to Auscultation and Non Labored Respirations
Cardiac: S1/S2 and Irregular Rhythm (Known A-fib)
GI: Soft, Nontender, Nondistended and Other (HECTOR drain and cholecystostomy tube in place)
Musculoskeletal: No Clubbing
Skin: Warm and Dry
Neuro: AO x 3
Psych: Calm
--- NOTE | 2024-10-02 10:23 | W.PN.NEPH.PH ---
Today's Communication / Plan
-
Stable for discharge from nephrology standpoint
Creatinine stable at baseline
Assessment/Plan
-
Assessment:
Sepsis secondary to acalculous cholecystitis
TRACIE -CKD 4 (low 2 range)
Non gap, gap Metabolic acidosis
Afib with RVR
History TAVR
Anemia
History CVA
Anxiety
Constipation
Plan:
Creatinine stable at 2.4/baseline
Stable for discharge from nephrology standpoint
Status post abd drain-new appendicitis with perf and collection on CT 09/24
Maintains on renally dosed ceftriaxone and Flagyl and Zyvox
Continue supportive care
-
-
Date of Service: October 02, 2024
CC / HPI / ROS
-
Chief Complaint:
TRACIE, CKD, met acidosis
History of Present Illness:
cr higher at 2.4
Bp labile
no fever
Review of Systems:
improving RLQ pain
no cp or sob
Stable weight
Labs
-
Labs:
WBC 11.6 10^3/uL (4.8-10.8) H 10/02/24 07:53
RBC 3.22 10^6/uL (4.20-5.40) L 10/02/24 07:53
Hgb 9.2 g/dL (12.0-16.0) L 10/02/24 07:53
Hct 29.6 % (37.0-47.0) L 10/02/24 07:53
Plt Count 436 10^3/uL (130-400) H 10/02/24 07:53
Sodium 137 mmol/L (135-145) 10/02/24 07:53
Potassium 4.5 mmol/L (3.5-5.1) 10/02/24 07:53
Chloride 108 mmol/L (98-107) H 10/02/24 07:53
Carbon Dioxide 19 mmol/L (22-30) L 10/02/24 07:53
BUN 20 mg/dl (7-17) H 10/02/24 07:53
Creatinine 2.4 mg/dL (0.6-1.0) H 10/02/24 07:53
eGFR 20.68 10/02/24 07:53
Glucose 91 mg/dl (70-99) 10/02/24 07:53
Calcium 9.6 mg/dl (8.4-10.2) 10/02/24 07:53
Jgl-F-Seppyieoxuj Pept > 01118 pg/ml 09/26/24 02:02
Albumin 3.3 g/dl (3.5-5.0) L 10/02/24 07:53
Physical Exam
-
Vital Signs:
Vital Signs
Temp Pulse Resp BP Pulse Ox
97.9 F 81 14 167/88 97
10/02/24 07:54 10/02/24 07:54 10/02/24 07:54 10/02/24 07:54 10/02/24 07:54
Cardiovascular:: Regular rate and rhythm (tachy)
Respiratory:: Bilateral: CTA
Lung Excursion:: Normal
Abdomen:: Soft and Tender (mild TTP RLQ)
Bowel Sounds:: Normal
Extremity Edema:: None: Bilateral:
Fournier Catheter: No
[2024-10-02 12:36] VITALS: BP 145/79
--- NOTE | 2024-10-02 12:51 | W.DCSUMMARY ---
Discharge Summary
Discharge Data
Date of Admission: 09/16/24
Date of Discharge: 10/02/24
-
Pending Results: No
Hospital Course
Discharging Physician : Solitario Byres MD/BABITA
Disposition : LTC facility
Principal Discharge diagnosis : Acute Calculous Cholecystitis s/p perc mary tube & Perforated Appendix s/p HECTOR drain
Hospital Course :
Kori is a 74-year-old female with a past medical history of hyperlipidemia, aortic stenosis status post TAVR 2018, A-fib on Xarelto, CVA, CKD stage IV, iron deficiency anemia who presented from [facility] to the ER on 09/16/2024 with sepsis
criteria positive and severe abdominal pain most pronounced in the right lower quadrant.�
CT of the abdomen pelvis with abdominal ultrasound showed a 1 gallstone in the gallbladder neck with gallbladder wall thickening.� Surgery, IR, and ID were consulted for further management.� Surgery and IR felt that her acute cholecystitis would be
best managed acutely via a cholecystectomy tube, which she got on 09/18/2024 with slow symptom relief.
On 09/24/2024, her WBC continued to trend upwards, not suspicious for reactive leukocytosis given timeframe, and she had new, worsening tenderness to palpation in the right lower quadrant. A CT A/P was ordered which showed: Extraluminal gas and
fluid collection within the right upper quadrant measuring 5.4 x 4.3 cm which was contiguous within the appendix inferiorly, suspicious for perforated appendicitis. Surgery and IR discussed, her Xarelto was held, she was made n.p.o., and IR
completed a tube study followed by SP drain placement on 09/25/2024.
Her WBC was downtrending s/p HECTOR drain however on 09/29/2024, her cholecystostomy tube was clamped by surgery and in subsequent days her WBC started to uptrend (some labs missed as patient refusing labs intermittently). We had planned to discharge
her on 09/30/2024, however ISO uptrending WBC and conversation with consultants, we held the discharge. A repeat CT A/P without contrast was completed on 10/01/[address] Pacheco who felt that the gallbladder was still inflamed and
infectious. Her cholecystostomy tube was attached back to drainage and ID was updated for further recs. The following day 10/02/24, her WBC downtrended and she felt better symptomatically. She was deemed medically stable for discharge back to [facility]
with scheduled follow-up with surgery. She was discharged on Augmentin 875mg BID and Linezolid 600mg BID through 10/09/24 with instructions to stop Buspar during this time and not resume until 24hours after last dose of Linezolid.
Throughout hospital course, ID managed her antibiotics as detailed below. Cardiology was also consulted because of her A-fib with RVR and her Toprol-XL increased to 50 Mg twice daily. There was intermittent concern for aspiration; SP
followed/evaluated multiple times and recommended reg diet/thin liquids with supervision and assist as needed. Larger medications should be cut in half and given one at a time or crushed in applesauce.�
Her brother (RUBA) was updated as needed.
Her hospital course by problem is as below:
1. Sepsis (resolved) 2/2 to acute cholecystitis s/p perc cholecystostomy tube 09/18/2024 and perforated appendix s/p HECTOR drain placement 09/25/2024 with IR
General Surgery, IR, and ID following
--Follow-up with general surgery 4 to 6 weeks outpatient for cholecystectomy
--Further instructions for drain care in discharge orders
--S/p IV Zosyn
--S/p Augmentin 875 mg p.o. BID through 09/25/2024
--DC IV Zosyn (renally adjusted) at time of discharge
--Contact isolation
--S/p daptomycin 500 mg IV x 1 09/29/2024
--Continue linezolid 600 mg p.o. twice daily 09/30/2024
Per ID:
---At the time of discharge, transition to Augmentin 875 mg p.o. twice daily plus linezolid 600 mg p.o. twice daily through 10/09
---Avoid tyramine rich food products while on linezolid
---Resume BuSpar 24 hours after discontinuing linezolid
--Follow-up fluid collection culture: VRE, E. coli, Klebsiella
-Initial blood cultures positive for Clostridium cadaveris, however other 2 micro blood specimens have been negative
-Pain control s/p Dilaudid, since 09/28/2024 on tramadol HCl 50 mg p.o. every 12 hours as needed
--DC'd tramadol per ID
2. Leukocytosis
WBC 11.6 (10/02) back 13.6 back 13.2, afebrile, HDS. S/p new right lower quadrant pain on 09/24/2024. Prior to this she was asymptomatic and her leukocytosis was thought to be reactive. However, given that her tube placement was over a week ago,
her uptrending leukocytosis is not reactive and required further workup as above, revealing perforated appendicitis. IR and general surgery to manage underlying infection with drains.
-CTM, continue antibiotics, follow-up cultures, touch base with ID again as needed
3. Chronic normocytic anemia
Hemoglobin stable. Iron is 24, TIBC is 193, ferritin is 788 (acute phase reactant).
-Consider iron supplementation on discharge
-CTM hemoglobin
4. Persistent atrial fibrillation
Continues to be a little bit tachycardic, however asymptomatic. Cards consulted 09/21/2024, rec to continue current medications.
-Continue amiodarone 100 Mg for rate control, Toprol XL added this admission, anticoagulation with home dose Xarelto 15 Mg
5. Aortic stenosis s/p TAVR 2018
-Patient follows Dr. Meredith who is main outpatient business affairs manager.
6. Anxiety
- DC buspirone milligrams p.o. twice daily per ID: Resume 24 hours after linezolid course
Resolved issues:
Concern for aspiration---speech consulted, recommended low-fat/thin liquids with full supervision, assist as needed, pills 1 at a time. Rec VSE if continued concern for aspiration.
Postop abdominal pain with constipation---AXR 09/20 showed nonobstructive intestinal bowel gas pattern, her pain resolved after her large BM on 09/22. Continue bowel regimen.
Agitation secondary to delirium---had 1 episode of being confused, screaming, and trying to hit nurse on 09/21. She needed restraints briefly. This was a one-time event and subsided with 1 dose of Ativan.
TRACIE on CKD4---Non-anion gap metabolic acidosis. Resolved s/p maintenance IV fluids. She is back to her baseline creatinine of 2- 2.2. CTM.
Important imaging findings :
09/16 CT A/P:
Cardiomegaly. Small pericardial effusion again seen. Heart incompletely included on this study.
Likely small gallbladder stones with some gallbladder wall thickening and some right upper quadrant likely pericholecystic stranding. FINDINGS COULD REPRESENT ACUTE CHOLECYSTITIS. Suggest Abdominal Ultrasound for more complete evaluation.
Limited evaluation of intestinal tract without oral or intravenous contrast with some stranding about the hepatic flexure of the colon likely from the gallbladder, less likely intrinsic inflammation.
Moderate bilateral perinephric stranding. No gross findings to suggest obstructive uropathy bilaterally.
Descending colon and sigmoid diverticulosis. Moderate volume widespread colonic stool. No intestinal obstruction or free air.
09/16 Abd US:
Cholelithiasis with at least one gallstone is seen in the vicinity of the gallbladder neck as well as some gallbladder wall thickening. No findings to suggest pericholecystic fluid or biliary tract dilatation. Negative sonographic Norwood's sign. If
there is a clinical suspicion for acute cholecystitis, suggest Nuclear Hepatobiliary scan.
09/20 AXR:
Nonobstructive intestinal bowel gas pattern.
09/24 CT A/P:
1. Extraluminal gas and fluid collection within the right upper quadrant measuring 5.4 x 4.3 cm which appears to be contiguous within the appendix inferiorly, suspicious for perforated appendicitis.
2. Interval insertion of percutaneous transperitoneal: Suspect tube which appears well positioned with decompression of the gallbladder.
3. Small bilateral pleural effusions with adjacent compressive atelectasis within both lower lobes.
09/25 CXR:
Bibasilar opacities suggesting small bilateral pleural effusions and adjacent atelectasis.
10/01 CT A/P:
Right upper quadrant percutaneous drain with tip terminating adjacent to the gallbladder fossa/tip of the appendix with significantly reduced size of the associated collection, now near completely resolved. There is persistent mild dilation of the
appendix, possibly related to appendicitis.
Stable appearance of the percutaneous cholecystostomy tube.
Small bilateral pleural effusions with adjacent atelectasis, similar to prior.
Colonic diverticulosis. Mild colonic stool burden.
Procedure Findings:
09/18 Perc Mary Tube placement:
Successful percutaneous cholecystostomy tube placement, as above.
Catheter should remain in place for at least 4 weeks to allow for tract maturation.
09/25 Prec Cholangiogram:
Patent cholecystostomy tube with no leaks identified. Patent cystic and common bile duct.
09/25 Perc Drainage:
Successful CT guided drainage of right upper quadrant fluid collection
Discharge Plan
-
Patient Disposition: [facility]SNF
Discharge Diagnosis/Procedures: Sepsis secondary to acute calculous cholecystitis and ruptured appendix status post percutaneous cholecystostomy tube placement 09/18/2024 and HECTOR drain placement 09/25/2024, postop abdominal pain with constipation, acute
kidney injury on chronic kidney disease stage IV, chronic normocytic anemia, persistent atrial fibrillation, aortic stenosis status post TAVR 2019, anxiety with episodes of agitation
Condition: Good
Diet: As tolerated, Low Fat and Other diet
Additional Diets: Thin liquid, with full supervision as she gets confused, assist as needed, MEDS ONE AT A TIME; okay to cut big Antibiotic pills in half or crush in applesauce
Activity: No strenuous activity
Additional Activity: Avoid dislodging tubes, if they become dislodged please call your surgeon or present to the ER for evaluation
Driving Restrictions: No driving
Bathing Restrictions: OK to Shower
Blood Work: CBC with differential and CMP in 1 week
Wound Care: flush each drain daily with 10ml of sterile normal saline each. See handout for further instructions.
change dressings every three days or more often if soiled. ok to remove dressing for showering
Referrals:
Clifford Castro MD [Family Provider] - in less than 1 week
Referral Note: Follow-up regarding this hospitalization. Ms. Shrestha can restart her buspirone 5 mg 24 hours after her last dose of linezolid. This is outlined further in her discharge medicine instructions.
Wilfredo Rodriguez MD [Active, Surgical] - in two weeks
Additional Discharge Medication Instructions: Do not take buspirone 5 mg while you are on the following antibiotic medications.
Start taking amoxicillin-pot clavulanate 875 mg 1 tablet twice daily AND linezolid 600 mg 1 tablet twice daily through 10/09/2024.
- While on linezolid, avoid tyramine rich food products and do not take buspirone.
You can restart buspirone 5 mg 24 hours after discontinuing linezolid on 10/11/2024.
Prescriptions:
New
sodium chloride 0.9 % (flush) [Normal Saline Flush] Syringe
10 ml intra-catheter DAILY Qty: 60 3RF
Rx Instructions:
Flush both drains with 10 mL of NSS in each drain daily
metoprolol succinate 50 mg Tablet Extended Release 24 Hr
100 mg PO BID 30 Days Qty: 120 0RF
linezolid 600 mg tablet
600 mg PO BID Qty: 15 0RF
Rx Instructions:
Take 1 tablet twice daily through 10/09/24.
amoxicillin-pot clavulanate 875-125 mg tablet
1 tab PO BID Qty: 14 0RF
Rx Instructions:
Take 1 tablet twice daily through 10/09/24.
Continued
Lubricant Eye (PG-PEG 400) 0.4-0.3 % Drops
1 drp BOTH EYES BID
thiamine HCl (vitamin B1) 100 mg tablet
100 mg PO BID
rivaroxaban [Xarelto] 15 mg tablet
15 mg PO HS
acetaminophen [Tylenol] 325 mg Tablet
650 mg PO Q4HPRN PRN (Reason: mild pain)
loperamide 2 mg Tablet
2 mg PO Q8HPRN PRN (Reason: diarrhea)
magnesium hydroxide [Milk of Magnesia] 400 mg/5 mL Suspension
2,400 mg PO DAILYPRN PRN (Reason: if no bm after 3rd day)
bisacodyl [Dulcolax (bisacodyl)] 10 mg Suppository
10 mg LA DAILYPRN PRN (Reason: if no bm after mom)
Fleet Enema 19-7 gram/118 mL Enema
118 ml LA DAILYPRN PRN (Reason: no BM after dulcolax)
docusate sodium [Colace] 100 mg Capsule
100 mg PO DAILY
Refresh Optive 0.5-0.9 % Drops
1 drp BOTH EYES BID
amiodarone [Pacerone] 100 mg Tablet
100 mg PO DAILY 30 Days Qty: 30 0RF
Discontinued
buspirone [BuSpar] 5 mg Tablet
5 mg PO BID
Discharge Orders:
Discharge Patient (As Directed); Ordered 10/02/24
Ordered By: Ben Damon
Discharge Date and Time
Print Language: JAPANESE
== END 2024-10-02 14:25 | DRG 871 ==
LOC: 3 WEST ACU 13:52
PROVIDERS: Emergency Medicine; Nurse Practitioner; Nurse Practitioner Family; Radiology Diagnostic Radiology; Registered Nurse; Specialist; Student in an Organized Health Care Education/Training Program; Surgery; ADMITTING PHYSICIAN Hospitalist; ATTENDING PHYSICIAN Internal Medicine; CONSULT PHYSICIAN Internal Medicine Cardiovascular Disease; CONSULT PHYSICIAN Internal Medicine Infectious Disease; CONSULT PHYSICIAN Surgery; EMERGENCY PHYSICIAN Emergency Medicine; FAMILY PHYSICIAN Internal Medicine; OTHER PHYSICIAN Internal Medicine
PROC: 0F9430Z Drainage of Gallbladder with Drainage Device, Percutaneous Approach (ICD-10-PCS; 2024-09-18)
PROC: 0W9G3ZZ Drainage of Peritoneal Cavity, Percutaneous Approach (ICD-10-PCS; 2024-09-25)
DX: A41.59 Other Gram-negative sepsis (principal); K35.33 Acute appendicitis with perforation, localized peritonitis, and gangrene, with abscess; I48.19 Other persistent atrial fibrillation; N18.4 Chronic kidney disease, stage 4 (severe); N17.9 Acute kidney failure, unspecified; E22.2 Syndrome of inappropriate secretion of antidiuretic hormone; Z59.00 Homelessness unspecified; N39.0 Urinary tract infection, site not specified; E87.20 Acidosis, unspecified; K80.00 Calculus of gallbladder with acute cholecystitis without obstruction; F05 Delirium due to known physiological condition; I25.10 Atherosclerotic heart disease of native coronary artery without angina pectoris; Z66 Do not resuscitate; D63.1 Anemia in chronic kidney disease; I12.9 Hypertensive chronic kidney disease with stage 1 through stage 4 chronic kidney disease, or unspecified chronic kidney disease; D50.9 Iron deficiency anemia, unspecified; E78.00 Pure hypercholesterolemia, unspecified; I51.3 Intracardiac thrombosis, not elsewhere classified; M19.90 Unspecified osteoarthritis, unspecified site; K59.00 Constipation, unspecified; R26.2 Difficulty in walking, not elsewhere classified; F32.A Depression, unspecified; F41.9 Anxiety disorder, unspecified; Z78.1 Physical restraint status; Z79.01 Long term (current) use of anticoagulants; Z79.899 Other long term (current) drug therapy; Z86.718 Personal history of other venous thrombosis and embolism; Z86.73 Personal history of transient ischemic attack (TIA), and cerebral infarction without residual deficits; Z87.891 Personal history of nicotine dependence; Z95.3 Presence of xenogenic heart valve; Z99.3 Dependence on wheelchair
CPT/HCPCS: 47490; 47531; 49406; 71045; 74018; 74176; 76700; 80048; 80053; 81003; 81015; 82248; 82607; 82728; 83540; 83550; 83605; 83880; 85014; 85018; 85025; 85027; 85610; 85730; 86850; 86900; 86901; 87015; 87040; 87070; 87077; 87086; 87154; 87186; 87205; 92526; 92610; 93005; 94640; 96374; 96375; 97110; 97163; 97167; 97530; 99152; 99153; 99291; C1729; C1769; J0878; J7030

== ENCOUNTER 2024-10-10 11:11 | Emergency (ER) | payer OTHER, MEDICARE, SELFPAY ==
[2024-10-10 11:25] VITALS: BP 95/70
--- NOTE | 2024-10-10 13:53 | ED.GENMED ---
History of Present Illness
General
Chief Complaint: Catheter/Tube Problem
Time Seen by Provider: 10/10/24 13:52
History of Present Illness
History of Present Illness:
FOCUSED PAST MEDICAL HISTORY
- The patient has a history of mild cognitive impairment, aortic stenosis status post TAVR 1999, atrial fibrillation on Xarelto, CKD
REVIEW OF OLD RECORDS
- I reviewed records, the patient was admitted with acute calculus cholecystitis status post Aishwarya tube and perforated appendix status post HECTOR drain. She was on Zosyn then linezolid and was discharged on Augmentin. She was A-fib with rapid
ventricular response and Toprol was added and Amio was continued.
I reviewed CT imaging from 10/01/2024, the lateral tube coils near the gallbladder and the medial tube coils within the gallbladder
Note:
CHIEF COMPLAINT(S)
Issues with drainage tubes.
HISTORY OF PRESENT ILLNESS
The patient is a 74-year-old female who was seen approximately two weeks ago. She presents with ongoing issues with her drainage tubes: a cholecystostomy tube and a Andrea-Rainey (HECTOR) drain. The cholecystostomy tube was inserted first, followed by
the HECTOR drain. The patient reports confusion regarding the proper placement and maintenance of her tubes, mentioning a misplacement alleged by others, which she refutes. She states her tubing fell in the middle of the night, though she disputes this
occurrence. On examination, she has two drainage tubes from the right upper quadrant. The medial tube is draining approximately 20mL of yellow fluid, while the lateral tube appears intact but requires confirmation of the drain type and proper tubing.
ADDITIONAL HISTORY OBTAINED FROM SOURCES OTHER THAN THE PATIENT
According to the visit details, a nurse previously attempted to address the patients issues by re-establishing the tube connection when the patient initially asserted that the tubing fell out.
PHYSICAL EXAM
General: Alert, no acute distress.
Skin: Warm, dry.
Head: Normocephalic, atraumatic.
Neck: Supple, trachea midline.
Eye, Ear, nose, mouth and throat: Oral mucosa moist.
Cardiovascular: Normal peripheral perfusion, No edema.
Respiratory: Respirations are non-labored.
Gastrointestinal: Abdomen nondistended. There are 2 drainage catheters in the right upper quadrant and there has been loss of the tubing on the lateral site
Back: Normal range of motion, Normal alignment.
Musculoskeletal: Normal range of motion, normal strength.
Neurological: Alert and oriented to person, place, time, and situation, No focal neurological deficit observed.
Psychiatric: Cooperative, appropriate mood & affect.
PROBLEM LIST
- Acute: Issues with drainage tube connection and maintenance.
PLAN
1. Evaluate and ensure proper connection and function of the patients cholecystostomy tube and HECTOR drain.
2. Consult with nursing staff to confirm and secure appropriate tubing and prevent further disconnection issues.
3. Educate the patient on care and maintenance of drainage tubes to prevent future complications.
DIFFERENTIAL DIAGNOSIS
The Differential Diagnosis includes, in no particular order and is not limited to:
- Cholecystostomy tube dislodgement
- Incorrect tube placement
- Infection at insertion site
- Mechanical obstruction of drainage
- Tube malfunction
- Biliary leakage
- Fluid accumulation in the abdominal cavity
- Miscommunication regarding tube placement and maintenance
- Drainage tubing malfunction
- Patient education-related issues
SUMMARY OF ENCOUNTER
The patient, a 74-year-old female, presented with issues related to her drainage tubes, specifically a cholecystostomy tube and a Andrea-Rainey (HECTOR) drain. There was confusion regarding the placement and maintenance of these tubes, along with an
alleged misplacement. The tubes were re-examined, and a nurse had previously attempted to re-establish the connection. During this emergency department visit, new collection tubing and bag were located and reattached.
PLAN
1. Ensure proper function and secure connection of both the cholecystostomy tube and the HECTOR drain.
2. Consult with nursing staff to maintain secure tubing and prevent further disconnections.
3. Educate the patient about the care and maintenance of her drainage tubes to avoid future complications.
MANAGEMENT OF THE PATIENTS CARE WAS DISCUSSED WITH
The nursing staff was consulted to ensure the proper reattachment and management of the drainage tubes.
PATIENT EDUCATION AND COUNSELING
The patient was educated on proper care and maintenance of her drainage tubes to prevent dislodgement and to ensure ongoing functionality.
MEDICAL DECISION MAKING
-Complexity of Data Reviewed: Chronic conditions affecting care include issues with drainage tube connection and maintenance. The Differential Diagnosis includes cholecystostomy tube dislodgement, incorrect tube placement, infection at the insertion
site, mechanical obstruction, tube malfunction, biliary leakage, fluid accumulation, miscommunication regarding tube placement, malfunction of tubing, and patient education-related issues.
-Data:
Category 1
Clinical information was obtained from an independent historian as outlined in the additional history obtained from sources other than the patient, which mentioned a nurse previously attempting to address the tubing issue.
Category 3
Discussion of management with nursing staff regarding the reattachment of the tubes.
DIAGNOSIS
Complication of a cholecystostomy tube (ICD-10: T85.628A)
Past History
Past History
ED Past Medical History: Arrthythmia (Atrial fibrillation), CVA, HTN, Hypercholesterolemia, Valvular disease and Other (DVT, esophageal stricture, osteoarthritis, Colitis, C-diff, Cellulitis, Ascites,)
ED Past Surgical History: Cardiac and Orthopedic (Bilateral knee replacements, Right shoulder surgery)
Social History
Tobacco: Former smoker
Alcohol: Daily
Drug: None
Personal: Single
Living: with roommate
Employment: Employed
Family History
Family History: Other
Phy Exam
Physical Exam
Physical Exam:
See HPI
Course
Vital Signs
Initial and Last Documented VS:
Initial Vital Signs
Temp Pulse Resp BP Pulse Ox
36.4 C 70 18 95/70 98
10/10/24 11:25 10/10/24 11:25 10/10/24 11:25 10/10/24 11:25 10/10/24 11:25
Last Documented Vital Signs
Temp Pulse Resp BP Pulse Ox
36.4 C 73 15 133/73 98
10/10/24 11:25 10/10/24 15:34 10/10/24 15:34 10/10/24 15:34 10/10/24 13:58
*Pulse Oximetry
SaO2: 98
Oxygen Mode of Delivery: Room air
Patient hypoxic: no
*Critical Care Note
Total Time (30-74mins, 75-104mins- exclusive of procedures): Not Applicable
ED Attending Note
-
Portions of this chart may have been created with voice recognition software.� Occasional wrong word or��sound alike� substitutions may have occurred due to the inherent limitations of voice recognition software.
Discharge Plan
Departure
Patient Disposition: Home (Routine Discharge)
Date of Disposition: 10/10/24
Time of Disposition: 14:53
Patient with high blood pressure during this ER visit?: Yes
Discharge Problem:
Equipment malfunction
Prescriptions:
No Action
Lubricant Eye (PG-PEG 400) 0.4-0.3 % Drops
1 drp BOTH EYES BID
thiamine HCl (vitamin B1) 100 mg tablet
100 mg PO BID
rivaroxaban [Xarelto] 15 mg tablet
15 mg PO HS
acetaminophen [Tylenol] 325 mg Tablet
650 mg PO Q4HPRN PRN (Reason: mild pain)
loperamide 2 mg Tablet
2 mg PO Q8HPRN PRN (Reason: diarrhea)
magnesium hydroxide [Milk of Magnesia] 400 mg/5 mL Suspension
2,400 mg PO DAILYPRN PRN (Reason: if no bm after 3rd day)
bisacodyl [Dulcolax (bisacodyl)] 10 mg Suppository
10 mg NE DAILYPRN PRN (Reason: if no bm after mom)
Fleet Enema 19-7 gram/118 mL Enema
118 ml NE DAILYPRN PRN (Reason: no BM after dulcolax)
docusate sodium [Colace] 100 mg Capsule
100 mg PO DAILY
Refresh Optive 0.5-0.9 % Drops
1 drp BOTH EYES BID
sodium chloride 0.9 % (flush) [Normal Saline Flush] Syringe
10 ml intra-catheter DAILY Qty: 60 3RF
Rx Instructions:
Flush both drains with 10 mL of NSS in each drain daily
metoprolol succinate 50 mg Tablet Extended Release 24 Hr
100 mg PO BID 30 Days Qty: 120 0RF
amiodarone [Pacerone] 100 mg Tablet
100 mg PO DAILY 30 Days Qty: 30 0RF
Referrals:
Clifford Castro MD [Family Provider]
Activity Restrictions/Additional Instructions:
We placed a new drainage collection bag with tubing. Return here if worse or other concerns.
Interventions
Interventions:
*Risk Screen - Suicide Last Done: 10/10/24 11:25
*General Assessment Last Done: 10/10/24 11:25
*Neglect/Abuse Screening Last Done: 10/10/24 14:38
*ED- Fall Risk Assessment Last Done: 10/10/24 14:38
*ED COVID-19 Vaccine History Last Done: 10/10/24 14:38
DP-Yldbur-Jyuapkxmod Assessment Last Done: 10/10/24 14:37
ED-Female Genitourinary Assessment Last Done: 10/10/24 14:37
Discharge Date and Time
Print Language: LIBERIAN
[2024-10-10 15:34] VITALS: BP 133/73
== END 2024-10-10 17:18 | disposition home or self-care (01) ==
LOC: EMR 11:11
PROVIDERS: EMERGENCY PHYSICIAN Emergency Medicine; FAMILY PHYSICIAN Internal Medicine
DX: T85.628A Displacement of other specified internal prosthetic devices, implants and grafts, initial encounter (principal); Y83.8 Other surgical procedures as the cause of abnormal reaction of the patient, or of later complication, without mention of misadventure at the time of the procedure; Y82.8 Other medical devices associated with adverse incidents; N18.9 Chronic kidney disease, unspecified; Z79.01 Long term (current) use of anticoagulants; Z87.891 Personal history of nicotine dependence
CPT/HCPCS: 99282

== ENCOUNTER → 2024-10-29 08:21 | Outpatient (REF) | payer MEDICARE, OTHER, SELFPAY | LOC: RADI 08:21 | PROVIDERS: ATTENDING PHYSICIAN Surgery; FAMILY PHYSICIAN Internal Medicine | DX: Z46.82 Encounter for fitting and adjustment of non-vascular catheter (principal); K81.0 Acute cholecystitis | CPT/HCPCS: 49424; 76080 ==